=== PATIENT | female | born 1955 | race Two or more races ===

== ENCOUNTER 2018-01-30 14:33 | Inpatient (IN) | END 2018-09-30 23:59 | disposition still patient (30) | DRG 133 | DX: J96.11 Chronic respiratory failure with hypoxia (principal); K55.9 Vascular disorder of intestine, unspecified; E11.52 Type 2 diabetes mellitus with diabetic peripheral angiopathy with gangrene; Z93.0 Tracheostomy status; I11.0 Hypertensive heart disease with heart failure; I50.9 Heart failure, unspecified; R13.10 Dysphagia, unspecified; E87.1 Hypo-osmolality and hyponatremia; E11.41 Type 2 diabetes mellitus with diabetic mononeuropathy; I10 Essential (primary) hypertension; E11.9 Type 2 diabetes mellitus without complications; B96.1 Klebsiella pneumoniae [K. pneumoniae] as the cause of diseases classified elsewhere; N39.0 Urinary tract infection, site not specified; Z93.1 Gastrostomy status; B96.89 Other specified bacterial agents as the cause of diseases classified elsewhere; E78.5 Hyperlipidemia, unspecified; I25.2 Old myocardial infarction; E11.49 Type 2 diabetes mellitus with other diabetic neurological complication; G47.00 Insomnia, unspecified; G57.93 Unspecified mononeuropathy of bilateral lower limbs; I25.10 Atherosclerotic heart disease of native coronary artery without angina pectoris; E11.622 Type 2 diabetes mellitus with other skin ulcer; I70.201 Unspecified atherosclerosis of native arteries of extremities, right leg; I70.239 Atherosclerosis of native arteries of right leg with ulceration of unspecified site; G89.4 Chronic pain syndrome; K59.00 Constipation, unspecified; L97.919 Non-pressure chronic ulcer of unspecified part of right lower leg with unspecified severity; M21.371 Foot drop, right foot; M21.372 Foot drop, left foot; N31.9 Neuromuscular dysfunction of bladder, unspecified ==

== ENCOUNTER 2018-10-01 | Inpatient (IN) | payer MEDICAID, OTHER ==
[~2018-10-01] VITALS: Ht 154.9 cm; Wt 60.3 kg
[2018-10-02] MEDS: DAKINS HALF STRENGTH (0.25%) 480 ML BOTTLE TOP SCH (09:00)
--- NOTE | 2018-10-02 10:25 | NUR ---
Please see resident's previous account [id number] for all assessments and nurses notes. Originally admitted on 01/30/2018.
--- NOTE | 2018-10-02 10:35 | NUR ---
Please see resident's previous account [id number] for Social Service assessments, evaluations and notes. farmworker field crop met with the resident to complete intake paperwork (patient rights acknowledgement, documentation of preferred intensity of care, conditions of admission, [place] Standard Admission Agreement, and voluntary prior express consent form). farmworker field crop educated the resident on advanced healthcare directives/conservatorship. Resident is able to make decisions for her self. She declined to complete advanced healthcare directive paperwork at this time.
[2018-10-02] MEDS: ASCORBIC ACID 500 MG TABLET GT SCH (10:46)
[2018-10-02] MEDS: BUDESONIDE RESPULE INH 0.25 MG/2 ML AMPUL.NEB NEB SCH ×2 (10:53→20:05)
[2018-10-02] MEDS: METOPROLOL TARTRATE 25 MG TABLET GT SCH ×2 (10:54→21:33)
[2018-10-02] MEDS: ACIDOPHILUS/BULGARICUS 1 EACH TAB.CHEW GT SCH (10:54)
[2018-10-02] MEDS: LISINOPRIL (10MG) 10 MG TABLET GT SCH (10:57)
[2018-10-02] MEDS ORDERED: oxyCODONE/APAP (5/325 MG) 1 UDTAB TABLET GT PRN ×2 (11:00)
[2018-10-02] MEDS ORDERED: NITROGLYCERIN 0.4 MG/TAB BOTTLE SL PRN (11:00)
[2018-10-02] MEDS ORDERED: HYDROGEN PEROXIDE 480 ML BOTTLE TP PRN (11:00)
[2018-10-02] MEDS ORDERED: LOPERAMIDE HCL UDC(2 MG/10 ML) 2 MG/10 ML UDC GT PRN (11:00)
[2018-10-02] MEDS ORDERED: ONDANSETRON 4 MG TAB.RAPDIS GT PRN (11:00)
[2018-10-02] MEDS: CHLORHEXIDINE GLUCONATE 15 ML UDC MM SCH ×2 (11:04→17:43)
[2018-10-02] MEDS: MULTIVIT W/MINERALS 1 TAB TABLET PO SCH (11:07)
[2018-10-02] MEDS: CLOPIDOGREL BISULFATE 75 MG TABLET GT SCH (11:08)
[2018-10-02] MEDS: PROSOURCE / PROSTAT (PYXIS) 30 ML UDC GT SCH ×2 (11:08→17:42)
[2018-10-02] MEDS: ASPIRIN 81 MG TAB.CHEW GT SCH (11:08)
[2018-10-02] MEDS: METHADONE HCL 5 MG TABLET GT SCH ×2 (11:09→17:42)
[2018-10-02] MEDS ORDERED: ACETAMINOPHEN 650 MG/20 ML UDC- SA PATIENTS-FEVER ONLY GT PRN (11:30)
[2018-10-02] MEDS ORDERED: DEXTROSE 50%-WATER 50 ML DISP.SYRIN IV PRN (11:30)
[2018-10-02] MEDS ORDERED: CODEINE/PROMETHAZINE HCL 5 ML UDC GT PRN (11:30)
[2018-10-02 11:43] VITALS: BP 141/76
--- NOTE | 2018-10-02 12:05 | NUR ---
RT NOTE: PULMICORT TREATMENT GIVEN AT 0755. PLEASE SEE PT'S OLD ACCOUNT: [id number] FOR RESPIRATORY TREATMENT CHARTING.
[2018-10-02] MEDS: BLOOD SUGAR DIAGNOSTIC 1 EACH STRIP IN SCH ×3 (12:11→21:50)
[2018-10-02] MEDS: INSULIN REGULAR, HUMAN 100 UNIT/ML 3 ML VIAL SQ PRN ×2 (12:12→22:00)
[2018-10-02] MEDS: SIMETHICONE SUSP 40 MG/0.6 ML BOTTLE GT SCH ×3 (12:17→23:08)
[2018-10-02] MEDS: BACLOFEN (10 MG) 10 MG TABLET GT SCH ×2 (12:18→21:32)
[2018-10-02] MEDS: DOCUSATE SODIUM LIQ 100 MG/10 ML UDC GT SCH ×2 (12:18→17:13)
[2018-10-02] MEDS: LIPASE/PROTEASE/AMYLASE 1 EACH CAPSULE.DR GT SCH ×2 (12:18→17:42)
[2018-10-02] MEDS: GLUCERNA SHAKE 237 ML CAN GT SCH ×2 (12:18→17:13)
[2018-10-02] MEDS: GABAPENTIN 300 MG CAPSULE GT SCH ×2 (12:18→21:33)
[2018-10-02] MEDS: IPRATROPIUM NEB FS 0.5 MG/2.5 ML AMPUL.NEB NEB SCH ×2 (12:56→20:05)
--- NOTE | 2018-10-02 14:23 | NUR ---
RT NOTE: PATIENT RECEIVED WITH PORTEX#[address] TOLERATING CORE STRIPPER WELL. PATIENT FOUND ON OXYGEN DUE TO SOME AGITATION AFTER CRYING. PATIENT STATES THAT SHE IS PHYSICALLY OKAY BUT THAT SHE WAS SAD. PATIENT'S SP02=99% ON 2LPM. WILL CONTINUE TO MONITOR.
[2018-10-02 19:59] VITALS: BP 121/74
[2018-10-02 20:00] VITALS: BP 121/74
--- NOTE | 2018-10-02 21:20 | NUR ---
STARTED GLUCERNA 1.2 FEEDING INFUSING VIA GT TUBE ORDERED X 10 HOURS PT TOLERATED WELL
[2018-10-02] MEDS: ATORVASTATIN 40 MG TABLET GT SCH (21:32)
[2018-10-02] MEDS: Z GUARD REMEDY 2 OZ OINT TP SCH (21:33)
[2018-10-02] MEDS: HYDROGEN PEROXIDE 480 ML BOTTLE TP SCH (21:33)
[2018-10-02] MEDS: MELATONIN 5 MG TABLET GT SCH (21:34)
[2018-10-02] MEDS: SENNOSIDES 8.6 MG TABLET GT SCH (21:34)
[2018-10-02] MEDS: NORTRIPTYLINE HCL 10 MG CAPSULE GT SCH (21:37)
[2018-10-02] MEDS: INSULIN GLARGINE, 100 UNIT/ML CARTRIDGE SQ SCH (21:51)
[2018-10-03] MEDS: IPRATROPIUM NEB FS 0.5 MG/2.5 ML AMPUL.NEB NEB SCH ×4 (02:13→20:16)
[2018-10-03] MEDS: GABAPENTIN 300 MG CAPSULE GT SCH ×3 (05:16→21:13)
[2018-10-03] MEDS: PREVACID 30 MG GT SCH (05:16)
[2018-10-03] MEDS: SIMETHICONE SUSP 40 MG/0.6 ML BOTTLE GT SCH ×3 (05:16→17:14)
[2018-10-03] MEDS: BACLOFEN (10 MG) 10 MG TABLET GT SCH ×3 (05:16→21:13)
[2018-10-03] MEDS: BLOOD SUGAR DIAGNOSTIC 1 EACH STRIP IN SCH ×4 (06:48→21:29)
[2018-10-03] MEDS: INSULIN REGULAR, HUMAN 100 UNIT/ML 3 ML VIAL SQ PRN ×2 (06:55→12:08)
[2018-10-03 07:40] VITALS: BP 113/54
[2018-10-03] MEDS: BUDESONIDE RESPULE INH 0.25 MG/2 ML AMPUL.NEB NEB SCH ×2 (07:50→20:16)
[2018-10-03] MEDS: ACIDOPHILUS/BULGARICUS 1 EACH TAB.CHEW GT SCH (09:00)
[2018-10-03] MEDS: DAKINS HALF STRENGTH (0.25%) 480 ML BOTTLE TOP SCH (09:00)
[2018-10-03] MEDS: ASPIRIN 81 MG TAB.CHEW GT SCH (09:00)
[2018-10-03] MEDS: METHADONE HCL 5 MG TABLET GT SCH ×2 (09:00→17:00)
[2018-10-03] MEDS: PROSOURCE / PROSTAT (PYXIS) 30 ML UDC GT SCH ×2 (09:00→17:14)
[2018-10-03] MEDS: CLOPIDOGREL BISULFATE 75 MG TABLET GT SCH (09:00)
[2018-10-03] MEDS: LISINOPRIL (10MG) 10 MG TABLET GT SCH (09:00)
[2018-10-03] MEDS: ASCORBIC ACID 500 MG TABLET GT SCH (09:00)
[2018-10-03] MEDS: HYDROGEN PEROXIDE 480 ML BOTTLE TP SCH ×2 (09:00→21:13)
[2018-10-03] MEDS: DOCUSATE SODIUM LIQ 100 MG/10 ML UDC GT SCH ×3 (09:00→17:14)
[2018-10-03] MEDS: LIPASE/PROTEASE/AMYLASE 1 EACH CAPSULE.DR GT SCH ×3 (09:00→17:14)
[2018-10-03] MEDS: CHLORHEXIDINE GLUCONATE 15 ML UDC MM SCH ×2 (09:00→17:14)
[2018-10-03] MEDS: MULTIVIT W/MINERALS 1 TAB TABLET PO SCH (09:00)
[2018-10-03] MEDS: METOPROLOL TARTRATE 25 MG TABLET GT SCH ×2 (09:00→21:00)
[2018-10-03] MEDS: GLUCERNA SHAKE 237 ML CAN GT SCH ×3 (09:00→17:14)
[2018-10-03] MEDS: Z GUARD REMEDY 2 OZ OINT TP SCH ×2 (09:00→21:14)
--- NOTE | 2018-10-03 16:14 | NUR ---
Notified Dr. Velásquez of patient's refusal to take Nortriptyline d/t feeling sleepy after taking medication. Dr. Velásquez does not want to discontinue medication at this time.
[2018-10-03 20:07] VITALS: BP 90/55
--- NOTE | 2018-10-03 20:30 | NUR ---
SEEN BY PROJECT CONSTRUCTION ASSISTANT MANAGER ADITYA GUTIÉRREZ,NO NEW ORDER.TOLD HER PATIENT HAVE NEW ORDER TO INCREASE GABAPENTIN.AND METHADONE.PT SO SLEEPY.
[2018-10-03] MEDS: ATORVASTATIN 40 MG TABLET GT SCH (21:13)
[2018-10-03] MEDS: MELATONIN 5 MG TABLET GT SCH (21:14)
[2018-10-03] MEDS: SENNOSIDES 8.6 MG TABLET GT SCH (21:29)
[2018-10-03] MEDS: INSULIN GLARGINE, 100 UNIT/ML CARTRIDGE SQ SCH (21:31)
[2018-10-03] MEDS: NORTRIPTYLINE HCL 10 MG CAPSULE GT SCH (21:37)
[2018-10-04] MEDS: IPRATROPIUM NEB FS 0.5 MG/2.5 ML AMPUL.NEB NEB SCH ×4 (01:31→20:12)
[2018-10-04] MEDS: GABAPENTIN 300 MG CAPSULE GT SCH ×3 (05:00→21:11)
[2018-10-04] MEDS: BACLOFEN (10 MG) 10 MG TABLET GT SCH ×3 (05:00→21:10)
[2018-10-04] MEDS: PREVACID 30 MG GT SCH (06:55)
[2018-10-04] MEDS: SIMETHICONE SUSP 40 MG/0.6 ML BOTTLE GT SCH ×4 (06:55→17:15)
[2018-10-04] MEDS: BLOOD SUGAR DIAGNOSTIC 1 EACH STRIP IN SCH ×4 (06:55→21:29)
[2018-10-04] MEDS: INSULIN REGULAR, HUMAN 100 UNIT/ML 3 ML VIAL SQ PRN ×3 (06:56→21:39)
[2018-10-04 07:43] VITALS: BP 135/57
[2018-10-04] MEDS: Z GUARD REMEDY 2 OZ OINT TP SCH ×2 (09:00→21:11)
[2018-10-04] MEDS: MULTIVIT W/MINERALS 1 TAB TABLET PO SCH (09:00)
[2018-10-04] MEDS: DAKINS HALF STRENGTH (0.25%) 480 ML BOTTLE TOP SCH (09:00)
[2018-10-04] MEDS: HYDROGEN PEROXIDE 480 ML BOTTLE TP SCH ×2 (09:00→21:11)
[2018-10-04] MEDS: BUDESONIDE RESPULE INH 0.25 MG/2 ML AMPUL.NEB NEB SCH ×2 (09:18→20:11)
[2018-10-04] MEDS: ACIDOPHILUS/BULGARICUS 1 EACH TAB.CHEW GT SCH (09:32)
[2018-10-04] MEDS: DOCUSATE SODIUM LIQ 100 MG/10 ML UDC GT SCH ×3 (09:32→17:15)
[2018-10-04] MEDS: ASPIRIN 81 MG TAB.CHEW GT SCH (09:32)
[2018-10-04] MEDS: METOPROLOL TARTRATE 25 MG TABLET GT SCH ×2 (09:33→21:11)
[2018-10-04] MEDS: METHADONE HCL 5 MG TABLET GT SCH ×2 (09:34→17:00)
[2018-10-04] MEDS: LIPASE/PROTEASE/AMYLASE 1 EACH CAPSULE.DR GT SCH ×3 (09:35→17:15)
[2018-10-04] MEDS: CLOPIDOGREL BISULFATE 75 MG TABLET GT SCH (09:35)
[2018-10-04] MEDS: LISINOPRIL (10MG) 10 MG TABLET GT SCH (09:35)
[2018-10-04] MEDS: CHLORHEXIDINE GLUCONATE 15 ML UDC MM SCH ×2 (09:36→17:15)
[2018-10-04] MEDS: ASCORBIC ACID 500 MG TABLET GT SCH (09:36)
[2018-10-04] MEDS: PROSOURCE / PROSTAT (PYXIS) 30 ML UDC GT SCH ×2 (09:36→17:15)
--- NOTE | 2018-10-04 11:42 | NUR ---
Dr. Gomez came and seen patient. Left lower extremity wound debridement done at bedside. Tolerated well. With minimal bleeding. Dressing applied. Consent signed by resident. Ara Pathak (Granddaughter) informed about the procedure done. Will continue to monitor.
--- NOTE | 2018-10-04 18:50 | NUR ---
Seen by SENDY Hernandez, no new order given.
[2018-10-04] MEDS: GLUCERNA 1.2 1,000 ML BOTTLE GT PRN (19:59)
[2018-10-04 20:22] VITALS: BP 141/84
--- NOTE | 2018-10-04 20:40 | NUR ---
RT NOTE PATIENT RECEIVED ON HEALTH AND WELLNESS MANAGER WITH 28% NASAL CANNULA. EMERGENCY TRACH TUBE CHANGE PERFORMED DUE TO SOB. SX DONE, SMALL THICK YELLOW SECRETIONS. . PORTEX [address] NO BLEEDING NOTED. PATIENT STABLE, NO DISTRESS NOTED POST TRACH CHANGE. SP02 @ 98%, HR 92. TX GIVEN, NO ADVERSE REACTIONS NOTED. CHARGE NURSE, EMILE AVINA.
[2018-10-04] MEDS: ATORVASTATIN 40 MG TABLET GT SCH (21:10)
[2018-10-04] MEDS: SENNOSIDES 8.6 MG TABLET GT SCH (21:11)
[2018-10-04] MEDS: NORTRIPTYLINE HCL 10 MG CAPSULE GT SCH (21:11)
[2018-10-04] MEDS: MELATONIN 5 MG TABLET GT SCH (21:11)
[2018-10-04] MEDS: INSULIN GLARGINE, 100 UNIT/ML CARTRIDGE SQ SCH (21:38)
[2018-10-05] MEDS: SIMETHICONE SUSP 40 MG/0.6 ML BOTTLE GT SCH ×4 (00:26→17:05)
[2018-10-05] MEDS: IPRATROPIUM NEB FS 0.5 MG/2.5 ML AMPUL.NEB NEB SCH ×4 (02:15→20:19)
--- NOTE | 2018-10-05 03:00 | NUR ---
Pt noted by RT during rounds,pale looking and lethargic,hard to wake up,suctioned,sternal rub done,and nipple pinched and patient responded to HR 50's,BP 90/38,temp 97.8,O2,breathing treatment given,O2 sats 100%.Closely monitor condition.
--- NOTE | 2018-10-05 04:00 | NUR ---
Patient responsive when you call her name,but still looks weak.O2 100%.Pt asked to be repositioned.Kept comfortable.
[2018-10-05] MEDS: BACLOFEN (10 MG) 10 MG TABLET GT SCH ×3 (05:54→21:32)
[2018-10-05] MEDS: GABAPENTIN 300 MG CAPSULE GT SCH ×3 (05:54→21:32)
[2018-10-05] MEDS: PREVACID 30 MG GT SCH (05:54)
--- NOTE | 2018-10-05 05:55 | NUR ---
Pt arousable when calling her name.Noted with thick secretions,suctioned by RT and LN.HR 72,BP116/58,O2 sats 99%.Will continue to monitor and will endorse.
[2018-10-05] MEDS: ALBUTEROL FS 2.5 MG/3 ML VIAL.NEB NEB PRN (06:01)
[2018-10-05] MEDS: BLOOD SUGAR DIAGNOSTIC 1 EACH STRIP IN SCH ×4 (06:48→22:09)
[2018-10-05] MEDS: INSULIN REGULAR, HUMAN 100 UNIT/ML 3 ML VIAL SQ PRN ×4 (06:50→22:11)
--- NOTE | 2018-10-05 08:00 | NUR ---
Patient sleepy, open her eyes when i called her name, she is alert with episodes of confusion. She verbalized that she has a lot of stools and needs to be clean right now. She was stripping her hospital gown, taking out her blanket. Redirected, told her that she was just cleaned earlier, but she keeps saying she needs to be clean right now. POWDERED METAL SUPERVISOR cleaned her, she had medium BM, Provided good padmaja care. After patient was cleaned, she went back to sleep, calm, no labored breathing, on cont. 02 via nasal canula. Kept HOB elevated at all times. Patient not in distress.
[2018-10-05] MEDS: BUDESONIDE RESPULE INH 0.25 MG/2 ML AMPUL.NEB NEB SCH ×2 (08:08→20:04)
[2018-10-05] MEDS: LISINOPRIL (10MG) 10 MG TABLET GT SCH (09:00)
[2018-10-05] MEDS: METHADONE HCL 5 MG TABLET GT SCH ×2 (09:00→17:00)
[2018-10-05] MEDS: METOPROLOL TARTRATE 25 MG TABLET GT SCH ×2 (09:00→21:00)
[2018-10-05 09:38] VITALS: BP 106/61
[2018-10-05] MEDS: DOCUSATE SODIUM LIQ 100 MG/10 ML UDC GT SCH ×3 (09:54→16:54)
[2018-10-05] MEDS: ASPIRIN 81 MG TAB.CHEW GT SCH (09:54)
[2018-10-05] MEDS: ACIDOPHILUS/BULGARICUS 1 EACH TAB.CHEW GT SCH (09:54)
[2018-10-05] MEDS: LIPASE/PROTEASE/AMYLASE 1 EACH CAPSULE.DR GT SCH ×3 (09:55→16:54)
[2018-10-05] MEDS: PROSOURCE / PROSTAT (PYXIS) 30 ML UDC GT SCH ×2 (09:55→16:54)
[2018-10-05] MEDS: CHLORHEXIDINE GLUCONATE 15 ML UDC MM SCH ×2 (09:55→16:54)
[2018-10-05] MEDS: HYDROGEN PEROXIDE 480 ML BOTTLE TP SCH ×2 (09:55→21:32)
[2018-10-05] MEDS: MULTIVIT W/MINERALS 1 TAB TABLET PO SCH (09:55)
[2018-10-05] MEDS: ASCORBIC ACID 500 MG TABLET GT SCH (09:55)
[2018-10-05] MEDS: Z GUARD REMEDY 2 OZ OINT TP SCH ×2 (09:55→21:33)
[2018-10-05] MEDS: CLOPIDOGREL BISULFATE 75 MG TABLET GT SCH (09:55)
--- NOTE | 2018-10-05 10:00 | NUR ---
Patient is noted very sleepy but arousable, Methadone 5 mg held due to being lethargic. Patient did not eat breakfast, glucerna shake given via GT. Patient kept on 02 via nasal canula, no further labored breathing at this time, no congestion, patient on loan and credit manager, tolerating well. Kept safe and comfortable. Closely monitored. v/s 104/70, HR- 70, RR - 16/MIN, temp - 97.7.
--- NOTE | 2018-10-05 14:00 | NUR ---
Patient resting comfortably, she still sleepy but arousable. No labored breathing, on 02 via nasal canula, no congestion, credit risk modeler and tolerating well. Patient verbalized that she needs to be change, CEMETERY VAULT INSTALLER provided good padmaja care, diaper changed, she had smear BM in her diaper, she is concerned to be change because she does not want to have UTI. Kept patient safe and comfortable.
[2018-10-05] MEDS: DAKINS HALF STRENGTH (0.25%) 480 ML BOTTLE TOP SCH (15:30)
--- NOTE | 2018-10-05 17:30 | NUR ---
Pt still very sleepy but arousable. Breathing even and unlabored, no SOB noted. Methadone 5 mg held due to pt being lethargic. Pt didn't eat dinner, Glucerna 8oz pack given. Will endorse to oncoming nurse to continue to monitor.
--- NOTE | 2018-10-05 19:19 | NUR ---
Patient more awake at this time,alert and oriented x 4, verbally responsive, she was able to eat 1 cup of chocolate pudding, able to drink 2 cups of water, tolerated well. No complained of pain. Patient closely monitored.
[2018-10-05] MEDS: GLUCERNA 1.2 1,000 ML BOTTLE GT PRN (20:04)
[2018-10-05 20:31] VITALS: BP 100/57
[2018-10-05] MEDS: ATORVASTATIN 40 MG TABLET GT SCH (21:32)
[2018-10-05] MEDS: SENNOSIDES 8.6 MG TABLET GT SCH (21:33)
[2018-10-05] MEDS: NORTRIPTYLINE HCL 10 MG CAPSULE GT SCH (21:33)
[2018-10-05] MEDS: MELATONIN 5 MG TABLET GT SCH (22:00)
[2018-10-05] MEDS: INSULIN GLARGINE, 100 UNIT/ML CARTRIDGE SQ SCH (22:10)
[2018-10-06] MEDS: SIMETHICONE SUSP 40 MG/0.6 ML BOTTLE GT SCH ×4 (00:10→18:12)
[2018-10-06] MEDS: IPRATROPIUM NEB FS 0.5 MG/2.5 ML AMPUL.NEB NEB SCH ×4 (01:34→20:05)
[2018-10-06] MEDS: PREVACID 30 MG GT SCH (05:56)
[2018-10-06] MEDS: GABAPENTIN 300 MG CAPSULE GT SCH ×3 (05:56→21:13)
[2018-10-06] MEDS: BACLOFEN (10 MG) 10 MG TABLET GT SCH ×3 (05:56→21:13)
[2018-10-06] MEDS: BLOOD SUGAR DIAGNOSTIC 1 EACH STRIP IN SCH ×4 (06:55→21:42)
[2018-10-06] MEDS: INSULIN REGULAR, HUMAN 100 UNIT/ML 3 ML VIAL SQ PRN ×3 (06:56→18:04)
[2018-10-06 07:53] VITALS: BP 124/66
[2018-10-06] MEDS: BUDESONIDE RESPULE INH 0.25 MG/2 ML AMPUL.NEB NEB SCH ×2 (08:33→20:05)
[2018-10-06] MEDS: HYDROGEN PEROXIDE 480 ML BOTTLE TP SCH ×2 (09:00→21:15)
[2018-10-06] MEDS: Z GUARD REMEDY 2 OZ OINT TP SCH ×2 (09:00→21:15)
[2018-10-06] MEDS: ASPIRIN 81 MG TAB.CHEW GT SCH (09:27)
[2018-10-06] MEDS: DOCUSATE SODIUM LIQ 100 MG/10 ML UDC GT SCH ×3 (09:27→17:00)
[2018-10-06] MEDS: ACIDOPHILUS/BULGARICUS 1 EACH TAB.CHEW GT SCH (09:28)
[2018-10-06] MEDS: METOPROLOL TARTRATE 25 MG TABLET GT SCH ×2 (09:29→21:14)
[2018-10-06] MEDS: METHADONE HCL 5 MG TABLET GT SCH ×2 (09:38→17:00)
[2018-10-06] MEDS: LIPASE/PROTEASE/AMYLASE 1 EACH CAPSULE.DR GT SCH ×3 (09:39→17:00)
[2018-10-06] MEDS: CLOPIDOGREL BISULFATE 75 MG TABLET GT SCH (09:39)
[2018-10-06] MEDS: PROSOURCE / PROSTAT (PYXIS) 30 ML UDC GT SCH ×2 (09:40→17:00)
[2018-10-06] MEDS: ASCORBIC ACID 500 MG TABLET GT SCH (09:40)
[2018-10-06] MEDS: CHLORHEXIDINE GLUCONATE 15 ML UDC MM SCH ×2 (09:40→17:00)
[2018-10-06] MEDS: LISINOPRIL (10MG) 10 MG TABLET GT SCH (09:40)
[2018-10-06] MEDS: MULTIVIT W/MINERALS 1 TAB TABLET PO SCH (09:40)
[2018-10-06 20:34] VITALS: BP 139/72
[2018-10-06] MEDS: ATORVASTATIN 40 MG TABLET GT SCH (21:13)
[2018-10-06] MEDS: MELATONIN 5 MG TABLET GT SCH (21:16)
[2018-10-06] MEDS: SENNOSIDES 8.6 MG TABLET GT SCH (21:17)
[2018-10-06] MEDS: NORTRIPTYLINE HCL 10 MG CAPSULE GT SCH (21:17)
[2018-10-06] MEDS: GLUCERNA 1.2 1,000 ML BOTTLE GT PRN (21:29)
[2018-10-06] MEDS: INSULIN GLARGINE, 100 UNIT/ML CARTRIDGE SQ SCH (21:44)
[2018-10-07] MEDS: IPRATROPIUM NEB FS 0.5 MG/2.5 ML AMPUL.NEB NEB SCH ×4 (02:15→19:57)
[2018-10-07] MEDS: PREVACID 30 MG GT SCH (06:13)
[2018-10-07] MEDS: BACLOFEN (10 MG) 10 MG TABLET GT SCH ×3 (06:14→21:12)
[2018-10-07] MEDS: GABAPENTIN 300 MG CAPSULE GT SCH ×3 (06:14→21:12)
[2018-10-07] MEDS: SIMETHICONE SUSP 40 MG/0.6 ML BOTTLE GT SCH ×4 (06:16→17:44)
[2018-10-07] MEDS: BUDESONIDE RESPULE INH 0.25 MG/2 ML AMPUL.NEB NEB SCH ×2 (07:30→19:57)
[2018-10-07] MEDS: BLOOD SUGAR DIAGNOSTIC 1 EACH STRIP IN SCH ×4 (08:04→21:16)
[2018-10-07 08:11] VITALS: BP 130/68
[2018-10-07] MEDS: HYDROGEN PEROXIDE 480 ML BOTTLE TP SCH ×2 (09:00→21:13)
[2018-10-07] MEDS: Z GUARD REMEDY 2 OZ OINT TP SCH ×2 (09:00→21:13)
[2018-10-07] MEDS: DAKINS HALF STRENGTH (0.25%) 480 ML BOTTLE TOP SCH (09:00)
[2018-10-07] MEDS: METOPROLOL TARTRATE 25 MG TABLET GT SCH ×2 (09:05→21:13)
[2018-10-07] MEDS: ACIDOPHILUS/BULGARICUS 1 EACH TAB.CHEW GT SCH (09:05)
[2018-10-07] MEDS: ASPIRIN 81 MG TAB.CHEW GT SCH (09:05)
[2018-10-07] MEDS: DOCUSATE SODIUM LIQ 100 MG/10 ML UDC GT SCH ×3 (09:05→17:38)
[2018-10-07] MEDS: METHADONE HCL 5 MG TABLET GT SCH ×2 (09:06→17:38)
[2018-10-07] MEDS: CLOPIDOGREL BISULFATE 75 MG TABLET GT SCH (09:06)
[2018-10-07] MEDS: LIPASE/PROTEASE/AMYLASE 1 EACH CAPSULE.DR GT SCH ×3 (09:06→17:38)
[2018-10-07] MEDS: LISINOPRIL (10MG) 10 MG TABLET GT SCH (09:08)
[2018-10-07] MEDS: ASCORBIC ACID 500 MG TABLET GT SCH (09:09)
[2018-10-07] MEDS: PROSOURCE / PROSTAT (PYXIS) 30 ML UDC GT SCH ×2 (09:09→17:38)
[2018-10-07] MEDS: CHLORHEXIDINE GLUCONATE 15 ML UDC MM SCH ×2 (09:09→17:36)
[2018-10-07] MEDS: MULTIVIT W/MINERALS 1 TAB TABLET PO SCH (09:09)
[2018-10-07] MEDS: INSULIN REGULAR, HUMAN 100 UNIT/ML 3 ML VIAL SQ PRN ×2 (12:43→17:43)
[2018-10-07 20:33] VITALS: BP 137/79
[2018-10-07] MEDS: NORTRIPTYLINE HCL 10 MG CAPSULE GT SCH (21:13)
[2018-10-07] MEDS: ATORVASTATIN 40 MG TABLET GT SCH (21:13)
[2018-10-07] MEDS: MELATONIN 5 MG TABLET GT SCH (21:14)
[2018-10-07] MEDS: SENNOSIDES 8.6 MG TABLET GT SCH (21:16)
[2018-10-07] MEDS: GLUCERNA 1.2 1,000 ML BOTTLE GT PRN (21:18)
[2018-10-07] MEDS: INSULIN GLARGINE, 100 UNIT/ML CARTRIDGE SQ SCH (21:32)
[2018-10-08] MEDS: SIMETHICONE SUSP 40 MG/0.6 ML BOTTLE GT SCH ×5 (00:49→23:20)
[2018-10-08] MEDS: IPRATROPIUM NEB FS 0.5 MG/2.5 ML AMPUL.NEB NEB SCH ×4 (00:55→19:30)
[2018-10-08] MEDS: BACLOFEN (10 MG) 10 MG TABLET GT SCH ×3 (05:52→21:00)
[2018-10-08] MEDS: GABAPENTIN 300 MG CAPSULE GT SCH ×3 (05:53→21:00)
[2018-10-08] MEDS: PREVACID 30 MG GT SCH (05:54)
[2018-10-08] MEDS: BUDESONIDE RESPULE INH 0.25 MG/2 ML AMPUL.NEB NEB SCH ×2 (07:15→19:30)
[2018-10-08] MEDS: BLOOD SUGAR DIAGNOSTIC 1 EACH STRIP IN SCH ×4 (07:30→22:39)
[2018-10-08 08:17] VITALS: BP 113/77
[2018-10-08] MEDS: DAKINS HALF STRENGTH (0.25%) 480 ML BOTTLE TOP SCH (09:00)
[2018-10-08] MEDS: Z GUARD REMEDY 2 OZ OINT TP SCH ×2 (09:00→21:00)
[2018-10-08] MEDS: HYDROGEN PEROXIDE 480 ML BOTTLE TP SCH ×2 (09:00→21:00)
[2018-10-08] MEDS: INSULIN REGULAR, HUMAN 100 UNIT/ML 3 ML VIAL SQ PRN ×4 (09:28→22:39)
[2018-10-08] MEDS: DOCUSATE SODIUM LIQ 100 MG/10 ML UDC GT SCH ×3 (09:44→17:30)
[2018-10-08] MEDS: CLOPIDOGREL BISULFATE 75 MG TABLET GT SCH (09:44)
[2018-10-08] MEDS: ASPIRIN 81 MG TAB.CHEW GT SCH (09:44)
[2018-10-08] MEDS: ACIDOPHILUS/BULGARICUS 1 EACH TAB.CHEW GT SCH (09:44)
[2018-10-08] MEDS: METOPROLOL TARTRATE 25 MG TABLET GT SCH ×2 (09:44→21:00)
[2018-10-08] MEDS: PROSOURCE / PROSTAT (PYXIS) 30 ML UDC GT SCH ×2 (09:44→17:31)
[2018-10-08] MEDS: CHLORHEXIDINE GLUCONATE 15 ML UDC MM SCH ×2 (09:44→17:31)
[2018-10-08] MEDS: MULTIVIT W/MINERALS 1 TAB TABLET PO SCH (09:44)
[2018-10-08] MEDS: ASCORBIC ACID 500 MG TABLET GT SCH (09:44)
[2018-10-08] MEDS: METHADONE HCL 5 MG TABLET GT SCH ×2 (09:44→17:31)
[2018-10-08] MEDS: LIPASE/PROTEASE/AMYLASE 1 EACH CAPSULE.DR GT SCH ×3 (09:44→17:31)
[2018-10-08] MEDS: LISINOPRIL (10MG) 10 MG TABLET GT SCH (09:45)
--- NOTE | 2018-10-08 17:39 | NUR ---
Seen by Dr Arndt. Notified him that pt is refusing Nortriptyline for peripheral neuropathy. Pt said she has been awake the whole day. Pt slept throughout the night. Dr Arndt auscultated her lungs and told her that her lungs sound clear. He also told her that her wheezing might just be from the upper airway. No new order.
[2018-10-08 20:22] VITALS: BP 144/78
[2018-10-08] MEDS: ATORVASTATIN 40 MG TABLET GT SCH (21:00)
[2018-10-08] MEDS: NORTRIPTYLINE HCL 10 MG CAPSULE GT SCH (22:00)
[2018-10-08] MEDS: SENNOSIDES 8.6 MG TABLET GT SCH (22:14)
[2018-10-08] MEDS: MELATONIN 5 MG TABLET GT SCH (22:14)
[2018-10-08] MEDS: INSULIN GLARGINE, 100 UNIT/ML CARTRIDGE SQ SCH (22:41)
--- NOTE | 2018-10-08 22:42 | NUR ---
RESIDENT'S BS 148. NO COVERAGE NEEDED
[2018-10-09] MEDS: IPRATROPIUM NEB FS 0.5 MG/2.5 ML AMPUL.NEB NEB SCH ×4 (02:03→20:04)
[2018-10-09] MEDS: GLUCERNA 1.2 1,000 ML BOTTLE GT PRN ×2 (02:25→20:42)
[2018-10-09] MEDS: GABAPENTIN 300 MG CAPSULE GT SCH ×3 (05:00→21:55)
[2018-10-09] MEDS: BACLOFEN (10 MG) 10 MG TABLET GT SCH ×3 (05:00→21:55)
[2018-10-09] MEDS: SIMETHICONE SUSP 40 MG/0.6 ML BOTTLE GT SCH ×3 (06:20→17:04)
[2018-10-09] MEDS: PREVACID 30 MG GT SCH (06:20)
[2018-10-09] MEDS: BLOOD SUGAR DIAGNOSTIC 1 EACH STRIP IN SCH ×4 (06:32→22:50)
[2018-10-09] MEDS: INSULIN REGULAR, HUMAN 100 UNIT/ML 3 ML VIAL SQ PRN ×3 (06:33→22:51)
[2018-10-09 08:10] VITALS: BP 119/65
[2018-10-09] MEDS: BUDESONIDE RESPULE INH 0.25 MG/2 ML AMPUL.NEB NEB SCH ×2 (08:11→20:04)
[2018-10-09] MEDS: DOCUSATE SODIUM LIQ 100 MG/10 ML UDC GT SCH ×3 (09:04→16:44)
[2018-10-09] MEDS: ACIDOPHILUS/BULGARICUS 1 EACH TAB.CHEW GT SCH (09:04)
[2018-10-09] MEDS: HYDROGEN PEROXIDE 480 ML BOTTLE TP SCH ×2 (09:05→21:55)
[2018-10-09] MEDS: ASCORBIC ACID 500 MG TABLET GT SCH (09:05)
[2018-10-09] MEDS: CHLORHEXIDINE GLUCONATE 15 ML UDC MM SCH ×2 (09:05→16:45)
[2018-10-09] MEDS: ASPIRIN 81 MG TAB.CHEW GT SCH (09:05)
[2018-10-09] MEDS: DAKINS HALF STRENGTH (0.25%) 480 ML BOTTLE TOP SCH (09:05)
[2018-10-09] MEDS: MULTIVIT W/MINERALS 1 TAB TABLET PO SCH (09:05)
[2018-10-09] MEDS: Z GUARD REMEDY 2 OZ OINT TP SCH ×2 (09:06→21:55)
[2018-10-09] MEDS: METOPROLOL TARTRATE 25 MG TABLET GT SCH ×2 (09:10→21:55)
[2018-10-09] MEDS: METHADONE HCL 5 MG TABLET GT SCH ×2 (09:11→16:46)
[2018-10-09] MEDS: CLOPIDOGREL BISULFATE 75 MG TABLET GT SCH (09:12)
[2018-10-09] MEDS: PROSOURCE / PROSTAT (PYXIS) 30 ML UDC GT SCH ×2 (09:12→16:45)
[2018-10-09] MEDS: LIPASE/PROTEASE/AMYLASE 1 EACH CAPSULE.DR GT SCH ×3 (09:12→16:46)
[2018-10-09] MEDS: LISINOPRIL (10MG) 10 MG TABLET GT SCH (09:12)
--- NOTE | 2018-10-09 09:22 | NUR ---
Placed a call to Dr. Velásquez, pain management, relayed message with MD's staff [place] that patient is refusing Nortriptyline for peripheral neuropathy. She stated MD is not in but will relay the message when he comes. Endorsed.
[2018-10-09 19:56] VITALS: BP 95/69
[2018-10-09] MEDS: ATORVASTATIN 40 MG TABLET GT SCH (21:55)
[2018-10-09] MEDS: NORTRIPTYLINE HCL 10 MG CAPSULE GT SCH ×2 (22:00→22:17)
[2018-10-09] MEDS: MELATONIN 5 MG TABLET GT SCH (22:00)
[2018-10-09] MEDS: SENNOSIDES 8.6 MG TABLET GT SCH (22:17)
[2018-10-09] MEDS: INSULIN GLARGINE, 100 UNIT/ML CARTRIDGE SQ SCH (22:51)
[2018-10-10] MEDS: SIMETHICONE SUSP 40 MG/0.6 ML BOTTLE GT SCH ×4 (00:29→17:59)
[2018-10-10] MEDS: IPRATROPIUM NEB FS 0.5 MG/2.5 ML AMPUL.NEB NEB SCH ×4 (02:13→20:18)
[2018-10-10] MEDS: GABAPENTIN 300 MG CAPSULE GT SCH ×3 (05:46→21:46)
[2018-10-10] MEDS: BACLOFEN (10 MG) 10 MG TABLET GT SCH ×3 (05:46→21:44)
[2018-10-10] MEDS: PREVACID 30 MG GT SCH (05:46)
[2018-10-10] MEDS: BLOOD SUGAR DIAGNOSTIC 1 EACH STRIP IN SCH ×4 (07:07→21:47)
[2018-10-10] MEDS: INSULIN REGULAR, HUMAN 100 UNIT/ML 3 ML VIAL SQ PRN ×3 (07:08→22:35)
[2018-10-10] MEDS: BUDESONIDE RESPULE INH 0.25 MG/2 ML AMPUL.NEB NEB SCH ×2 (08:03→20:18)
[2018-10-10 08:04] VITALS: BP 105/66
[2018-10-10] MEDS: Z GUARD REMEDY 2 OZ OINT TP SCH ×2 (09:00→21:46)
[2018-10-10] MEDS: METOPROLOL TARTRATE 25 MG TABLET GT SCH ×2 (09:00→21:46)
[2018-10-10] MEDS: HYDROGEN PEROXIDE 480 ML BOTTLE TP SCH ×2 (09:00→21:46)
[2018-10-10] MEDS: DAKINS HALF STRENGTH (0.25%) 480 ML BOTTLE TOP SCH (09:00)
[2018-10-10] MEDS: LISINOPRIL (10MG) 10 MG TABLET GT SCH (09:00)
[2018-10-10] MEDS: ASPIRIN 81 MG TAB.CHEW GT SCH (09:55)
[2018-10-10] MEDS: DOCUSATE SODIUM LIQ 100 MG/10 ML UDC GT SCH ×3 (09:56→17:00)
[2018-10-10] MEDS: ACIDOPHILUS/BULGARICUS 1 EACH TAB.CHEW GT SCH (09:56)
[2018-10-10] MEDS: MULTIVIT W/MINERALS 1 TAB TABLET PO SCH (09:58)
[2018-10-10] MEDS: ASCORBIC ACID 500 MG TABLET GT SCH (09:58)
[2018-10-10] MEDS: CHLORHEXIDINE GLUCONATE 15 ML UDC MM SCH ×2 (09:58→17:00)
[2018-10-10] MEDS: PROSOURCE / PROSTAT (PYXIS) 30 ML UDC GT SCH ×2 (09:58→17:00)
[2018-10-10] MEDS: CLOPIDOGREL BISULFATE 75 MG TABLET GT SCH (09:58)
[2018-10-10] MEDS: METHADONE HCL 5 MG TABLET GT SCH ×2 (09:58→17:00)
[2018-10-10] MEDS: LIPASE/PROTEASE/AMYLASE 1 EACH CAPSULE.DR GT SCH ×3 (09:58→17:00)
--- NOTE | 2018-10-10 11:23 | NUR ---
Called Dr Didier Hutchinson's office to notify him that pt is refusing Nortriptyline. Left message with [place] who said that Dr Hutchinson is not in.
--- NOTE | 2018-10-10 16:38 | NUR ---
Seen by SENDY Hernandez. Pt complained of cough. SENDY Hernandez listened to her lung sounds and told her that her lungs sound clear. Pt insisted that her cough is bothering her. SENDY Hernandez ordered to give Flonase nasal spray 1 puff to each nostril BID and Robitussin 1 tbsp po q 6 hours PRN. Pt aware of new orders.
[2018-10-10] MEDS: FLUTICASONE PROPIONATE 16 GM BOTTLE NS SCH (17:00)
[2018-10-10] MEDS: MAGNESIUM HYDROXIDE 30 ML UDC GT PRN (20:00)
[2018-10-10 20:28] VITALS: BP 136/78
[2018-10-10] MEDS: ATORVASTATIN 40 MG TABLET GT SCH (21:45)
[2018-10-10] MEDS: SENNOSIDES 8.6 MG TABLET GT SCH (21:46)
[2018-10-10] MEDS: MELATONIN 5 MG TABLET GT SCH (21:46)
[2018-10-10] MEDS: NORTRIPTYLINE HCL 10 MG CAPSULE GT SCH (21:46)
[2018-10-10] MEDS: INSULIN GLARGINE, 100 UNIT/ML CARTRIDGE SQ SCH (22:32)
[2018-10-11] MEDS: IPRATROPIUM NEB FS 0.5 MG/2.5 ML AMPUL.NEB NEB SCH ×4 (02:16→20:09)
[2018-10-11] MEDS: GABAPENTIN 300 MG CAPSULE GT SCH ×3 (05:46→21:23)
[2018-10-11] MEDS: PREVACID 30 MG GT SCH (05:46)
[2018-10-11] MEDS: BACLOFEN (10 MG) 10 MG TABLET GT SCH ×3 (05:46→21:22)
[2018-10-11] MEDS: SIMETHICONE SUSP 40 MG/0.6 ML BOTTLE GT SCH ×5 (05:46→23:38)
[2018-10-11] MEDS: INSULIN REGULAR, HUMAN 100 UNIT/ML 3 ML VIAL SQ PRN ×4 (06:51→21:25)
[2018-10-11] MEDS: BLOOD SUGAR DIAGNOSTIC 1 EACH STRIP IN SCH ×4 (06:51→21:23)
[2018-10-11] MEDS: BUDESONIDE RESPULE INH 0.25 MG/2 ML AMPUL.NEB NEB SCH ×2 (07:36→20:09)
[2018-10-11 07:40] VITALS: BP 125/73
[2018-10-11] MEDS: PROSOURCE / PROSTAT (PYXIS) 30 ML UDC GT SCH ×2 (08:52→17:22)
[2018-10-11] MEDS: ACIDOPHILUS/BULGARICUS 1 EACH TAB.CHEW GT SCH (08:52)
[2018-10-11] MEDS: DOCUSATE SODIUM LIQ 100 MG/10 ML UDC GT SCH ×3 (08:52→17:21)
[2018-10-11] MEDS: CHLORHEXIDINE GLUCONATE 15 ML UDC MM SCH ×2 (08:52→17:22)
[2018-10-11] MEDS: MULTIVIT W/MINERALS 1 TAB TABLET PO SCH (08:52)
[2018-10-11] MEDS: CLOPIDOGREL BISULFATE 75 MG TABLET GT SCH (08:52)
[2018-10-11] MEDS: LIPASE/PROTEASE/AMYLASE 1 EACH CAPSULE.DR GT SCH ×3 (08:52→17:22)
[2018-10-11] MEDS: ASCORBIC ACID 500 MG TABLET GT SCH (08:52)
[2018-10-11] MEDS: ASPIRIN 81 MG TAB.CHEW GT SCH (08:52)
[2018-10-11] MEDS: FLUTICASONE PROPIONATE 16 GM BOTTLE NS SCH ×2 (08:53→17:22)
[2018-10-11] MEDS: LISINOPRIL (10MG) 10 MG TABLET GT SCH (08:53)
[2018-10-11] MEDS: METOPROLOL TARTRATE 25 MG TABLET GT SCH ×2 (08:54→21:23)
[2018-10-11] MEDS: METHADONE HCL 5 MG TABLET GT SCH ×2 (08:55→17:22)
[2018-10-11] MEDS: DAKINS HALF STRENGTH (0.25%) 480 ML BOTTLE TOP SCH (09:00)
[2018-10-11] MEDS: HYDROGEN PEROXIDE 480 ML BOTTLE TP SCH ×2 (09:00→21:23)
[2018-10-11] MEDS: Z GUARD REMEDY 2 OZ OINT TP SCH ×2 (09:00→21:23)
--- NOTE | 2018-10-11 11:48 | NUR ---
grain farmworker spoke with the resident's granddaughter Ara ([phone]) and informed her of upcoming IDT meeting on SundayOctober 18 from 12:30-1:30PM. She stated that she will be attending in person.
--- NOTE | 2018-10-11 16:01 | NUR ---
neon sign worker spoke with the resident who stated that she received a letter that she has been approved for medi-ana m as well as the name and number of her new medi-ana m worker. DOMINIC made a copy of the letter and will have Nic run the resident's insurance to see if it is activated. DOMINIC also informed Elen (HCFS worker), Paty Matthews in billing dept, and subacute client account manager Katy.
[2018-10-11 20:28] VITALS: BP 125/60
[2018-10-11] MEDS: GLUCERNA 1.2 1,000 ML BOTTLE GT PRN (20:42)
[2018-10-11] MEDS: ATORVASTATIN 40 MG TABLET GT SCH (21:22)
[2018-10-11] MEDS: NORTRIPTYLINE HCL 10 MG CAPSULE GT SCH (21:23)
[2018-10-11] MEDS: SENNOSIDES 8.6 MG TABLET GT SCH (21:23)
[2018-10-11] MEDS: MELATONIN 5 MG TABLET GT SCH (21:23)
[2018-10-11] MEDS: INSULIN GLARGINE, 100 UNIT/ML CARTRIDGE SQ SCH (21:24)
[2018-10-12] MEDS: IPRATROPIUM NEB FS 0.5 MG/2.5 ML AMPUL.NEB NEB SCH ×4 (01:30→20:28)
[2018-10-12] MEDS: GABAPENTIN 300 MG CAPSULE GT SCH ×3 (05:20→21:49)
[2018-10-12] MEDS: BACLOFEN (10 MG) 10 MG TABLET GT SCH ×3 (05:20→21:49)
[2018-10-12] MEDS: PREVACID 30 MG GT SCH (05:20)
[2018-10-12] MEDS: SIMETHICONE SUSP 40 MG/0.6 ML BOTTLE GT SCH ×3 (05:20→17:49)
[2018-10-12] MEDS: BLOOD SUGAR DIAGNOSTIC 1 EACH STRIP IN SCH ×4 (06:51→22:04)
[2018-10-12] MEDS: INSULIN REGULAR, HUMAN 100 UNIT/ML 3 ML VIAL SQ PRN ×4 (06:52→22:06)
[2018-10-12 07:32] VITALS: BP 126/70
[2018-10-12] MEDS: BUDESONIDE RESPULE INH 0.25 MG/2 ML AMPUL.NEB NEB SCH ×2 (07:40→20:28)
[2018-10-12] MEDS: Z GUARD REMEDY 2 OZ OINT TP SCH ×2 (09:00→21:49)
[2018-10-12] MEDS: HYDROGEN PEROXIDE 480 ML BOTTLE TP SCH ×2 (09:00→21:49)
[2018-10-12] MEDS: DAKINS HALF STRENGTH (0.25%) 480 ML BOTTLE TOP SCH (09:00)
[2018-10-12] MEDS: CHLORHEXIDINE GLUCONATE 15 ML UDC MM SCH ×2 (09:45→17:49)
[2018-10-12] MEDS: ASCORBIC ACID 500 MG TABLET GT SCH (09:45)
[2018-10-12] MEDS: LIPASE/PROTEASE/AMYLASE 1 EACH CAPSULE.DR GT SCH ×3 (09:45→17:49)
[2018-10-12] MEDS: ASPIRIN 81 MG TAB.CHEW GT SCH (09:45)
[2018-10-12] MEDS: METHADONE HCL 5 MG TABLET GT SCH ×2 (09:45→17:49)
[2018-10-12] MEDS: DOCUSATE SODIUM LIQ 100 MG/10 ML UDC GT SCH ×3 (09:45→17:49)
[2018-10-12] MEDS: ACIDOPHILUS/BULGARICUS 1 EACH TAB.CHEW GT SCH (09:45)
[2018-10-12] MEDS: CLOPIDOGREL BISULFATE 75 MG TABLET GT SCH (09:45)
[2018-10-12] MEDS: PROSOURCE / PROSTAT (PYXIS) 30 ML UDC GT SCH ×2 (09:45→17:49)
[2018-10-12] MEDS: FLUTICASONE PROPIONATE 16 GM BOTTLE NS SCH ×2 (09:46→17:49)
[2018-10-12] MEDS: MULTIVIT W/MINERALS 1 TAB TABLET PO SCH (09:46)
[2018-10-12] MEDS: METOPROLOL TARTRATE 25 MG TABLET GT SCH ×2 (09:46→21:49)
[2018-10-12] MEDS: LISINOPRIL (10MG) 10 MG TABLET GT SCH (09:46)
--- NOTE | 2018-10-12 14:40 | NUR ---
Pt requested to be out on pass tomorrow for worship then home because her siblings are in town to visit. Per pt, she is able to be off oxygen without problem. Dr. Clarke notified and order obtained. Notified patient and was very happy.
[2018-10-12] MEDS: GLUCERNA 1.2 1,000 ML BOTTLE GT PRN (20:00)
[2018-10-12 20:08] VITALS: BP 137/85
[2018-10-12] MEDS: SENNOSIDES 8.6 MG TABLET GT SCH (21:49)
[2018-10-12] MEDS: MELATONIN 5 MG TABLET GT SCH (21:49)
[2018-10-12] MEDS: ATORVASTATIN 40 MG TABLET GT SCH (21:49)
[2018-10-12] MEDS: NORTRIPTYLINE HCL 10 MG CAPSULE GT SCH (21:56)
[2018-10-12] MEDS: INSULIN GLARGINE, 100 UNIT/ML CARTRIDGE SQ SCH (22:05)
[2018-10-13] MEDS: SIMETHICONE SUSP 40 MG/0.6 ML BOTTLE GT SCH ×4 (00:47→17:34)
[2018-10-13] MEDS: IPRATROPIUM NEB FS 0.5 MG/2.5 ML AMPUL.NEB NEB SCH ×4 (02:23→19:56)
[2018-10-13] MEDS: PREVACID 30 MG GT SCH (05:41)
[2018-10-13] MEDS: BACLOFEN (10 MG) 10 MG TABLET GT SCH ×3 (05:41→20:45)
[2018-10-13] MEDS: GABAPENTIN 300 MG CAPSULE GT SCH ×3 (05:41→20:46)
[2018-10-13] MEDS: MAGNESIUM HYDROXIDE 30 ML UDC GT PRN (06:26)
[2018-10-13] MEDS: BLOOD SUGAR DIAGNOSTIC 1 EACH STRIP IN SCH ×4 (06:55→21:04)
[2018-10-13] MEDS: INSULIN REGULAR, HUMAN 100 UNIT/ML 3 ML VIAL SQ PRN ×3 (06:57→17:35)
[2018-10-13 07:33] VITALS: BP 117/64
[2018-10-13] MEDS: DOCUSATE SODIUM LIQ 100 MG/10 ML UDC GT SCH ×3 (08:26→17:33)
[2018-10-13] MEDS: CLOPIDOGREL BISULFATE 75 MG TABLET GT SCH (08:26)
[2018-10-13] MEDS: LIPASE/PROTEASE/AMYLASE 1 EACH CAPSULE.DR GT SCH ×3 (08:26→17:33)
[2018-10-13] MEDS: ASPIRIN 81 MG TAB.CHEW GT SCH (08:26)
[2018-10-13] MEDS: ACIDOPHILUS/BULGARICUS 1 EACH TAB.CHEW GT SCH (08:26)
[2018-10-13] MEDS: ASCORBIC ACID 500 MG TABLET GT SCH (08:27)
[2018-10-13] MEDS: PROSOURCE / PROSTAT (PYXIS) 30 ML UDC GT SCH ×2 (08:27→17:33)
[2018-10-13] MEDS: METOPROLOL TARTRATE 25 MG TABLET GT SCH ×2 (08:27→20:46)
[2018-10-13] MEDS: LISINOPRIL (10MG) 10 MG TABLET GT SCH (08:27)
[2018-10-13] MEDS: MULTIVIT W/MINERALS 1 TAB TABLET PO SCH (08:27)
[2018-10-13] MEDS: CHLORHEXIDINE GLUCONATE 15 ML UDC MM SCH ×2 (08:27→17:33)
[2018-10-13] MEDS: FLUTICASONE PROPIONATE 16 GM BOTTLE NS SCH ×2 (08:27→17:33)
[2018-10-13] MEDS: METHADONE HCL 5 MG TABLET GT SCH ×2 (08:28→17:33)
[2018-10-13] MEDS: BUDESONIDE RESPULE INH 0.25 MG/2 ML AMPUL.NEB NEB SCH ×2 (08:31→19:56)
[2018-10-13] MEDS: DAKINS HALF STRENGTH (0.25%) 480 ML BOTTLE TOP SCH (09:54)
[2018-10-13] MEDS: Z GUARD REMEDY 2 OZ OINT TP SCH ×2 (09:54→20:46)
[2018-10-13] MEDS: HYDROGEN PEROXIDE 480 ML BOTTLE TP SCH ×2 (09:54→20:46)
[2018-10-13 20:28] VITALS: BP 117/68
[2018-10-13] MEDS: GLUCERNA 1.2 1,000 ML BOTTLE GT PRN (20:43)
[2018-10-13] MEDS: ATORVASTATIN 40 MG TABLET GT SCH (20:46)
[2018-10-13] MEDS: NORTRIPTYLINE HCL 10 MG CAPSULE GT SCH (21:04)
[2018-10-13] MEDS: SENNOSIDES 8.6 MG TABLET GT SCH (21:04)
[2018-10-13] MEDS: MELATONIN 5 MG TABLET GT SCH (21:04)
[2018-10-13] MEDS: INSULIN GLARGINE, 100 UNIT/ML CARTRIDGE SQ SCH (21:05)
[2018-10-14] MEDS: SIMETHICONE SUSP 40 MG/0.6 ML BOTTLE GT SCH ×5 (00:57→23:05)
[2018-10-14] MEDS: IPRATROPIUM NEB FS 0.5 MG/2.5 ML AMPUL.NEB NEB SCH ×4 (01:01→20:21)
[2018-10-14] MEDS: GABAPENTIN 300 MG CAPSULE GT SCH ×3 (06:05→21:21)
[2018-10-14] MEDS: BACLOFEN (10 MG) 10 MG TABLET GT SCH ×3 (06:05→21:21)
[2018-10-14] MEDS: PREVACID 30 MG GT SCH (06:06)
[2018-10-14] MEDS: BLOOD SUGAR DIAGNOSTIC 1 EACH STRIP IN SCH ×4 (07:15→22:00)
[2018-10-14] MEDS: INSULIN REGULAR, HUMAN 100 UNIT/ML 3 ML VIAL SQ PRN ×4 (07:17→22:01)
[2018-10-14] MEDS: BUDESONIDE RESPULE INH 0.25 MG/2 ML AMPUL.NEB NEB SCH ×2 (07:44→20:21)
[2018-10-14 07:45] VITALS: BP 123/72
[2018-10-14] MEDS: HYDROGEN PEROXIDE 480 ML BOTTLE TP SCH ×2 (09:00→21:21)
[2018-10-14] MEDS: DAKINS HALF STRENGTH (0.25%) 480 ML BOTTLE TOP SCH (09:00)
[2018-10-14] MEDS: Z GUARD REMEDY 2 OZ OINT TP SCH ×2 (09:00→21:21)
[2018-10-14] MEDS: DOCUSATE SODIUM LIQ 100 MG/10 ML UDC GT SCH ×3 (09:32→17:19)
[2018-10-14] MEDS: ACIDOPHILUS/BULGARICUS 1 EACH TAB.CHEW GT SCH (09:32)
[2018-10-14] MEDS: ASPIRIN 81 MG TAB.CHEW GT SCH (09:32)
[2018-10-14] MEDS: METOPROLOL TARTRATE 25 MG TABLET GT SCH ×2 (09:32→21:21)
[2018-10-14] MEDS: LISINOPRIL (10MG) 10 MG TABLET GT SCH (09:33)
[2018-10-14] MEDS: ASCORBIC ACID 500 MG TABLET GT SCH (09:33)
[2018-10-14] MEDS: MULTIVIT W/MINERALS 1 TAB TABLET PO SCH (09:33)
[2018-10-14] MEDS: CHLORHEXIDINE GLUCONATE 15 ML UDC MM SCH ×2 (09:33→17:20)
[2018-10-14] MEDS: METHADONE HCL 5 MG TABLET GT SCH ×2 (09:33→17:20)
[2018-10-14] MEDS: PROSOURCE / PROSTAT (PYXIS) 30 ML UDC GT SCH ×2 (09:33→17:20)
[2018-10-14] MEDS: LIPASE/PROTEASE/AMYLASE 1 EACH CAPSULE.DR GT SCH ×3 (09:33→17:20)
[2018-10-14] MEDS: CLOPIDOGREL BISULFATE 75 MG TABLET GT SCH (09:33)
[2018-10-14] MEDS: FLUTICASONE PROPIONATE 16 GM BOTTLE NS SCH ×2 (09:33→17:20)
--- NOTE | 2018-10-14 14:38 | NUR ---
Pt has been refusing to wear her boots and ambulate. Notified Dr Gomez who came to see pt's left leg wound today. Dr Gomez told pt he wants her to be on her feet and walk.
[2018-10-14 20:17] VITALS: BP 113/70
[2018-10-14] MEDS: MELATONIN 5 MG TABLET GT SCH (21:21)
[2018-10-14] MEDS: ATORVASTATIN 40 MG TABLET GT SCH (21:21)
[2018-10-14] MEDS: NORTRIPTYLINE HCL 10 MG CAPSULE GT SCH (21:21)
[2018-10-14] MEDS: SENNOSIDES 8.6 MG TABLET GT SCH (21:23)
[2018-10-14] MEDS: INSULIN GLARGINE, 100 UNIT/ML CARTRIDGE SQ SCH (22:01)
[2018-10-15] MEDS: IPRATROPIUM NEB FS 0.5 MG/2.5 ML AMPUL.NEB NEB SCH ×4 (02:04→20:08)
[2018-10-15] MEDS: BACLOFEN (10 MG) 10 MG TABLET GT SCH ×3 (05:55→21:50)
[2018-10-15] MEDS: SIMETHICONE SUSP 40 MG/0.6 ML BOTTLE GT SCH ×4 (05:55→23:32)
[2018-10-15] MEDS: GABAPENTIN 300 MG CAPSULE GT SCH ×3 (05:55→21:51)
[2018-10-15] MEDS: PREVACID 30 MG GT SCH (05:55)
[2018-10-15] MEDS: GLUCERNA 1.2 1,000 ML BOTTLE GT PRN ×2 (05:55→20:09)
[2018-10-15] MEDS: BLOOD SUGAR DIAGNOSTIC 1 EACH STRIP IN SCH ×4 (06:32→21:51)
[2018-10-15] MEDS: INSULIN REGULAR, HUMAN 100 UNIT/ML 3 ML VIAL SQ PRN ×3 (06:33→21:54)
[2018-10-15 07:33] VITALS: BP 114/66
[2018-10-15] MEDS: BUDESONIDE RESPULE INH 0.25 MG/2 ML AMPUL.NEB NEB SCH ×2 (07:56→20:08)
[2018-10-15] MEDS: Z GUARD REMEDY 2 OZ OINT TP SCH ×2 (09:00→21:51)
[2018-10-15] MEDS: METHADONE HCL 5 MG TABLET GT SCH ×2 (09:31→17:42)
[2018-10-15] MEDS: ACIDOPHILUS/BULGARICUS 1 EACH TAB.CHEW GT SCH (09:31)
[2018-10-15] MEDS: ASPIRIN 81 MG TAB.CHEW GT SCH (09:31)
[2018-10-15] MEDS: DOCUSATE SODIUM LIQ 100 MG/10 ML UDC GT SCH ×3 (09:31→17:42)
[2018-10-15] MEDS: METOPROLOL TARTRATE 25 MG TABLET GT SCH ×2 (09:31→21:51)
[2018-10-15] MEDS: ASCORBIC ACID 500 MG TABLET GT SCH (09:32)
[2018-10-15] MEDS: PROSOURCE / PROSTAT (PYXIS) 30 ML UDC GT SCH ×2 (09:32→17:43)
[2018-10-15] MEDS: LIPASE/PROTEASE/AMYLASE 1 EACH CAPSULE.DR GT SCH ×3 (09:32→17:42)
[2018-10-15] MEDS: FLUTICASONE PROPIONATE 16 GM BOTTLE NS SCH ×2 (09:32→17:43)
[2018-10-15] MEDS: CLOPIDOGREL BISULFATE 75 MG TABLET GT SCH (09:32)
[2018-10-15] MEDS: LISINOPRIL (10MG) 10 MG TABLET GT SCH (09:32)
[2018-10-15] MEDS: MULTIVIT W/MINERALS 1 TAB TABLET PO SCH (09:32)
[2018-10-15] MEDS: CHLORHEXIDINE GLUCONATE 15 ML UDC MM SCH ×2 (09:32→17:43)
--- NOTE | 2018-10-15 09:50 | NUR ---
Pt seen by Dr Clarke. She complained of coughing. Informed Dr Clarke that pt is on Flonase and Robitussin. He said he will put in an order for Singulair. Pt aware of it.
[2018-10-15] MEDS ORDERED: MONTELUKAST SODIUM (10MG) 10 MG TABLET PO SCH (15:00)
[2018-10-15] MEDS: DAKINS HALF STRENGTH (0.25%) 480 ML BOTTLE TOP SCH (16:00)
[2018-10-15] MEDS: HYDROGEN PEROXIDE 480 ML BOTTLE TP SCH ×2 (16:00→21:51)
[2018-10-15 20:00] VITALS: BP 128/69
[2018-10-15] MEDS: ATORVASTATIN 40 MG TABLET GT SCH (21:50)
[2018-10-15] MEDS: NORTRIPTYLINE HCL 10 MG CAPSULE GT SCH (21:51)
[2018-10-15] MEDS: MELATONIN 5 MG TABLET GT SCH (21:51)
[2018-10-15] MEDS: SENNOSIDES 8.6 MG TABLET GT SCH (21:51)
[2018-10-15] MEDS: INSULIN GLARGINE, 100 UNIT/ML CARTRIDGE SQ SCH (21:53)
[2018-10-15] MEDS: MONTELUKAST SODIUM (10MG) 10 MG TABLET PO SCH (21:56)
[2018-10-16] MEDS: IPRATROPIUM NEB FS 0.5 MG/2.5 ML AMPUL.NEB NEB SCH ×4 (01:53→20:18)
[2018-10-16] MEDS: BACLOFEN (10 MG) 10 MG TABLET GT SCH ×3 (05:14→21:52)
[2018-10-16] MEDS: SIMETHICONE SUSP 40 MG/0.6 ML BOTTLE GT SCH ×3 (05:14→17:34)
[2018-10-16] MEDS: PREVACID 30 MG GT SCH (05:14)
[2018-10-16] MEDS: GABAPENTIN 300 MG CAPSULE GT SCH ×3 (05:14→21:52)
[2018-10-16] MEDS: BLOOD SUGAR DIAGNOSTIC 1 EACH STRIP IN SCH ×4 (07:01→21:53)
[2018-10-16] MEDS: INSULIN REGULAR, HUMAN 100 UNIT/ML 3 ML VIAL SQ PRN ×4 (07:02→21:51)
[2018-10-16] MEDS: BUDESONIDE RESPULE INH 0.25 MG/2 ML AMPUL.NEB NEB SCH ×2 (07:24→20:18)
[2018-10-16 08:09] VITALS: BP 119/62
[2018-10-16] MEDS: DAKINS HALF STRENGTH (0.25%) 480 ML BOTTLE TOP SCH (09:00)
[2018-10-16] MEDS: Z GUARD REMEDY 2 OZ OINT TP SCH ×2 (09:00→21:52)
[2018-10-16] MEDS: HYDROGEN PEROXIDE 480 ML BOTTLE TP SCH ×2 (09:00→21:52)
[2018-10-16] MEDS: ASPIRIN 81 MG TAB.CHEW GT SCH (09:53)
[2018-10-16] MEDS: METOPROLOL TARTRATE 25 MG TABLET GT SCH ×2 (09:53→21:52)
[2018-10-16] MEDS: DOCUSATE SODIUM LIQ 100 MG/10 ML UDC GT SCH ×3 (09:53→17:33)
[2018-10-16] MEDS: ACIDOPHILUS/BULGARICUS 1 EACH TAB.CHEW GT SCH (09:53)
[2018-10-16] MEDS: METHADONE HCL 5 MG TABLET GT SCH ×2 (09:54→17:34)
[2018-10-16] MEDS: ASCORBIC ACID 500 MG TABLET GT SCH (09:55)
[2018-10-16] MEDS: LIPASE/PROTEASE/AMYLASE 1 EACH CAPSULE.DR GT SCH ×3 (09:55→17:34)
[2018-10-16] MEDS: PROSOURCE / PROSTAT (PYXIS) 30 ML UDC GT SCH ×2 (09:55→17:34)
[2018-10-16] MEDS: FLUTICASONE PROPIONATE 16 GM BOTTLE NS SCH ×2 (09:55→17:34)
[2018-10-16] MEDS: CHLORHEXIDINE GLUCONATE 15 ML UDC MM SCH ×2 (09:55→17:34)
[2018-10-16] MEDS: MULTIVIT W/MINERALS 1 TAB TABLET PO SCH (09:55)
[2018-10-16] MEDS: LISINOPRIL (10MG) 10 MG TABLET GT SCH (09:55)
[2018-10-16] MEDS: CLOPIDOGREL BISULFATE 75 MG TABLET GT SCH (09:55)
[2018-10-16] MEDS: MAGNESIUM HYDROXIDE 30 ML UDC GT PRN (11:51)
[2018-10-16] MEDS: GLUCERNA 1.2 1,000 ML BOTTLE GT PRN (20:00)
[2018-10-16 20:18] VITALS: BP 126/73
[2018-10-16] MEDS: INSULIN GLARGINE, 100 UNIT/ML CARTRIDGE SQ SCH (21:50)
[2018-10-16] MEDS: MELATONIN 5 MG TABLET GT SCH (21:52)
[2018-10-16] MEDS: ATORVASTATIN 40 MG TABLET GT SCH (21:52)
[2018-10-16] MEDS: SENNOSIDES 8.6 MG TABLET GT SCH (21:52)
[2018-10-16] MEDS: MONTELUKAST SODIUM (10MG) 10 MG TABLET PO SCH (21:53)
[2018-10-16] MEDS: NORTRIPTYLINE HCL 10 MG CAPSULE GT SCH (22:12)
[2018-10-17] MEDS: SIMETHICONE SUSP 40 MG/0.6 ML BOTTLE GT SCH ×4 (00:20→18:15)
[2018-10-17] MEDS: IPRATROPIUM NEB FS 0.5 MG/2.5 ML AMPUL.NEB NEB SCH ×4 (01:38→19:00)
[2018-10-17] MEDS: GABAPENTIN 300 MG CAPSULE GT SCH ×3 (05:37→21:38)
[2018-10-17] MEDS: BACLOFEN (10 MG) 10 MG TABLET GT SCH ×3 (05:37→21:38)
[2018-10-17] MEDS: PREVACID 30 MG GT SCH (05:37)
[2018-10-17] MEDS: BLOOD SUGAR DIAGNOSTIC 1 EACH STRIP IN SCH ×4 (07:00→21:38)
[2018-10-17] MEDS: INSULIN REGULAR, HUMAN 100 UNIT/ML 3 ML VIAL SQ PRN ×4 (07:01→21:40)
[2018-10-17 07:24] VITALS: BP 124/73
[2018-10-17] MEDS: BUDESONIDE RESPULE INH 0.25 MG/2 ML AMPUL.NEB NEB SCH ×2 (08:29→19:00)
[2018-10-17] MEDS: LISINOPRIL (10MG) 10 MG TABLET GT SCH (09:00)
[2018-10-17] MEDS: PROSOURCE / PROSTAT (PYXIS) 30 ML UDC GT SCH ×2 (09:00→17:00)
[2018-10-17] MEDS: METOPROLOL TARTRATE 25 MG TABLET GT SCH ×2 (09:00→21:38)
[2018-10-17] MEDS: CHLORHEXIDINE GLUCONATE 15 ML UDC MM SCH ×2 (09:00→17:00)
[2018-10-17] MEDS: HYDROGEN PEROXIDE 480 ML BOTTLE TP SCH ×2 (09:00→21:38)
[2018-10-17] MEDS: METHADONE HCL 5 MG TABLET GT SCH ×2 (09:00→17:00)
[2018-10-17] MEDS: ASCORBIC ACID 500 MG TABLET GT SCH (09:00)
[2018-10-17] MEDS: DOCUSATE SODIUM LIQ 100 MG/10 ML UDC GT SCH ×3 (09:00→17:00)
[2018-10-17] MEDS: CLOPIDOGREL BISULFATE 75 MG TABLET GT SCH (09:00)
[2018-10-17] MEDS: FLUTICASONE PROPIONATE 16 GM BOTTLE NS SCH ×2 (09:00→17:00)
[2018-10-17] MEDS: ACIDOPHILUS/BULGARICUS 1 EACH TAB.CHEW GT SCH (09:00)
[2018-10-17] MEDS: MULTIVIT W/MINERALS 1 TAB TABLET PO SCH (09:00)
[2018-10-17] MEDS: Z GUARD REMEDY 2 OZ OINT TP SCH ×2 (09:00→21:38)
[2018-10-17] MEDS: DAKINS HALF STRENGTH (0.25%) 480 ML BOTTLE TOP SCH (09:00)
[2018-10-17] MEDS: ASPIRIN 81 MG TAB.CHEW GT SCH (09:00)
[2018-10-17] MEDS: LIPASE/PROTEASE/AMYLASE 1 EACH CAPSULE.DR GT SCH ×3 (09:00→17:00)
[2018-10-17] MEDS: GLUCERNA 1.2 1,000 ML BOTTLE GT PRN (20:00)
[2018-10-17 20:36] VITALS: BP 110/69
[2018-10-17] MEDS: NORTRIPTYLINE HCL 10 MG CAPSULE GT SCH (21:38)
[2018-10-17] MEDS: MELATONIN 5 MG TABLET GT SCH (21:38)
[2018-10-17] MEDS: ATORVASTATIN 40 MG TABLET GT SCH (21:38)
[2018-10-17] MEDS: SENNOSIDES 8.6 MG TABLET GT SCH (21:38)
[2018-10-17] MEDS: INSULIN GLARGINE, 100 UNIT/ML CARTRIDGE SQ SCH (21:39)
[2018-10-17] MEDS: MONTELUKAST SODIUM (10MG) 10 MG TABLET PO SCH (21:39)
[2018-10-18] MEDS: SIMETHICONE SUSP 40 MG/0.6 ML BOTTLE GT SCH ×5 (00:06→23:53)
[2018-10-18] MEDS: IPRATROPIUM NEB FS 0.5 MG/2.5 ML AMPUL.NEB NEB SCH ×4 (02:00→19:58)
[2018-10-18] MEDS: GABAPENTIN 300 MG CAPSULE GT SCH ×3 (05:23→21:05)
[2018-10-18] MEDS: PREVACID 30 MG GT SCH (05:23)
[2018-10-18] MEDS: BACLOFEN (10 MG) 10 MG TABLET GT SCH ×3 (05:23→21:04)
[2018-10-18] MEDS: INSULIN REGULAR, HUMAN 100 UNIT/ML 3 ML VIAL SQ PRN ×3 (06:47→21:10)
[2018-10-18] MEDS: BLOOD SUGAR DIAGNOSTIC 1 EACH STRIP IN SCH ×4 (06:47→21:05)
[2018-10-18 07:25] VITALS: BP 115/67
[2018-10-18] MEDS: BUDESONIDE RESPULE INH 0.25 MG/2 ML AMPUL.NEB NEB SCH ×2 (07:54→20:11)
[2018-10-18] MEDS: DOCUSATE SODIUM LIQ 100 MG/10 ML UDC GT SCH ×3 (09:00→17:00)
[2018-10-18] MEDS: ASPIRIN 81 MG TAB.CHEW GT SCH (09:00)
[2018-10-18] MEDS: CHLORHEXIDINE GLUCONATE 15 ML UDC MM SCH ×2 (09:00→17:00)
[2018-10-18] MEDS: CLOPIDOGREL BISULFATE 75 MG TABLET GT SCH (09:00)
[2018-10-18] MEDS: PROSOURCE / PROSTAT (PYXIS) 30 ML UDC GT SCH ×2 (09:00→17:00)
[2018-10-18] MEDS: HYDROGEN PEROXIDE 480 ML BOTTLE TP SCH ×2 (09:00→21:05)
[2018-10-18] MEDS: LISINOPRIL (10MG) 10 MG TABLET GT SCH (09:00)
[2018-10-18] MEDS: METOPROLOL TARTRATE 25 MG TABLET GT SCH ×2 (09:00→21:05)
[2018-10-18] MEDS: ACIDOPHILUS/BULGARICUS 1 EACH TAB.CHEW GT SCH (09:00)
[2018-10-18] MEDS: LIPASE/PROTEASE/AMYLASE 1 EACH CAPSULE.DR GT SCH ×3 (09:00→17:00)
[2018-10-18] MEDS: FLUTICASONE PROPIONATE 16 GM BOTTLE NS SCH ×2 (09:00→17:00)
[2018-10-18] MEDS: DAKINS HALF STRENGTH (0.25%) 480 ML BOTTLE TOP SCH (09:00)
[2018-10-18] MEDS: MULTIVIT W/MINERALS 1 TAB TABLET PO SCH (09:00)
[2018-10-18] MEDS: ASCORBIC ACID 500 MG TABLET GT SCH (09:00)
[2018-10-18] MEDS: Z GUARD REMEDY 2 OZ OINT TP SCH ×2 (09:00→21:05)
[2018-10-18] MEDS: METHADONE HCL 5 MG TABLET GT SCH ×2 (09:00→17:00)
[2018-10-18] MEDS: GLUCERNA SHAKE 237 ML CAN GT SCH ×2 (13:24→17:00)
--- NOTE | 2018-10-18 13:56 | NUR ---
INTERDISCIPLINARY PLAN OF CARE CONFERENCE was held today. Resident's grand daughter and patient's sister attended today's IDT meeting. Dr. Clarke and the interdisciplinary team discussed the current plan of care in detail. Current orders as well as treatments and medications were reviewed. Pain management physician ordered Methadone, Pamelor and increased dose of Neurontin however resident has been refusing to take Pamelor but pain is more controlled. Dr. Arndt said OK to f/u angiogram with Dr. Lockwood, however per business support associate patient's insurance has limitation, in patient is not covered under her coverage. Nurse substation manager advised to speak with the person in the business office in charge of assisting family reinstate patient's Medical. Resident's sister requested Dr. Clarke to write a letter requesting the airline to extend validity of the airline ticket to [place] which family bought for patient in the past. SSD to draft the letter and MD will sign. Resident will go out on pass today to spend time with her sister.
[2018-10-18 19:55] VITALS: BP 127/65
[2018-10-18] MEDS: ATORVASTATIN 40 MG TABLET GT SCH (21:04)
[2018-10-18] MEDS: MELATONIN 5 MG TABLET GT SCH (21:05)
[2018-10-18] MEDS: MONTELUKAST SODIUM (10MG) 10 MG TABLET PO SCH (21:05)
[2018-10-18] MEDS: NORTRIPTYLINE HCL 10 MG CAPSULE GT SCH (21:05)
[2018-10-18] MEDS: SENNOSIDES 8.6 MG TABLET GT SCH (21:05)
[2018-10-18] MEDS: INSULIN GLARGINE, 100 UNIT/ML CARTRIDGE SQ SCH (21:06)
[2018-10-19] MEDS: IPRATROPIUM NEB FS 0.5 MG/2.5 ML AMPUL.NEB NEB SCH ×4 (01:26→19:51)
[2018-10-19] MEDS: BACLOFEN (10 MG) 10 MG TABLET GT SCH ×3 (05:13→21:25)
[2018-10-19] MEDS: SIMETHICONE SUSP 40 MG/0.6 ML BOTTLE GT SCH ×3 (05:13→18:11)
[2018-10-19] MEDS: PREVACID 30 MG GT SCH (05:13)
[2018-10-19] MEDS: GABAPENTIN 300 MG CAPSULE GT SCH ×3 (05:13→21:25)
[2018-10-19] MEDS: BLOOD SUGAR DIAGNOSTIC 1 EACH STRIP IN SCH ×4 (07:06→21:25)
[2018-10-19] MEDS: INSULIN REGULAR, HUMAN 100 UNIT/ML 3 ML VIAL SQ PRN ×2 (07:07→21:29)
[2018-10-19] MEDS: BUDESONIDE RESPULE INH 0.25 MG/2 ML AMPUL.NEB NEB SCH ×2 (07:14→19:53)
[2018-10-19 07:42] VITALS: BP 111/64
[2018-10-19] MEDS: ASPIRIN 81 MG TAB.CHEW GT SCH (09:00)
[2018-10-19] MEDS: LIPASE/PROTEASE/AMYLASE 1 EACH CAPSULE.DR GT SCH ×3 (09:00→17:00)
[2018-10-19] MEDS: CHLORHEXIDINE GLUCONATE 15 ML UDC MM SCH ×2 (09:00→17:00)
[2018-10-19] MEDS: FLUTICASONE PROPIONATE 16 GM BOTTLE NS SCH ×2 (09:00→17:00)
[2018-10-19] MEDS: PROSOURCE / PROSTAT (PYXIS) 30 ML UDC GT SCH ×2 (09:00→17:00)
[2018-10-19] MEDS: LISINOPRIL (10MG) 10 MG TABLET GT SCH (09:00)
[2018-10-19] MEDS: Z GUARD REMEDY 2 OZ OINT TP SCH ×2 (09:00→21:25)
[2018-10-19] MEDS: ACIDOPHILUS/BULGARICUS 1 EACH TAB.CHEW GT SCH (09:00)
[2018-10-19] MEDS: METOPROLOL TARTRATE 25 MG TABLET GT SCH ×2 (09:00→21:45)
[2018-10-19] MEDS: MULTIVIT W/MINERALS 1 TAB TABLET PO SCH (09:00)
[2018-10-19] MEDS: HYDROGEN PEROXIDE 480 ML BOTTLE TP SCH ×2 (09:00→21:25)
[2018-10-19] MEDS: DAKINS HALF STRENGTH (0.25%) 480 ML BOTTLE TOP SCH (09:00)
[2018-10-19] MEDS: DOCUSATE SODIUM LIQ 100 MG/10 ML UDC GT SCH ×3 (09:00→17:00)
[2018-10-19] MEDS: METHADONE HCL 5 MG TABLET GT SCH ×2 (09:00→17:00)
[2018-10-19] MEDS: ASCORBIC ACID 500 MG TABLET GT SCH (09:00)
[2018-10-19] MEDS: GLUCERNA SHAKE 237 ML CAN GT SCH ×3 (09:00→17:00)
[2018-10-19] MEDS: CLOPIDOGREL BISULFATE 75 MG TABLET GT SCH (09:00)
[2018-10-19] MEDS: MAGNESIUM HYDROXIDE 30 ML UDC GT PRN (11:06)
[2018-10-19] MEDS: GLUCERNA 1.2 1,000 ML BOTTLE GT PRN (20:00)
[2018-10-19] MEDS: SENNOSIDES 8.6 MG TABLET GT SCH (21:25)
[2018-10-19] MEDS: NORTRIPTYLINE HCL 10 MG CAPSULE GT SCH (21:25)
[2018-10-19] MEDS: ATORVASTATIN 40 MG TABLET GT SCH (21:25)
[2018-10-19] MEDS: MONTELUKAST SODIUM (10MG) 10 MG TABLET PO SCH (21:25)
[2018-10-19] MEDS: MELATONIN 5 MG TABLET GT SCH (21:25)
[2018-10-19] MEDS: INSULIN GLARGINE, 100 UNIT/ML CARTRIDGE SQ SCH (21:27)
--- NOTE | 2018-10-19 21:45 | NUR ---
RT NOTE RECEIVED PATIENT ON RED CAPPED ON 2 LITERS NASAL CANNULA. PATIENT AWAKE AND ALERT. HHN TREATMENT GIVEN, TOLERATED WELL . NO RESPIRATORY DISTRESS NOTED AT THIS TIME. TRACH TUBE PATENT AND SECURED. WILL CONTINUE TO MONITOR THE PATIENT. Addendum: 10/19/18 at 2156 by MECHE DEAL RT Amended: Links added.
[2018-10-20] MEDS: SIMETHICONE SUSP 40 MG/0.6 ML BOTTLE GT SCH ×4 (00:11→17:50)
[2018-10-20 00:23] VITALS: BP 95/59
[2018-10-20] MEDS: IPRATROPIUM NEB FS 0.5 MG/2.5 ML AMPUL.NEB NEB SCH ×4 (01:48→20:21)
[2018-10-20] MEDS: GABAPENTIN 300 MG CAPSULE GT SCH ×3 (05:32→21:39)
[2018-10-20] MEDS: PREVACID 30 MG GT SCH (05:32)
[2018-10-20] MEDS: BACLOFEN (10 MG) 10 MG TABLET GT SCH ×3 (05:32→21:39)
[2018-10-20] MEDS: BLOOD SUGAR DIAGNOSTIC 1 EACH STRIP IN SCH ×4 (06:43→21:39)
[2018-10-20] MEDS: INSULIN REGULAR, HUMAN 100 UNIT/ML 3 ML VIAL SQ PRN ×2 (06:45→11:57)
[2018-10-20] MEDS: BUDESONIDE RESPULE INH 0.25 MG/2 ML AMPUL.NEB NEB SCH ×2 (07:41→20:21)
[2018-10-20 07:59] VITALS: BP 119/72
[2018-10-20] MEDS: HYDROGEN PEROXIDE 480 ML BOTTLE TP SCH ×2 (09:00→21:39)
[2018-10-20] MEDS: DAKINS HALF STRENGTH (0.25%) 480 ML BOTTLE TOP SCH (09:00)
[2018-10-20] MEDS: Z GUARD REMEDY 2 OZ OINT TP SCH ×2 (09:00→21:39)
[2018-10-20] MEDS: ASPIRIN 81 MG TAB.CHEW GT SCH (09:40)
[2018-10-20] MEDS: DOCUSATE SODIUM LIQ 100 MG/10 ML UDC GT SCH ×3 (09:40→16:57)
[2018-10-20] MEDS: GLUCERNA SHAKE 237 ML CAN GT SCH ×3 (09:40→17:50)
[2018-10-20] MEDS: ACIDOPHILUS/BULGARICUS 1 EACH TAB.CHEW GT SCH (09:40)
[2018-10-20] MEDS: FLUTICASONE PROPIONATE 16 GM BOTTLE NS SCH ×2 (09:41→16:58)
[2018-10-20] MEDS: LISINOPRIL (10MG) 10 MG TABLET GT SCH (09:41)
[2018-10-20] MEDS: MULTIVIT W/MINERALS 1 TAB TABLET PO SCH (09:41)
[2018-10-20] MEDS: ASCORBIC ACID 500 MG TABLET GT SCH (09:41)
[2018-10-20] MEDS: CHLORHEXIDINE GLUCONATE 15 ML UDC MM SCH ×2 (09:41→16:58)
[2018-10-20] MEDS: PROSOURCE / PROSTAT (PYXIS) 30 ML UDC GT SCH ×2 (09:41→16:58)
[2018-10-20] MEDS: LIPASE/PROTEASE/AMYLASE 1 EACH CAPSULE.DR GT SCH ×3 (09:41→16:58)
[2018-10-20] MEDS: METOPROLOL TARTRATE 25 MG TABLET GT SCH ×2 (09:41→21:39)
[2018-10-20] MEDS: CLOPIDOGREL BISULFATE 75 MG TABLET GT SCH (09:41)
[2018-10-20] MEDS: METHADONE HCL 5 MG TABLET GT SCH ×2 (09:41→16:58)
[2018-10-20 20:25] VITALS: BP 123/61
[2018-10-20] MEDS: NORTRIPTYLINE HCL 10 MG CAPSULE GT SCH (21:39)
[2018-10-20] MEDS: SENNOSIDES 8.6 MG TABLET GT SCH (21:39)
[2018-10-20] MEDS: ATORVASTATIN 40 MG TABLET GT SCH (21:39)
[2018-10-20] MEDS: MELATONIN 5 MG TABLET GT SCH (21:39)
[2018-10-20] MEDS: INSULIN GLARGINE, 100 UNIT/ML CARTRIDGE SQ SCH (21:40)
[2018-10-20] MEDS: MONTELUKAST SODIUM (10MG) 10 MG TABLET PO SCH (21:40)
[2018-10-21] MEDS: SIMETHICONE SUSP 40 MG/0.6 ML BOTTLE GT SCH ×4 (00:17→17:28)
[2018-10-21] MEDS: IPRATROPIUM NEB FS 0.5 MG/2.5 ML AMPUL.NEB NEB SCH ×4 (02:28→20:20)
[2018-10-21] MEDS: GABAPENTIN 300 MG CAPSULE GT SCH ×3 (05:00→21:54)
[2018-10-21] MEDS: BACLOFEN (10 MG) 10 MG TABLET GT SCH ×3 (05:00→21:54)
[2018-10-21] MEDS: PREVACID 30 MG GT SCH (06:04)
[2018-10-21] MEDS: BLOOD SUGAR DIAGNOSTIC 1 EACH STRIP IN SCH ×4 (06:34→21:54)
[2018-10-21] MEDS: INSULIN REGULAR, HUMAN 100 UNIT/ML 3 ML VIAL SQ PRN ×3 (06:35→17:28)
[2018-10-21] MEDS: BUDESONIDE RESPULE INH 0.25 MG/2 ML AMPUL.NEB NEB SCH ×2 (07:30→20:20)
[2018-10-21 07:42] VITALS: BP 110/59
[2018-10-21] MEDS: Z GUARD REMEDY 2 OZ OINT TP SCH ×2 (09:00→21:54)
[2018-10-21] MEDS: HYDROGEN PEROXIDE 480 ML BOTTLE TP SCH ×2 (09:00→21:54)
[2018-10-21] MEDS: DAKINS HALF STRENGTH (0.25%) 480 ML BOTTLE TOP SCH (09:00)
[2018-10-21] MEDS: ASPIRIN 81 MG TAB.CHEW GT SCH (09:48)
[2018-10-21] MEDS: ACIDOPHILUS/BULGARICUS 1 EACH TAB.CHEW GT SCH (09:49)
[2018-10-21] MEDS: DOCUSATE SODIUM LIQ 100 MG/10 ML UDC GT SCH ×3 (09:49→17:27)
[2018-10-21] MEDS: METOPROLOL TARTRATE 25 MG TABLET GT SCH ×2 (09:49→21:54)
[2018-10-21] MEDS: GLUCERNA SHAKE 237 ML CAN GT SCH ×3 (09:49→17:27)
[2018-10-21] MEDS: LIPASE/PROTEASE/AMYLASE 1 EACH CAPSULE.DR GT SCH ×3 (09:50→17:28)
[2018-10-21] MEDS: METHADONE HCL 5 MG TABLET GT SCH ×2 (09:50→17:28)
[2018-10-21] MEDS: CLOPIDOGREL BISULFATE 75 MG TABLET GT SCH (09:50)
[2018-10-21] MEDS: PROSOURCE / PROSTAT (PYXIS) 30 ML UDC GT SCH ×2 (09:51→17:28)
[2018-10-21] MEDS: LISINOPRIL (10MG) 10 MG TABLET GT SCH (09:51)
[2018-10-21] MEDS: MULTIVIT W/MINERALS 1 TAB TABLET PO SCH (09:51)
[2018-10-21] MEDS: CHLORHEXIDINE GLUCONATE 15 ML UDC MM SCH ×2 (09:51→17:28)
[2018-10-21] MEDS: ASCORBIC ACID 500 MG TABLET GT SCH (09:51)
[2018-10-21] MEDS: FLUTICASONE PROPIONATE 16 GM BOTTLE NS SCH ×2 (09:51→17:28)
[2018-10-21 19:52] VITALS: BP 120/69
[2018-10-21] MEDS: MONTELUKAST SODIUM (10MG) 10 MG TABLET PO SCH (21:54)
[2018-10-21] MEDS: ATORVASTATIN 40 MG TABLET GT SCH (21:54)
[2018-10-21] MEDS: NORTRIPTYLINE HCL 10 MG CAPSULE GT SCH (21:54)
[2018-10-21] MEDS: SENNOSIDES 8.6 MG TABLET GT SCH (21:54)
[2018-10-21] MEDS: MELATONIN 5 MG TABLET GT SCH (21:54)
[2018-10-21] MEDS: INSULIN GLARGINE, 100 UNIT/ML CARTRIDGE SQ SCH (21:55)
[2018-10-22] MEDS: SIMETHICONE SUSP 40 MG/0.6 ML BOTTLE GT SCH ×5 (00:19→23:43)
[2018-10-22] MEDS: IPRATROPIUM NEB FS 0.5 MG/2.5 ML AMPUL.NEB NEB SCH ×4 (01:25→19:57)
[2018-10-22] MEDS: GABAPENTIN 300 MG CAPSULE GT SCH ×3 (05:00→21:33)
[2018-10-22] MEDS: BACLOFEN (10 MG) 10 MG TABLET GT SCH ×3 (05:00→21:33)
[2018-10-22] MEDS: PREVACID 30 MG GT SCH (06:18)
[2018-10-22] MEDS: BLOOD SUGAR DIAGNOSTIC 1 EACH STRIP IN SCH ×4 (06:43→21:33)
[2018-10-22 07:43] VITALS: BP 112/64
[2018-10-22] MEDS: BUDESONIDE RESPULE INH 0.25 MG/2 ML AMPUL.NEB NEB SCH ×2 (08:10→19:57)
[2018-10-22] MEDS: INSULIN REGULAR, HUMAN 100 UNIT/ML 3 ML VIAL SQ PRN ×3 (08:15→18:12)
[2018-10-22] MEDS: Z GUARD REMEDY 2 OZ OINT TP SCH ×2 (09:00→21:33)
[2018-10-22] MEDS: DAKINS HALF STRENGTH (0.25%) 480 ML BOTTLE TOP SCH (09:00)
[2018-10-22] MEDS: HYDROGEN PEROXIDE 480 ML BOTTLE TP SCH ×2 (09:00→21:33)
[2018-10-22] MEDS: ASPIRIN 81 MG TAB.CHEW GT SCH (09:25)
[2018-10-22] MEDS: ACIDOPHILUS/BULGARICUS 1 EACH TAB.CHEW GT SCH (09:25)
[2018-10-22] MEDS: GLUCERNA SHAKE 237 ML CAN GT SCH ×3 (09:25→17:00)
[2018-10-22] MEDS: DOCUSATE SODIUM LIQ 100 MG/10 ML UDC GT SCH ×3 (09:25→17:00)
[2018-10-22] MEDS: CHLORHEXIDINE GLUCONATE 15 ML UDC MM SCH ×2 (09:26→17:00)
[2018-10-22] MEDS: METOPROLOL TARTRATE 25 MG TABLET GT SCH ×2 (09:26→21:33)
[2018-10-22] MEDS: ASCORBIC ACID 500 MG TABLET GT SCH (09:26)
[2018-10-22] MEDS: PROSOURCE / PROSTAT (PYXIS) 30 ML UDC GT SCH ×2 (09:26→17:00)
[2018-10-22] MEDS: LISINOPRIL (10MG) 10 MG TABLET GT SCH (09:28)
[2018-10-22] MEDS: LIPASE/PROTEASE/AMYLASE 1 EACH CAPSULE.DR GT SCH ×3 (09:28→17:00)
[2018-10-22] MEDS: METHADONE HCL 5 MG TABLET GT SCH ×2 (09:28→17:00)
[2018-10-22] MEDS: CLOPIDOGREL BISULFATE 75 MG TABLET GT SCH (09:28)
[2018-10-22] MEDS: FLUTICASONE PROPIONATE 16 GM BOTTLE NS SCH ×2 (09:35→17:00)
[2018-10-22] MEDS: MULTIVIT W/MINERALS 1 TAB TABLET PO SCH (09:35)
[2018-10-22] MEDS: MAGNESIUM HYDROXIDE 30 ML UDC GT PRN (10:00)
--- NOTE | 2018-10-22 19:06 | NUR ---
SW called the resident's granddaughter Ara who stated that no letter was needed to extend the resident's airline ticket to [facility]. She indicated that they lost the tickets already and there is nothing the airline can do since they did not purchase travel/ticket insurance. Charge nurse informed.
[2018-10-22 20:24] VITALS: BP 124/74
[2018-10-22] MEDS: NORTRIPTYLINE HCL 10 MG CAPSULE GT SCH (21:33)
[2018-10-22] MEDS: MONTELUKAST SODIUM (10MG) 10 MG TABLET PO SCH (21:33)
[2018-10-22] MEDS: ATORVASTATIN 40 MG TABLET GT SCH (21:33)
[2018-10-22] MEDS: MELATONIN 5 MG TABLET GT SCH (21:33)
[2018-10-22] MEDS: SENNOSIDES 8.6 MG TABLET GT SCH (21:33)
[2018-10-22] MEDS: INSULIN GLARGINE, 100 UNIT/ML CARTRIDGE SQ SCH (21:34)
[2018-10-23] MEDS: IPRATROPIUM NEB FS 0.5 MG/2.5 ML AMPUL.NEB NEB SCH ×4 (02:29→20:12)
[2018-10-23] MEDS: GABAPENTIN 300 MG CAPSULE GT SCH ×3 (05:00→21:22)
[2018-10-23] MEDS: BACLOFEN (10 MG) 10 MG TABLET GT SCH ×3 (05:00→21:22)
[2018-10-23] MEDS: PREVACID 30 MG GT SCH (06:39)
[2018-10-23] MEDS: BLOOD SUGAR DIAGNOSTIC 1 EACH STRIP IN SCH ×4 (06:39→21:48)
[2018-10-23] MEDS: SIMETHICONE SUSP 40 MG/0.6 ML BOTTLE GT SCH ×3 (06:39→17:00)
[2018-10-23] MEDS: BUDESONIDE RESPULE INH 0.25 MG/2 ML AMPUL.NEB NEB SCH ×2 (07:50→20:37)
[2018-10-23 07:56] VITALS: BP 149/72
[2018-10-23] MEDS: METOPROLOL TARTRATE 25 MG TABLET GT SCH ×2 (08:53→21:22)
[2018-10-23] MEDS: ASPIRIN 81 MG TAB.CHEW GT SCH (08:53)
[2018-10-23] MEDS: ACIDOPHILUS/BULGARICUS 1 EACH TAB.CHEW GT SCH (08:53)
[2018-10-23] MEDS: GLUCERNA SHAKE 237 ML CAN GT SCH ×3 (08:53→16:10)
[2018-10-23] MEDS: DOCUSATE SODIUM LIQ 100 MG/10 ML UDC GT SCH ×3 (08:53→16:10)
[2018-10-23] MEDS: LIPASE/PROTEASE/AMYLASE 1 EACH CAPSULE.DR GT SCH ×3 (08:54→16:10)
[2018-10-23] MEDS: FLUTICASONE PROPIONATE 16 GM BOTTLE NS SCH ×2 (08:54→16:10)
[2018-10-23] MEDS: METHADONE HCL 5 MG TABLET GT SCH ×2 (08:54→16:10)
[2018-10-23] MEDS: LISINOPRIL (10MG) 10 MG TABLET GT SCH (08:54)
[2018-10-23] MEDS: CLOPIDOGREL BISULFATE 75 MG TABLET GT SCH (08:54)
[2018-10-23] MEDS: ASCORBIC ACID 500 MG TABLET GT SCH (08:54)
[2018-10-23] MEDS: MULTIVIT W/MINERALS 1 TAB TABLET PO SCH (08:54)
[2018-10-23] MEDS: PROSOURCE / PROSTAT (PYXIS) 30 ML UDC GT SCH ×2 (08:54→16:10)
[2018-10-23] MEDS: CHLORHEXIDINE GLUCONATE 15 ML UDC MM SCH ×2 (08:54→16:10)
[2018-10-23] MEDS: Z GUARD REMEDY 2 OZ OINT TP SCH ×2 (09:00→21:23)
[2018-10-23] MEDS: HYDROGEN PEROXIDE 480 ML BOTTLE TP SCH ×2 (09:00→21:23)
[2018-10-23] MEDS: DAKINS HALF STRENGTH (0.25%) 480 ML BOTTLE TOP SCH (09:00)
[2018-10-23] MEDS: INSULIN REGULAR, HUMAN 100 UNIT/ML 3 ML VIAL SQ PRN ×2 (12:43→16:59)
--- NOTE | 2018-10-23 16:50 | NUR ---
Informed Dr. Clarke that patient has not pass her bowel movement for 2 1/2 days despite MOM given daily. Patient becoming uncomfortable due to inability to pass her bowel. New order given for Dulcolax suppository.
--- NOTE | 2018-10-23 17:45 | NUR ---
Resident's grand daughter Ara visiting and verbalized to this nurse that patient is crying because she feels very frustrated and said that "She does not want you guys to think that she is getting crazy". When asked how she feels, patient said while crying " I could not even explain..I feel very sleepy and they need to help me to the commode, I could not walk today. Informed resident and family that will notify MD regarding her concerns.
--- NOTE | 2018-10-23 18:07 | NUR ---
Let a message to Dr. Velásquez's voice mail, (pain management) regarding patient's concern that she feel very sleepy when taking Pamelor. Resident is crying as she verbalized her frustrations. Left also a message to Dr. Arndt regarding patient's concern to discontinue the medication or decrease the dose. Awaiting for return call from both physicians, resident informed.
[2018-10-23] MEDS: BISACODYL SUPP (10 MG) 10 MG/SUPP.RECT SUPP.RECT RC PRN (18:36)
--- NOTE | 2018-10-23 18:37 | NUR ---
Received an order from Dr. Arndt to cut Pamelor's dose in half (5mg) q HS. Resident informed that Dr. Arndt did not totally discontinue the medication but instead cut the dose in half. Explained to patient that anti depressant medication like Pamelor cannot be abruptly discontinue but needs to taper the dose down to prevent the symptoms. She verbalized understanding. Informed resident's on the phone of the new order and the reason why it cannot be discontinued totally for now. Appreciated the call. Endorsed to incoming shift.
[2018-10-23 19:47] VITALS: BP 127/70
--- NOTE | 2018-10-23 20:23 | NUR ---
RECEIVED PATIENT ON RED CAPPED ON 1 LITER NASAL CANNULA. PATIENT AWAKE AND ALERT. BREATHING TREATMENT GIVEN, TOLERATED WELL . NO RESPIRATORY DISTRESS NOTED AT THIS TIME. TRACH TUBE PATENT AND SECURED. WILL CONTINUE TO MONITOR THE PATIENT.
[2018-10-23] MEDS ORDERED: NORTRIPTYLINE HCL 10 MG CAPSULE ONE (20:43)
[2018-10-23] MEDS: ATORVASTATIN 40 MG TABLET GT SCH (21:22)
[2018-10-23] MEDS: MONTELUKAST SODIUM (10MG) 10 MG TABLET PO SCH (21:23)
[2018-10-23] MEDS: NORTRIPTYLINE HCL 10 MG CAPSULE GT SCH (21:48)
[2018-10-23] MEDS: SENNOSIDES 8.6 MG TABLET GT SCH (21:48)
[2018-10-23] MEDS: MELATONIN 5 MG TABLET GT SCH (21:48)
[2018-10-23] MEDS: INSULIN GLARGINE, 100 UNIT/ML CARTRIDGE SQ SCH (21:49)
[2018-10-24] MEDS: SIMETHICONE SUSP 40 MG/0.6 ML BOTTLE GT SCH ×5 (00:21→23:54)
[2018-10-24] MEDS: IPRATROPIUM NEB FS 0.5 MG/2.5 ML AMPUL.NEB NEB SCH ×4 (01:14→20:11)
[2018-10-24] MEDS: PREVACID 30 MG GT SCH (05:53)
[2018-10-24] MEDS: GABAPENTIN 300 MG CAPSULE GT SCH ×3 (05:53→21:38)
[2018-10-24] MEDS: BACLOFEN (10 MG) 10 MG TABLET GT SCH ×3 (05:53→21:37)
[2018-10-24] MEDS: BLOOD SUGAR DIAGNOSTIC 1 EACH STRIP IN SCH ×4 (06:47→21:39)
[2018-10-24] MEDS: INSULIN REGULAR, HUMAN 100 UNIT/ML 3 ML VIAL SQ PRN ×4 (06:48→21:42)
[2018-10-24] MEDS: BUDESONIDE RESPULE INH 0.25 MG/2 ML AMPUL.NEB NEB SCH ×2 (07:41→20:24)
[2018-10-24 07:42] VITALS: BP 111/47
[2018-10-24] MEDS: CLOPIDOGREL BISULFATE 75 MG TABLET GT SCH (09:00)
[2018-10-24] MEDS: ASCORBIC ACID 500 MG TABLET GT SCH (09:00)
[2018-10-24] MEDS: CHLORHEXIDINE GLUCONATE 15 ML UDC MM SCH ×2 (09:00→17:22)
[2018-10-24] MEDS: ASPIRIN 81 MG TAB.CHEW GT SCH (09:00)
[2018-10-24] MEDS: METOPROLOL TARTRATE 25 MG TABLET GT SCH ×2 (09:00→21:00)
[2018-10-24] MEDS: ACIDOPHILUS/BULGARICUS 1 EACH TAB.CHEW GT SCH (09:00)
[2018-10-24] MEDS: Z GUARD REMEDY 2 OZ OINT TP SCH ×2 (09:00→21:39)
[2018-10-24] MEDS: DAKINS HALF STRENGTH (0.25%) 480 ML BOTTLE TOP SCH (09:00)
[2018-10-24] MEDS: METHADONE HCL 5 MG TABLET GT SCH ×2 (09:00→17:00)
[2018-10-24] MEDS: LISINOPRIL (10MG) 10 MG TABLET GT SCH (09:00)
[2018-10-24] MEDS: LIPASE/PROTEASE/AMYLASE 1 EACH CAPSULE.DR GT SCH ×3 (09:00→17:22)
[2018-10-24] MEDS: HYDROGEN PEROXIDE 480 ML BOTTLE TP SCH ×2 (09:00→21:39)
[2018-10-24] MEDS: GLUCERNA SHAKE 237 ML CAN GT SCH ×3 (09:00→17:21)
[2018-10-24] MEDS: FLUTICASONE PROPIONATE 16 GM BOTTLE NS SCH ×2 (09:00→17:22)
[2018-10-24] MEDS: MULTIVIT W/MINERALS 1 TAB TABLET PO SCH (09:00)
[2018-10-24] MEDS: PROSOURCE / PROSTAT (PYXIS) 30 ML UDC GT SCH ×2 (09:00→17:22)
[2018-10-24] MEDS: DOCUSATE SODIUM LIQ 100 MG/10 ML UDC GT SCH ×3 (09:00→17:21)
[2018-10-24 19:25] VITALS: BP 108/57
[2018-10-24] MEDS: ATORVASTATIN 40 MG TABLET GT SCH (21:37)
[2018-10-24] MEDS: NORTRIPTYLINE HCL 10 MG CAPSULE GT SCH (21:39)
[2018-10-24] MEDS: MONTELUKAST SODIUM (10MG) 10 MG TABLET PO SCH (21:39)
[2018-10-24] MEDS: MELATONIN 5 MG TABLET GT SCH (21:39)
[2018-10-24] MEDS: SENNOSIDES 8.6 MG TABLET GT SCH (21:39)
[2018-10-24] MEDS: INSULIN GLARGINE, 100 UNIT/ML CARTRIDGE SQ SCH (21:40)
[2018-10-24] MEDS: GLUCERNA 1.2 1,000 ML BOTTLE GT PRN (21:41)
[2018-10-25] MEDS: IPRATROPIUM NEB FS 0.5 MG/2.5 ML AMPUL.NEB NEB SCH ×4 (00:49→19:57)
[2018-10-25] MEDS: BACLOFEN (10 MG) 10 MG TABLET GT SCH ×3 (05:35→21:23)
[2018-10-25] MEDS: PREVACID 30 MG GT SCH (05:35)
[2018-10-25] MEDS: GABAPENTIN 300 MG CAPSULE GT SCH ×3 (05:35→21:24)
[2018-10-25] MEDS: SIMETHICONE SUSP 40 MG/0.6 ML BOTTLE GT SCH ×3 (05:35→17:42)
[2018-10-25] MEDS: INSULIN REGULAR, HUMAN 100 UNIT/ML 3 ML VIAL SQ PRN ×3 (06:38→21:41)
[2018-10-25] MEDS: BLOOD SUGAR DIAGNOSTIC 1 EACH STRIP IN SCH ×4 (06:38→21:38)
[2018-10-25] MEDS: MAGNESIUM HYDROXIDE 30 ML UDC GT PRN (06:46)
[2018-10-25] MEDS: BUDESONIDE RESPULE INH 0.25 MG/2 ML AMPUL.NEB NEB SCH ×2 (07:32→20:19)
[2018-10-25 07:33] VITALS: BP 130/74
[2018-10-25] MEDS: METHADONE HCL 5 MG TABLET GT SCH ×2 (09:58→17:42)
[2018-10-25] MEDS: METOPROLOL TARTRATE 25 MG TABLET GT SCH ×2 (09:58→21:24)
[2018-10-25] MEDS: ASPIRIN 81 MG TAB.CHEW GT SCH (09:58)
[2018-10-25] MEDS: DOCUSATE SODIUM LIQ 100 MG/10 ML UDC GT SCH ×3 (09:58→17:42)
[2018-10-25] MEDS: LIPASE/PROTEASE/AMYLASE 1 EACH CAPSULE.DR GT SCH ×3 (09:58→17:42)
[2018-10-25] MEDS: CLOPIDOGREL BISULFATE 75 MG TABLET GT SCH (09:58)
[2018-10-25] MEDS: GLUCERNA SHAKE 237 ML CAN GT SCH ×3 (09:58→17:42)
[2018-10-25] MEDS: ACIDOPHILUS/BULGARICUS 1 EACH TAB.CHEW GT SCH (09:58)
[2018-10-25] MEDS: MULTIVIT W/MINERALS 1 TAB TABLET PO SCH (09:59)
[2018-10-25] MEDS: PROSOURCE / PROSTAT (PYXIS) 30 ML UDC GT SCH ×2 (09:59→17:42)
[2018-10-25] MEDS: LISINOPRIL (10MG) 10 MG TABLET GT SCH (09:59)
[2018-10-25] MEDS: DAKINS HALF STRENGTH (0.25%) 480 ML BOTTLE TOP SCH (09:59)
[2018-10-25] MEDS: CHLORHEXIDINE GLUCONATE 15 ML UDC MM SCH ×2 (09:59→17:42)
[2018-10-25] MEDS: HYDROGEN PEROXIDE 480 ML BOTTLE TP SCH ×2 (09:59→21:24)
[2018-10-25] MEDS: FLUTICASONE PROPIONATE 16 GM BOTTLE NS SCH ×2 (09:59→17:42)
[2018-10-25] MEDS: ASCORBIC ACID 500 MG TABLET GT SCH (09:59)
[2018-10-25] MEDS: Z GUARD REMEDY 2 OZ OINT TP SCH ×2 (09:59→21:24)
--- NOTE | 2018-10-25 15:41 | NUR ---
Seen and examined by Dr. Arndt, He said that it is OK to discontinue Pamelor 5mg. after a week. Order clarified. Resident informed. Patient sat in a wheelchair x 2 hours stayed in the hallway with visiting family member. Patient awake and denies discomfort at this time.
[2018-10-25] MEDS ORDERED: NORTRIPTYLINE HCL 10 MG CAPSULE ONE (20:36)
[2018-10-25] MEDS: ATORVASTATIN 40 MG TABLET GT SCH (21:23)
[2018-10-25] MEDS: MONTELUKAST SODIUM (10MG) 10 MG TABLET PO SCH (21:24)
[2018-10-25] MEDS: NORTRIPTYLINE HCL 10 MG CAPSULE GT SCH (21:24)
[2018-10-25] MEDS: SENNOSIDES 8.6 MG TABLET GT SCH (21:24)
[2018-10-25] MEDS: MELATONIN 5 MG TABLET GT SCH (21:24)
[2018-10-25] MEDS: INSULIN GLARGINE, 100 UNIT/ML CARTRIDGE SQ SCH (21:39)
[2018-10-25] MEDS: GUAIFENESIN 300 MG/15 ML UDC PO PRN (22:10)
[2018-10-26] MEDS: IPRATROPIUM NEB FS 0.5 MG/2.5 ML AMPUL.NEB NEB SCH ×4 (00:43→20:05)
[2018-10-26] MEDS: BACLOFEN (10 MG) 10 MG TABLET GT SCH ×3 (05:51→20:49)
[2018-10-26] MEDS: GABAPENTIN 300 MG CAPSULE GT SCH ×3 (05:51→20:49)
[2018-10-26] MEDS: SIMETHICONE SUSP 40 MG/0.6 ML BOTTLE GT SCH ×4 (05:51→17:28)
[2018-10-26] MEDS: PREVACID 30 MG GT SCH (05:51)
[2018-10-26] MEDS: BLOOD SUGAR DIAGNOSTIC 1 EACH STRIP IN SCH ×4 (06:41→21:08)
[2018-10-26] MEDS: INSULIN REGULAR, HUMAN 100 UNIT/ML 3 ML VIAL SQ PRN ×3 (06:43→21:09)
[2018-10-26 07:24] VITALS: BP 127/72
[2018-10-26] MEDS: BUDESONIDE RESPULE INH 0.25 MG/2 ML AMPUL.NEB NEB SCH ×2 (07:52→20:05)
[2018-10-26] MEDS: METHADONE HCL 5 MG TABLET GT SCH ×2 (09:00→17:28)
[2018-10-26] MEDS: ACIDOPHILUS/BULGARICUS 1 EACH TAB.CHEW GT SCH (09:00)
[2018-10-26] MEDS: POVIDONE-IODINE OINT 28.4 GM TUBE TP SCH ×2 (09:00→20:49)
[2018-10-26] MEDS: ASCORBIC ACID 500 MG TABLET GT SCH (09:00)
[2018-10-26] MEDS: ASPIRIN 81 MG TAB.CHEW GT SCH (09:00)
[2018-10-26] MEDS: CHLORHEXIDINE GLUCONATE 15 ML UDC MM SCH ×2 (09:00→17:28)
[2018-10-26] MEDS: CLOPIDOGREL BISULFATE 75 MG TABLET GT SCH (09:00)
[2018-10-26] MEDS: GLUCERNA SHAKE 237 ML CAN GT SCH ×3 (09:00→17:28)
[2018-10-26] MEDS: HYDROGEN PEROXIDE 480 ML BOTTLE TP SCH ×2 (09:00→20:49)
[2018-10-26] MEDS: DOCUSATE SODIUM LIQ 100 MG/10 ML UDC GT SCH ×3 (09:00→17:28)
[2018-10-26] MEDS: LIPASE/PROTEASE/AMYLASE 1 EACH CAPSULE.DR GT SCH ×3 (09:00→17:28)
[2018-10-26] MEDS: Z GUARD REMEDY 2 OZ OINT TP SCH ×2 (09:00→20:50)
[2018-10-26] MEDS: LISINOPRIL (10MG) 10 MG TABLET GT SCH (09:00)
[2018-10-26] MEDS: MULTIVIT W/MINERALS 1 TAB TABLET PO SCH (09:00)
[2018-10-26] MEDS: DAKINS HALF STRENGTH (0.25%) 480 ML BOTTLE TOP SCH (09:00)
[2018-10-26] MEDS: PROSOURCE / PROSTAT (PYXIS) 30 ML UDC GT SCH ×2 (09:00→17:28)
[2018-10-26] MEDS: FLUTICASONE PROPIONATE 16 GM BOTTLE NS SCH ×2 (09:00→17:28)
[2018-10-26] MEDS: METOPROLOL TARTRATE 25 MG TABLET GT SCH ×2 (09:00→20:49)
[2018-10-26 19:50] VITALS: BP 143/75
[2018-10-26] MEDS: GLUCERNA 1.2 1,000 ML BOTTLE GT PRN (20:00)
[2018-10-26] MEDS: ATORVASTATIN 40 MG TABLET GT SCH (20:49)
[2018-10-26] MEDS: MELATONIN 5 MG TABLET GT SCH (21:01)
[2018-10-26] MEDS: NORTRIPTYLINE HCL 10 MG CAPSULE GT SCH (21:01)
[2018-10-26] MEDS: SENNOSIDES 8.6 MG TABLET GT SCH (21:01)
[2018-10-26] MEDS: MONTELUKAST SODIUM (10MG) 10 MG TABLET PO SCH (21:08)
[2018-10-26] MEDS: INSULIN GLARGINE, 100 UNIT/ML CARTRIDGE SQ SCH (21:09)
--- NOTE | 2018-10-26 23:32 | NUR ---
PLACED PT ON CA 28% DUE TO INCREASE WOB AND PT COMPLAINING OF SOB. PRN TX GIVEN. NURSE NOTIFIED AND WILL CONTINUE TO MONITOR T/O SHIFT.
[2018-10-27] MEDS: SIMETHICONE SUSP 40 MG/0.6 ML BOTTLE GT SCH ×4 (00:17→17:58)
[2018-10-27] MEDS: IPRATROPIUM NEB FS 0.5 MG/2.5 ML AMPUL.NEB NEB SCH ×4 (01:37→19:55)
[2018-10-27] MEDS: ALBUTEROL FS 2.5 MG/3 ML VIAL.NEB NEB PRN (01:38)
[2018-10-27] MEDS: PREVACID 30 MG GT SCH (05:24)
[2018-10-27] MEDS: GABAPENTIN 300 MG CAPSULE GT SCH ×3 (05:24→21:26)
[2018-10-27] MEDS: BACLOFEN (10 MG) 10 MG TABLET GT SCH ×3 (05:24→21:25)
[2018-10-27] MEDS: BLOOD SUGAR DIAGNOSTIC 1 EACH STRIP IN SCH ×4 (06:35→21:26)
[2018-10-27] MEDS: INSULIN REGULAR, HUMAN 100 UNIT/ML 3 ML VIAL SQ PRN ×4 (06:37→22:01)
--- NOTE | 2018-10-27 07:19 | NUR ---
Patient refused Pamelor 5mg. According to the patient everytime she take this medication she is been sleeping all the time.
[2018-10-27] MEDS: BUDESONIDE RESPULE INH 0.25 MG/2 ML AMPUL.NEB NEB SCH ×2 (07:54→19:55)
[2018-10-27 08:08] VITALS: BP 152/78
[2018-10-27] MEDS: HYDROGEN PEROXIDE 480 ML BOTTLE TP SCH ×2 (09:00→21:26)
[2018-10-27] MEDS: Z GUARD REMEDY 2 OZ OINT TP SCH ×2 (09:00→21:26)
[2018-10-27] MEDS: DAKINS HALF STRENGTH (0.25%) 480 ML BOTTLE TOP SCH (09:00)
[2018-10-27] MEDS: POVIDONE-IODINE OINT 28.4 GM TUBE TP SCH ×2 (09:00→21:26)
[2018-10-27] MEDS: DOCUSATE SODIUM LIQ 100 MG/10 ML UDC GT SCH ×3 (09:17→17:54)
[2018-10-27] MEDS: ASPIRIN 81 MG TAB.CHEW GT SCH (09:17)
[2018-10-27] MEDS: GLUCERNA SHAKE 237 ML CAN GT SCH ×3 (09:17→17:56)
[2018-10-27] MEDS: ACIDOPHILUS/BULGARICUS 1 EACH TAB.CHEW GT SCH (09:17)
[2018-10-27] MEDS: METOPROLOL TARTRATE 25 MG TABLET GT SCH ×2 (09:17→21:26)
[2018-10-27] MEDS: LIPASE/PROTEASE/AMYLASE 1 EACH CAPSULE.DR GT SCH ×3 (09:18→17:57)
[2018-10-27] MEDS: METHADONE HCL 5 MG TABLET GT SCH ×2 (09:18→17:57)
[2018-10-27] MEDS: PROSOURCE / PROSTAT (PYXIS) 30 ML UDC GT SCH ×2 (09:19→17:57)
[2018-10-27] MEDS: CLOPIDOGREL BISULFATE 75 MG TABLET GT SCH (09:19)
[2018-10-27] MEDS: ASCORBIC ACID 500 MG TABLET GT SCH (09:19)
[2018-10-27] MEDS: FLUTICASONE PROPIONATE 16 GM BOTTLE NS SCH ×2 (09:19→17:58)
[2018-10-27] MEDS: CHLORHEXIDINE GLUCONATE 15 ML UDC MM SCH ×2 (09:19→17:57)
[2018-10-27] MEDS: MULTIVIT W/MINERALS 1 TAB TABLET PO SCH (09:19)
[2018-10-27] MEDS: LISINOPRIL (10MG) 10 MG TABLET GT SCH (09:19)
--- NOTE | 2018-10-27 15:25 | NUR ---
Informed Dr. Arndt that per pharmacy the lowest dose of Pamelor comes in 10 mg and capsule cannot be opened to give 5mg. dose., It was suggested by pharmacist to give 10 mg every other day or to hold the dose today and will order liquid form in AM. Per Dr. Arndt medication can be discontinued. Order noted and carried out. Resident informed and very happy to know that Pamelor was discontinued. Stable throughout the shift but reported x1 episode of discomfort in the area of her diaphragm when she sits upright, but discomfort was relieved after releasing gas from her GT. Will monitor and report to MD in AM if discomfort persist.
[2018-10-27 19:58] VITALS: BP 127/67
[2018-10-27] MEDS: MONTELUKAST SODIUM (10MG) 10 MG TABLET PO SCH (21:26)
[2018-10-27] MEDS: MELATONIN 5 MG TABLET GT SCH (21:26)
[2018-10-27] MEDS: ATORVASTATIN 40 MG TABLET GT SCH (21:26)
[2018-10-27] MEDS: SENNOSIDES 8.6 MG TABLET GT SCH (21:26)
[2018-10-27] MEDS: INSULIN GLARGINE, 100 UNIT/ML CARTRIDGE SQ SCH (21:28)
[2018-10-28] MEDS: SIMETHICONE SUSP 40 MG/0.6 ML BOTTLE GT SCH ×4 (00:13→17:00)
[2018-10-28] MEDS: IPRATROPIUM NEB FS 0.5 MG/2.5 ML AMPUL.NEB NEB SCH ×4 (01:29→19:54)
[2018-10-28] MEDS: GABAPENTIN 300 MG CAPSULE GT SCH ×3 (05:49→21:34)
[2018-10-28] MEDS: BACLOFEN (10 MG) 10 MG TABLET GT SCH ×3 (05:49→21:32)
[2018-10-28] MEDS: PREVACID 30 MG GT SCH (05:49)
[2018-10-28] MEDS: BLOOD SUGAR DIAGNOSTIC 1 EACH STRIP IN SCH ×4 (06:40→21:34)
[2018-10-28] MEDS: BUDESONIDE RESPULE INH 0.25 MG/2 ML AMPUL.NEB NEB SCH ×2 (07:41→19:54)
[2018-10-28 08:00] VITALS: BP 116/61
[2018-10-28] MEDS: DOCUSATE SODIUM LIQ 100 MG/10 ML UDC GT SCH ×3 (09:25→16:56)
[2018-10-28] MEDS: ASPIRIN 81 MG TAB.CHEW GT SCH (09:26)
[2018-10-28] MEDS: PROSOURCE / PROSTAT (PYXIS) 30 ML UDC GT SCH ×2 (09:28→16:54)
[2018-10-28] MEDS: ASCORBIC ACID 500 MG TABLET GT SCH (09:28)
[2018-10-28] MEDS: CHLORHEXIDINE GLUCONATE 15 ML UDC MM SCH ×2 (09:29→16:54)
[2018-10-28] MEDS: MULTIVIT W/MINERALS 1 TAB TABLET PO SCH (09:29)
[2018-10-28] MEDS: DAKINS HALF STRENGTH (0.25%) 480 ML BOTTLE TOP SCH (09:30)
[2018-10-28] MEDS: POVIDONE-IODINE OINT 28.4 GM TUBE TP SCH ×2 (09:30→21:34)
[2018-10-28] MEDS: HYDROGEN PEROXIDE 480 ML BOTTLE TP SCH ×2 (09:30→21:34)
[2018-10-28] MEDS: Z GUARD REMEDY 2 OZ OINT TP SCH ×2 (09:30→21:34)
[2018-10-28] MEDS: FLUTICASONE PROPIONATE 16 GM BOTTLE NS SCH ×2 (09:31→16:54)
[2018-10-28] MEDS: LIPASE/PROTEASE/AMYLASE 1 EACH CAPSULE.DR GT SCH ×3 (09:34→16:54)
[2018-10-28] MEDS: METHADONE HCL 5 MG TABLET GT SCH ×2 (09:35→16:54)
[2018-10-28] MEDS: CLOPIDOGREL BISULFATE 75 MG TABLET GT SCH (09:35)
[2018-10-28] MEDS: LISINOPRIL (10MG) 10 MG TABLET GT SCH (09:36)
[2018-10-28] MEDS: METOPROLOL TARTRATE 25 MG TABLET GT SCH ×2 (09:43→21:34)
[2018-10-28] MEDS: GLUCERNA SHAKE 237 ML CAN GT SCH ×3 (09:44→16:55)
[2018-10-28] MEDS: ACIDOPHILUS/BULGARICUS 1 EACH TAB.CHEW GT SCH (09:45)
[2018-10-28] MEDS: INSULIN REGULAR, HUMAN 100 UNIT/ML 3 ML VIAL SQ PRN ×2 (12:44→17:24)
[2018-10-28] MEDS: ALBUTEROL FS 2.5 MG/3 ML VIAL.NEB NEB PRN (16:57)
--- NOTE | 2018-10-28 18:55 | NUR ---
Seen by SENDY Hernandez. Received order to do left lower extremity venous duplex due to left leg swelling. Pt aware of order.
--- NOTE | 2018-10-28 20:00 | NUR ---
RN NOTES Pt awake and alert. Left lower leg swelling. Awaiting for venous duplex to be done. No c/o pain or discomfort to leg at this time. Will continue to monitor.
[2018-10-28 21:01] VITALS: BP 116/72
[2018-10-28] MEDS: ATORVASTATIN 40 MG TABLET GT SCH (21:32)
[2018-10-28] MEDS: SENNOSIDES 8.6 MG TABLET GT SCH (21:34)
[2018-10-28] MEDS: MELATONIN 5 MG TABLET GT SCH (21:34)
[2018-10-28] MEDS: MONTELUKAST SODIUM (10MG) 10 MG TABLET PO SCH (21:34)
[2018-10-28] MEDS: INSULIN GLARGINE, 100 UNIT/ML CARTRIDGE SQ SCH (21:36)
[2018-10-29] MEDS: SIMETHICONE SUSP 40 MG/0.6 ML BOTTLE GT SCH ×4 (00:12→18:11)
[2018-10-29] MEDS: IPRATROPIUM NEB FS 0.5 MG/2.5 ML AMPUL.NEB NEB SCH ×4 (01:06→19:41)
[2018-10-29] MEDS: GABAPENTIN 300 MG CAPSULE GT SCH ×3 (05:00→21:00)
[2018-10-29] MEDS: BACLOFEN (10 MG) 10 MG TABLET GT SCH ×3 (05:00→21:00)
[2018-10-29] MEDS: PREVACID 30 MG GT SCH (06:00)
[2018-10-29] MEDS: BLOOD SUGAR DIAGNOSTIC 1 EACH STRIP IN SCH ×4 (06:34→22:09)
[2018-10-29] MEDS: INSULIN REGULAR, HUMAN 100 UNIT/ML 3 ML VIAL SQ PRN ×2 (06:35→12:52)
[2018-10-29 08:33] VITALS: BP 134/63
[2018-10-29] MEDS: BUDESONIDE RESPULE INH 0.25 MG/2 ML AMPUL.NEB NEB SCH ×2 (08:46→19:41)
[2018-10-29] MEDS: HYDROGEN PEROXIDE 480 ML BOTTLE TP SCH ×2 (09:00→21:00)
[2018-10-29] MEDS: POVIDONE-IODINE OINT 28.4 GM TUBE TP SCH ×2 (09:00→21:00)
[2018-10-29] MEDS: Z GUARD REMEDY 2 OZ OINT TP SCH ×2 (09:00→21:00)
[2018-10-29] MEDS: DAKINS HALF STRENGTH (0.25%) 480 ML BOTTLE TOP SCH (09:00)
[2018-10-29] MEDS: DOCUSATE SODIUM LIQ 100 MG/10 ML UDC GT SCH ×3 (09:44→17:58)
[2018-10-29] MEDS: ACIDOPHILUS/BULGARICUS 1 EACH TAB.CHEW GT SCH (09:44)
[2018-10-29] MEDS: GLUCERNA SHAKE 237 ML CAN GT SCH ×3 (09:44→17:58)
[2018-10-29] MEDS: PROSOURCE / PROSTAT (PYXIS) 30 ML UDC GT SCH ×2 (09:44→17:57)
[2018-10-29] MEDS: ASCORBIC ACID 500 MG TABLET GT SCH (09:44)
[2018-10-29] MEDS: ASPIRIN 81 MG TAB.CHEW GT SCH (09:44)
[2018-10-29] MEDS: MULTIVIT W/MINERALS 1 TAB TABLET PO SCH (09:45)
[2018-10-29] MEDS: FLUTICASONE PROPIONATE 16 GM BOTTLE NS SCH ×2 (09:45→17:57)
[2018-10-29] MEDS: METHADONE HCL 5 MG TABLET GT SCH ×2 (09:46→17:58)
[2018-10-29] MEDS: LIPASE/PROTEASE/AMYLASE 1 EACH CAPSULE.DR GT SCH ×3 (09:46→17:58)
[2018-10-29] MEDS: CHLORHEXIDINE GLUCONATE 15 ML UDC MM SCH ×2 (09:46→17:57)
[2018-10-29] MEDS: CLOPIDOGREL BISULFATE 75 MG TABLET GT SCH (09:46)
[2018-10-29] MEDS: METOPROLOL TARTRATE 25 MG TABLET GT SCH ×2 (09:47→21:00)
[2018-10-29] MEDS: LISINOPRIL (10MG) 10 MG TABLET GT SCH (09:47)
--- NOTE | 2018-10-29 10:03 | NUR ---
Seen by Dr Clarke. Pt complained that she feels her phlegm getting stuck in her throat and it makes it hard for her to breathe. Pt suctioned PRN and thick secretions were noted. Dr Clarke ordered to give Mucomyst 600 mg GT BID for 2 weeks.
[2018-10-29] MEDS: ATORVASTATIN 40 MG TABLET GT SCH (21:00)
[2018-10-29] MEDS ORDERED: ACETYLCYSTEINE 20% ORAL SOLN 6,000 MG/30 ML VIAL PO SCH (21:00)
[2018-10-29] MEDS: SENNOSIDES 8.6 MG TABLET GT SCH (22:09)
[2018-10-29] MEDS: MELATONIN 5 MG TABLET GT SCH (22:09)
[2018-10-29] MEDS: MONTELUKAST SODIUM (10MG) 10 MG TABLET PO SCH (22:09)
[2018-10-29] MEDS: INSULIN GLARGINE, 100 UNIT/ML CARTRIDGE SQ SCH (22:10)
[2018-10-30] MEDS: SIMETHICONE SUSP 40 MG/0.6 ML BOTTLE GT SCH ×4 (00:03→17:37)
[2018-10-30] MEDS: IPRATROPIUM NEB FS 0.5 MG/2.5 ML AMPUL.NEB NEB SCH ×4 (01:27→20:01)
[2018-10-30] MEDS: GABAPENTIN 300 MG CAPSULE GT SCH ×3 (05:00→21:34)
[2018-10-30] MEDS: BACLOFEN (10 MG) 10 MG TABLET GT SCH ×3 (05:00→21:33)
[2018-10-30] MEDS: PREVACID 30 MG GT SCH (06:33)
[2018-10-30] MEDS: BLOOD SUGAR DIAGNOSTIC 1 EACH STRIP IN SCH ×4 (06:38→21:34)
[2018-10-30 07:02] VITALS: BP 139/79
[2018-10-30 07:35] VITALS: BP 120/65
[2018-10-30] MEDS: BUDESONIDE RESPULE INH 0.25 MG/2 ML AMPUL.NEB NEB SCH ×2 (07:36→20:01)
[2018-10-30] MEDS: DAKINS HALF STRENGTH (0.25%) 480 ML BOTTLE TOP SCH (09:00)
[2018-10-30] MEDS: Z GUARD REMEDY 2 OZ OINT TP SCH ×2 (09:00→21:34)
[2018-10-30] MEDS: HYDROGEN PEROXIDE 480 ML BOTTLE TP SCH ×2 (09:00→21:34)
[2018-10-30] MEDS: POVIDONE-IODINE OINT 28.4 GM TUBE TP SCH ×2 (09:00→21:34)
[2018-10-30] MEDS: LIPASE/PROTEASE/AMYLASE 1 EACH CAPSULE.DR GT SCH ×3 (09:23→17:37)
[2018-10-30] MEDS: PROSOURCE / PROSTAT (PYXIS) 30 ML UDC GT SCH ×2 (09:23→17:37)
[2018-10-30] MEDS: CLOPIDOGREL BISULFATE 75 MG TABLET GT SCH (09:23)
[2018-10-30] MEDS: METHADONE HCL 5 MG TABLET GT SCH ×2 (09:23→17:37)
[2018-10-30] MEDS: METOPROLOL TARTRATE 25 MG TABLET GT SCH ×2 (09:23→21:34)
[2018-10-30] MEDS: LISINOPRIL (10MG) 10 MG TABLET GT SCH (09:23)
[2018-10-30] MEDS: MULTIVIT W/MINERALS 1 TAB TABLET PO SCH (09:24)
[2018-10-30] MEDS: ASCORBIC ACID 500 MG TABLET GT SCH (09:24)
[2018-10-30] MEDS: GUAIFENESIN 300 MG/15 ML UDC GT SCH ×2 (09:24→21:34)
[2018-10-30] MEDS: FLUTICASONE PROPIONATE 16 GM BOTTLE NS SCH ×2 (09:24→17:37)
[2018-10-30] MEDS: CHLORHEXIDINE GLUCONATE 15 ML UDC MM SCH ×2 (09:24→17:37)
[2018-10-30] MEDS: DOCUSATE SODIUM LIQ 100 MG/10 ML UDC GT SCH ×3 (09:25→17:37)
[2018-10-30] MEDS: ASPIRIN 81 MG TAB.CHEW GT SCH (09:25)
[2018-10-30] MEDS: GLUCERNA SHAKE 237 ML CAN GT SCH ×3 (09:25→17:37)
[2018-10-30] MEDS: ACIDOPHILUS/BULGARICUS 1 EACH TAB.CHEW GT SCH (09:25)
[2018-10-30] MEDS: INSULIN REGULAR, HUMAN 100 UNIT/ML 3 ML VIAL SQ PRN ×3 (12:04→21:39)
[2018-10-30] MEDS: GLUCERNA 1.2 1,000 ML BOTTLE GT PRN (20:00)
[2018-10-30 20:37] VITALS: BP 137/70
[2018-10-30] MEDS: ATORVASTATIN 40 MG TABLET GT SCH (21:33)
[2018-10-30] MEDS: SENNOSIDES 8.6 MG TABLET GT SCH (21:34)
[2018-10-30] MEDS: MELATONIN 5 MG TABLET GT SCH (21:34)
[2018-10-30] MEDS: MONTELUKAST SODIUM (10MG) 10 MG TABLET PO SCH (21:34)
[2018-10-30] MEDS: INSULIN GLARGINE, 100 UNIT/ML CARTRIDGE SQ SCH (21:38)
[2018-10-31] MEDS: SIMETHICONE SUSP 40 MG/0.6 ML BOTTLE GT SCH ×5 (00:16→23:44)
[2018-10-31] MEDS: IPRATROPIUM NEB FS 0.5 MG/2.5 ML AMPUL.NEB NEB SCH ×4 (01:00→20:07)
[2018-10-31] MEDS: BACLOFEN (10 MG) 10 MG TABLET GT SCH ×3 (05:45→20:48)
[2018-10-31] MEDS: PREVACID 30 MG GT SCH (05:45)
[2018-10-31] MEDS: GABAPENTIN 300 MG CAPSULE GT SCH ×3 (05:45→20:49)
[2018-10-31] MEDS: MAGNESIUM HYDROXIDE 30 ML UDC GT PRN (06:23)
[2018-10-31] MEDS: BLOOD SUGAR DIAGNOSTIC 1 EACH STRIP IN SCH ×4 (06:49→21:09)
[2018-10-31] MEDS: INSULIN REGULAR, HUMAN 100 UNIT/ML 3 ML VIAL SQ PRN ×4 (06:49→21:11)
[2018-10-31 07:28] VITALS: BP 130/69
[2018-10-31] MEDS: BUDESONIDE RESPULE INH 0.25 MG/2 ML AMPUL.NEB NEB SCH ×2 (07:35→20:07)
[2018-10-31] MEDS: METOPROLOL TARTRATE 25 MG TABLET GT SCH ×2 (08:41→20:49)
[2018-10-31] MEDS: ASPIRIN 81 MG TAB.CHEW GT SCH (08:41)
[2018-10-31] MEDS: ACIDOPHILUS/BULGARICUS 1 EACH TAB.CHEW GT SCH (08:41)
[2018-10-31] MEDS: GLUCERNA SHAKE 237 ML CAN GT SCH ×3 (08:41→17:39)
[2018-10-31] MEDS: DOCUSATE SODIUM LIQ 100 MG/10 ML UDC GT SCH ×3 (08:41→17:39)
[2018-10-31] MEDS: LIPASE/PROTEASE/AMYLASE 1 EACH CAPSULE.DR GT SCH ×3 (08:42→17:39)
[2018-10-31] MEDS: CLOPIDOGREL BISULFATE 75 MG TABLET GT SCH (08:42)
[2018-10-31] MEDS: METHADONE HCL 5 MG TABLET GT SCH ×2 (08:42→17:39)
[2018-10-31] MEDS: PROSOURCE / PROSTAT (PYXIS) 30 ML UDC GT SCH ×2 (08:43→17:39)
[2018-10-31] MEDS: LISINOPRIL (10MG) 10 MG TABLET GT SCH (08:43)
[2018-10-31] MEDS: GUAIFENESIN 300 MG/15 ML UDC GT SCH ×2 (08:43→20:49)
[2018-10-31] MEDS: ASCORBIC ACID 500 MG TABLET GT SCH (08:43)
[2018-10-31] MEDS: MULTIVIT W/MINERALS 1 TAB TABLET PO SCH (08:43)
[2018-10-31] MEDS: CHLORHEXIDINE GLUCONATE 15 ML UDC MM SCH ×2 (08:43→17:39)
[2018-10-31] MEDS: FLUTICASONE PROPIONATE 16 GM BOTTLE NS SCH ×2 (08:43→17:39)
[2018-10-31] MEDS: HYDROGEN PEROXIDE 480 ML BOTTLE TP SCH ×2 (09:00→20:49)
[2018-10-31] MEDS: DAKINS HALF STRENGTH (0.25%) 480 ML BOTTLE TOP SCH (09:00)
[2018-10-31] MEDS: Z GUARD REMEDY 2 OZ OINT TP SCH ×2 (09:00→20:49)
[2018-10-31] MEDS: POVIDONE-IODINE OINT 28.4 GM TUBE TP SCH ×2 (09:00→20:49)
[2018-10-31] MEDS ORDERED: BISACODYL SUPP (10 MG) 10 MG/SUPP.RECT SUPP.RECT RC ONE (12:30)
[2018-10-31] MEDS ORDERED: POLYETHYLENE GLYCOL 3350 17 GM POWD.PACK GT ONE (12:30)
--- NOTE | 2018-10-31 13:00 | NUR ---
Seen by Dr Arndt. Pt complained of upper abdominal pain and also of constipation. Dr Arndt examined her and ordered KUB. He also ordered Miralax 17 gm GT x 1 and Dulcolax suppository 10 mg x 1 per rectum.
--- NOTE | 2018-10-31 13:30 | NUR ---
Dr Clarke ordered to give Mucomyst 10% 3 mL inhalation via nebulizer q 12 hours for 5 days for thick secretions.
--- NOTE | 2018-10-31 16:00 | NUR ---
Seen by Dr Gomez. He ordered to apply Betadine and gauze dressing on the left middle toe blister q shift for 30 days.
--- NOTE | 2018-10-31 17:35 | NUR ---
Pt still complaining of constipation. Notified Dr Arndt and relayed KUB result to him which showed no significant findings in the abdomen. KUB showed some gas in the stomach and right pleural effusion. Pt wanted an enema and Dr Arndt ordered it.
[2018-10-31] MEDS ORDERED: NA PHOS,M-B/NA PHOS,DI-BA 1 EA ENEMA RC ONE (18:00)
--- NOTE | 2018-10-31 18:18 | NUR ---
Pt was given an enema and had a large bowel movement. She said she feels relieved.
--- NOTE | 2018-10-31 18:37 | NUR ---
Encouraged pt to drink more fluids and eat more vegetables and fruits to prevent constipation. Also encouraged her to move and ambulate.
--- NOTE | 2018-10-31 20:00 | NUR ---
Seen and Examined by SENDY Hernandez with new order Lasix 20mg GT daily x 3 days.Will carry out order,patient aware of new order.
[2018-10-31 20:37] VITALS: BP 151/79
[2018-10-31] MEDS: ATORVASTATIN 40 MG TABLET GT SCH (20:48)
[2018-10-31] MEDS: FUROSEMIDE 20 MG TABLET GT SCH (20:48)
[2018-10-31] MEDS: INSULIN GLARGINE, 100 UNIT/ML CARTRIDGE SQ SCH (21:09)
[2018-10-31] MEDS: MONTELUKAST SODIUM (10MG) 10 MG TABLET PO SCH (21:09)
[2018-10-31] MEDS: SENNOSIDES 8.6 MG TABLET GT SCH (21:09)
[2018-10-31] MEDS: MELATONIN 5 MG TABLET GT SCH (21:09)
[2018-10-31] MEDS: GLUCERNA 1.2 1,000 ML BOTTLE GT PRN (21:10)
[2018-10-31] MEDS: ACETYLCYSTEINE 10% SOLN 400 MG/4 ML VIAL IH SCH (23:04)
[2018-11-01] MEDS: IPRATROPIUM NEB FS 0.5 MG/2.5 ML AMPUL.NEB NEB SCH ×4 (02:13→19:46)
[2018-11-01] MEDS: BACLOFEN (10 MG) 10 MG TABLET GT SCH ×3 (05:33→20:24)
[2018-11-01] MEDS: SIMETHICONE SUSP 40 MG/0.6 ML BOTTLE GT SCH ×4 (05:33→23:43)
[2018-11-01] MEDS: PREVACID 30 MG GT SCH (05:33)
[2018-11-01] MEDS: GABAPENTIN 300 MG CAPSULE GT SCH ×3 (05:33→20:25)
[2018-11-01] MEDS: BLOOD SUGAR DIAGNOSTIC 1 EACH STRIP IN SCH ×4 (06:48→21:26)
[2018-11-01] MEDS: INSULIN REGULAR, HUMAN 100 UNIT/ML 3 ML VIAL SQ PRN ×3 (06:50→17:12)
[2018-11-01 07:22] VITALS: BP 129/72
[2018-11-01 07:47] LABS: CALCIUM, SERUM 8.7 mg/dL (8.5-10.1); CREATININE 0.7 mg/dL (0.6-1.3); POTASSIUM 4.5 mmol/L (3.5-5.1)
[2018-11-01] MEDS: BUDESONIDE RESPULE INH 0.25 MG/2 ML AMPUL.NEB NEB SCH ×2 (08:22→19:50)
[2018-11-01] MEDS: ACETYLCYSTEINE 10% SOLN 400 MG/4 ML VIAL IH SCH ×2 (08:53→20:27)
[2018-11-01] MEDS: ASPIRIN 81 MG TAB.CHEW GT SCH (08:53)
[2018-11-01] MEDS: DOCUSATE SODIUM LIQ 100 MG/10 ML UDC GT SCH ×3 (08:54→17:00)
[2018-11-01] MEDS: ACIDOPHILUS/BULGARICUS 1 EACH TAB.CHEW GT SCH (08:54)
[2018-11-01] MEDS: CLOPIDOGREL BISULFATE 75 MG TABLET GT SCH (08:54)
[2018-11-01] MEDS: GLUCERNA SHAKE 237 ML CAN GT SCH ×3 (08:54→17:00)
[2018-11-01] MEDS: METHADONE HCL 5 MG TABLET GT SCH ×2 (08:54→17:00)
[2018-11-01] MEDS: LIPASE/PROTEASE/AMYLASE 1 EACH CAPSULE.DR GT SCH ×3 (08:54→17:00)
[2018-11-01] MEDS: METOPROLOL TARTRATE 25 MG TABLET GT SCH ×2 (08:54→20:25)
[2018-11-01] MEDS: CHLORHEXIDINE GLUCONATE 15 ML UDC MM SCH ×2 (08:55→17:00)
[2018-11-01] MEDS: GUAIFENESIN 300 MG/15 ML UDC GT SCH ×2 (08:55→20:25)
[2018-11-01] MEDS: PROSOURCE / PROSTAT (PYXIS) 30 ML UDC GT SCH ×2 (08:55→17:00)
[2018-11-01] MEDS: FLUTICASONE PROPIONATE 16 GM BOTTLE NS SCH ×2 (08:55→17:00)
[2018-11-01] MEDS: MULTIVIT W/MINERALS 1 TAB TABLET PO SCH (08:55)
[2018-11-01] MEDS: LISINOPRIL (10MG) 10 MG TABLET GT SCH (08:55)
[2018-11-01] MEDS: ASCORBIC ACID 500 MG TABLET GT SCH (08:55)
[2018-11-01] MEDS: Z GUARD REMEDY 2 OZ OINT TP SCH ×2 (09:00→20:25)
[2018-11-01] MEDS: DAKINS HALF STRENGTH (0.25%) 480 ML BOTTLE TOP SCH (09:00)
[2018-11-01] MEDS: POVIDONE-IODINE OINT 28.4 GM TUBE TP SCH ×2 (09:00→20:25)
[2018-11-01] MEDS: HYDROGEN PEROXIDE 480 ML BOTTLE TP SCH ×2 (09:00→20:25)
[2018-11-01 19:42] VITALS: BP 105/67
[2018-11-01] MEDS: FUROSEMIDE 20 MG TABLET GT SCH (20:24)
[2018-11-01] MEDS: ATORVASTATIN 40 MG TABLET GT SCH (20:24)
[2018-11-01] MEDS: GLUCERNA 1.2 1,000 ML BOTTLE GT PRN (20:35)
[2018-11-01] MEDS: MELATONIN 5 MG TABLET GT SCH (21:26)
[2018-11-01] MEDS: SENNOSIDES 8.6 MG TABLET GT SCH (21:26)
[2018-11-01] MEDS: MONTELUKAST SODIUM (10MG) 10 MG TABLET PO SCH (21:26)
[2018-11-01] MEDS: INSULIN GLARGINE, 100 UNIT/ML CARTRIDGE SQ SCH (21:26)
[2018-11-02] MEDS: IPRATROPIUM NEB FS 0.5 MG/2.5 ML AMPUL.NEB NEB SCH ×4 (01:45→19:46)
[2018-11-02] MEDS: GABAPENTIN 300 MG CAPSULE GT SCH ×3 (05:44→20:58)
[2018-11-02] MEDS: SIMETHICONE SUSP 40 MG/0.6 ML BOTTLE GT SCH ×4 (05:44→23:36)
[2018-11-02] MEDS: BACLOFEN (10 MG) 10 MG TABLET GT SCH ×3 (05:44→20:58)
[2018-11-02] MEDS: PREVACID 30 MG GT SCH (05:44)
[2018-11-02] MEDS: BLOOD SUGAR DIAGNOSTIC 1 EACH STRIP IN SCH ×4 (06:58→21:32)
[2018-11-02] MEDS: INSULIN REGULAR, HUMAN 100 UNIT/ML 3 ML VIAL SQ PRN ×3 (06:59→16:41)
[2018-11-02] MEDS: BUDESONIDE RESPULE INH 0.25 MG/2 ML AMPUL.NEB NEB SCH ×2 (07:28→19:46)
[2018-11-02 07:54] VITALS: BP 114/65
[2018-11-02] MEDS: ACETYLCYSTEINE 10% SOLN 400 MG/4 ML VIAL IH SCH ×2 (08:20→21:00)
[2018-11-02] MEDS: GLUCERNA SHAKE 237 ML CAN GT SCH ×3 (09:08→16:39)
[2018-11-02] MEDS: METOPROLOL TARTRATE 25 MG TABLET GT SCH ×2 (09:08→20:58)
[2018-11-02] MEDS: ASPIRIN 81 MG TAB.CHEW GT SCH (09:08)
[2018-11-02] MEDS: ACIDOPHILUS/BULGARICUS 1 EACH TAB.CHEW GT SCH (09:08)
[2018-11-02] MEDS: DOCUSATE SODIUM LIQ 100 MG/10 ML UDC GT SCH ×3 (09:08→16:39)
[2018-11-02] MEDS: METHADONE HCL 5 MG TABLET GT SCH ×2 (09:09→16:40)
[2018-11-02] MEDS: LISINOPRIL (10MG) 10 MG TABLET GT SCH (09:11)
[2018-11-02] MEDS: CHLORHEXIDINE GLUCONATE 15 ML UDC MM SCH ×2 (09:11→16:40)
[2018-11-02] MEDS: CLOPIDOGREL BISULFATE 75 MG TABLET GT SCH (09:11)
[2018-11-02] MEDS: ASCORBIC ACID 500 MG TABLET GT SCH (09:11)
[2018-11-02] MEDS: LIPASE/PROTEASE/AMYLASE 1 EACH CAPSULE.DR GT SCH ×3 (09:11→16:40)
[2018-11-02] MEDS: GUAIFENESIN 300 MG/15 ML UDC GT SCH ×2 (09:11→20:58)
[2018-11-02] MEDS: PROSOURCE / PROSTAT (PYXIS) 30 ML UDC GT SCH ×2 (09:11→16:40)
[2018-11-02] MEDS: FLUTICASONE PROPIONATE 16 GM BOTTLE NS SCH ×2 (09:12→16:40)
[2018-11-02] MEDS: MULTIVIT W/MINERALS 1 TAB TABLET PO SCH (09:12)
[2018-11-02] MEDS: BISACODYL SUPP (10 MG) 10 MG/SUPP.RECT SUPP.RECT RC PRN (10:01)
[2018-11-02] MEDS: HYDROGEN PEROXIDE 480 ML BOTTLE TP SCH ×2 (15:00→20:58)
[2018-11-02] MEDS: Z GUARD REMEDY 2 OZ OINT TP SCH ×2 (15:00→20:58)
[2018-11-02] MEDS: POVIDONE-IODINE OINT 28.4 GM TUBE TP SCH ×2 (15:00→20:58)
[2018-11-02] MEDS: DAKINS HALF STRENGTH (0.25%) 480 ML BOTTLE TOP SCH (15:00)
[2018-11-02 20:08] VITALS: BP 110/73
[2018-11-02] MEDS: GLUCERNA 1.2 1,000 ML BOTTLE GT PRN (20:58)
[2018-11-02] MEDS: ATORVASTATIN 40 MG TABLET GT SCH (20:58)
[2018-11-02] MEDS: FUROSEMIDE 20 MG TABLET GT SCH (20:58)
[2018-11-02] MEDS: MELATONIN 5 MG TABLET GT SCH (21:32)
[2018-11-02] MEDS: SENNOSIDES 8.6 MG TABLET GT SCH (21:32)
[2018-11-02] MEDS: MONTELUKAST SODIUM (10MG) 10 MG TABLET PO SCH (21:32)
[2018-11-02] MEDS: INSULIN GLARGINE, 100 UNIT/ML CARTRIDGE SQ SCH (21:33)
[2018-11-03] MEDS: IPRATROPIUM NEB FS 0.5 MG/2.5 ML AMPUL.NEB NEB SCH ×4 (00:56→20:03)
[2018-11-03] MEDS: SIMETHICONE SUSP 40 MG/0.6 ML BOTTLE GT SCH ×3 (05:33→16:43)
[2018-11-03] MEDS: GABAPENTIN 300 MG CAPSULE GT SCH ×3 (05:33→21:48)
[2018-11-03] MEDS: PREVACID 30 MG GT SCH (05:33)
[2018-11-03] MEDS: BACLOFEN (10 MG) 10 MG TABLET GT SCH ×3 (05:33→21:46)
[2018-11-03] MEDS: BLOOD SUGAR DIAGNOSTIC 1 EACH STRIP IN SCH ×4 (06:35→21:53)
[2018-11-03] MEDS: INSULIN REGULAR, HUMAN 100 UNIT/ML 3 ML VIAL SQ PRN ×4 (06:35→22:10)
[2018-11-03 07:26] VITALS: BP 124/77
[2018-11-03] MEDS: BUDESONIDE RESPULE INH 0.25 MG/2 ML AMPUL.NEB NEB SCH ×2 (07:37→19:33)
[2018-11-03] MEDS: ACETYLCYSTEINE 10% SOLN 400 MG/4 ML VIAL IH SCH ×2 (08:11→20:03)
[2018-11-03] MEDS: LIPASE/PROTEASE/AMYLASE 1 EACH CAPSULE.DR GT SCH ×4 (09:00→16:39)
[2018-11-03] MEDS: DAKINS HALF STRENGTH (0.25%) 480 ML BOTTLE TOP SCH (09:00)
[2018-11-03] MEDS: Z GUARD REMEDY 2 OZ OINT TP SCH ×2 (09:00→21:52)
[2018-11-03] MEDS: ASPIRIN 81 MG TAB.CHEW GT SCH (09:00)
[2018-11-03] MEDS: DOCUSATE SODIUM LIQ 100 MG/10 ML UDC GT SCH ×3 (09:00→16:41)
[2018-11-03] MEDS: POVIDONE-IODINE OINT 28.4 GM TUBE TP SCH ×2 (09:00→21:52)
[2018-11-03] MEDS: ASCORBIC ACID 500 MG TABLET GT SCH (09:00)
[2018-11-03] MEDS: HYDROGEN PEROXIDE 480 ML BOTTLE TP SCH ×2 (09:00→21:52)
[2018-11-03] MEDS: PROSOURCE / PROSTAT (PYXIS) 30 ML UDC GT SCH ×2 (09:00→16:37)
[2018-11-03] MEDS: FLUTICASONE PROPIONATE 16 GM BOTTLE NS SCH ×2 (09:00→16:42)
[2018-11-03] MEDS: ACIDOPHILUS/BULGARICUS 1 EACH TAB.CHEW GT SCH (09:00)
[2018-11-03] MEDS: GUAIFENESIN 300 MG/15 ML UDC GT SCH ×2 (11:43→21:51)
[2018-11-03] MEDS: CHLORHEXIDINE GLUCONATE 15 ML UDC MM SCH ×2 (11:44→16:39)
[2018-11-03] MEDS: LISINOPRIL (10MG) 10 MG TABLET GT SCH (11:44)
[2018-11-03] MEDS: MULTIVIT W/MINERALS 1 TAB TABLET PO SCH (11:44)
[2018-11-03] MEDS: CLOPIDOGREL BISULFATE 75 MG TABLET GT SCH (11:44)
[2018-11-03] MEDS: METHADONE HCL 5 MG TABLET GT SCH ×2 (11:45→16:39)
[2018-11-03] MEDS: GLUCERNA SHAKE 237 ML CAN GT SCH ×3 (11:52→16:41)
[2018-11-03] MEDS: METOPROLOL TARTRATE 25 MG TABLET GT SCH ×2 (11:53→21:47)
[2018-11-03] MEDS: MAGNESIUM HYDROXIDE 30 ML UDC GT PRN (17:04)
[2018-11-03 19:45] VITALS: BP 128/76
[2018-11-03] MEDS: GLUCERNA 1.2 1,000 ML BOTTLE GT PRN (21:37)
[2018-11-03] MEDS: ATORVASTATIN 40 MG TABLET GT SCH (21:46)
[2018-11-03] MEDS: MONTELUKAST SODIUM (10MG) 10 MG TABLET PO SCH (21:52)
[2018-11-03] MEDS: MELATONIN 5 MG TABLET GT SCH (21:55)
[2018-11-03] MEDS: SENNOSIDES 8.6 MG TABLET GT SCH (21:58)
[2018-11-03] MEDS: INSULIN GLARGINE, 100 UNIT/ML CARTRIDGE SQ SCH (22:08)
[2018-11-04] MEDS: IPRATROPIUM NEB FS 0.5 MG/2.5 ML AMPUL.NEB NEB SCH ×4 (00:34→20:03)
[2018-11-04] MEDS: SIMETHICONE SUSP 40 MG/0.6 ML BOTTLE GT SCH ×5 (00:43→23:23)
[2018-11-04] MEDS: BACLOFEN (10 MG) 10 MG TABLET GT SCH ×3 (05:39→21:15)
[2018-11-04] MEDS: GABAPENTIN 300 MG CAPSULE GT SCH ×3 (05:39→21:15)
[2018-11-04] MEDS: PREVACID 30 MG GT SCH (05:42)
[2018-11-04] MEDS: INSULIN REGULAR, HUMAN 100 UNIT/ML 3 ML VIAL SQ PRN ×3 (06:44→17:07)
[2018-11-04] MEDS: BLOOD SUGAR DIAGNOSTIC 1 EACH STRIP IN SCH ×4 (06:44→21:15)
[2018-11-04 07:44] VITALS: BP 110/62
[2018-11-04] MEDS: BUDESONIDE RESPULE INH 0.25 MG/2 ML AMPUL.NEB NEB SCH ×2 (07:57→20:03)
[2018-11-04] MEDS: GUAIFENESIN 300 MG/15 ML UDC GT SCH ×2 (09:00→21:15)
[2018-11-04] MEDS: ACETYLCYSTEINE 10% SOLN 400 MG/4 ML VIAL IH SCH ×2 (09:00→23:22)
[2018-11-04] MEDS: Z GUARD REMEDY 2 OZ OINT TP SCH ×2 (09:00→21:15)
[2018-11-04] MEDS: ACIDOPHILUS/BULGARICUS 1 EACH TAB.CHEW GT SCH (09:42)
[2018-11-04] MEDS: GLUCERNA SHAKE 237 ML CAN GT SCH ×3 (09:42→17:05)
[2018-11-04] MEDS: DOCUSATE SODIUM LIQ 100 MG/10 ML UDC GT SCH ×3 (09:42→17:05)
[2018-11-04] MEDS: ASPIRIN 81 MG TAB.CHEW GT SCH (09:42)
[2018-11-04] MEDS: PROSOURCE / PROSTAT (PYXIS) 30 ML UDC GT SCH ×2 (09:43→17:06)
[2018-11-04] MEDS: LIPASE/PROTEASE/AMYLASE 1 EACH CAPSULE.DR GT SCH ×3 (09:43→17:06)
[2018-11-04] MEDS: ASCORBIC ACID 500 MG TABLET GT SCH (09:43)
[2018-11-04] MEDS: METHADONE HCL 5 MG TABLET GT SCH ×2 (09:43→17:06)
[2018-11-04] MEDS: LISINOPRIL (10MG) 10 MG TABLET GT SCH (09:43)
[2018-11-04] MEDS: METOPROLOL TARTRATE 25 MG TABLET GT SCH ×2 (09:43→21:15)
[2018-11-04] MEDS: CHLORHEXIDINE GLUCONATE 15 ML UDC MM SCH ×2 (09:43→17:06)
[2018-11-04] MEDS: CLOPIDOGREL BISULFATE 75 MG TABLET GT SCH (09:43)
[2018-11-04] MEDS: MULTIVIT W/MINERALS 1 TAB TABLET PO SCH (09:44)
[2018-11-04] MEDS: FLUTICASONE PROPIONATE 16 GM BOTTLE NS SCH ×2 (09:44→17:06)
--- NOTE | 2018-11-04 11:42 | NUR ---
RT NOTE PT SCHEDULED TRACHESOTOMY TUBE CHANGE. PT AWAKE AND ALERT. PT ON 2L NC. NO SOB OR ANY DISTRESS NOTED. CLEAR BREATH SOUNDS UPON AUSCULTATION. NO BLEEDING NOTED. STOMA CLEAN NO REDNESS NOTED. PT DIRECTOR OF HOTEL OPERATIONS PLACED. RN NOTIFIED. Addendum: 11/04/18 at 1143 by JONATHAN DEAL RT Amended: Links added.
--- NOTE | 2018-11-04 15:10 | NUR ---
Dr. Okeefe conducted a dental examination of patient. Resident expressed she would like to haf her partial denture adjusted. printed circuit board reworker will call [facility] to get more information of dental insurance coverage, fee and to schedule a dental cleaning for resident. Addendum: 11/07/18 at 1345 by KELLI RIDDLE DOMINIC explained to resident that her dental insurance does not cover the adjustment of her partial. Resident told DOMINIC that it was not important because she was not using her denture and declined services.
[2018-11-04] MEDS: POVIDONE-IODINE OINT 28.4 GM TUBE TP SCH ×2 (17:05→21:15)
[2018-11-04] MEDS: DAKINS HALF STRENGTH (0.25%) 480 ML BOTTLE TOP SCH (17:05)
[2018-11-04] MEDS: HYDROGEN PEROXIDE 480 ML BOTTLE TP SCH ×2 (17:05→21:15)
[2018-11-04 19:36] VITALS: BP 130/72
[2018-11-04] MEDS: GLUCERNA 1.2 1,000 ML BOTTLE GT PRN (20:34)
[2018-11-04] MEDS: MELATONIN 5 MG TABLET GT SCH (21:15)
[2018-11-04] MEDS: MONTELUKAST SODIUM (10MG) 10 MG TABLET PO SCH (21:15)
[2018-11-04] MEDS: ATORVASTATIN 40 MG TABLET GT SCH (21:15)
[2018-11-04] MEDS: SENNOSIDES 8.6 MG TABLET GT SCH (21:15)
[2018-11-04] MEDS: INSULIN GLARGINE, 100 UNIT/ML CARTRIDGE SQ SCH (21:17)
[2018-11-05] MEDS: IPRATROPIUM NEB FS 0.5 MG/2.5 ML AMPUL.NEB NEB SCH ×4 (01:18→20:37)
[2018-11-05] MEDS: SIMETHICONE SUSP 40 MG/0.6 ML BOTTLE GT SCH ×4 (05:39→23:40)
[2018-11-05] MEDS: PREVACID 30 MG GT SCH (05:39)
[2018-11-05] MEDS: BACLOFEN (10 MG) 10 MG TABLET GT SCH ×3 (05:39→21:20)
[2018-11-05] MEDS: GABAPENTIN 300 MG CAPSULE GT SCH ×3 (05:39→21:21)
[2018-11-05] MEDS: MAGNESIUM HYDROXIDE 30 ML UDC GT PRN (05:40)
[2018-11-05] MEDS: BLOOD SUGAR DIAGNOSTIC 1 EACH STRIP IN SCH ×4 (06:42→21:21)
[2018-11-05] MEDS: INSULIN REGULAR, HUMAN 100 UNIT/ML 3 ML VIAL SQ PRN ×3 (06:44→18:10)
[2018-11-05 07:49] VITALS: BP 113/65
--- NOTE | 2018-11-05 08:30 | NUR ---
RT NOTE: MUCOMYST NOT AVAILABLE AT THIS TIME IN OMNICE. PHARMACY CALLED AND MADE AWARE. (SPOKED TO JORGE).
[2018-11-05] MEDS: BUDESONIDE RESPULE INH 0.25 MG/2 ML AMPUL.NEB NEB SCH ×2 (08:46→20:50)
[2018-11-05] MEDS: DAKINS HALF STRENGTH (0.25%) 480 ML BOTTLE TOP SCH (09:00)
[2018-11-05] MEDS: Z GUARD REMEDY 2 OZ OINT TP SCH ×2 (09:00→21:21)
[2018-11-05] MEDS: POVIDONE-IODINE OINT 28.4 GM TUBE TP SCH ×2 (09:00→21:21)
[2018-11-05] MEDS: ACETYLCYSTEINE 10% SOLN 400 MG/4 ML VIAL IH SCH (09:00)
[2018-11-05] MEDS: HYDROGEN PEROXIDE 480 ML BOTTLE TP SCH ×2 (09:00→21:21)
[2018-11-05] MEDS: ASPIRIN 81 MG TAB.CHEW GT SCH (09:56)
[2018-11-05] MEDS: ACIDOPHILUS/BULGARICUS 1 EACH TAB.CHEW GT SCH (09:57)
[2018-11-05] MEDS: DOCUSATE SODIUM LIQ 100 MG/10 ML UDC GT SCH ×3 (09:57→17:00)
[2018-11-05] MEDS: GLUCERNA SHAKE 237 ML CAN GT SCH ×3 (09:57→17:00)
[2018-11-05] MEDS: METHADONE HCL 5 MG TABLET GT SCH ×2 (09:58→17:00)
[2018-11-05] MEDS: METOPROLOL TARTRATE 25 MG TABLET GT SCH ×2 (09:58→21:21)
[2018-11-05] MEDS: LIPASE/PROTEASE/AMYLASE 1 EACH CAPSULE.DR GT SCH ×3 (09:58→17:00)
[2018-11-05] MEDS: CLOPIDOGREL BISULFATE 75 MG TABLET GT SCH (09:58)
[2018-11-05] MEDS: FLUTICASONE PROPIONATE 16 GM BOTTLE NS SCH ×2 (09:59→17:00)
[2018-11-05] MEDS: PROSOURCE / PROSTAT (PYXIS) 30 ML UDC GT SCH ×2 (09:59→17:00)
[2018-11-05] MEDS: ASCORBIC ACID 500 MG TABLET GT SCH (09:59)
[2018-11-05] MEDS: GUAIFENESIN 300 MG/15 ML UDC GT SCH ×2 (09:59→21:21)
[2018-11-05] MEDS: MULTIVIT W/MINERALS 1 TAB TABLET PO SCH (09:59)
[2018-11-05] MEDS: LISINOPRIL (10MG) 10 MG TABLET GT SCH (09:59)
[2018-11-05] MEDS: CHLORHEXIDINE GLUCONATE 15 ML UDC MM SCH ×2 (09:59→17:00)
[2018-11-05 19:45] VITALS: BP 130/76
[2018-11-05] MEDS: GLUCERNA 1.2 1,000 ML BOTTLE GT PRN (20:43)
[2018-11-05] MEDS: ATORVASTATIN 40 MG TABLET GT SCH (21:20)
[2018-11-05] MEDS: SENNOSIDES 8.6 MG TABLET GT SCH (21:21)
[2018-11-05] MEDS: MONTELUKAST SODIUM (10MG) 10 MG TABLET PO SCH (21:21)
[2018-11-05] MEDS: MELATONIN 5 MG TABLET GT SCH (21:21)
[2018-11-05] MEDS: INSULIN GLARGINE, 100 UNIT/ML CARTRIDGE SQ SCH (21:22)
[2018-11-06] MEDS: IPRATROPIUM NEB FS 0.5 MG/2.5 ML AMPUL.NEB NEB SCH ×4 (01:37→20:08)
[2018-11-06] MEDS: GABAPENTIN 300 MG CAPSULE GT SCH ×3 (05:59→21:06)
[2018-11-06] MEDS: SIMETHICONE SUSP 40 MG/0.6 ML BOTTLE GT SCH ×4 (05:59→23:44)
[2018-11-06] MEDS: PREVACID 30 MG GT SCH (05:59)
[2018-11-06] MEDS: BACLOFEN (10 MG) 10 MG TABLET GT SCH ×3 (05:59→21:05)
[2018-11-06] MEDS: BLOOD SUGAR DIAGNOSTIC 1 EACH STRIP IN SCH ×4 (06:47→21:06)
[2018-11-06] MEDS: INSULIN REGULAR, HUMAN 100 UNIT/ML 3 ML VIAL SQ PRN ×2 (06:49→12:08)
[2018-11-06] MEDS: BUDESONIDE RESPULE INH 0.25 MG/2 ML AMPUL.NEB NEB SCH ×2 (07:59→20:21)
[2018-11-06 08:00] VITALS: BP 144/75
[2018-11-06] MEDS: Z GUARD REMEDY 2 OZ OINT TP SCH ×2 (09:00→21:06)
[2018-11-06] MEDS: CLOPIDOGREL BISULFATE 75 MG TABLET GT SCH (09:00)
[2018-11-06] MEDS: GLUCERNA SHAKE 237 ML CAN GT SCH ×3 (09:00→17:42)
[2018-11-06] MEDS: DAKINS HALF STRENGTH (0.25%) 480 ML BOTTLE TOP SCH (09:00)
[2018-11-06] MEDS: ACIDOPHILUS/BULGARICUS 1 EACH TAB.CHEW GT SCH (09:00)
[2018-11-06] MEDS: METOPROLOL TARTRATE 25 MG TABLET GT SCH ×2 (09:00→21:06)
[2018-11-06] MEDS: LIPASE/PROTEASE/AMYLASE 1 EACH CAPSULE.DR GT SCH ×3 (09:00→17:42)
[2018-11-06] MEDS: FLUTICASONE PROPIONATE 16 GM BOTTLE NS SCH ×2 (09:00→17:42)
[2018-11-06] MEDS: HYDROGEN PEROXIDE 480 ML BOTTLE TP SCH ×2 (09:00→21:06)
[2018-11-06] MEDS: MULTIVIT W/MINERALS 1 TAB TABLET PO SCH (09:00)
[2018-11-06] MEDS: METHADONE HCL 5 MG TABLET GT SCH ×2 (09:00→17:42)
[2018-11-06] MEDS: PROSOURCE / PROSTAT (PYXIS) 30 ML UDC GT SCH ×2 (09:00→17:42)
[2018-11-06] MEDS: POVIDONE-IODINE OINT 28.4 GM TUBE TP SCH ×2 (09:00→21:06)
[2018-11-06] MEDS: ASCORBIC ACID 500 MG TABLET GT SCH (09:00)
[2018-11-06] MEDS: GUAIFENESIN 300 MG/15 ML UDC GT SCH ×2 (09:00→21:06)
[2018-11-06] MEDS: ASPIRIN 81 MG TAB.CHEW GT SCH (09:00)
[2018-11-06] MEDS: LISINOPRIL (10MG) 10 MG TABLET GT SCH (09:00)
[2018-11-06] MEDS: CHLORHEXIDINE GLUCONATE 15 ML UDC MM SCH ×2 (09:00→17:42)
[2018-11-06] MEDS: DOCUSATE SODIUM LIQ 100 MG/10 ML UDC GT SCH ×3 (09:00→17:42)
[2018-11-06 20:07] VITALS: BP 134/77
--- NOTE | 2018-11-06 20:18 | NUR ---
RECEIVED PATIENT ON RED CAPPED ON 2 LITER NASAL CANNULA. PATIENT AWAKE AND ALERT. BREATHING TREATMENT GIVEN, TOLERATED WELL . NO RESPIRATORY DISTRESS NOTED AT THIS TIME. TRACH TUBE PATENT AND SECURED. WILL CONTINUE TO MONITOR THE PATIENT.
[2018-11-06] MEDS: GLUCERNA 1.2 1,000 ML BOTTLE GT PRN (20:44)
[2018-11-06] MEDS: ATORVASTATIN 40 MG TABLET GT SCH (21:05)
[2018-11-06] MEDS: MELATONIN 5 MG TABLET GT SCH (21:06)
[2018-11-06] MEDS: MONTELUKAST SODIUM (10MG) 10 MG TABLET PO SCH (21:06)
[2018-11-06] MEDS: SENNOSIDES 8.6 MG TABLET GT SCH (21:06)
[2018-11-06] MEDS: INSULIN GLARGINE, 100 UNIT/ML CARTRIDGE SQ SCH (21:07)
[2018-11-07] MEDS: IPRATROPIUM NEB FS 0.5 MG/2.5 ML AMPUL.NEB NEB SCH ×4 (01:08→19:57)
[2018-11-07] MEDS: GABAPENTIN 300 MG CAPSULE GT SCH ×3 (05:00→20:29)
[2018-11-07] MEDS: BACLOFEN (10 MG) 10 MG TABLET GT SCH ×3 (05:00→20:29)
[2018-11-07] MEDS: SIMETHICONE SUSP 40 MG/0.6 ML BOTTLE GT SCH ×3 (06:42→17:06)
[2018-11-07] MEDS: PREVACID 30 MG GT SCH (06:42)
[2018-11-07] MEDS: BLOOD SUGAR DIAGNOSTIC 1 EACH STRIP IN SCH ×4 (06:42→21:37)
[2018-11-07] MEDS: INSULIN REGULAR, HUMAN 100 UNIT/ML 3 ML VIAL SQ PRN ×2 (06:43→12:13)
[2018-11-07 07:35] VITALS: BP 131/60
[2018-11-07] MEDS: BUDESONIDE RESPULE INH 0.25 MG/2 ML AMPUL.NEB NEB SCH ×2 (08:11→20:22)
[2018-11-07] MEDS: Z GUARD REMEDY 2 OZ OINT TP SCH ×2 (09:00→20:29)
[2018-11-07] MEDS: POVIDONE-IODINE OINT 28.4 GM TUBE TP SCH ×2 (09:00→20:29)
[2018-11-07] MEDS: HYDROGEN PEROXIDE 480 ML BOTTLE TP SCH ×2 (09:00→20:29)
[2018-11-07] MEDS: GUAIFENESIN 300 MG/15 ML UDC GT SCH ×2 (09:00→20:29)
[2018-11-07] MEDS: DAKINS HALF STRENGTH (0.25%) 480 ML BOTTLE TOP SCH (09:00)
[2018-11-07] MEDS: METOPROLOL TARTRATE 25 MG TABLET GT SCH ×2 (09:52→20:29)
[2018-11-07] MEDS: DOCUSATE SODIUM LIQ 100 MG/10 ML UDC GT SCH ×3 (09:52→17:06)
[2018-11-07] MEDS: ASPIRIN 81 MG TAB.CHEW GT SCH (09:52)
[2018-11-07] MEDS: GLUCERNA SHAKE 237 ML CAN GT SCH ×3 (09:52→17:48)
[2018-11-07] MEDS: ACIDOPHILUS/BULGARICUS 1 EACH TAB.CHEW GT SCH (09:52)
[2018-11-07] MEDS: CLOPIDOGREL BISULFATE 75 MG TABLET GT SCH (09:53)
[2018-11-07] MEDS: FLUTICASONE PROPIONATE 16 GM BOTTLE NS SCH ×2 (09:53→17:06)
[2018-11-07] MEDS: LIPASE/PROTEASE/AMYLASE 1 EACH CAPSULE.DR GT SCH ×3 (09:53→17:50)
[2018-11-07] MEDS: CHLORHEXIDINE GLUCONATE 15 ML UDC MM SCH ×2 (09:53→17:50)
[2018-11-07] MEDS: PROSOURCE / PROSTAT (PYXIS) 30 ML UDC GT SCH ×2 (09:53→17:06)
[2018-11-07] MEDS: ASCORBIC ACID 500 MG TABLET GT SCH (09:53)
[2018-11-07] MEDS: MULTIVIT W/MINERALS 1 TAB TABLET PO SCH (09:53)
[2018-11-07] MEDS: METHADONE HCL 5 MG TABLET GT SCH ×2 (09:53→17:49)
[2018-11-07] MEDS: LISINOPRIL (10MG) 10 MG TABLET GT SCH (09:53)
--- NOTE | 2018-11-07 16:00 | NUR ---
Seen and examined by Mitzy Hernandez NP, reported patient gained 30+ lbs in a month, with order to d/c tube feeding at night and RD evaluation. Resident informed. Patient up in wheelchair, ate dinner in the activity room. Encourage resident to be OOB more often but refuses.
[2018-11-07] MEDS: ATORVASTATIN 40 MG TABLET GT SCH (20:29)
[2018-11-07 20:38] VITALS: BP 107/62
[2018-11-07] MEDS: SENNOSIDES 8.6 MG TABLET GT SCH (21:37)
[2018-11-07] MEDS: MELATONIN 5 MG TABLET GT SCH (21:37)
[2018-11-07] MEDS: MONTELUKAST SODIUM (10MG) 10 MG TABLET PO SCH (21:37)
[2018-11-07] MEDS: INSULIN GLARGINE, 100 UNIT/ML CARTRIDGE SQ SCH (21:38)
--- NOTE | 2018-11-07 21:39 | NUR ---
Pt's BS 117, refused Insulin Lantus 10 units - per pt no more feeding at night, BS might go down later in am as it is already @ 117 .Will cont to monitor.
[2018-11-08] MEDS: SIMETHICONE SUSP 40 MG/0.6 ML BOTTLE GT SCH ×5 (00:08→23:20)
[2018-11-08] MEDS: IPRATROPIUM NEB FS 0.5 MG/2.5 ML AMPUL.NEB NEB SCH ×4 (02:01→20:05)
[2018-11-08] MEDS: BACLOFEN (10 MG) 10 MG TABLET GT SCH ×3 (05:16→21:23)
[2018-11-08] MEDS: PREVACID 30 MG GT SCH (05:16)
[2018-11-08] MEDS: GABAPENTIN 300 MG CAPSULE GT SCH ×3 (05:16→21:23)
[2018-11-08] MEDS: INSULIN REGULAR, HUMAN 100 UNIT/ML 3 ML VIAL SQ PRN (06:47)
[2018-11-08] MEDS: BLOOD SUGAR DIAGNOSTIC 1 EACH STRIP IN SCH ×4 (06:47→21:23)
[2018-11-08 08:00] VITALS: BP 113/73
[2018-11-08] MEDS: BUDESONIDE RESPULE INH 0.25 MG/2 ML AMPUL.NEB NEB SCH ×2 (08:04→20:05)
[2018-11-08] MEDS: ASPIRIN 81 MG TAB.CHEW GT SCH (09:00)
[2018-11-08] MEDS: POVIDONE-IODINE OINT 28.4 GM TUBE TP SCH ×2 (09:00→21:23)
[2018-11-08] MEDS: HYDROGEN PEROXIDE 480 ML BOTTLE TP SCH ×2 (09:00→21:23)
[2018-11-08] MEDS: CLOPIDOGREL BISULFATE 75 MG TABLET GT SCH (09:00)
[2018-11-08] MEDS: GLUCERNA SHAKE 237 ML CAN GT SCH ×2 (09:00→12:37)
[2018-11-08] MEDS: PROSOURCE / PROSTAT (PYXIS) 30 ML UDC GT SCH ×2 (09:00→17:38)
[2018-11-08] MEDS: LIPASE/PROTEASE/AMYLASE 1 EACH CAPSULE.DR GT SCH ×3 (09:00→17:38)
[2018-11-08] MEDS: DAKINS HALF STRENGTH (0.25%) 480 ML BOTTLE TOP SCH (09:00)
[2018-11-08] MEDS: FLUTICASONE PROPIONATE 16 GM BOTTLE NS SCH ×2 (09:00→17:38)
[2018-11-08] MEDS: CHLORHEXIDINE GLUCONATE 15 ML UDC MM SCH ×2 (09:00→17:38)
[2018-11-08] MEDS: DOCUSATE SODIUM LIQ 100 MG/10 ML UDC GT SCH ×3 (09:00→17:38)
[2018-11-08] MEDS: GUAIFENESIN 300 MG/15 ML UDC GT SCH ×2 (09:00→21:23)
[2018-11-08] MEDS: METHADONE HCL 5 MG TABLET GT SCH ×2 (09:00→17:38)
[2018-11-08] MEDS: LISINOPRIL (10MG) 10 MG TABLET GT SCH (09:00)
[2018-11-08] MEDS: ASCORBIC ACID 500 MG TABLET GT SCH (09:00)
[2018-11-08] MEDS: Z GUARD REMEDY 2 OZ OINT TP SCH ×2 (09:00→21:23)
[2018-11-08] MEDS: ACIDOPHILUS/BULGARICUS 1 EACH TAB.CHEW GT SCH (09:00)
[2018-11-08] MEDS: MULTIVIT W/MINERALS 1 TAB TABLET PO SCH (09:00)
[2018-11-08] MEDS: METOPROLOL TARTRATE 25 MG TABLET GT SCH ×2 (09:00→21:23)
--- NOTE | 2018-11-08 16:00 | NUR ---
Seen and examined by Dr. Arndt. Notified of 30 lbs weight gain. He approved of dietary recommendations to dc Glucerna shakes, weekly weights, HbgA1C in AM, Bumex 1mg q12 and strict I and O. Resident understood the plan and verbalized she will comply. Resident's grand daughter and at bedside and aware of new order. It was discussed at great length with family in front of patient what her correction plan is. Patient verbalized that she wants to go home. However despite encouragement by staff and family, patient is hesitant to overcome her fear of trying and making an attempt to be independent. It was suggested to patient that she will benefit if she will be moved closer to the nursing station so staff can easily render help if needed. She is insisting that by being closer to the nursing station, her bed will not by the window but by the door. She does likes top see the view from the window. Explained to patient that the reason she needs to be by the door so she can be closer to the bathroom so she can independently walk to the BR by herself eventually with supervision only. Family agreed and would like for her to go back home. Resident insisted that she does not want to go home on December 14, because this is the day when she got sick and afraid to be in the house. Despite explanation from family and this nurse, patient is resisting to even try. The family is in agreement and will work with staff to make this plan come true for patient's benefit. Per family they will be here on Sunday after work and assist in moving patient to her new room.
[2018-11-08 19:49] VITALS: BP 119/71
[2018-11-08] MEDS: MONTELUKAST SODIUM (10MG) 10 MG TABLET PO SCH (21:23)
[2018-11-08] MEDS: MELATONIN 5 MG TABLET GT SCH (21:23)
[2018-11-08] MEDS: SENNOSIDES 8.6 MG TABLET GT SCH (21:23)
[2018-11-08] MEDS: ATORVASTATIN 40 MG TABLET GT SCH (21:23)
[2018-11-08] MEDS: BUMETANIDE (1 MG) 1 MG TABLET GT SCH (21:23)
[2018-11-08] MEDS: INSULIN GLARGINE, 100 UNIT/ML CARTRIDGE SQ SCH (21:24)
--- NOTE | 2018-11-08 21:25 | NUR ---
Pt's BS 138, refused Insulin Lantus 10 units - per pt no more feeding at night, BS might go down later in am as it is only 138, explained to pt risk and benefits, pt verbalized understanding .Will cont to monitor.
[2018-11-09] MEDS: IPRATROPIUM NEB FS 0.5 MG/2.5 ML AMPUL.NEB NEB SCH ×4 (01:51→20:00)
[2018-11-09] MEDS: BACLOFEN (10 MG) 10 MG TABLET GT SCH ×3 (05:13→21:23)
[2018-11-09] MEDS: SIMETHICONE SUSP 40 MG/0.6 ML BOTTLE GT SCH ×3 (05:13→17:53)
[2018-11-09] MEDS: PREVACID 30 MG GT SCH (05:13)
[2018-11-09] MEDS: GABAPENTIN 300 MG CAPSULE GT SCH ×3 (05:13→21:24)
[2018-11-09] MEDS: BLOOD SUGAR DIAGNOSTIC 1 EACH STRIP IN SCH ×4 (06:48→21:24)
[2018-11-09] MEDS: INSULIN REGULAR, HUMAN 100 UNIT/ML 3 ML VIAL SQ PRN ×3 (06:48→17:49)
[2018-11-09] MEDS: BUDESONIDE RESPULE INH 0.25 MG/2 ML AMPUL.NEB NEB SCH ×2 (07:57→20:00)
[2018-11-09 08:08] VITALS: BP 108/55
[2018-11-09] MEDS: HYDROGEN PEROXIDE 480 ML BOTTLE TP SCH ×2 (09:00→21:24)
[2018-11-09] MEDS: Z GUARD REMEDY 2 OZ OINT TP SCH ×2 (09:00→21:24)
[2018-11-09] MEDS: METOPROLOL TARTRATE 25 MG TABLET GT SCH ×2 (09:00→21:23)
[2018-11-09] MEDS: METHADONE HCL 5 MG TABLET GT SCH ×2 (09:00→18:00)
[2018-11-09] MEDS: DAKINS HALF STRENGTH (0.25%) 480 ML BOTTLE TOP SCH (09:00)
[2018-11-09] MEDS: POVIDONE-IODINE OINT 28.4 GM TUBE TP SCH ×2 (09:00→21:24)
[2018-11-09] MEDS: LISINOPRIL (10MG) 10 MG TABLET GT SCH (09:00)
[2018-11-09] MEDS: DOCUSATE SODIUM LIQ 100 MG/10 ML UDC GT SCH ×3 (09:24→17:53)
[2018-11-09] MEDS: ACIDOPHILUS/BULGARICUS 1 EACH TAB.CHEW GT SCH (09:24)
[2018-11-09] MEDS: ASPIRIN 81 MG TAB.CHEW GT SCH (09:43)
[2018-11-09] MEDS: BUMETANIDE (1 MG) 1 MG TABLET GT SCH ×2 (09:43→21:23)
[2018-11-09] MEDS: LIPASE/PROTEASE/AMYLASE 1 EACH CAPSULE.DR GT SCH ×3 (09:44→17:52)
[2018-11-09] MEDS: CLOPIDOGREL BISULFATE 75 MG TABLET GT SCH (09:44)
[2018-11-09] MEDS: PROSOURCE / PROSTAT (PYXIS) 30 ML UDC GT SCH ×2 (09:45→17:52)
[2018-11-09] MEDS: GUAIFENESIN 300 MG/15 ML UDC GT SCH ×2 (09:46→21:24)
[2018-11-09] MEDS: MULTIVIT W/MINERALS 1 TAB TABLET PO SCH (09:46)
[2018-11-09] MEDS: CHLORHEXIDINE GLUCONATE 15 ML UDC MM SCH ×2 (09:46→17:52)
[2018-11-09] MEDS: ASCORBIC ACID 500 MG TABLET GT SCH (09:46)
[2018-11-09] MEDS: FLUTICASONE PROPIONATE 16 GM BOTTLE NS SCH ×2 (09:47→17:52)
--- NOTE | 2018-11-09 18:00 | NUR ---
Notified Dr. Arndt of Hbg A1C result 7.6 and made aware patient has been refusing Lantus at night since she is no longer receiving GT feeding at night. Resident's at bedside and reinforcing the plan to go home with patient. Patient finally agreed to move to another room closer to the nursing station on Sunday. Family very pleased with patient's decision. Endorsed.
[2018-11-09 19:46] VITALS: BP 117/63
--- NOTE | 2018-11-09 20:30 | NUR ---
@1904 : Seen pt in bed alert and awake- smiling and on phone, denies pain or discomfort. @ 1939: LEAD INVESTIGATOR reported to TRANSFERRER upon taking pt's V/S pt c/o of chest pain and tachycardia V/s:T: 98.1, HR: 89, RR:16 02:96 BP: 117/63. Checked Radial pulse noted: 110, pressure supervisor Nurse assessed pt. @1944: PRN: Nitroglycerin 0.4 mg tab SL given for chest pain. Closely monitored pt. @ 2030: Pt remains awake and alert, no SOB, and denies any CHEST PAIN @ this time, however c/o both lower extremities pain, HR now 88, due noc meds given including Neurontin for neuropathic pain. Will cont to monitor pt and anticipate needs. Repositioned, and will keep pt clean and dry.
[2018-11-09] MEDS: ATORVASTATIN 40 MG TABLET GT SCH (21:23)
[2018-11-09] MEDS: SENNOSIDES 8.6 MG TABLET GT SCH (21:24)
[2018-11-09] MEDS: MONTELUKAST SODIUM (10MG) 10 MG TABLET PO SCH (21:24)
[2018-11-09] MEDS: MELATONIN 5 MG TABLET GT SCH (21:24)
[2018-11-09] MEDS: INSULIN GLARGINE, 100 UNIT/ML CARTRIDGE SQ SCH (21:24)
[2018-11-10] MEDS: SIMETHICONE SUSP 40 MG/0.6 ML BOTTLE GT SCH ×4 (00:51→18:44)
[2018-11-10] MEDS: IPRATROPIUM NEB FS 0.5 MG/2.5 ML AMPUL.NEB NEB SCH ×4 (01:26→19:13)
--- NOTE | 2018-11-10 04:25 | NUR ---
PATIENT WAS RECEIVED TRACH ON RED CAPPED WITH 2L NASAL CANNULA. PATIENT AWAKE AND ALERT. HHN TREATMENT WAS GIVEN, NO ADVERSE REACTION NOTED. PATIENT STABLE THROUGHOUT THE SHIFT. WILL CONTINUE TO MONITOR PATIENT. Addendum: 11/10/18 at 0429 by MECHE DEAL RT Amended: Links added.
[2018-11-10] MEDS: GABAPENTIN 300 MG CAPSULE GT SCH ×3 (04:28→21:17)
[2018-11-10] MEDS: BACLOFEN (10 MG) 10 MG TABLET GT SCH ×3 (04:28→21:17)
[2018-11-10] MEDS: PREVACID 30 MG GT SCH (05:16)
[2018-11-10] MEDS: INSULIN REGULAR, HUMAN 100 UNIT/ML 3 ML VIAL SQ PRN ×3 (06:35→17:21)
[2018-11-10] MEDS: BLOOD SUGAR DIAGNOSTIC 1 EACH STRIP IN SCH ×4 (06:35→21:30)
[2018-11-10 07:34] VITALS: BP 123/66
[2018-11-10] MEDS: BUDESONIDE RESPULE INH 0.25 MG/2 ML AMPUL.NEB NEB SCH ×2 (07:55→19:30)
[2018-11-10] MEDS: DAKINS HALF STRENGTH (0.25%) 480 ML BOTTLE TOP SCH (09:00)
[2018-11-10] MEDS: POVIDONE-IODINE OINT 28.4 GM TUBE TP SCH ×2 (09:00→21:17)
[2018-11-10] MEDS: Z GUARD REMEDY 2 OZ OINT TP SCH ×2 (09:00→21:17)
[2018-11-10] MEDS: HYDROGEN PEROXIDE 480 ML BOTTLE TP SCH ×2 (09:00→21:17)
[2018-11-10] MEDS: METHADONE HCL 5 MG TABLET GT SCH ×2 (09:00→17:25)
[2018-11-10] MEDS: BUMETANIDE (1 MG) 1 MG TABLET GT SCH ×2 (09:52→21:16)
[2018-11-10] MEDS: ASPIRIN 81 MG TAB.CHEW GT SCH (09:52)
[2018-11-10] MEDS: DOCUSATE SODIUM LIQ 100 MG/10 ML UDC GT SCH ×3 (09:53→17:19)
[2018-11-10] MEDS: ACIDOPHILUS/BULGARICUS 1 EACH TAB.CHEW GT SCH (09:53)
[2018-11-10] MEDS: LIPASE/PROTEASE/AMYLASE 1 EACH CAPSULE.DR GT SCH ×3 (09:55→17:24)
[2018-11-10] MEDS: CLOPIDOGREL BISULFATE 75 MG TABLET GT SCH (09:55)
[2018-11-10] MEDS: METOPROLOL TARTRATE 25 MG TABLET GT SCH ×2 (09:55→21:17)
[2018-11-10] MEDS: PROSOURCE / PROSTAT (PYXIS) 30 ML UDC GT SCH ×2 (09:56→17:20)
[2018-11-10] MEDS: LISINOPRIL (10MG) 10 MG TABLET GT SCH (09:56)
[2018-11-10] MEDS: MULTIVIT W/MINERALS 1 TAB TABLET PO SCH (09:57)
[2018-11-10] MEDS: GUAIFENESIN 300 MG/15 ML UDC GT SCH ×2 (09:57→21:17)
[2018-11-10] MEDS: FLUTICASONE PROPIONATE 16 GM BOTTLE NS SCH ×2 (09:57→17:21)
[2018-11-10] MEDS: ASCORBIC ACID 500 MG TABLET GT SCH (09:57)
[2018-11-10] MEDS: CHLORHEXIDINE GLUCONATE 15 ML UDC MM SCH ×2 (09:57→17:21)
[2018-11-10 20:04] VITALS: BP 112/60
[2018-11-10] MEDS: ATORVASTATIN 40 MG TABLET GT SCH (21:17)
[2018-11-10] MEDS: MONTELUKAST SODIUM (10MG) 10 MG TABLET PO SCH (21:18)
[2018-11-10] MEDS: MELATONIN 5 MG TABLET GT SCH (21:18)
[2018-11-10] MEDS: SENNOSIDES 8.6 MG TABLET GT SCH (21:18)
[2018-11-10] MEDS: INSULIN GLARGINE, 100 UNIT/ML CARTRIDGE SQ SCH (21:31)
[2018-11-10] MEDS: IBUPROFEN 200 MG TABLET GT PRN (21:35)
[2018-11-11] MEDS: SIMETHICONE SUSP 40 MG/0.6 ML BOTTLE GT SCH ×5 (00:23→23:46)
[2018-11-11] MEDS: IPRATROPIUM NEB FS 0.5 MG/2.5 ML AMPUL.NEB NEB SCH ×4 (00:37→20:08)
[2018-11-11] MEDS: GABAPENTIN 300 MG CAPSULE GT SCH ×3 (05:33→21:31)
[2018-11-11] MEDS: BACLOFEN (10 MG) 10 MG TABLET GT SCH ×3 (05:33→21:31)
[2018-11-11] MEDS: BLOOD SUGAR DIAGNOSTIC 1 EACH STRIP IN SCH ×4 (05:44→21:51)
[2018-11-11] MEDS: PREVACID 30 MG GT SCH (05:44)
[2018-11-11] MEDS: BUDESONIDE RESPULE INH 0.25 MG/2 ML AMPUL.NEB NEB SCH (07:12)
[2018-11-11 07:36] VITALS: BP 123/67
[2018-11-11] MEDS: CHLORHEXIDINE GLUCONATE 15 ML UDC MM SCH ×2 (09:00→17:58)
[2018-11-11] MEDS: MULTIVIT W/MINERALS 1 TAB TABLET PO SCH (09:00)
[2018-11-11] MEDS: PROSOURCE / PROSTAT (PYXIS) 30 ML UDC GT SCH ×2 (09:00→17:58)
[2018-11-11] MEDS: LIPASE/PROTEASE/AMYLASE 1 EACH CAPSULE.DR GT SCH ×3 (09:00→17:58)
[2018-11-11] MEDS: LISINOPRIL (10MG) 10 MG TABLET GT SCH (09:00)
[2018-11-11] MEDS: DAKINS HALF STRENGTH (0.25%) 480 ML BOTTLE TOP SCH ×2 (09:00→21:43)
[2018-11-11] MEDS: METOPROLOL TARTRATE 25 MG TABLET GT SCH ×2 (09:00→21:31)
[2018-11-11] MEDS: Z GUARD REMEDY 2 OZ OINT TP SCH ×2 (09:00→21:43)
[2018-11-11] MEDS: ASPIRIN 81 MG TAB.CHEW GT SCH (09:00)
[2018-11-11] MEDS: FLUTICASONE PROPIONATE 16 GM BOTTLE NS SCH ×2 (09:00→17:58)
[2018-11-11] MEDS: ACIDOPHILUS/BULGARICUS 1 EACH TAB.CHEW GT SCH (09:00)
[2018-11-11] MEDS: DOCUSATE SODIUM LIQ 100 MG/10 ML UDC GT SCH ×3 (09:00→17:58)
[2018-11-11] MEDS: GUAIFENESIN 300 MG/15 ML UDC GT SCH ×2 (09:00→21:32)
[2018-11-11] MEDS: HYDROGEN PEROXIDE 480 ML BOTTLE TP SCH ×2 (09:00→21:43)
[2018-11-11] MEDS: METHADONE HCL 5 MG TABLET GT SCH ×2 (09:00→17:58)
[2018-11-11] MEDS: CLOPIDOGREL BISULFATE 75 MG TABLET GT SCH (09:00)
[2018-11-11] MEDS: BUMETANIDE (1 MG) 1 MG TABLET GT SCH ×2 (09:00→21:32)
[2018-11-11] MEDS: ASCORBIC ACID 500 MG TABLET GT SCH (09:00)
[2018-11-11] MEDS: POVIDONE-IODINE OINT 28.4 GM TUBE TP SCH ×2 (09:00→21:43)
--- NOTE | 2018-11-11 13:53 | NUR ---
DOMINIC spoke with podiatry Dr. Gomez following up with last Sunday (11/08) appoint with resident. said he will be seeing resident in a weekly basis (11/15 - 11/23 - ).
--- NOTE | 2018-11-11 19:25 | NUR ---
Some of pt's medications not covered by insurance. Referred to SENDY Hernandez and Dr Arndt. Received order to change medications to covered alternatives.
[2018-11-11 19:58] VITALS: BP 139/85
[2018-11-11] MEDS: ATORVASTATIN 40 MG TABLET GT SCH (21:31)
[2018-11-11] MEDS: MONTELUKAST SODIUM (10MG) 10 MG TABLET PO SCH (21:44)
[2018-11-11] MEDS: MELATONIN 5 MG TABLET GT SCH (21:45)
[2018-11-11] MEDS: SENNOSIDES 8.6 MG TABLET GT SCH (21:45)
[2018-11-11] MEDS: INSULIN GLARGINE, 100 UNIT/ML CARTRIDGE SQ SCH (21:59)
[2018-11-12] MEDS: IPRATROPIUM NEB FS 0.5 MG/2.5 ML AMPUL.NEB NEB SCH ×4 (01:22→19:47)
[2018-11-12] MEDS: PREVACID 30 MG GT SCH (05:31)
[2018-11-12] MEDS: BACLOFEN (10 MG) 10 MG TABLET GT SCH ×3 (05:31→21:48)
[2018-11-12] MEDS: SIMETHICONE SUSP 40 MG/0.6 ML BOTTLE GT SCH ×3 (05:31→17:36)
[2018-11-12] MEDS: GABAPENTIN 300 MG CAPSULE GT SCH ×3 (05:31→21:49)
[2018-11-12] MEDS: MAGNESIUM HYDROXIDE 30 ML UDC GT PRN (05:33)
[2018-11-12 07:36] VITALS: BP 121/53
[2018-11-12] MEDS: BLOOD SUGAR DIAGNOSTIC 1 EACH STRIP IN SCH ×4 (07:51→22:06)
[2018-11-12] MEDS: Z GUARD REMEDY 2 OZ OINT TP SCH ×2 (09:00→21:59)
[2018-11-12] MEDS: DOCUSATE SODIUM LIQ 100 MG/10 ML UDC GT SCH ×3 (09:46→17:35)
[2018-11-12] MEDS: BUMETANIDE (1 MG) 1 MG TABLET GT SCH ×2 (09:46→21:33)
[2018-11-12] MEDS: ASPIRIN 81 MG TAB.CHEW GT SCH (09:46)
[2018-11-12] MEDS: GUAIFENESIN 300 MG/15 ML UDC GT SCH ×2 (09:47→21:52)
[2018-11-12] MEDS: FLUTICASONE PROPIONATE 16 GM BOTTLE NS SCH (09:47)
[2018-11-12] MEDS: CLOPIDOGREL BISULFATE 75 MG TABLET GT SCH (09:47)
[2018-11-12] MEDS: ACIDOPHILUS/BULGARICUS 1 EACH TAB.CHEW GT SCH (09:47)
[2018-11-12] MEDS: METOPROLOL TARTRATE 25 MG TABLET GT SCH ×2 (09:47→21:48)
[2018-11-12] MEDS: PROSOURCE / PROSTAT (PYXIS) 30 ML UDC GT SCH ×2 (09:47→17:35)
[2018-11-12] MEDS: METHADONE HCL 5 MG TABLET GT SCH ×2 (09:47→17:35)
[2018-11-12] MEDS: ASCORBIC ACID 500 MG TABLET GT SCH (09:47)
[2018-11-12] MEDS: MULTIVIT W/MINERALS 1 TAB TABLET PO SCH (09:47)
[2018-11-12] MEDS: LISINOPRIL (10MG) 10 MG TABLET GT SCH (09:47)
[2018-11-12] MEDS: LIPASE/PROTEASE/AMYLASE 1 EACH CAPSULE.DR GT SCH ×3 (09:47→17:35)
[2018-11-12] MEDS: INSULIN REGULAR, HUMAN 100 UNIT/ML 3 ML VIAL SQ PRN (12:13)
[2018-11-12] MEDS ORDERED: oxyCODONE/APAP (5/325 MG) 1 UDTAB TABLET GT PRN ×2 (15:30)
[2018-11-12] MEDS ORDERED: ALBUTEROL FS 2.5 MG/3 ML VIAL.NEB NEB PRN (15:30)
[2018-11-12] MEDS ORDERED: NITROGLYCERIN 0.4 MG/TAB BOTTLE SL PRN (15:30)
[2018-11-12] MEDS ORDERED: CODEINE/PROMETHAZINE HCL 5 ML UDC GT PRN (16:00)
[2018-11-12] MEDS: DAKINS HALF STRENGTH (0.25%) 480 ML BOTTLE TOP SCH ×2 (17:34→21:59)
[2018-11-12] MEDS: POVIDONE-IODINE OINT 28.4 GM TUBE TP SCH ×2 (17:34→21:59)
[2018-11-12] MEDS: HYDROGEN PEROXIDE 480 ML BOTTLE TP SCH ×2 (17:35→21:59)
[2018-11-12] MEDS: AZELASTINE NASAL SPRAY 30 ML BOTTLE NS SCH (17:36)
[2018-11-12 19:29] VITALS: BP 110/68
[2018-11-12] MEDS: ATORVASTATIN 40 MG TABLET GT SCH (21:48)
[2018-11-12] MEDS: SENNOSIDES 8.6 MG TABLET GT SCH (21:52)
[2018-11-12] MEDS: MELATONIN 5 MG TABLET GT SCH (21:52)
[2018-11-12] MEDS: MONTELUKAST SODIUM (10MG) 10 MG TABLET PO SCH (21:53)
[2018-11-12] MEDS: INSULIN GLARGINE, 100 UNIT/ML CARTRIDGE SQ SCH (22:07)
[2018-11-13] MEDS: SIMETHICONE SUSP 40 MG/0.6 ML BOTTLE GT SCH ×4 (00:08→17:19)
[2018-11-13] MEDS: BISACODYL SUPP (10 MG) 10 MG/SUPP.RECT SUPP.RECT RC PRN (00:16)
[2018-11-13] MEDS: IPRATROPIUM NEB FS 0.5 MG/2.5 ML AMPUL.NEB NEB SCH ×4 (01:31→20:09)
[2018-11-13] MEDS: BACLOFEN (10 MG) 10 MG TABLET GT SCH ×3 (05:06→21:36)
[2018-11-13] MEDS: DEXILANT 30 MG GT SCH (05:06)
[2018-11-13] MEDS: GABAPENTIN 300 MG CAPSULE GT SCH ×3 (05:06→21:37)
[2018-11-13] MEDS: BLOOD SUGAR DIAGNOSTIC 1 EACH STRIP IN SCH ×4 (06:38→21:37)
[2018-11-13 07:35] VITALS: BP 114/76
[2018-11-13] MEDS: AZELASTINE NASAL SPRAY 30 ML BOTTLE NS SCH ×2 (09:00→17:19)
[2018-11-13] MEDS: HYDROGEN PEROXIDE 480 ML BOTTLE TP SCH ×2 (09:00→21:37)
[2018-11-13] MEDS: METOPROLOL TARTRATE 25 MG TABLET GT SCH ×2 (09:00→21:37)
[2018-11-13] MEDS: Z GUARD REMEDY 2 OZ OINT TP SCH ×2 (09:00→21:37)
[2018-11-13] MEDS: CLOPIDOGREL BISULFATE 75 MG TABLET GT SCH (09:00)
[2018-11-13] MEDS: LIPASE/PROTEASE/AMYLASE 1 EACH CAPSULE.DR GT SCH ×3 (09:00→17:19)
[2018-11-13] MEDS: ASCORBIC ACID 500 MG TABLET GT SCH (09:00)
[2018-11-13] MEDS: DAKINS HALF STRENGTH (0.25%) 480 ML BOTTLE TOP SCH ×2 (09:00→21:37)
[2018-11-13] MEDS: BUMETANIDE (1 MG) 1 MG TABLET GT SCH (09:00)
[2018-11-13] MEDS: METHADONE HCL 5 MG TABLET GT SCH ×2 (09:00→17:19)
[2018-11-13] MEDS: ASPIRIN 81 MG TAB.CHEW GT SCH (09:00)
[2018-11-13] MEDS: PROSOURCE / PROSTAT (PYXIS) 30 ML UDC GT SCH ×2 (09:00→17:19)
[2018-11-13] MEDS: POVIDONE-IODINE OINT 28.4 GM TUBE TP SCH ×2 (09:00→21:37)
[2018-11-13] MEDS: LISINOPRIL (10MG) 10 MG TABLET GT SCH (09:00)
[2018-11-13] MEDS: DOCUSATE SODIUM LIQ 100 MG/10 ML UDC GT SCH ×3 (09:00→17:19)
[2018-11-13] MEDS: MULTIVIT W/MINERALS 1 TAB TABLET PO SCH (09:00)
[2018-11-13] MEDS: ACIDOPHILUS/BULGARICUS 1 EACH TAB.CHEW GT SCH (09:00)
--- NOTE | 2018-11-13 11:05 | NUR ---
DOMINIC communicated with resident's [facility] that IDT meeting will be held on SundayNov 22 from 12:30 to 1:30 PM
--- NOTE | 2018-11-13 14:00 | NUR ---
Seen and examined by Mitzy Hernandez, SENDY, made aware that patient lost 20 lbs. Patient receiving diuretic Bumex 1 mg. BID and has negative intake output balance. Urine output averaging 2,000 ml/shift and on fluid restriction of 1000 ml/ day. Resident's lower extremities edema subsided. Mitzy ordered BMP in AM. Order noted and carried out.
--- NOTE | 2018-11-13 18:00 | NUR ---
Resident up in the wheelchair x 3 hours this AM. Stayed in activity room and/or hallway while talking to her family and friends on the phone. Patient verbalized that she uses the toilet to pass her bowel this morning. Overall, patient claims that she is trying to do more on her own so she can reach her goal to be discharged to home.
[2018-11-13 20:00] VITALS: BP 108/62
[2018-11-13] MEDS: ATORVASTATIN 40 MG TABLET GT SCH (21:36)
[2018-11-13] MEDS: SENNOSIDES 8.6 MG TABLET GT SCH (21:37)
[2018-11-13] MEDS: MELATONIN 5 MG TABLET GT SCH (21:37)
[2018-11-13] MEDS: MONTELUKAST SODIUM (10MG) 10 MG TABLET PO SCH (21:38)
[2018-11-13] MEDS: INSULIN GLARGINE, 100 UNIT/ML CARTRIDGE SQ SCH (21:40)
[2018-11-14] MEDS: SIMETHICONE SUSP 40 MG/0.6 ML BOTTLE GT SCH ×5 (00:12→23:37)
[2018-11-14] MEDS: IPRATROPIUM NEB FS 0.5 MG/2.5 ML AMPUL.NEB NEB SCH ×4 (01:30→20:02)
[2018-11-14] MEDS: BACLOFEN (10 MG) 10 MG TABLET GT SCH ×3 (05:23→21:28)
[2018-11-14] MEDS: DEXILANT 30 MG GT SCH (05:23)
[2018-11-14] MEDS: GABAPENTIN 300 MG CAPSULE GT SCH ×3 (05:23→21:29)
[2018-11-14] MEDS: BLOOD SUGAR DIAGNOSTIC 1 EACH STRIP IN SCH ×4 (06:56→21:29)
[2018-11-14] MEDS: INSULIN REGULAR, HUMAN 100 UNIT/ML 3 ML VIAL SQ PRN ×2 (06:57→21:31)
[2018-11-14 07:55] LABS: CALCIUM, SERUM 8.9 mg/dL (8.5-10.1); CREATININE 0.7 mg/dL (0.6-1.3); POTASSIUM 3.4 mmol/L (3.5-5.1)
[2018-11-14 08:08] VITALS: BP 147/66
[2018-11-14] MEDS: METHADONE HCL 5 MG TABLET GT SCH ×2 (09:20→17:00)
[2018-11-14] MEDS: ACIDOPHILUS/BULGARICUS 1 EACH TAB.CHEW GT SCH (09:20)
[2018-11-14] MEDS: ASPIRIN 81 MG TAB.CHEW GT SCH (09:20)
[2018-11-14] MEDS: CLOPIDOGREL BISULFATE 75 MG TABLET GT SCH (09:20)
[2018-11-14] MEDS: DOCUSATE SODIUM LIQ 100 MG/10 ML UDC GT SCH ×3 (09:20→17:00)
[2018-11-14] MEDS: METOPROLOL TARTRATE 25 MG TABLET GT SCH ×2 (09:20→21:00)
[2018-11-14] MEDS: LIPASE/PROTEASE/AMYLASE 1 EACH CAPSULE.DR GT SCH ×3 (09:20→17:00)
[2018-11-14] MEDS: PROSOURCE / PROSTAT (PYXIS) 30 ML UDC GT SCH ×2 (09:21→17:00)
[2018-11-14] MEDS: MULTIVIT W/MINERALS 1 TAB TABLET PO SCH (09:21)
[2018-11-14] MEDS: AZELASTINE NASAL SPRAY 30 ML BOTTLE NS SCH ×2 (09:21→17:00)
[2018-11-14] MEDS: LISINOPRIL (10MG) 10 MG TABLET GT SCH (09:21)
[2018-11-14] MEDS: ASCORBIC ACID 500 MG TABLET GT SCH (09:21)
[2018-11-14] MEDS: DAKINS HALF STRENGTH (0.25%) 480 ML BOTTLE TOP SCH ×2 (09:22→21:29)
[2018-11-14] MEDS: POVIDONE-IODINE OINT 28.4 GM TUBE TP SCH ×2 (09:22→21:29)
[2018-11-14] MEDS: HYDROGEN PEROXIDE 480 ML BOTTLE TP SCH ×2 (09:22→21:29)
[2018-11-14] MEDS: Z GUARD REMEDY 2 OZ OINT TP SCH ×2 (09:22→21:29)
--- NOTE | 2018-11-14 11:00 | NUR ---
Notified Dr Arndt that pt's K 3.4. He ordered to give Potassium Chloride 40 mEq via GT x 1. He also ordered to do CT abdomen and pelvis without contrast for abdominal distention. Informed him that pt lost 20 lbs the past week while on Bumex. He ordered to give Bumex 1 mg via GT daily for edema. Development Analyst recommended to weigh pt weekly. Informed pt of new orders.
[2018-11-14] MEDS ORDERED: POTASSIUM CHLORIDE 20 MEQ TAB.PRT.SR PO ONE (11:30)
[2018-11-14] MEDS: BUMETANIDE (1 MG) 1 MG TABLET GT SCH (11:51)
[2018-11-14] MEDS ORDERED: POTASSIUM CHLORIDE 20 MEQ POWDER PACKET GT ONE (12:00)
--- NOTE | 2018-11-14 18:08 | NUR ---
Called CT Scan extn [phone] twice this afternoon to follow up on when they will do the CT scan of abdomen and pelvis without contrast. Pt has already fasted for [address] answer from [address] scan. Pt said she will wait a little more and refused to eat at this time.
[2018-11-14 20:08] VITALS: BP_SYST 104; BP_DIAS 58; BP_DIAS 88
[2018-11-14] MEDS: ATORVASTATIN 40 MG TABLET GT SCH (21:28)
[2018-11-14] MEDS: MELATONIN 5 MG TABLET GT SCH (21:29)
[2018-11-14] MEDS: SENNOSIDES 8.6 MG TABLET GT SCH (21:29)
[2018-11-14] MEDS: MONTELUKAST SODIUM (10MG) 10 MG TABLET PO SCH (21:29)
[2018-11-14] MEDS: INSULIN GLARGINE, 100 UNIT/ML CARTRIDGE SQ SCH (21:30)
--- NOTE | 2018-11-14 21:42 | NUR ---
RT NOTE RECEIVED TRACH PATIENT WITH RED CAPPED ON ROOM AIR. PATIENT AWAKE, ALERT AND STABLE. BREATHING TREATMENT GIVEN, TOLERATED WELL . NO RESPIRATORY DISTRESS NOTED AT THIS TIME. TRACH TUBE PATENT AND SECURED. WILL CONTINUE TO MONITOR. Addendum: 11/14/18 at 2146 by MECHE DEAL RT Amended: Links added.
--- NOTE | 2018-11-14 22:00 | NUR ---
Pt's Blood sugar 129, Insulin Lantus refused, explained the risks and benefits. Pt verbalized understanding.
[2018-11-15] MEDS: IPRATROPIUM NEB FS 0.5 MG/2.5 ML AMPUL.NEB NEB SCH ×4 (01:32→20:13)
[2018-11-15] MEDS: GABAPENTIN 300 MG CAPSULE GT SCH ×3 (05:34→21:31)
[2018-11-15] MEDS: SIMETHICONE SUSP 40 MG/0.6 ML BOTTLE GT SCH ×3 (05:34→18:29)
[2018-11-15] MEDS: DEXILANT 30 MG GT SCH (05:34)
[2018-11-15] MEDS: BACLOFEN (10 MG) 10 MG TABLET GT SCH ×3 (05:34→21:30)
[2018-11-15] MEDS: BLOOD SUGAR DIAGNOSTIC 1 EACH STRIP IN SCH ×4 (07:05→21:31)
[2018-11-15] MEDS: INSULIN REGULAR, HUMAN 100 UNIT/ML 3 ML VIAL SQ PRN (07:06)
[2018-11-15 07:46] VITALS: BP 113/69
[2018-11-15] MEDS: LIPASE/PROTEASE/AMYLASE 1 EACH CAPSULE.DR GT SCH ×3 (09:00→17:00)
[2018-11-15] MEDS: LISINOPRIL (10MG) 10 MG TABLET GT SCH (09:00)
[2018-11-15] MEDS: DOCUSATE SODIUM LIQ 100 MG/10 ML UDC GT SCH ×3 (09:00→17:00)
[2018-11-15] MEDS: MULTIVIT W/MINERALS 1 TAB TABLET PO SCH (09:00)
[2018-11-15] MEDS: ASCORBIC ACID 500 MG TABLET GT SCH (09:00)
[2018-11-15] MEDS: ASPIRIN 81 MG TAB.CHEW GT SCH (09:00)
[2018-11-15] MEDS: ACIDOPHILUS/BULGARICUS 1 EACH TAB.CHEW GT SCH (09:00)
[2018-11-15] MEDS: CLOPIDOGREL BISULFATE 75 MG TABLET GT SCH (09:00)
[2018-11-15] MEDS: BUMETANIDE (1 MG) 1 MG TABLET GT SCH (09:00)
[2018-11-15] MEDS: PROSOURCE / PROSTAT (PYXIS) 30 ML UDC GT SCH ×2 (09:00→17:00)
[2018-11-15] MEDS: AZELASTINE NASAL SPRAY 30 ML BOTTLE NS SCH ×2 (09:00→17:00)
[2018-11-15] MEDS: METHADONE HCL 5 MG TABLET GT SCH ×2 (09:00→17:00)
[2018-11-15] MEDS: METOPROLOL TARTRATE 25 MG TABLET GT SCH ×2 (09:00→21:37)
[2018-11-15] MEDS: POVIDONE-IODINE OINT 28.4 GM TUBE TP SCH ×2 (10:00→21:31)
[2018-11-15] MEDS: DAKINS HALF STRENGTH (0.25%) 480 ML BOTTLE TOP SCH ×2 (10:00→21:31)
[2018-11-15] MEDS: HYDROGEN PEROXIDE 480 ML BOTTLE TP SCH ×2 (10:00→21:31)
[2018-11-15] MEDS: Z GUARD REMEDY 2 OZ OINT TP SCH ×2 (10:00→21:31)
--- NOTE | 2018-11-15 11:18 | NUR ---
DOMINIC communicated with [facility] about 11/22 IDT mtg.
--- NOTE | 2018-11-15 12:12 | NUR ---
Staff reported patient with nose bleeding. Resident said that her nose has been bleeding for a while with blood clots and also blood coming out from her mouth when she spits. Noted moderate amount of blood bright red in color when patient spits. Patient currently receiving Aspirin and Plavix. Left a message to Dr. Arndt. Meanwhile, applied ice while pressing the nose area and patient kept in upright position. Awaiting for call back.
--- NOTE | 2018-11-15 14:00 | NUR ---
Followed-up with Dr. Disla if he has any order regarding patient's nose bleed. MD stated to pressed nostrils and have patient lean forward, no other order given. At this time, bleeding subsiding, continue to press nostrils and monitor.
--- NOTE | 2018-11-15 16:33 | NUR ---
Left a message to Dr. Disla regarding result of CT scan of abdomen.
[2018-11-15 19:50] VITALS: BP 106/62
--- NOTE | 2018-11-15 20:00 | NUR ---
Received patient on bed, noted patient a slight bleeding from the nose. HOB up. No respiratory distress noted. Will continue to monitor.
[2018-11-15] MEDS: ATORVASTATIN 40 MG TABLET GT SCH (21:30)
[2018-11-15] MEDS: [UNRECOGNIZED DRUG - SUPPLY] TP SCH (21:30)
[2018-11-15] MEDS: MONTELUKAST SODIUM (10MG) 10 MG TABLET PO SCH (21:31)
[2018-11-15] MEDS: SENNOSIDES 8.6 MG TABLET GT SCH (21:31)
[2018-11-15] MEDS: INSULIN GLARGINE, 100 UNIT/ML CARTRIDGE SQ SCH (21:32)
[2018-11-15] MEDS: MELATONIN 5 MG TABLET GT SCH (21:33)
[2018-11-16] MEDS: SIMETHICONE SUSP 40 MG/0.6 ML BOTTLE GT SCH ×4 (00:09→17:41)
[2018-11-16] MEDS: IPRATROPIUM NEB FS 0.5 MG/2.5 ML AMPUL.NEB NEB SCH ×4 (02:07→19:30)
[2018-11-16] MEDS: BACLOFEN (10 MG) 10 MG TABLET GT SCH ×3 (05:44→21:12)
[2018-11-16] MEDS: GABAPENTIN 300 MG CAPSULE GT SCH ×3 (05:45→21:16)
[2018-11-16] MEDS: DEXILANT 30 MG GT SCH (05:45)
[2018-11-16] MEDS: BLOOD SUGAR DIAGNOSTIC 1 EACH STRIP IN SCH ×4 (06:47→21:16)
[2018-11-16] MEDS: INSULIN REGULAR, HUMAN 100 UNIT/ML 3 ML VIAL SQ PRN ×2 (06:48→21:18)
--- NOTE | 2018-11-16 07:32 | NUR ---
Patient awake, no nose bleeding noted at this time. Kept head of up. BS of 89 obtained, no coverage. No sign of distress and discomfort noted. Patient happy and cooperative to staff.
[2018-11-16 08:54] VITALS: BP 117/67
[2018-11-16] MEDS: BUMETANIDE (1 MG) 1 MG TABLET GT SCH (09:00)
[2018-11-16] MEDS: DAKINS HALF STRENGTH (0.25%) 480 ML BOTTLE TOP SCH ×2 (09:00→21:16)
[2018-11-16] MEDS: MULTIVIT W/MINERALS 1 TAB TABLET PO SCH (09:00)
[2018-11-16] MEDS: [UNRECOGNIZED DRUG - SUPPLY] TP SCH ×2 (09:00→21:16)
[2018-11-16] MEDS: DOCUSATE SODIUM LIQ 100 MG/10 ML UDC GT SCH ×3 (09:00→17:40)
[2018-11-16] MEDS: ACIDOPHILUS/BULGARICUS 1 EACH TAB.CHEW GT SCH (09:00)
[2018-11-16] MEDS: PROSOURCE / PROSTAT (PYXIS) 30 ML UDC GT SCH ×2 (09:00→17:41)
[2018-11-16] MEDS: ASPIRIN 81 MG TAB.CHEW GT SCH (09:00)
[2018-11-16] MEDS: LISINOPRIL (10MG) 10 MG TABLET GT SCH (09:00)
[2018-11-16] MEDS: HYDROGEN PEROXIDE 480 ML BOTTLE TP SCH ×2 (09:00→21:16)
[2018-11-16] MEDS: POVIDONE-IODINE OINT 28.4 GM TUBE TP SCH ×2 (09:00→21:16)
[2018-11-16] MEDS: METHADONE HCL 5 MG TABLET GT SCH ×2 (09:00→17:41)
[2018-11-16] MEDS: AZELASTINE NASAL SPRAY 30 ML BOTTLE NS SCH ×2 (09:00→17:00)
[2018-11-16] MEDS: LIPASE/PROTEASE/AMYLASE 1 EACH CAPSULE.DR GT SCH ×3 (09:00→17:41)
[2018-11-16] MEDS: CLOPIDOGREL BISULFATE 75 MG TABLET GT SCH (09:00)
[2018-11-16] MEDS: Z GUARD REMEDY 2 OZ OINT TP SCH ×2 (09:00→21:16)
[2018-11-16] MEDS: ASCORBIC ACID 500 MG TABLET GT SCH (09:00)
[2018-11-16] MEDS: METOPROLOL TARTRATE 25 MG TABLET GT SCH ×2 (09:00→21:00)
--- NOTE | 2018-11-16 10:24 | NUR ---
Seen and examined by Dr. Disla. Resident up in the wheelchair and very proud to report that she has been making progress since she moved to her current room. At this time, no nose bleeding reported, MD did not want to hold Plavix or Aspirin but DC Flonase nasal spray. Dr. Disla also explained to resident the result of CT scan of abdomen, no significant findings. The plan is to continue with the diuretic and limit fluid intake to 1000ml/24 hours. Order carried out.
[2018-11-16 19:29] VITALS: BP 98/57
[2018-11-16] MEDS: ATORVASTATIN 40 MG TABLET GT SCH (21:12)
[2018-11-16] MEDS: SENNOSIDES 8.6 MG TABLET GT SCH (21:16)
[2018-11-16] MEDS: MELATONIN 5 MG TABLET GT SCH (21:16)
[2018-11-16] MEDS: MONTELUKAST SODIUM (10MG) 10 MG TABLET PO SCH (21:16)
[2018-11-16] MEDS: INSULIN GLARGINE, 100 UNIT/ML CARTRIDGE SQ SCH (21:18)
[2018-11-17] MEDS: IPRATROPIUM NEB FS 0.5 MG/2.5 ML AMPUL.NEB NEB SCH ×4 (02:21→20:16)
[2018-11-17] MEDS: BACLOFEN (10 MG) 10 MG TABLET GT SCH ×3 (05:05→21:20)
[2018-11-17] MEDS: DEXILANT 30 MG GT SCH (05:05)
[2018-11-17] MEDS: SIMETHICONE SUSP 40 MG/0.6 ML BOTTLE GT SCH ×5 (05:05→23:09)
[2018-11-17] MEDS: GABAPENTIN 300 MG CAPSULE GT SCH ×3 (05:05→21:20)
[2018-11-17] MEDS: BLOOD SUGAR DIAGNOSTIC 1 EACH STRIP IN SCH ×4 (07:24→21:21)
[2018-11-17] MEDS: ACIDOPHILUS/BULGARICUS 1 EACH TAB.CHEW GT SCH (09:26)
[2018-11-17] MEDS: DOCUSATE SODIUM LIQ 100 MG/10 ML UDC GT SCH ×3 (09:26→17:42)
[2018-11-17] MEDS: BUMETANIDE (1 MG) 1 MG TABLET GT SCH (09:26)
[2018-11-17] MEDS: ASPIRIN 81 MG TAB.CHEW GT SCH (09:26)
[2018-11-17] MEDS: CLOPIDOGREL BISULFATE 75 MG TABLET GT SCH (09:27)
[2018-11-17] MEDS: MULTIVIT W/MINERALS 1 TAB TABLET PO SCH (09:27)
[2018-11-17] MEDS: PROSOURCE / PROSTAT (PYXIS) 30 ML UDC GT SCH ×2 (09:27→17:42)
[2018-11-17] MEDS: LISINOPRIL (10MG) 10 MG TABLET GT SCH (09:27)
[2018-11-17] MEDS: ASCORBIC ACID 500 MG TABLET GT SCH (09:27)
[2018-11-17] MEDS: LIPASE/PROTEASE/AMYLASE 1 EACH CAPSULE.DR GT SCH ×3 (09:27→17:42)
[2018-11-17] MEDS: METOPROLOL TARTRATE 25 MG TABLET GT SCH ×2 (09:27→21:00)
[2018-11-17] MEDS: METHADONE HCL 5 MG TABLET GT SCH ×2 (09:28→17:42)
[2018-11-17] MEDS: HYDROGEN PEROXIDE 480 ML BOTTLE TP SCH ×2 (09:29→21:21)
[2018-11-17] MEDS: DAKINS HALF STRENGTH (0.25%) 480 ML BOTTLE TOP SCH ×2 (09:29→21:20)
[2018-11-17] MEDS: POVIDONE-IODINE OINT 28.4 GM TUBE TP SCH ×2 (09:29→21:20)
[2018-11-17] MEDS: Z GUARD REMEDY 2 OZ OINT TP SCH ×2 (09:29→21:21)
[2018-11-17] MEDS: [UNRECOGNIZED DRUG - SUPPLY] TP SCH ×2 (09:30→21:21)
[2018-11-17 10:59] VITALS: BP 115/69
[2018-11-17] MEDS: INSULIN REGULAR, HUMAN 100 UNIT/ML 3 ML VIAL SQ PRN (12:55)
[2018-11-17 19:37] VITALS: BP 96/52
[2018-11-17] MEDS: ATORVASTATIN 40 MG TABLET GT SCH (21:20)
[2018-11-17] MEDS: SENNOSIDES 8.6 MG TABLET GT SCH (21:21)
[2018-11-17] MEDS: MELATONIN 5 MG TABLET GT SCH (21:21)
[2018-11-17] MEDS: MONTELUKAST SODIUM (10MG) 10 MG TABLET PO SCH (21:21)
[2018-11-17] MEDS: INSULIN GLARGINE, 100 UNIT/ML CARTRIDGE SQ SCH (21:22)
[2018-11-18] MEDS: IPRATROPIUM NEB FS 0.5 MG/2.5 ML AMPUL.NEB NEB SCH ×4 (01:37→19:22)
[2018-11-18] MEDS: GABAPENTIN 300 MG CAPSULE GT SCH ×3 (05:26→21:07)
[2018-11-18] MEDS: SIMETHICONE SUSP 40 MG/0.6 ML BOTTLE GT SCH ×4 (05:26→23:19)
[2018-11-18] MEDS: BACLOFEN (10 MG) 10 MG TABLET GT SCH ×3 (05:26→21:07)
[2018-11-18] MEDS: DEXILANT 30 MG GT SCH (05:26)
[2018-11-18] MEDS: BLOOD SUGAR DIAGNOSTIC 1 EACH STRIP IN SCH ×4 (06:40→21:08)
[2018-11-18] MEDS: METOPROLOL TARTRATE 25 MG TABLET GT SCH ×2 (09:00→21:00)
[2018-11-18 09:34] VITALS: BP 104/59
[2018-11-18] MEDS: ASPIRIN 81 MG TAB.CHEW GT SCH (09:35)
[2018-11-18] MEDS: BUMETANIDE (1 MG) 1 MG TABLET GT SCH (09:35)
[2018-11-18] MEDS: ACIDOPHILUS/BULGARICUS 1 EACH TAB.CHEW GT SCH (09:35)
[2018-11-18] MEDS: DOCUSATE SODIUM LIQ 100 MG/10 ML UDC GT SCH ×3 (09:35→17:24)
[2018-11-18] MEDS: METHADONE HCL 5 MG TABLET GT SCH ×2 (09:36→17:25)
[2018-11-18] MEDS: CLOPIDOGREL BISULFATE 75 MG TABLET GT SCH (09:36)
[2018-11-18] MEDS: PROSOURCE / PROSTAT (PYXIS) 30 ML UDC GT SCH ×2 (09:36→17:25)
[2018-11-18] MEDS: ASCORBIC ACID 500 MG TABLET GT SCH (09:36)
[2018-11-18] MEDS: LIPASE/PROTEASE/AMYLASE 1 EACH CAPSULE.DR GT SCH ×3 (09:36→17:25)
[2018-11-18] MEDS: LISINOPRIL (10MG) 10 MG TABLET GT SCH (09:36)
[2018-11-18] MEDS: MULTIVIT W/MINERALS 1 TAB TABLET PO SCH (09:36)
[2018-11-18] MEDS: [UNRECOGNIZED DRUG - SUPPLY] TP SCH ×2 (09:45→21:08)
[2018-11-18] MEDS: Z GUARD REMEDY 2 OZ OINT TP SCH ×2 (09:45→21:08)
[2018-11-18] MEDS: HYDROGEN PEROXIDE 480 ML BOTTLE TP SCH ×2 (09:45→21:08)
[2018-11-18] MEDS: DAKINS HALF STRENGTH (0.25%) 480 ML BOTTLE TOP SCH ×2 (09:45→21:08)
[2018-11-18] MEDS: POVIDONE-IODINE OINT 28.4 GM TUBE TP SCH ×2 (09:45→21:08)
--- NOTE | 2018-11-18 11:08 | NUR ---
Informed Dr Arndt that pt's weight is now 136 lbs. Pt on Bumex.
--- NOTE | 2018-11-18 16:43 | NUR ---
Called Dr Didier Hutchinson and left a message that pt's Methadone is not covered by the insurance.
[2018-11-18 20:01] VITALS: BP 109/62
[2018-11-18] MEDS: ATORVASTATIN 40 MG TABLET GT SCH (21:07)
[2018-11-18] MEDS: MONTELUKAST SODIUM (10MG) 10 MG TABLET PO SCH (21:08)
[2018-11-18] MEDS: SENNOSIDES 8.6 MG TABLET GT SCH (21:08)
[2018-11-18] MEDS: MELATONIN 5 MG TABLET GT SCH (21:08)
[2018-11-18] MEDS: INSULIN GLARGINE, 100 UNIT/ML CARTRIDGE SQ SCH (21:09)
[2018-11-19] MEDS: IPRATROPIUM NEB FS 0.5 MG/2.5 ML AMPUL.NEB NEB SCH ×4 (01:00→19:31)
[2018-11-19] MEDS: DEXILANT 30 MG GT SCH (05:43)
[2018-11-19] MEDS: SIMETHICONE SUSP 40 MG/0.6 ML BOTTLE GT SCH ×4 (05:43→23:41)
[2018-11-19] MEDS: GABAPENTIN 300 MG CAPSULE GT SCH ×3 (05:43→21:16)
[2018-11-19] MEDS: BACLOFEN (10 MG) 10 MG TABLET GT SCH ×3 (05:43→21:15)
[2018-11-19] MEDS: BLOOD SUGAR DIAGNOSTIC 1 EACH STRIP IN SCH ×5 (07:30→21:17)
[2018-11-19 07:36] VITALS: BP 141/60
[2018-11-19] MEDS: DAKINS HALF STRENGTH (0.25%) 480 ML BOTTLE TOP SCH ×2 (09:00→21:16)
[2018-11-19] MEDS: Z GUARD REMEDY 2 OZ OINT TP SCH ×2 (09:00→21:16)
[2018-11-19] MEDS: HYDROGEN PEROXIDE 480 ML BOTTLE TP SCH ×2 (09:00→21:16)
[2018-11-19] MEDS: [UNRECOGNIZED DRUG - SUPPLY] TP SCH ×2 (09:00→21:16)
[2018-11-19] MEDS: POVIDONE-IODINE OINT 28.4 GM TUBE TP SCH ×2 (09:00→21:16)
--- NOTE | 2018-11-19 09:00 | NUR ---
Seen and examined by Dr. Clarke, no new order given.
[2018-11-19] MEDS: BUMETANIDE (1 MG) 1 MG TABLET GT SCH (09:14)
[2018-11-19] MEDS: ASPIRIN 81 MG TAB.CHEW GT SCH (09:14)
[2018-11-19] MEDS: CLOPIDOGREL BISULFATE 75 MG TABLET GT SCH (09:15)
[2018-11-19] MEDS: METHADONE HCL 5 MG TABLET GT SCH ×2 (09:15→17:21)
[2018-11-19] MEDS: ACIDOPHILUS/BULGARICUS 1 EACH TAB.CHEW GT SCH (09:15)
[2018-11-19] MEDS: DOCUSATE SODIUM LIQ 100 MG/10 ML UDC GT SCH ×3 (09:15→17:21)
[2018-11-19] MEDS: METOPROLOL TARTRATE 25 MG TABLET GT SCH ×2 (09:15→21:16)
[2018-11-19] MEDS: LIPASE/PROTEASE/AMYLASE 1 EACH CAPSULE.DR GT SCH ×3 (09:15→17:21)
[2018-11-19] MEDS: PROSOURCE / PROSTAT (PYXIS) 30 ML UDC GT SCH ×2 (09:16→17:21)
[2018-11-19] MEDS: LISINOPRIL (10MG) 10 MG TABLET GT SCH (09:16)
[2018-11-19] MEDS: ASCORBIC ACID 500 MG TABLET GT SCH (09:16)
[2018-11-19] MEDS: MULTIVIT W/MINERALS 1 TAB TABLET PO SCH (09:16)
--- NOTE | 2018-11-19 11:19 | NUR ---
DOMINIC communicated with patient's [facility] about IDT mtg this Wednesday 11/22. She said her sister Thelma will be attending with patient. DOMINIC also informed patient about it.
[2018-11-19 20:19] VITALS: BP 124/70
[2018-11-19] MEDS: ATORVASTATIN 40 MG TABLET GT SCH (21:15)
[2018-11-19] MEDS: MELATONIN 5 MG TABLET GT SCH (21:16)
[2018-11-19] MEDS: SENNOSIDES 8.6 MG TABLET GT SCH (21:17)
[2018-11-19] MEDS: INSULIN GLARGINE, 100 UNIT/ML CARTRIDGE SQ SCH (21:17)
[2018-11-19] MEDS: MONTELUKAST SODIUM (10MG) 10 MG TABLET PO SCH (21:17)
[2018-11-20] MEDS: IPRATROPIUM NEB FS 0.5 MG/2.5 ML AMPUL.NEB NEB SCH ×4 (01:37→20:29)
[2018-11-20] MEDS: SIMETHICONE SUSP 40 MG/0.6 ML BOTTLE GT SCH ×4 (05:49→23:28)
[2018-11-20] MEDS: GABAPENTIN 300 MG CAPSULE GT SCH ×3 (05:49→21:31)
[2018-11-20] MEDS: BACLOFEN (10 MG) 10 MG TABLET GT SCH ×3 (05:49→21:31)
[2018-11-20] MEDS: DEXILANT 30 MG GT SCH (05:49)
[2018-11-20 07:41] VITALS: BP 105/65
[2018-11-20] MEDS: DOCUSATE SODIUM LIQ 100 MG/10 ML UDC GT SCH ×3 (08:54→16:41)
[2018-11-20] MEDS: ASPIRIN 81 MG TAB.CHEW GT SCH (08:54)
[2018-11-20] MEDS: BUMETANIDE (1 MG) 1 MG TABLET GT SCH (08:54)
[2018-11-20] MEDS: ACIDOPHILUS/BULGARICUS 1 EACH TAB.CHEW GT SCH (08:55)
[2018-11-20] MEDS: METOPROLOL TARTRATE 25 MG TABLET GT SCH ×2 (08:56→21:45)
[2018-11-20] MEDS: CLOPIDOGREL BISULFATE 75 MG TABLET GT SCH (08:57)
[2018-11-20] MEDS: LIPASE/PROTEASE/AMYLASE 1 EACH CAPSULE.DR GT SCH ×3 (08:57→16:44)
[2018-11-20] MEDS: METHADONE HCL 5 MG TABLET GT SCH ×2 (08:57→16:44)
[2018-11-20] MEDS: PROSOURCE / PROSTAT (PYXIS) 30 ML UDC GT SCH ×2 (08:58→16:44)
[2018-11-20] MEDS: LISINOPRIL (10MG) 10 MG TABLET GT SCH (08:58)
[2018-11-20] MEDS: ASCORBIC ACID 500 MG TABLET GT SCH (08:58)
[2018-11-20] MEDS: MULTIVIT W/MINERALS 1 TAB TABLET PO SCH (08:59)
--- NOTE | 2018-11-20 09:50 | NUR ---
Patient requested for blood sugar to be rechecked due to this morning her blood sugar was 61 and consumed orange juice ate breakfast and patient with no signs and symptoms of hypo or hyperglycemia noted, but per patient "feels weird " now Vital signs checked BP 109/60 HR 76 R 16 T 98.2 PA 0/10. Respirations are even and unlabored with Tracheostomy tube capped. BS checked result: 143. Patient stated felt better after she saw her blood sugar reading and stated "I was just feeling anxious". RN supervisor forming department notified.
[2018-11-20] MEDS: INSULIN REGULAR, HUMAN 100 UNIT/ML 3 ML VIAL SQ PRN ×3 (12:26→21:40)
[2018-11-20] MEDS: BLOOD SUGAR DIAGNOSTIC 1 EACH STRIP IN SCH ×3 (12:26→21:36)
[2018-11-20] MEDS: Z GUARD REMEDY 2 OZ OINT TP SCH ×2 (15:00→21:35)
[2018-11-20] MEDS: POVIDONE-IODINE OINT 28.4 GM TUBE TP SCH ×2 (15:00→21:35)
[2018-11-20] MEDS: [UNRECOGNIZED DRUG - SUPPLY] TP SCH ×2 (15:00→21:35)
[2018-11-20] MEDS: HYDROGEN PEROXIDE 480 ML BOTTLE TP SCH ×2 (15:00→21:35)
[2018-11-20] MEDS: DAKINS HALF STRENGTH (0.25%) 480 ML BOTTLE TOP SCH ×2 (15:00→21:35)
[2018-11-20 20:10] VITALS: BP 106/53
--- NOTE | 2018-11-20 20:39 | NUR ---
RECEIVED PATIENT ON RED CAPPED ON ROOM AIR. PATIENT AWAKE AND ALERT. BREATHING TREATMENT GIVEN, TOLERATED WELL . NO RESPIRATORY DISTRESS NOTED AT THIS TIME. TRACH TUBE PATENT AND SECURED. WILL CONTINUE TO MONITOR THE PATIENT.
[2018-11-20] MEDS: ATORVASTATIN 40 MG TABLET GT SCH (21:31)
[2018-11-20] MEDS: SENNOSIDES 8.6 MG TABLET GT SCH (21:35)
[2018-11-20] MEDS: MELATONIN 5 MG TABLET GT SCH (21:35)
[2018-11-20] MEDS: MONTELUKAST SODIUM (10MG) 10 MG TABLET PO SCH (21:36)
[2018-11-20] MEDS: INSULIN GLARGINE, 100 UNIT/ML CARTRIDGE SQ SCH (21:37)
[2018-11-21] MEDS: FUROSEMIDE 20 MG TABLET GT SCH
[2018-11-21] MEDS: IPRATROPIUM NEB FS 0.5 MG/2.5 ML AMPUL.NEB NEB SCH ×4 (01:46→19:59)
[2018-11-21] MEDS: SIMETHICONE SUSP 40 MG/0.6 ML BOTTLE GT SCH ×4 (05:23→23:16)
[2018-11-21] MEDS: DEXILANT 30 MG GT SCH (05:23)
[2018-11-21] MEDS: GABAPENTIN 300 MG CAPSULE GT SCH ×3 (05:23→21:59)
[2018-11-21] MEDS: BACLOFEN (10 MG) 10 MG TABLET GT SCH ×3 (05:23→21:57)
[2018-11-21] MEDS: BLOOD SUGAR DIAGNOSTIC 1 EACH STRIP IN SCH ×4 (06:57→21:59)
[2018-11-21] MEDS: INSULIN REGULAR, HUMAN 100 UNIT/ML 3 ML VIAL SQ PRN ×2 (06:58→17:19)
--- NOTE | 2018-11-21 09:00 | NUR ---
Received order from Dr Clarke that pt may go out on pass with family today for her birthday celebration.
[2018-11-21] MEDS: ASPIRIN 81 MG TAB.CHEW GT SCH (09:29)
[2018-11-21] MEDS: LIPASE/PROTEASE/AMYLASE 1 EACH CAPSULE.DR GT SCH ×3 (09:29→17:00)
[2018-11-21] MEDS: DOCUSATE SODIUM LIQ 100 MG/10 ML UDC GT SCH ×3 (09:29→17:00)
[2018-11-21] MEDS: METHADONE HCL 5 MG TABLET GT SCH ×2 (09:29→17:00)
[2018-11-21] MEDS: METOPROLOL TARTRATE 25 MG TABLET GT SCH ×2 (09:29→21:00)
[2018-11-21] MEDS: ACIDOPHILUS/BULGARICUS 1 EACH TAB.CHEW GT SCH (09:29)
[2018-11-21] MEDS: POVIDONE-IODINE OINT 28.4 GM TUBE TP SCH ×2 (09:30→21:59)
[2018-11-21] MEDS: PROSOURCE / PROSTAT (PYXIS) 30 ML UDC GT SCH ×2 (09:30→17:00)
[2018-11-21] MEDS: ASCORBIC ACID 500 MG TABLET GT SCH (09:30)
[2018-11-21] MEDS: CLOPIDOGREL BISULFATE 75 MG TABLET GT SCH (09:30)
[2018-11-21] MEDS: MULTIVIT W/MINERALS 1 TAB TABLET PO SCH (09:30)
[2018-11-21] MEDS: LISINOPRIL (10MG) 10 MG TABLET GT SCH (09:30)
[2018-11-21] MEDS: HYDROGEN PEROXIDE 480 ML BOTTLE TP SCH ×2 (09:30→21:59)
[2018-11-21] MEDS: Z GUARD REMEDY 2 OZ OINT TP SCH ×2 (09:30→21:59)
[2018-11-21] MEDS: DAKINS HALF STRENGTH (0.25%) 480 ML BOTTLE TOP SCH ×2 (09:30→21:59)
[2018-11-21] MEDS: [UNRECOGNIZED DRUG - SUPPLY] TP SCH ×2 (09:30→21:59)
[2018-11-21 10:34] VITALS: BP 119/59
[2018-11-21 10:35] VITALS: BP 119/59
--- NOTE | 2018-11-21 19:15 | NUR ---
Pt went out with her family today and came back in the afternoon. Pt stable.
[2018-11-21 19:53] VITALS: BP 107/56
--- NOTE | 2018-11-21 21:26 | NUR ---
RT NOTE RECEIVED TRACH PATIENT ON RED CAPPED. PATIENT AWAKE , ALERT AND STABLE. HHN TREATMENT WAS GIVEN, NO ADVERSE REACTION NOTED. NO RESPIRATORY DISTRESS NOTED AT THIS TIME. WILL CONTINUE TO MONITOR PATIENT. Addendum: 11/21/18 at 2129 by MECHE DEAL RT Amended: Links added.
--- NOTE | 2018-11-21 21:50 | NUR ---
Lantus 10 unit held due to BS= 72 mg/dl only and no feeding order throughout the night.
[2018-11-21] MEDS: ATORVASTATIN 40 MG TABLET GT SCH (21:57)
[2018-11-21] MEDS: MELATONIN 5 MG TABLET GT SCH (21:59)
[2018-11-21] MEDS: SENNOSIDES 8.6 MG TABLET GT SCH (21:59)
[2018-11-21] MEDS: MONTELUKAST SODIUM (10MG) 10 MG TABLET PO SCH (21:59)
[2018-11-21] MEDS: INSULIN GLARGINE, 100 UNIT/ML CARTRIDGE SQ SCH (22:00)
[2018-11-22] MEDS: IPRATROPIUM NEB FS 0.5 MG/2.5 ML AMPUL.NEB NEB SCH ×4 (01:38→19:35)
[2018-11-22] MEDS: BACLOFEN (10 MG) 10 MG TABLET GT SCH ×3 (05:00→21:33)
[2018-11-22] MEDS: GABAPENTIN 300 MG CAPSULE GT SCH ×3 (05:00→21:33)
[2018-11-22] MEDS: DEXILANT 30 MG GT SCH (06:43)
[2018-11-22] MEDS: SIMETHICONE SUSP 40 MG/0.6 ML BOTTLE GT SCH ×4 (06:43→23:43)
[2018-11-22] MEDS: BLOOD SUGAR DIAGNOSTIC 1 EACH STRIP IN SCH ×4 (06:43→21:33)
[2018-11-22] MEDS: INSULIN REGULAR, HUMAN 100 UNIT/ML 3 ML VIAL SQ PRN ×2 (06:44→21:38)
[2018-11-22 08:00] VITALS: BP 103/85
[2018-11-22] MEDS: METOPROLOL TARTRATE 25 MG TABLET GT SCH ×2 (09:00→21:33)
[2018-11-22] MEDS: LISINOPRIL (10MG) 10 MG TABLET GT SCH (09:00)
[2018-11-22] MEDS: CLOPIDOGREL BISULFATE 75 MG TABLET GT SCH (09:55)
[2018-11-22] MEDS: ASPIRIN 81 MG TAB.CHEW GT SCH (09:55)
[2018-11-22] MEDS: ACIDOPHILUS/BULGARICUS 1 EACH TAB.CHEW GT SCH (09:55)
[2018-11-22] MEDS: DOCUSATE SODIUM LIQ 100 MG/10 ML UDC GT SCH ×3 (09:55→17:58)
[2018-11-22] MEDS: LIPASE/PROTEASE/AMYLASE 1 EACH CAPSULE.DR GT SCH ×3 (09:55→17:59)
[2018-11-22] MEDS: METHADONE HCL 5 MG TABLET GT SCH ×2 (09:55→17:58)
[2018-11-22] MEDS: FUROSEMIDE 20 MG TABLET GT SCH (09:55)
[2018-11-22] MEDS: ASCORBIC ACID 500 MG TABLET GT SCH (09:56)
[2018-11-22] MEDS: PROSOURCE / PROSTAT (PYXIS) 30 ML UDC GT SCH ×2 (09:56→17:59)
[2018-11-22] MEDS: Z GUARD REMEDY 2 OZ OINT TP SCH ×2 (09:56→21:33)
[2018-11-22] MEDS: MULTIVIT W/MINERALS 1 TAB TABLET PO SCH (09:56)
[2018-11-22] MEDS: POVIDONE-IODINE OINT 28.4 GM TUBE TP SCH ×2 (09:56→21:33)
[2018-11-22] MEDS: HYDROGEN PEROXIDE 480 ML BOTTLE TP SCH ×2 (09:56→21:33)
[2018-11-22] MEDS: DAKINS HALF STRENGTH (0.25%) 480 ML BOTTLE TOP SCH ×2 (09:56→21:33)
[2018-11-22] MEDS: [UNRECOGNIZED DRUG - SUPPLY] TP SCH ×2 (09:58→21:33)
--- NOTE | 2018-11-22 15:00 | NUR ---
INTERDISCIPLINARY PLAN OF CARE CONFERENCE was held today. Resident's grand daughter Marlin, patient's sister July and resident attended today's IDT meeting. Dr. Clarke and the interdisciplinary team discussed the current plan of care in detail. Current orders as well as treatments and medications were reviewed. Pharmacist recommended to DC either promethazine with codeine or Guaifenesin, Dr. Clarke chooses to dc promethazine/codeine. BS result also reviewed, new order to decrease Lantus to 8 units Q HS. Patient reported that she has been making a lot of progress physically and requiring lesser assistance from staff. Patient and family are very optimistic that she will be able to go home. Dr. Clarke mentioned that she will be decannulated before going home. Patient is tolerating room air with her trach capped 24 hours. Informed family that will start patient and family training as soon as discharge date is established. Resident expressed her gratitude with the care provided to her by the staff. She is ambulating farther by adding few feet each day using FWW with no s/s of discomfort/distress.
--- NOTE | 2018-11-22 19:30 | NUR ---
Seen by Dr. Lockwood vascular surgeon,he checked her left lower leg wound ,according to him it looks good.He will check if he can still do angiogram and will let us know.Patient is pleased and thankful that the visited her.
[2018-11-22 20:00] VITALS: BP 116/59
[2018-11-22] MEDS: SENNOSIDES 8.6 MG TABLET GT SCH (21:33)
[2018-11-22] MEDS: ATORVASTATIN 40 MG TABLET GT SCH (21:33)
[2018-11-22] MEDS: MELATONIN 5 MG TABLET GT SCH (21:33)
[2018-11-22] MEDS: INSULIN GLARGINE, 100 UNIT/ML CARTRIDGE SQ SCH (21:34)
[2018-11-22] MEDS: MONTELUKAST SODIUM (10MG) 10 MG TABLET PO SCH (21:34)
[2018-11-23] MEDS: IPRATROPIUM NEB FS 0.5 MG/2.5 ML AMPUL.NEB NEB SCH ×4 (01:18→19:40)
[2018-11-23] MEDS: GABAPENTIN 300 MG CAPSULE GT SCH ×3 (05:27→21:03)
[2018-11-23] MEDS: BACLOFEN (10 MG) 10 MG TABLET GT SCH ×3 (05:27→21:02)
[2018-11-23] MEDS: SIMETHICONE SUSP 40 MG/0.6 ML BOTTLE GT SCH ×4 (05:27→23:48)
[2018-11-23] MEDS: DEXILANT 30 MG GT SCH (05:27)
[2018-11-23] MEDS: BLOOD SUGAR DIAGNOSTIC 1 EACH STRIP IN SCH ×4 (06:56→21:30)
[2018-11-23] MEDS: MAGNESIUM HYDROXIDE 30 ML UDC GT PRN (06:56)
[2018-11-23] MEDS: INSULIN REGULAR, HUMAN 100 UNIT/ML 3 ML VIAL SQ PRN ×2 (06:57→21:34)
[2018-11-23 07:32] VITALS: BP 126/57
[2018-11-23] MEDS: ASCORBIC ACID 500 MG TABLET GT SCH (09:00)
[2018-11-23] MEDS: HYDROGEN PEROXIDE 480 ML BOTTLE TP SCH ×2 (09:00→21:03)
[2018-11-23] MEDS: Z GUARD REMEDY 2 OZ OINT TP SCH ×2 (09:00→21:03)
[2018-11-23] MEDS: METHADONE HCL 5 MG TABLET GT SCH ×2 (09:00→17:00)
[2018-11-23] MEDS: PROSOURCE / PROSTAT (PYXIS) 30 ML UDC GT SCH ×2 (09:00→17:00)
[2018-11-23] MEDS: CLOPIDOGREL BISULFATE 75 MG TABLET GT SCH (09:00)
[2018-11-23] MEDS: ASPIRIN 81 MG TAB.CHEW GT SCH (09:00)
[2018-11-23] MEDS: MULTIVIT W/MINERALS 1 TAB TABLET PO SCH (09:00)
[2018-11-23] MEDS: POVIDONE-IODINE OINT 28.4 GM TUBE TP SCH ×2 (09:00→21:03)
[2018-11-23] MEDS: DAKINS HALF STRENGTH (0.25%) 480 ML BOTTLE TOP SCH ×2 (09:00→21:03)
[2018-11-23] MEDS: LIPASE/PROTEASE/AMYLASE 1 EACH CAPSULE.DR GT SCH ×3 (09:00→17:00)
[2018-11-23] MEDS: FUROSEMIDE 20 MG TABLET GT SCH (09:00)
[2018-11-23] MEDS: ACIDOPHILUS/BULGARICUS 1 EACH TAB.CHEW GT SCH (09:00)
[2018-11-23] MEDS: [UNRECOGNIZED DRUG - SUPPLY] TP SCH ×2 (09:00→21:03)
[2018-11-23] MEDS: LISINOPRIL (10MG) 10 MG TABLET GT SCH (09:00)
[2018-11-23] MEDS: METOPROLOL TARTRATE 25 MG TABLET GT SCH ×2 (09:00→21:00)
[2018-11-23] MEDS: DOCUSATE SODIUM LIQ 100 MG/10 ML UDC GT SCH ×3 (09:00→17:00)
--- NOTE | 2018-11-23 15:00 | NUR ---
Obtained order from Dr. Clarke regarding patient's request to go OOP tomorrow for buddhist service. Also order given for patient to take medications by [facility] as tolerated. Endorsed.
[2018-11-23 20:23] VITALS: BP 99/61
[2018-11-23] MEDS: ATORVASTATIN 40 MG TABLET GT SCH (21:02)
[2018-11-23] MEDS: MONTELUKAST SODIUM (10MG) 10 MG TABLET PO SCH (21:03)
[2018-11-23] MEDS: SENNOSIDES 8.6 MG TABLET GT SCH (21:03)
[2018-11-23] MEDS: MELATONIN 5 MG TABLET GT SCH (21:03)
[2018-11-23] MEDS: INSULIN GLARGINE, 100 UNIT/ML CARTRIDGE SQ SCH (21:32)
[2018-11-24] MEDS: IPRATROPIUM NEB FS 0.5 MG/2.5 ML AMPUL.NEB NEB SCH ×4 (01:40→19:47)
[2018-11-24] MEDS: BACLOFEN (10 MG) 10 MG TABLET GT SCH ×3 (05:23→21:09)
[2018-11-24] MEDS: SIMETHICONE SUSP 40 MG/0.6 ML BOTTLE GT SCH ×3 (05:23→17:52)
[2018-11-24] MEDS: GABAPENTIN 300 MG CAPSULE GT SCH ×3 (05:23→21:09)
[2018-11-24] MEDS: DEXILANT 30 MG GT SCH (05:23)
[2018-11-24] MEDS: INSULIN REGULAR, HUMAN 100 UNIT/ML 3 ML VIAL SQ PRN ×2 (06:58→21:12)
[2018-11-24] MEDS: BLOOD SUGAR DIAGNOSTIC 1 EACH STRIP IN SCH ×4 (06:58→21:10)
[2018-11-24 07:43] VITALS: BP 104/50
[2018-11-24] MEDS: PROSOURCE / PROSTAT (PYXIS) 30 ML UDC GT SCH ×2 (09:00→17:52)
[2018-11-24] MEDS: METHADONE HCL 5 MG TABLET GT SCH ×2 (09:00→17:50)
[2018-11-24] MEDS: CLOPIDOGREL BISULFATE 75 MG TABLET GT SCH (09:00)
[2018-11-24] MEDS: ASPIRIN 81 MG TAB.CHEW GT SCH (09:00)
[2018-11-24] MEDS: LIPASE/PROTEASE/AMYLASE 1 EACH CAPSULE.DR GT SCH ×3 (09:00→17:50)
[2018-11-24] MEDS: DAKINS HALF STRENGTH (0.25%) 480 ML BOTTLE TOP SCH ×2 (09:00→21:09)
[2018-11-24] MEDS: ASCORBIC ACID 500 MG TABLET GT SCH (09:00)
[2018-11-24] MEDS: POVIDONE-IODINE OINT 28.4 GM TUBE TP SCH ×2 (09:00→21:10)
[2018-11-24] MEDS: MULTIVIT W/MINERALS 1 TAB TABLET PO SCH (09:00)
[2018-11-24] MEDS: LISINOPRIL (10MG) 10 MG TABLET GT SCH (09:00)
[2018-11-24] MEDS: DOCUSATE SODIUM LIQ 100 MG/10 ML UDC GT SCH ×3 (09:00→17:50)
[2018-11-24] MEDS: METOPROLOL TARTRATE 25 MG TABLET GT SCH ×2 (09:00→21:09)
[2018-11-24] MEDS: ACIDOPHILUS/BULGARICUS 1 EACH TAB.CHEW GT SCH (09:00)
[2018-11-24] MEDS: HYDROGEN PEROXIDE 480 ML BOTTLE TP SCH ×2 (09:00→21:10)
[2018-11-24] MEDS: FUROSEMIDE 20 MG TABLET GT SCH (09:00)
[2018-11-24] MEDS: Z GUARD REMEDY 2 OZ OINT TP SCH ×2 (09:00→21:10)
[2018-11-24] MEDS: [UNRECOGNIZED DRUG - SUPPLY] TP SCH ×2 (09:00→21:10)
[2018-11-24 19:25] VITALS: BP 112/64
[2018-11-24] MEDS: ATORVASTATIN 40 MG TABLET GT SCH (21:09)
[2018-11-24] MEDS: MELATONIN 5 MG TABLET GT SCH (21:10)
[2018-11-24] MEDS: MONTELUKAST SODIUM (10MG) 10 MG TABLET PO SCH (21:10)
[2018-11-24] MEDS: SENNOSIDES 8.6 MG TABLET GT SCH (21:10)
[2018-11-24] MEDS: INSULIN GLARGINE, 100 UNIT/ML CARTRIDGE SQ SCH (21:11)
[2018-11-25] MEDS: SIMETHICONE SUSP 40 MG/0.6 ML BOTTLE GT SCH ×5 (00:09→23:21)
[2018-11-25] MEDS: IPRATROPIUM NEB FS 0.5 MG/2.5 ML AMPUL.NEB NEB SCH ×4 (01:43→20:16)
[2018-11-25] MEDS: DEXILANT 30 MG GT SCH (05:45)
[2018-11-25] MEDS: BACLOFEN (10 MG) 10 MG TABLET GT SCH ×3 (05:45→21:10)
[2018-11-25] MEDS: GABAPENTIN 300 MG CAPSULE GT SCH ×3 (05:45→21:10)
[2018-11-25] MEDS: BLOOD SUGAR DIAGNOSTIC 1 EACH STRIP IN SCH ×4 (06:38→21:15)
[2018-11-25 07:48] VITALS: BP 131/58
[2018-11-25] MEDS: Z GUARD REMEDY 2 OZ OINT TP SCH ×2 (09:00→21:11)
[2018-11-25] MEDS: [UNRECOGNIZED DRUG - SUPPLY] TP SCH ×2 (09:00→21:11)
[2018-11-25] MEDS: HYDROGEN PEROXIDE 480 ML BOTTLE TP SCH ×2 (09:00→21:10)
[2018-11-25] MEDS: METOPROLOL TARTRATE 25 MG TABLET GT SCH ×2 (09:36→21:00)
[2018-11-25] MEDS: ACIDOPHILUS/BULGARICUS 1 EACH TAB.CHEW GT SCH (09:36)
[2018-11-25] MEDS: FUROSEMIDE 20 MG TABLET GT SCH (09:36)
[2018-11-25] MEDS: ASPIRIN 81 MG TAB.CHEW GT SCH (09:36)
[2018-11-25] MEDS: DOCUSATE SODIUM LIQ 100 MG/10 ML UDC GT SCH ×3 (09:36→17:45)
[2018-11-25] MEDS: METHADONE HCL 5 MG TABLET GT SCH ×2 (09:37→17:45)
[2018-11-25] MEDS: CLOPIDOGREL BISULFATE 75 MG TABLET GT SCH (09:37)
[2018-11-25] MEDS: ASCORBIC ACID 500 MG TABLET GT SCH (09:37)
[2018-11-25] MEDS: LIPASE/PROTEASE/AMYLASE 1 EACH CAPSULE.DR GT SCH ×3 (09:37→17:45)
[2018-11-25] MEDS: MULTIVIT W/MINERALS 1 TAB TABLET PO SCH (09:37)
[2018-11-25] MEDS: LISINOPRIL (10MG) 10 MG TABLET GT SCH (09:37)
[2018-11-25] MEDS: PROSOURCE / PROSTAT (PYXIS) 30 ML UDC GT SCH ×2 (09:37→17:45)
[2018-11-25] MEDS: DAKINS HALF STRENGTH (0.25%) 480 ML BOTTLE TOP SCH ×2 (09:59→21:10)
[2018-11-25] MEDS: POVIDONE-IODINE OINT 28.4 GM TUBE TP SCH ×2 (10:00→21:10)
[2018-11-25 19:44] VITALS: BP 96/55
[2018-11-25] MEDS: ATORVASTATIN 40 MG TABLET GT SCH (21:10)
[2018-11-25] MEDS: MELATONIN 5 MG TABLET GT SCH (21:11)
[2018-11-25] MEDS: SENNOSIDES 8.6 MG TABLET GT SCH (21:11)
[2018-11-25] MEDS: MONTELUKAST SODIUM (10MG) 10 MG TABLET PO SCH (21:15)
[2018-11-25] MEDS: INSULIN GLARGINE, 100 UNIT/ML CARTRIDGE SQ SCH (21:16)
[2018-11-26] MEDS: IPRATROPIUM NEB FS 0.5 MG/2.5 ML AMPUL.NEB NEB SCH ×4 (01:36→19:30)
[2018-11-26] MEDS: DEXILANT 30 MG GT SCH (05:53)
[2018-11-26] MEDS: SIMETHICONE SUSP 40 MG/0.6 ML BOTTLE GT SCH ×4 (05:53→23:37)
[2018-11-26] MEDS: BACLOFEN (10 MG) 10 MG TABLET GT SCH ×3 (05:53→21:13)
[2018-11-26] MEDS: GABAPENTIN 300 MG CAPSULE GT SCH ×3 (05:53→21:13)
[2018-11-26] MEDS: BLOOD SUGAR DIAGNOSTIC 1 EACH STRIP IN SCH ×4 (06:37→21:14)
[2018-11-26 07:45] VITALS: BP 111/60
[2018-11-26] MEDS: LISINOPRIL (10MG) 10 MG TABLET GT SCH (09:00)
[2018-11-26] MEDS: DAKINS HALF STRENGTH (0.25%) 480 ML BOTTLE TOP SCH ×2 (09:00→21:13)
[2018-11-26] MEDS: ASCORBIC ACID 500 MG TABLET GT SCH (09:00)
[2018-11-26] MEDS: [UNRECOGNIZED DRUG - SUPPLY] TP SCH ×2 (09:00→21:14)
[2018-11-26] MEDS: FUROSEMIDE 20 MG TABLET GT SCH (09:00)
[2018-11-26] MEDS: ACIDOPHILUS/BULGARICUS 1 EACH TAB.CHEW GT SCH (09:00)
[2018-11-26] MEDS: Z GUARD REMEDY 2 OZ OINT TP SCH ×2 (09:00→21:14)
[2018-11-26] MEDS: CLOPIDOGREL BISULFATE 75 MG TABLET GT SCH (09:00)
[2018-11-26] MEDS: DOCUSATE SODIUM LIQ 100 MG/10 ML UDC GT SCH ×3 (09:00→17:15)
[2018-11-26] MEDS: ASPIRIN 81 MG TAB.CHEW GT SCH (09:00)
[2018-11-26] MEDS: METOPROLOL TARTRATE 25 MG TABLET GT SCH ×2 (09:00→21:00)
[2018-11-26] MEDS: METHADONE HCL 5 MG TABLET GT SCH ×2 (09:00→17:15)
[2018-11-26] MEDS: LIPASE/PROTEASE/AMYLASE 1 EACH CAPSULE.DR GT SCH ×3 (09:00→17:15)
[2018-11-26] MEDS: PROSOURCE / PROSTAT (PYXIS) 30 ML UDC GT SCH ×2 (09:00→17:15)
[2018-11-26] MEDS: POVIDONE-IODINE OINT 28.4 GM TUBE TP SCH ×2 (09:00→21:13)
[2018-11-26] MEDS: HYDROGEN PEROXIDE 480 ML BOTTLE TP SCH ×2 (09:00→21:14)
[2018-11-26] MEDS: MULTIVIT W/MINERALS 1 TAB TABLET PO SCH (09:00)
--- NOTE | 2018-11-26 09:30 | NUR ---
Seen and examined by Dr. Clarke, no new order given.
--- NOTE | 2018-11-26 12:12 | NUR ---
MICHELE contacted [employer] customer service to enquire about patient's eligibility. Patient's granddaughter Ara communicated with sw that she received a letter from [facility] saying they did not received some documents from patient and as a result benefits were cancelled. Ara asked sw to call and find out what is happening since she was at work and could not call. MICHELE spoke to Miss. Cárdenas from call center 3 at [employer] who told sw she could not provide any information to sw for HIPPA regulations. MICHELE asked Miss Cárdenas if she could ask her salon supervisor to only inform SW if the problem with patient's eligibility was solved, but the salon supervisor denied providing any information to this sw. Michele communicated this info to patient's granddaughter.
--- NOTE | 2018-11-26 12:37 | NUR ---
INTERDISCIPLINARY PLAN OF CARE CONFERENCE was held today. Resident's grand daughter Marlin, patient's sister July and resident attended today's IDT meeting. Dr. Clarke and the interdisciplinary team discussed the current plan of care in detail. Current orders as well as treatments and medications were reviewed. Pharmacist recommended to DC either promethazine with codeine or Guaifenesin, Dr. Clarke chooses to dc promethazine/codeine. BS result also reviewed, new order to decrease Lantus to 8 units Q HS. Patient reported that she has been making a lot of progress physically and requiring lesser assistance from staff. Patient and family are very optimistic that she will be able to go home. Dr. Clarke mentioned that she will be decannulated before going home. Patient is tolerating room air with her trach capped 24 hours. Informed family that will start patient and family training as soon as discharge date is established. Resident expressed her gratitude with the care provided to her by the staff.
[2018-11-26 20:29] VITALS: BP 109/58
[2018-11-26] MEDS: ATORVASTATIN 40 MG TABLET GT SCH (21:13)
[2018-11-26] MEDS: MELATONIN 5 MG TABLET GT SCH (21:14)
[2018-11-26] MEDS: SENNOSIDES 8.6 MG TABLET GT SCH (21:14)
[2018-11-26] MEDS: MONTELUKAST SODIUM (10MG) 10 MG TABLET PO SCH (21:14)
[2018-11-26] MEDS: INSULIN GLARGINE, 100 UNIT/ML CARTRIDGE SQ SCH (21:14)
[2018-11-27] MEDS: IPRATROPIUM NEB FS 0.5 MG/2.5 ML AMPUL.NEB NEB SCH ×4 (02:07→20:03)
[2018-11-27] MEDS: GABAPENTIN 300 MG CAPSULE GT SCH ×3 (05:00→20:56)
[2018-11-27] MEDS: BACLOFEN (10 MG) 10 MG TABLET GT SCH ×3 (05:00→20:56)
[2018-11-27] MEDS: DEXILANT 30 MG GT SCH (06:09)
[2018-11-27] MEDS: SIMETHICONE SUSP 40 MG/0.6 ML BOTTLE GT SCH ×3 (06:09→18:39)
[2018-11-27] MEDS: BLOOD SUGAR DIAGNOSTIC 1 EACH STRIP IN SCH ×4 (06:56→21:10)
[2018-11-27] MEDS: LISINOPRIL (10MG) 10 MG TABLET GT SCH (09:00)
[2018-11-27] MEDS: METOPROLOL TARTRATE 25 MG TABLET GT SCH ×2 (09:00→21:00)
[2018-11-27] MEDS: CLOPIDOGREL BISULFATE 75 MG TABLET GT SCH (09:26)
[2018-11-27] MEDS: ASPIRIN 81 MG TAB.CHEW GT SCH (09:26)
[2018-11-27] MEDS: HYDROGEN PEROXIDE 480 ML BOTTLE TP SCH ×2 (09:26→20:56)
[2018-11-27] MEDS: DOCUSATE SODIUM LIQ 100 MG/10 ML UDC GT SCH ×3 (09:26→17:00)
[2018-11-27] MEDS: ASCORBIC ACID 500 MG TABLET GT SCH (09:26)
[2018-11-27] MEDS: Z GUARD REMEDY 2 OZ OINT TP SCH ×2 (09:26→20:56)
[2018-11-27] MEDS: LIPASE/PROTEASE/AMYLASE 1 EACH CAPSULE.DR GT SCH ×3 (09:26→17:00)
[2018-11-27] MEDS: PROSOURCE / PROSTAT (PYXIS) 30 ML UDC GT SCH ×2 (09:26→17:00)
[2018-11-27] MEDS: ACIDOPHILUS/BULGARICUS 1 EACH TAB.CHEW GT SCH (09:26)
[2018-11-27] MEDS: POVIDONE-IODINE OINT 28.4 GM TUBE TP SCH ×2 (09:26→20:56)
[2018-11-27] MEDS: FUROSEMIDE 20 MG TABLET GT SCH (09:26)
[2018-11-27] MEDS: METHADONE HCL 5 MG TABLET GT SCH ×2 (09:26→17:00)
[2018-11-27] MEDS: MULTIVIT W/MINERALS 1 TAB TABLET PO SCH (09:26)
[2018-11-27] MEDS: DAKINS HALF STRENGTH (0.25%) 480 ML BOTTLE TOP SCH ×2 (09:26→20:56)
[2018-11-27] MEDS: [UNRECOGNIZED DRUG - SUPPLY] TP SCH ×2 (09:27→20:56)
[2018-11-27] MEDS: ATORVASTATIN 40 MG TABLET GT SCH (20:56)
[2018-11-27] MEDS: MELATONIN 5 MG TABLET GT SCH (21:00)
[2018-11-27] MEDS: SENNOSIDES 8.6 MG TABLET GT SCH (21:01)
[2018-11-27] MEDS: MONTELUKAST SODIUM (10MG) 10 MG TABLET PO SCH (21:10)
[2018-11-27] MEDS: INSULIN GLARGINE, 100 UNIT/ML CARTRIDGE SQ SCH (21:11)
[2018-11-27 22:00] VITALS: BP 102/74
[2018-11-28] MEDS: SIMETHICONE SUSP 40 MG/0.6 ML BOTTLE GT SCH ×5 (00:29→23:44)
[2018-11-28] MEDS: IPRATROPIUM NEB FS 0.5 MG/2.5 ML AMPUL.NEB NEB SCH ×4 (01:44→19:36)
[2018-11-28] MEDS: DEXILANT 30 MG GT SCH (05:03)
[2018-11-28] MEDS: GABAPENTIN 300 MG CAPSULE GT SCH ×3 (05:03→20:19)
[2018-11-28] MEDS: BACLOFEN (10 MG) 10 MG TABLET GT SCH ×3 (05:03→20:19)
[2018-11-28] MEDS: BLOOD SUGAR DIAGNOSTIC 1 EACH STRIP IN SCH ×4 (06:54→21:13)
[2018-11-28 07:48] VITALS: BP 109/62
[2018-11-28] MEDS: LISINOPRIL (10MG) 10 MG TABLET GT SCH (09:00)
[2018-11-28] MEDS: METOPROLOL TARTRATE 25 MG TABLET GT SCH ×2 (09:00→20:19)
[2018-11-28] MEDS: FUROSEMIDE 20 MG TABLET GT SCH (09:05)
[2018-11-28] MEDS: ACIDOPHILUS/BULGARICUS 1 EACH TAB.CHEW GT SCH (09:05)
[2018-11-28] MEDS: ASPIRIN 81 MG TAB.CHEW GT SCH (09:05)
[2018-11-28] MEDS: DOCUSATE SODIUM LIQ 100 MG/10 ML UDC GT SCH ×3 (09:05→17:51)
[2018-11-28] MEDS: LIPASE/PROTEASE/AMYLASE 1 EACH CAPSULE.DR GT SCH ×3 (09:06→17:51)
[2018-11-28] MEDS: PROSOURCE / PROSTAT (PYXIS) 30 ML UDC GT SCH ×2 (09:06→17:51)
[2018-11-28] MEDS: METHADONE HCL 5 MG TABLET GT SCH ×2 (09:06→17:53)
[2018-11-28] MEDS: CLOPIDOGREL BISULFATE 75 MG TABLET GT SCH (09:06)
[2018-11-28] MEDS: MULTIVIT W/MINERALS 1 TAB TABLET PO SCH (09:06)
[2018-11-28] MEDS: ASCORBIC ACID 500 MG TABLET GT SCH (09:06)
[2018-11-28] MEDS: Z GUARD REMEDY 2 OZ OINT TP SCH ×2 (10:00→20:22)
[2018-11-28] MEDS: [UNRECOGNIZED DRUG - SUPPLY] TP SCH ×2 (10:00→20:22)
[2018-11-28] MEDS: HYDROGEN PEROXIDE 480 ML BOTTLE TP SCH ×2 (10:00→20:19)
[2018-11-28] MEDS: POVIDONE-IODINE OINT 28.4 GM TUBE TP SCH ×2 (10:00→20:19)
[2018-11-28] MEDS: DAKINS HALF STRENGTH (0.25%) 480 ML BOTTLE TOP SCH ×2 (10:00→20:19)
[2018-11-28] MEDS: INSULIN REGULAR, HUMAN 100 UNIT/ML 3 ML VIAL SQ PRN ×2 (12:20→17:51)
[2018-11-28] MEDS: IBUPROFEN 200 MG TABLET GT PRN (13:28)
--- NOTE | 2018-11-28 20:00 | NUR ---
Seen by SENDY ANTON.
[2018-11-28] MEDS: ATORVASTATIN 40 MG TABLET GT SCH (20:19)
[2018-11-28 20:36] VITALS: BP 124/60
[2018-11-28] MEDS: MELATONIN 5 MG TABLET GT SCH (21:13)
[2018-11-28] MEDS: MONTELUKAST SODIUM (10MG) 10 MG TABLET PO SCH (21:13)
[2018-11-28] MEDS: INSULIN GLARGINE, 100 UNIT/ML CARTRIDGE SQ SCH (21:13)
[2018-11-28] MEDS: SENNOSIDES 8.6 MG TABLET GT SCH (21:13)
--- NOTE | 2018-11-28 21:14 | NUR ---
bs 110- REFUSED INSULIN LONG ACTING PT - DOES NOT EAT AT NIGHT , CONCERN BS MAY DROP IN AM IF GIVEN LONG ACTING INSULIN. EXPLAINED TO PT RISK AND BENEFITS.
[2018-11-29] MEDS: IPRATROPIUM NEB FS 0.5 MG/2.5 ML AMPUL.NEB NEB SCH ×4 (01:28→19:51)
[2018-11-29] MEDS: DEXILANT 30 MG GT SCH (05:25)
[2018-11-29] MEDS: GABAPENTIN 300 MG CAPSULE GT SCH ×3 (05:25→21:45)
[2018-11-29] MEDS: SIMETHICONE SUSP 40 MG/0.6 ML BOTTLE GT SCH ×3 (05:25→18:01)
[2018-11-29] MEDS: BACLOFEN (10 MG) 10 MG TABLET GT SCH ×3 (05:25→21:41)
[2018-11-29] MEDS: BLOOD SUGAR DIAGNOSTIC 1 EACH STRIP IN SCH ×4 (06:36→22:07)
[2018-11-29] MEDS: INSULIN REGULAR, HUMAN 100 UNIT/ML 3 ML VIAL SQ PRN ×3 (06:36→17:59)
[2018-11-29] MEDS: MAGNESIUM HYDROXIDE 30 ML UDC GT PRN (06:36)
[2018-11-29 07:49] VITALS: BP 111/58
[2018-11-29] MEDS: ASPIRIN 81 MG TAB.CHEW GT SCH (08:28)
[2018-11-29] MEDS: DOCUSATE SODIUM LIQ 100 MG/10 ML UDC GT SCH ×3 (08:28→17:58)
[2018-11-29] MEDS: ACIDOPHILUS/BULGARICUS 1 EACH TAB.CHEW GT SCH (08:28)
[2018-11-29] MEDS: FUROSEMIDE 20 MG TABLET GT SCH (08:29)
[2018-11-29] MEDS: LIPASE/PROTEASE/AMYLASE 1 EACH CAPSULE.DR GT SCH ×3 (08:30→17:59)
[2018-11-29] MEDS: PROSOURCE / PROSTAT (PYXIS) 30 ML UDC GT SCH ×2 (08:30→17:59)
[2018-11-29] MEDS: CLOPIDOGREL BISULFATE 75 MG TABLET GT SCH (08:30)
[2018-11-29] MEDS: ASCORBIC ACID 500 MG TABLET GT SCH (08:31)
[2018-11-29] MEDS: MULTIVIT W/MINERALS 1 TAB TABLET PO SCH (08:32)
[2018-11-29] MEDS: METHADONE HCL 5 MG TABLET GT SCH ×2 (08:32→17:59)
[2018-11-29] MEDS: LISINOPRIL (10MG) 10 MG TABLET GT SCH (08:38)
[2018-11-29] MEDS: METOPROLOL TARTRATE 25 MG TABLET GT SCH ×2 (08:38→21:00)
[2018-11-29] MEDS: DAKINS HALF STRENGTH (0.25%) 480 ML BOTTLE TOP SCH ×2 (09:00→21:00)
[2018-11-29] MEDS: HYDROGEN PEROXIDE 480 ML BOTTLE TP SCH ×2 (09:00→21:00)
[2018-11-29] MEDS: Z GUARD REMEDY 2 OZ OINT TP SCH ×2 (09:00→21:00)
[2018-11-29] MEDS: POVIDONE-IODINE OINT 28.4 GM TUBE TP SCH ×2 (09:00→21:00)
[2018-11-29] MEDS: [UNRECOGNIZED DRUG - SUPPLY] TP SCH ×2 (09:00→21:00)
--- NOTE | 2018-11-29 11:07 | NUR ---
Seen and examined by COM WRITER Mitzy Hernandez, made aware that patient did the get her long acting insulin last night because she is concern that BS will drop. Currently patient is getting Lantus 8 units. Mitzy reviewed previous BS result showing BS <100 mostly before breakfast and HS reading. New order given to hold Lantus x 3days and will re-evaluate medication on Sunday based on BS reading for the next 3 days. Resident aware of new order and very excited with progress she is making with ultimate goal of going home.
[2018-11-29 19:44] VITALS: BP 105/56
[2018-11-29] MEDS: ATORVASTATIN 40 MG TABLET GT SCH (21:42)
[2018-11-29] MEDS: SENNOSIDES 8.6 MG TABLET GT SCH (21:47)
[2018-11-29] MEDS: MELATONIN 5 MG TABLET GT SCH (21:50)
[2018-11-29] MEDS: MONTELUKAST SODIUM (10MG) 10 MG TABLET PO SCH (22:07)
[2018-11-30] MEDS: IPRATROPIUM NEB FS 0.5 MG/2.5 ML AMPUL.NEB NEB SCH ×4 (02:10→19:10)
[2018-11-30] MEDS: DEXILANT 30 MG GT SCH (05:25)
[2018-11-30] MEDS: SIMETHICONE SUSP 40 MG/0.6 ML BOTTLE GT SCH ×5 (05:26→23:46)
[2018-11-30] MEDS: BACLOFEN (10 MG) 10 MG TABLET GT SCH ×3 (05:27→21:20)
[2018-11-30] MEDS: GABAPENTIN 300 MG CAPSULE GT SCH ×3 (05:28→21:22)
[2018-11-30] MEDS: BLOOD SUGAR DIAGNOSTIC 1 EACH STRIP IN SCH ×4 (06:43→21:23)
[2018-11-30 07:50] VITALS: BP 93/58
[2018-11-30] MEDS: METOPROLOL TARTRATE 25 MG TABLET GT SCH ×2 (09:00→21:00)
[2018-11-30] MEDS: LISINOPRIL (10MG) 10 MG TABLET GT SCH (09:00)
[2018-11-30] MEDS: DOCUSATE SODIUM LIQ 100 MG/10 ML UDC GT SCH ×3 (09:35→16:40)
[2018-11-30] MEDS: ASPIRIN 81 MG TAB.CHEW GT SCH (09:35)
[2018-11-30] MEDS: ACIDOPHILUS/BULGARICUS 1 EACH TAB.CHEW GT SCH (09:35)
[2018-11-30] MEDS: FUROSEMIDE 20 MG TABLET GT SCH (09:38)
[2018-11-30] MEDS: CLOPIDOGREL BISULFATE 75 MG TABLET GT SCH (09:39)
[2018-11-30] MEDS: LIPASE/PROTEASE/AMYLASE 1 EACH CAPSULE.DR GT SCH ×3 (09:39→16:41)
[2018-11-30] MEDS: METHADONE HCL 5 MG TABLET GT SCH ×2 (09:39→16:41)
[2018-11-30] MEDS: ASCORBIC ACID 500 MG TABLET GT SCH (09:40)
[2018-11-30] MEDS: MULTIVIT W/MINERALS 1 TAB TABLET PO SCH (09:40)
[2018-11-30] MEDS: PROSOURCE / PROSTAT (PYXIS) 30 ML UDC GT SCH ×2 (09:40→16:41)
[2018-11-30] MEDS: DAKINS HALF STRENGTH (0.25%) 480 ML BOTTLE TOP SCH ×2 (15:00→21:22)
[2018-11-30] MEDS: [UNRECOGNIZED DRUG - SUPPLY] TP SCH ×2 (15:00→21:22)
[2018-11-30] MEDS: HYDROGEN PEROXIDE 480 ML BOTTLE TP SCH ×2 (15:00→21:22)
[2018-11-30] MEDS: Z GUARD REMEDY 2 OZ OINT TP SCH ×2 (15:00→21:22)
[2018-11-30] MEDS: INSULIN REGULAR, HUMAN 100 UNIT/ML 3 ML VIAL SQ PRN ×2 (16:41→21:23)
[2018-11-30 19:50] VITALS: BP 109/64
[2018-11-30] MEDS: ATORVASTATIN 40 MG TABLET GT SCH (21:20)
[2018-11-30] MEDS: SENNOSIDES 8.6 MG TABLET GT SCH (21:22)
[2018-11-30] MEDS: MELATONIN 5 MG TABLET GT SCH (21:22)
[2018-11-30] MEDS: MONTELUKAST SODIUM (10MG) 10 MG TABLET PO SCH (21:23)
[2018-12-01] MEDS: IPRATROPIUM NEB FS 0.5 MG/2.5 ML AMPUL.NEB NEB SCH ×4 (00:39→20:00)
[2018-12-01] MEDS: BACLOFEN (10 MG) 10 MG TABLET GT SCH ×3 (05:55→21:33)
[2018-12-01] MEDS: GABAPENTIN 300 MG CAPSULE GT SCH ×3 (05:55→21:34)
[2018-12-01] MEDS: SIMETHICONE SUSP 40 MG/0.6 ML BOTTLE GT SCH ×3 (05:55→17:48)
[2018-12-01] MEDS: DEXILANT 30 MG GT SCH (05:55)
[2018-12-01] MEDS: BLOOD SUGAR DIAGNOSTIC 1 EACH STRIP IN SCH ×4 (06:36→21:34)
[2018-12-01] MEDS: INSULIN REGULAR, HUMAN 100 UNIT/ML 3 ML VIAL SQ PRN ×2 (06:36→21:35)
[2018-12-01 08:59] VITALS: BP 121/59
[2018-12-01] MEDS: DOCUSATE SODIUM LIQ 100 MG/10 ML UDC GT SCH ×3 (09:14→17:48)
[2018-12-01] MEDS: ACIDOPHILUS/BULGARICUS 1 EACH TAB.CHEW GT SCH (09:14)
[2018-12-01] MEDS: ASPIRIN 81 MG TAB.CHEW GT SCH (09:14)
[2018-12-01] MEDS: METOPROLOL TARTRATE 25 MG TABLET GT SCH ×2 (09:15→21:34)
[2018-12-01] MEDS: FUROSEMIDE 20 MG TABLET GT SCH (09:15)
[2018-12-01] MEDS: CLOPIDOGREL BISULFATE 75 MG TABLET GT SCH (09:16)
[2018-12-01] MEDS: LISINOPRIL (10MG) 10 MG TABLET GT SCH (09:16)
[2018-12-01] MEDS: PROSOURCE / PROSTAT (PYXIS) 30 ML UDC GT SCH ×2 (09:16→17:48)
[2018-12-01] MEDS: MULTIVIT W/MINERALS 1 TAB TABLET PO SCH (09:16)
[2018-12-01] MEDS: METHADONE HCL 5 MG TABLET GT SCH ×2 (09:16→17:48)
[2018-12-01] MEDS: LIPASE/PROTEASE/AMYLASE 1 EACH CAPSULE.DR GT SCH ×3 (09:16→17:48)
[2018-12-01] MEDS: ASCORBIC ACID 500 MG TABLET GT SCH (09:16)
[2018-12-01] MEDS: Z GUARD REMEDY 2 OZ OINT TP SCH ×2 (09:59→21:34)
[2018-12-01] MEDS: HYDROGEN PEROXIDE 480 ML BOTTLE TP SCH ×2 (09:59→21:34)
[2018-12-01] MEDS: [UNRECOGNIZED DRUG - SUPPLY] TP SCH ×2 (09:59→21:34)
[2018-12-01] MEDS: DAKINS HALF STRENGTH (0.25%) 480 ML BOTTLE TOP SCH ×2 (09:59→21:34)
[2018-12-01 19:40] VITALS: BP 118/69
[2018-12-01] MEDS: ATORVASTATIN 40 MG TABLET GT SCH (21:33)
[2018-12-01] MEDS: SENNOSIDES 8.6 MG TABLET GT SCH (21:34)
[2018-12-01] MEDS: MELATONIN 5 MG TABLET GT SCH (21:34)
[2018-12-01] MEDS: MONTELUKAST SODIUM (10MG) 10 MG TABLET PO SCH (22:35)
[2018-12-02] MEDS: SIMETHICONE SUSP 40 MG/0.6 ML BOTTLE GT SCH ×4 (00:03→17:35)
[2018-12-02] MEDS: IPRATROPIUM NEB FS 0.5 MG/2.5 ML AMPUL.NEB NEB SCH ×4 (01:24→19:43)
[2018-12-02] MEDS: DEXILANT 30 MG GT SCH (05:20)
[2018-12-02] MEDS: GABAPENTIN 300 MG CAPSULE GT SCH ×3 (05:20→21:43)
[2018-12-02] MEDS: BACLOFEN (10 MG) 10 MG TABLET GT SCH ×3 (05:20→21:42)
[2018-12-02] MEDS: INSULIN REGULAR, HUMAN 100 UNIT/ML 3 ML VIAL SQ PRN ×2 (06:31→21:54)
[2018-12-02] MEDS: BLOOD SUGAR DIAGNOSTIC 1 EACH STRIP IN SCH ×4 (07:30→21:54)
[2018-12-02 07:40] VITALS: BP 107/58
[2018-12-02] MEDS: ASPIRIN 81 MG TAB.CHEW GT SCH (08:57)
[2018-12-02] MEDS: DOCUSATE SODIUM LIQ 100 MG/10 ML UDC GT SCH ×3 (08:57→17:34)
[2018-12-02] MEDS: FUROSEMIDE 20 MG TABLET GT SCH (08:57)
[2018-12-02] MEDS: METOPROLOL TARTRATE 25 MG TABLET GT SCH ×2 (08:57→21:43)
[2018-12-02] MEDS: ACIDOPHILUS/BULGARICUS 1 EACH TAB.CHEW GT SCH (08:57)
[2018-12-02] MEDS: ASCORBIC ACID 500 MG TABLET GT SCH (08:58)
[2018-12-02] MEDS: METHADONE HCL 5 MG TABLET GT SCH ×2 (08:58→17:34)
[2018-12-02] MEDS: CLOPIDOGREL BISULFATE 75 MG TABLET GT SCH (08:58)
[2018-12-02] MEDS: PROSOURCE / PROSTAT (PYXIS) 30 ML UDC GT SCH ×2 (08:58→17:35)
[2018-12-02] MEDS: LIPASE/PROTEASE/AMYLASE 1 EACH CAPSULE.DR GT SCH ×3 (08:58→17:34)
[2018-12-02] MEDS: MULTIVIT W/MINERALS 1 TAB TABLET PO SCH (08:58)
[2018-12-02] MEDS: LISINOPRIL (10MG) 10 MG TABLET GT SCH (08:58)
[2018-12-02] MEDS: [UNRECOGNIZED DRUG - SUPPLY] TP SCH ×2 (09:41→21:43)
[2018-12-02] MEDS: DAKINS HALF STRENGTH (0.25%) 480 ML BOTTLE TOP SCH ×2 (09:41→21:43)
[2018-12-02] MEDS: HYDROGEN PEROXIDE 480 ML BOTTLE TP SCH ×2 (09:41→21:43)
[2018-12-02] MEDS: Z GUARD REMEDY 2 OZ OINT TP SCH ×2 (09:41→21:43)
[2018-12-02 19:50] VITALS: BP 126/72
[2018-12-02] MEDS: ATORVASTATIN 40 MG TABLET GT SCH (21:42)
[2018-12-02] MEDS: MELATONIN 5 MG TABLET GT SCH (21:43)
[2018-12-02] MEDS: SENNOSIDES 8.6 MG TABLET GT SCH (21:44)
[2018-12-02] MEDS: MONTELUKAST SODIUM (10MG) 10 MG TABLET PO SCH (21:44)
[2018-12-03] MEDS: SIMETHICONE SUSP 40 MG/0.6 ML BOTTLE GT SCH ×4 (00:07→17:21)
[2018-12-03] MEDS: IPRATROPIUM NEB FS 0.5 MG/2.5 ML AMPUL.NEB NEB SCH ×4 (01:37→20:49)
[2018-12-03] MEDS: BACLOFEN (10 MG) 10 MG TABLET GT SCH ×3 (05:42→21:16)
[2018-12-03] MEDS: GABAPENTIN 300 MG CAPSULE GT SCH ×3 (05:42→21:16)
[2018-12-03] MEDS: DEXILANT 30 MG GT SCH (05:42)
[2018-12-03 07:53] VITALS: BP 115/62
[2018-12-03] MEDS: Z GUARD REMEDY 2 OZ OINT TP SCH ×2 (09:00→21:17)
[2018-12-03] MEDS: DAKINS HALF STRENGTH (0.25%) 480 ML BOTTLE TOP SCH ×2 (09:00→21:16)
[2018-12-03] MEDS: [UNRECOGNIZED DRUG - SUPPLY] TP SCH ×2 (09:00→21:17)
[2018-12-03] MEDS: HYDROGEN PEROXIDE 480 ML BOTTLE TP SCH ×2 (09:00→21:17)
[2018-12-03] MEDS: METOPROLOL TARTRATE 25 MG TABLET GT SCH (09:47)
[2018-12-03] MEDS: FUROSEMIDE 20 MG TABLET GT SCH (09:47)
[2018-12-03] MEDS: ASPIRIN 81 MG TAB.CHEW GT SCH (09:47)
[2018-12-03] MEDS: DOCUSATE SODIUM LIQ 100 MG/10 ML UDC GT SCH ×3 (09:47→17:21)
[2018-12-03] MEDS: ACIDOPHILUS/BULGARICUS 1 EACH TAB.CHEW GT SCH (09:47)
[2018-12-03] MEDS: LISINOPRIL (10MG) 10 MG TABLET GT SCH (09:48)
[2018-12-03] MEDS: CLOPIDOGREL BISULFATE 75 MG TABLET GT SCH (09:48)
[2018-12-03] MEDS: INSULIN REGULAR, HUMAN 100 UNIT/ML 3 ML VIAL SQ PRN ×2 (09:48→17:21)
[2018-12-03] MEDS: METHADONE HCL 5 MG TABLET GT SCH ×2 (09:48→17:21)
[2018-12-03] MEDS: BLOOD SUGAR DIAGNOSTIC 1 EACH STRIP IN SCH ×2 (09:48→17:21)
[2018-12-03] MEDS: ASCORBIC ACID 500 MG TABLET GT SCH (09:48)
[2018-12-03] MEDS: PROSOURCE / PROSTAT (PYXIS) 30 ML UDC GT SCH ×2 (09:48→17:21)
[2018-12-03] MEDS: MULTIVIT W/MINERALS 1 TAB TABLET PO SCH (09:48)
[2018-12-03] MEDS: LIPASE/PROTEASE/AMYLASE 1 EACH CAPSULE.DR GT SCH ×3 (09:48→17:21)
--- NOTE | 2018-12-03 18:51 | NUR ---
Seen by Dr Disla. He ordered to give Lasix until 12/10/18, Metformin 500 mg GT BID, DC Hidalgo catheter, and check HgbA1C.
[2018-12-03 20:04] VITALS: BP 115/64
[2018-12-03] MEDS: ATORVASTATIN 40 MG TABLET GT SCH (21:16)
[2018-12-03] MEDS: METOPROLOL TARTRATE 50 MG TABLET GT SCH (21:16)
[2018-12-03] MEDS: MELATONIN 5 MG TABLET GT SCH (21:17)
[2018-12-03] MEDS: MONTELUKAST SODIUM (10MG) 10 MG TABLET PO SCH (21:17)
[2018-12-03] MEDS: SENNOSIDES 8.6 MG TABLET GT SCH (21:17)
--- NOTE | 2018-12-03 22:00 | NUR ---
Order to clamp and un clamp ferreira q 2 hrs and release for 30 mins x24 hours before DC. Clamped at 2000 hr and unclamped at 2200 for 30 mins with output of 200 ml. Clamped again at 2230.
[2018-12-04] MEDS: SIMETHICONE SUSP 40 MG/0.6 ML BOTTLE GT SCH ×5 (00:45→23:32)
[2018-12-04] MEDS: IPRATROPIUM NEB FS 0.5 MG/2.5 ML AMPUL.NEB NEB SCH ×4 (00:47→19:56)
--- NOTE | 2018-12-04 01:00 | NUR ---
Un clamped ferreira for 30 mins with output of 250 ml. Clamed at 0100.
--- NOTE | 2018-12-04 03:42 | NUR ---
Un clamped ferreira at 0300 and released for 30 mins with 300cc. of urine output. Resident denies any c/o pain or discomfort. Re clamped at 0330. Will continue to monitor.
[2018-12-04] MEDS: BACLOFEN (10 MG) 10 MG TABLET GT SCH ×3 (05:05→21:24)
[2018-12-04] MEDS: DEXILANT 30 MG GT SCH (05:05)
[2018-12-04] MEDS: GABAPENTIN 300 MG CAPSULE GT SCH ×3 (05:05→21:25)
--- NOTE | 2018-12-04 06:05 | NUR ---
Un clamped ferreira at 0530 with 350 ml urine output yellow in color and clear of sediments without foul odor. Resident denies any c/o pain or discomfort. Re clamped at 0600. Will continue to monitor. Will endorse to next shift.
[2018-12-04 08:47] VITALS: BP 112/71
[2018-12-04] MEDS: Z GUARD REMEDY 2 OZ OINT TP SCH ×2 (09:00→21:25)
[2018-12-04] MEDS: [UNRECOGNIZED DRUG - SUPPLY] TP SCH ×2 (09:00→21:25)
[2018-12-04] MEDS: HYDROGEN PEROXIDE 480 ML BOTTLE TP SCH ×2 (09:00→21:25)
[2018-12-04] MEDS: DAKINS HALF STRENGTH (0.25%) 480 ML BOTTLE TOP SCH ×2 (09:00→21:25)
[2018-12-04] MEDS: ACIDOPHILUS/BULGARICUS 1 EACH TAB.CHEW GT SCH (09:30)
[2018-12-04] MEDS: ASPIRIN 81 MG TAB.CHEW GT SCH (09:30)
[2018-12-04] MEDS: DOCUSATE SODIUM LIQ 100 MG/10 ML UDC GT SCH ×3 (09:30→17:00)
[2018-12-04] MEDS: FUROSEMIDE ORAL SOLN 10 MG/ML ML GT SCH (09:31)
[2018-12-04] MEDS: METOPROLOL TARTRATE 50 MG TABLET GT SCH ×2 (09:31→21:25)
[2018-12-04] MEDS: CLOPIDOGREL BISULFATE 75 MG TABLET GT SCH (09:32)
[2018-12-04] MEDS: LIPASE/PROTEASE/AMYLASE 1 EACH CAPSULE.DR GT SCH ×3 (09:32→17:00)
[2018-12-04] MEDS: METHADONE HCL 5 MG TABLET GT SCH ×2 (09:32→17:00)
[2018-12-04] MEDS: PROSOURCE / PROSTAT (PYXIS) 30 ML UDC GT SCH ×2 (09:33→17:00)
[2018-12-04] MEDS: LISINOPRIL (10MG) 10 MG TABLET GT SCH (09:33)
[2018-12-04] MEDS: ASCORBIC ACID 500 MG TABLET GT SCH (09:33)
[2018-12-04] MEDS: METFORMIN 500 MG TABLET PO SCH ×2 (09:34→17:00)
[2018-12-04] MEDS: MULTIVIT W/MINERALS 1 TAB TABLET PO SCH (09:35)
[2018-12-04] MEDS: FUROSEMIDE 20 MG TABLET PO SCH (09:35)
[2018-12-04] MEDS: BLOOD SUGAR DIAGNOSTIC 1 EACH STRIP IN SCH ×2 (09:54→17:00)
[2018-12-04 20:07] VITALS: BP 128/77
--- NOTE | 2018-12-04 21:00 | NUR ---
Rocky PELAEZ'pepe as ordered. Will continue to monitor urinary retention.
[2018-12-04] MEDS: ATORVASTATIN 40 MG TABLET GT SCH (21:24)
[2018-12-04] MEDS: SENNOSIDES 8.6 MG TABLET GT SCH (21:25)
[2018-12-04] MEDS: MONTELUKAST SODIUM (10MG) 10 MG TABLET PO SCH (21:25)
[2018-12-04] MEDS: MELATONIN 5 MG TABLET GT SCH (21:25)
[2018-12-05] MEDS: IPRATROPIUM NEB FS 0.5 MG/2.5 ML AMPUL.NEB NEB SCH ×4 (01:56→20:13)
[2018-12-05] MEDS: GABAPENTIN 300 MG CAPSULE GT SCH ×3 (05:04→21:15)
[2018-12-05] MEDS: DEXILANT 30 MG GT SCH (05:04)
[2018-12-05] MEDS: SIMETHICONE SUSP 40 MG/0.6 ML BOTTLE GT SCH ×4 (05:04→23:21)
[2018-12-05] MEDS: BACLOFEN (10 MG) 10 MG TABLET GT SCH ×3 (05:04→21:15)
--- NOTE | 2018-12-05 06:17 | NUR ---
Resident with urine output x2 large amount via diaper change. Denies any c/o pain or discomfort. No s/s of bladder distention, bladder soft to touch and non tender. Will continue to monitor. Will endorse to next shift.
[2018-12-05 07:52] VITALS: BP 121/75
[2018-12-05] MEDS: [UNRECOGNIZED DRUG - SUPPLY] TP SCH ×2 (09:00→21:16)
[2018-12-05] MEDS: DAKINS HALF STRENGTH (0.25%) 480 ML BOTTLE TOP SCH ×2 (09:00→21:15)
[2018-12-05] MEDS: HYDROGEN PEROXIDE 480 ML BOTTLE TP SCH ×2 (09:00→21:16)
[2018-12-05] MEDS: Z GUARD REMEDY 2 OZ OINT TP SCH ×2 (09:00→21:16)
[2018-12-05] MEDS: ACIDOPHILUS/BULGARICUS 1 EACH TAB.CHEW GT SCH (09:39)
[2018-12-05] MEDS: ASPIRIN 81 MG TAB.CHEW GT SCH (09:39)
[2018-12-05] MEDS: FUROSEMIDE ORAL SOLN 10 MG/ML ML GT SCH (09:39)
[2018-12-05] MEDS: METOPROLOL TARTRATE 50 MG TABLET GT SCH ×2 (09:39→21:15)
[2018-12-05] MEDS: DOCUSATE SODIUM LIQ 100 MG/10 ML UDC GT SCH ×3 (09:39→17:19)
[2018-12-05] MEDS: ASCORBIC ACID 500 MG TABLET GT SCH (09:40)
[2018-12-05] MEDS: METHADONE HCL 5 MG TABLET GT SCH ×2 (09:40→17:19)
[2018-12-05] MEDS: METFORMIN 500 MG TABLET PO SCH ×2 (09:40→17:20)
[2018-12-05] MEDS: LIPASE/PROTEASE/AMYLASE 1 EACH CAPSULE.DR GT SCH ×3 (09:40→17:19)
[2018-12-05] MEDS: FUROSEMIDE 20 MG TABLET PO SCH (09:40)
[2018-12-05] MEDS: MULTIVIT W/MINERALS 1 TAB TABLET PO SCH (09:40)
[2018-12-05] MEDS: PROSOURCE / PROSTAT (PYXIS) 30 ML UDC GT SCH ×2 (09:40→17:19)
[2018-12-05] MEDS: BLOOD SUGAR DIAGNOSTIC 1 EACH STRIP IN SCH ×2 (09:40→17:20)
[2018-12-05] MEDS: CLOPIDOGREL BISULFATE 75 MG TABLET GT SCH (09:40)
[2018-12-05] MEDS: LISINOPRIL (10MG) 10 MG TABLET GT SCH (09:40)
[2018-12-05] MEDS: MAGNESIUM HYDROXIDE 30 ML UDC GT PRN ×2 (10:00→21:16)
--- NOTE | 2018-12-05 11:17 | NUR ---
DOMINIC met with resident's granddaughter to provide information about health insurance coverage after resident is discharged. After consulting with case management staff, granddaughter was informed that resident's medical covers her doctors after she leaves sub-acute. A list of clinics were given provided.
--- NOTE | 2018-12-05 13:21 | NUR ---
Called Dr Lockwood's office to follow-up on whether or not he is still planning to schedule pt for angiography. Left message with Caroline.
[2018-12-05] MEDS: ONDANSETRON 4 MG TAB.RAPDIS GT PRN (17:39)
[2018-12-05] MEDS: BISACODYL SUPP (10 MG) 10 MG/SUPP.RECT SUPP.RECT RC PRN (17:39)
--- NOTE | 2018-12-05 19:37 | NUR ---
Pt voided in her bathroom today. She vomited once and Zofran was given to her by her nurse. Her nurse also gave her a Dulcolax suppository to help her move her bowels.
[2018-12-05 20:24] VITALS: BP 100/63
--- NOTE | 2018-12-05 21:11 | NUR ---
RT NOTE RECEIVED TRACH PATIENT ON RED CAPPED. PATIENT AWAKE , ALERT AND STABLE. HHN TREATMENT WAS GIVEN, NO ADVERSE REACTION NOTED. NO RESPIRATORY DISTRESS NOTED AT THIS TIME. WILL CONTINUE TO MONITOR PATIENT. Addendum: 12/05/18 at 2111 by MECHE DEAL RT Amended: Links added.
[2018-12-05] MEDS: ATORVASTATIN 40 MG TABLET GT SCH (21:15)
[2018-12-05] MEDS: MONTELUKAST SODIUM (10MG) 10 MG TABLET PO SCH (21:16)
[2018-12-05] MEDS: MELATONIN 5 MG TABLET GT SCH (21:16)
[2018-12-05] MEDS: SENNOSIDES 8.6 MG TABLET GT SCH (21:16)
[2018-12-06] MEDS: IPRATROPIUM NEB FS 0.5 MG/2.5 ML AMPUL.NEB NEB SCH ×4 (01:26→19:50)
[2018-12-06] MEDS: GABAPENTIN 300 MG CAPSULE GT SCH ×3 (05:51→21:16)
[2018-12-06] MEDS: SIMETHICONE SUSP 40 MG/0.6 ML BOTTLE GT SCH ×4 (05:51→23:52)
[2018-12-06] MEDS: BACLOFEN (10 MG) 10 MG TABLET GT SCH ×3 (05:51→21:16)
[2018-12-06] MEDS: DEXILANT 30 MG GT SCH (05:51)
[2018-12-06 07:46] VITALS: BP 105/67
[2018-12-06] MEDS: DAKINS HALF STRENGTH (0.25%) 480 ML BOTTLE TOP SCH ×2 (09:00→21:20)
[2018-12-06] MEDS: LISINOPRIL (10MG) 10 MG TABLET GT SCH (09:00)
[2018-12-06] MEDS: [UNRECOGNIZED DRUG - SUPPLY] TP SCH ×2 (09:00→21:16)
[2018-12-06] MEDS: Z GUARD REMEDY 2 OZ OINT TP SCH ×2 (09:00→21:16)
[2018-12-06] MEDS: HYDROGEN PEROXIDE 480 ML BOTTLE TP SCH ×2 (09:00→21:16)
[2018-12-06] MEDS: MULTIVIT W/MINERALS 1 TAB TABLET PO SCH (09:00)
[2018-12-06] MEDS: METOPROLOL TARTRATE 50 MG TABLET GT SCH ×2 (09:00→21:00)
[2018-12-06] MEDS: ASPIRIN 81 MG TAB.CHEW GT SCH (09:55)
[2018-12-06] MEDS: DOCUSATE SODIUM LIQ 100 MG/10 ML UDC GT SCH ×3 (09:55→17:56)
[2018-12-06] MEDS: FUROSEMIDE ORAL SOLN 10 MG/ML ML GT SCH (09:55)
[2018-12-06] MEDS: ACIDOPHILUS/BULGARICUS 1 EACH TAB.CHEW GT SCH (09:55)
[2018-12-06] MEDS: METHADONE HCL 5 MG TABLET GT SCH ×2 (09:56→17:56)
[2018-12-06] MEDS: ASCORBIC ACID 500 MG TABLET GT SCH (09:56)
[2018-12-06] MEDS: BLOOD SUGAR DIAGNOSTIC 1 EACH STRIP IN SCH ×2 (09:56→17:57)
[2018-12-06] MEDS: PROSOURCE / PROSTAT (PYXIS) 30 ML UDC GT SCH ×2 (09:56→17:57)
[2018-12-06] MEDS: CLOPIDOGREL BISULFATE 75 MG TABLET GT SCH (09:56)
[2018-12-06] MEDS: LIPASE/PROTEASE/AMYLASE 1 EACH CAPSULE.DR GT SCH ×3 (09:56→17:57)
[2018-12-06] MEDS: METFORMIN 500 MG TABLET PO SCH ×2 (09:56→17:57)
--- NOTE | 2018-12-06 11:20 | NUR ---
MICHELE called and apply for [facility] today. Case number is [id number]. Michele informed granddaughter Ara that [facility] will contact her to make sindy for a home visit.
--- NOTE | 2018-12-06 11:30 | NUR ---
Dr. Gomez in to see patient. Reported to MD that per charge nurse last night patient almost fell during ambulation to the bathroom because her L foot is turning inward and cannot sustain good balance. Dr. Gomez said he will order an Xray of the L foot. He said it is necessary to remove part of patient's ligaments and muscles in the L leg wound and because of this, her ambulation is affected. MD explained it to resident.
--- NOTE | 2018-12-06 16:31 | NUR ---
Resident's granddaughter and visiting and asked whether they are prepared for her when she goes home. Patient responded "I am excited and everything falling in place". According to granddaughter Marlin, she will take a day off one of these days and would like to know how to do dressing change in the L lower extremity. Per Dr. Gomez, she is OK to go home for as long as someone will do her wound dressing daily. According to patient, she has a voodoo mate in mind, a nurse who can do daily dressing changes for her. Resident said [facility] is working on getting her wheelchair and walker. Patient remain capped 24 hours with no s/s of respiratory distress and discomfort. Patient is taking oral medication and eating by mouth without difficulty in swallowing. Will work on educating family and patient.
[2018-12-06 20:32] VITALS: BP 95/54
[2018-12-06] MEDS: MELATONIN 5 MG TABLET GT SCH (21:16)
[2018-12-06] MEDS: SENNOSIDES 8.6 MG TABLET GT SCH (21:16)
[2018-12-06] MEDS: ATORVASTATIN 40 MG TABLET GT SCH (21:16)
[2018-12-06] MEDS: MONTELUKAST SODIUM (10MG) 10 MG TABLET PO SCH (21:16)
[2018-12-07] MEDS: IPRATROPIUM NEB FS 0.5 MG/2.5 ML AMPUL.NEB NEB SCH ×4 (01:59→19:46)
[2018-12-07] MEDS: BACLOFEN (10 MG) 10 MG TABLET GT SCH ×3 (05:14→21:06)
[2018-12-07] MEDS: GABAPENTIN 300 MG CAPSULE GT SCH ×3 (05:14→21:06)
[2018-12-07] MEDS: DEXILANT 30 MG GT SCH (05:14)
[2018-12-07] MEDS: SIMETHICONE SUSP 40 MG/0.6 ML BOTTLE GT SCH ×3 (05:14→17:11)
[2018-12-07 07:47] VITALS: BP 106/65
[2018-12-07] MEDS: LISINOPRIL (10MG) 10 MG TABLET GT SCH (09:00)
[2018-12-07] MEDS: [UNRECOGNIZED DRUG - SUPPLY] TP SCH ×2 (09:00→21:07)
[2018-12-07] MEDS: DAKINS HALF STRENGTH (0.25%) 480 ML BOTTLE TOP SCH ×2 (09:00→21:06)
[2018-12-07] MEDS: Z GUARD REMEDY 2 OZ OINT TP SCH ×2 (09:00→21:07)
[2018-12-07] MEDS: HYDROGEN PEROXIDE 480 ML BOTTLE TP SCH ×2 (09:00→21:07)
[2018-12-07] MEDS: METOPROLOL TARTRATE 50 MG TABLET GT SCH ×2 (09:00→21:06)
[2018-12-07] MEDS: DOCUSATE SODIUM LIQ 100 MG/10 ML UDC GT SCH ×3 (09:14→17:11)
[2018-12-07] MEDS: ACIDOPHILUS/BULGARICUS 1 EACH TAB.CHEW GT SCH (09:14)
[2018-12-07] MEDS: FUROSEMIDE ORAL SOLN 10 MG/ML ML GT SCH (09:14)
[2018-12-07] MEDS: ASPIRIN 81 MG TAB.CHEW GT SCH (09:14)
[2018-12-07] MEDS: METHADONE HCL 5 MG TABLET GT SCH ×2 (09:16→17:11)
[2018-12-07] MEDS: CLOPIDOGREL BISULFATE 75 MG TABLET GT SCH (09:16)
[2018-12-07] MEDS: LIPASE/PROTEASE/AMYLASE 1 EACH CAPSULE.DR GT SCH ×3 (09:16→17:11)
[2018-12-07] MEDS: ASCORBIC ACID 500 MG TABLET GT SCH (09:17)
[2018-12-07] MEDS: METFORMIN 500 MG TABLET PO SCH ×2 (09:17→17:11)
[2018-12-07] MEDS: BLOOD SUGAR DIAGNOSTIC 1 EACH STRIP IN SCH ×2 (09:17→17:11)
[2018-12-07] MEDS: PROSOURCE / PROSTAT (PYXIS) 30 ML UDC GT SCH ×2 (09:17→17:11)
[2018-12-07] MEDS: INSULIN REGULAR, HUMAN 100 UNIT/ML 3 ML VIAL SQ PRN ×2 (09:19→17:25)
[2018-12-07] MEDS: MULTIVIT W/MINERALS 1 TAB TABLET PO SCH (09:19)
--- NOTE | 2018-12-07 11:27 | NUR ---
Result of L foot X-ray reported to Dr. Gomez, no fracture or dislocation. NNO given. Resident informed of result.
[2018-12-07 20:10] VITALS: BP 121/55
[2018-12-07] MEDS: ATORVASTATIN 40 MG TABLET GT SCH (21:06)
[2018-12-07] MEDS: MONTELUKAST SODIUM (10MG) 10 MG TABLET PO SCH (21:07)
[2018-12-07] MEDS: SENNOSIDES 8.6 MG TABLET GT SCH (21:07)
[2018-12-07] MEDS: MELATONIN 5 MG TABLET GT SCH (21:07)
[2018-12-08] MEDS: IPRATROPIUM NEB FS 0.5 MG/2.5 ML AMPUL.NEB NEB SCH ×4 (01:37→19:51)
[2018-12-08] MEDS: GABAPENTIN 300 MG CAPSULE GT SCH ×3 (05:00→21:04)
[2018-12-08] MEDS: BACLOFEN (10 MG) 10 MG TABLET GT SCH ×3 (05:00→21:03)
[2018-12-08] MEDS: SIMETHICONE SUSP 40 MG/0.6 ML BOTTLE GT SCH ×5 (06:08→23:40)
[2018-12-08] MEDS: DEXILANT 30 MG GT SCH (06:08)
[2018-12-08 07:49] VITALS: BP 117/69
[2018-12-08] MEDS: ACIDOPHILUS/BULGARICUS 1 EACH TAB.CHEW GT SCH (09:34)
[2018-12-08] MEDS: LISINOPRIL (10MG) 10 MG TABLET GT SCH (09:34)
[2018-12-08] MEDS: FUROSEMIDE ORAL SOLN 10 MG/ML ML GT SCH (09:34)
[2018-12-08] MEDS: DOCUSATE SODIUM LIQ 100 MG/10 ML UDC GT SCH ×3 (09:34→17:59)
[2018-12-08] MEDS: METOPROLOL TARTRATE 50 MG TABLET GT SCH ×2 (09:34→21:04)
[2018-12-08] MEDS: CLOPIDOGREL BISULFATE 75 MG TABLET GT SCH (09:34)
[2018-12-08] MEDS: ASPIRIN 81 MG TAB.CHEW GT SCH (09:34)
[2018-12-08] MEDS: METHADONE HCL 5 MG TABLET GT SCH ×2 (09:34→17:59)
[2018-12-08] MEDS: LIPASE/PROTEASE/AMYLASE 1 EACH CAPSULE.DR GT SCH ×3 (09:34→17:59)
[2018-12-08] MEDS: BLOOD SUGAR DIAGNOSTIC 1 EACH STRIP IN SCH ×2 (09:35→17:59)
[2018-12-08] MEDS: HYDROGEN PEROXIDE 480 ML BOTTLE TP SCH ×2 (09:35→21:04)
[2018-12-08] MEDS: DAKINS HALF STRENGTH (0.25%) 480 ML BOTTLE TOP SCH ×2 (09:35→21:04)
[2018-12-08] MEDS: [UNRECOGNIZED DRUG - SUPPLY] TP SCH ×2 (09:35→21:04)
[2018-12-08] MEDS: MULTIVIT W/MINERALS 1 TAB TABLET PO SCH (09:35)
[2018-12-08] MEDS: ASCORBIC ACID 500 MG TABLET GT SCH (09:35)
[2018-12-08] MEDS: PROSOURCE / PROSTAT (PYXIS) 30 ML UDC GT SCH ×2 (09:35→17:59)
[2018-12-08] MEDS: METFORMIN 500 MG TABLET PO SCH ×2 (09:35→17:00)
[2018-12-08] MEDS: Z GUARD REMEDY 2 OZ OINT TP SCH ×2 (09:35→21:04)
[2018-12-08 20:13] VITALS: BP 110/72
[2018-12-08] MEDS: ATORVASTATIN 40 MG TABLET GT SCH (21:03)
[2018-12-08] MEDS: SENNOSIDES 8.6 MG TABLET GT SCH (21:04)
[2018-12-08] MEDS: MELATONIN 5 MG TABLET GT SCH (21:04)
[2018-12-08] MEDS: MONTELUKAST SODIUM (10MG) 10 MG TABLET PO SCH (21:04)
[2018-12-09] MEDS: IPRATROPIUM NEB FS 0.5 MG/2.5 ML AMPUL.NEB NEB SCH ×4 (01:45→20:10)
[2018-12-09] MEDS: SIMETHICONE SUSP 40 MG/0.6 ML BOTTLE GT SCH ×3 (05:21→18:14)
[2018-12-09] MEDS: BACLOFEN (10 MG) 10 MG TABLET GT SCH ×3 (05:21→21:29)
[2018-12-09] MEDS: DEXILANT 30 MG GT SCH (05:21)
[2018-12-09] MEDS: GABAPENTIN 300 MG CAPSULE GT SCH ×3 (05:21→21:30)
[2018-12-09] MEDS: MAGNESIUM HYDROXIDE 30 ML UDC GT PRN (06:36)
[2018-12-09 07:52] VITALS: BP 109/63
[2018-12-09] MEDS: DAKINS HALF STRENGTH (0.25%) 480 ML BOTTLE TOP SCH ×2 (09:00→21:30)
[2018-12-09] MEDS: HYDROGEN PEROXIDE 480 ML BOTTLE TP SCH ×2 (09:00→21:30)
[2018-12-09] MEDS: METOPROLOL TARTRATE 50 MG TABLET GT SCH ×2 (09:00→21:30)
[2018-12-09] MEDS: PROSOURCE / PROSTAT (PYXIS) 30 ML UDC GT SCH ×2 (09:00→17:00)
[2018-12-09] MEDS: LIPASE/PROTEASE/AMYLASE 1 EACH CAPSULE.DR GT SCH ×3 (09:00→17:00)
[2018-12-09] MEDS: [UNRECOGNIZED DRUG - SUPPLY] TP SCH ×2 (09:00→21:30)
[2018-12-09] MEDS: METFORMIN 500 MG TABLET PO SCH ×2 (09:00→17:00)
[2018-12-09] MEDS: Z GUARD REMEDY 2 OZ OINT TP SCH ×2 (09:00→21:30)
[2018-12-09] MEDS: MULTIVIT W/MINERALS 1 TAB TABLET PO SCH (09:00)
[2018-12-09] MEDS: LISINOPRIL (10MG) 10 MG TABLET GT SCH (09:00)
[2018-12-09] MEDS: BLOOD SUGAR DIAGNOSTIC 1 EACH STRIP IN SCH ×2 (09:00→17:00)
[2018-12-09] MEDS: CLOPIDOGREL BISULFATE 75 MG TABLET GT SCH (09:00)
[2018-12-09] MEDS: ASCORBIC ACID 500 MG TABLET GT SCH (09:00)
[2018-12-09] MEDS: METHADONE HCL 5 MG TABLET GT SCH ×2 (09:00→17:00)
[2018-12-09] MEDS: DOCUSATE SODIUM LIQ 100 MG/10 ML UDC GT SCH ×3 (09:56→17:00)
[2018-12-09] MEDS: ACIDOPHILUS/BULGARICUS 1 EACH TAB.CHEW GT SCH (09:56)
[2018-12-09] MEDS: FUROSEMIDE ORAL SOLN 10 MG/ML ML GT SCH (09:56)
[2018-12-09] MEDS: ASPIRIN 81 MG TAB.CHEW GT SCH (09:56)
--- NOTE | 2018-12-09 11:53 | NUR ---
DOMINIC contacted Micheal from [facility] to inquire if resident's medical would cover a wheelchair. Micheal said that I need to submit a request two days before the discharge day or medical will deny it.
[2018-12-09 19:44] VITALS: BP 124/56
[2018-12-09] MEDS: ATORVASTATIN 40 MG TABLET GT SCH (21:29)
[2018-12-09] MEDS: MONTELUKAST SODIUM (10MG) 10 MG TABLET PO SCH (21:30)
[2018-12-09] MEDS: MELATONIN 5 MG TABLET GT SCH (21:30)
[2018-12-09] MEDS: SENNOSIDES 8.6 MG TABLET GT SCH (21:30)
[2018-12-10] MEDS: SIMETHICONE SUSP 40 MG/0.6 ML BOTTLE GT SCH ×5 (00:30→23:23)
[2018-12-10] MEDS: IPRATROPIUM NEB FS 0.5 MG/2.5 ML AMPUL.NEB NEB SCH ×4 (01:54→19:38)
[2018-12-10] MEDS: BACLOFEN (10 MG) 10 MG TABLET GT SCH ×3 (05:23→21:22)
[2018-12-10] MEDS: GABAPENTIN 300 MG CAPSULE GT SCH ×3 (05:23→21:23)
[2018-12-10] MEDS: DEXILANT 30 MG GT SCH (05:23)
[2018-12-10 08:00] VITALS: BP 132/68
[2018-12-10] MEDS: Z GUARD REMEDY 2 OZ OINT TP SCH ×2 (09:00→21:23)
[2018-12-10] MEDS: DOCUSATE SODIUM LIQ 100 MG/10 ML UDC GT SCH ×3 (09:03→17:00)
[2018-12-10] MEDS: ASPIRIN 81 MG TAB.CHEW GT SCH (09:03)
[2018-12-10] MEDS: ACIDOPHILUS/BULGARICUS 1 EACH TAB.CHEW GT SCH (09:03)
[2018-12-10] MEDS: METOPROLOL TARTRATE 50 MG TABLET GT SCH ×2 (09:03→21:23)
[2018-12-10] MEDS: METFORMIN 500 MG TABLET PO SCH ×2 (09:04→17:00)
[2018-12-10] MEDS: CLOPIDOGREL BISULFATE 75 MG TABLET GT SCH (09:04)
[2018-12-10] MEDS: BLOOD SUGAR DIAGNOSTIC 1 EACH STRIP IN SCH ×2 (09:04→17:06)
[2018-12-10] MEDS: MULTIVIT W/MINERALS 1 TAB TABLET PO SCH (09:04)
[2018-12-10] MEDS: PROSOURCE / PROSTAT (PYXIS) 30 ML UDC GT SCH ×2 (09:04→17:00)
[2018-12-10] MEDS: LIPASE/PROTEASE/AMYLASE 1 EACH CAPSULE.DR GT SCH ×3 (09:04→17:00)
[2018-12-10] MEDS: METHADONE HCL 5 MG TABLET GT SCH ×2 (09:04→17:00)
[2018-12-10] MEDS: ASCORBIC ACID 500 MG TABLET GT SCH (09:04)
[2018-12-10] MEDS: LISINOPRIL (10MG) 10 MG TABLET GT SCH (09:04)
--- NOTE | 2018-12-10 12:00 | NUR ---
SW met with resident today and discussed her discharge. The date has been set for December 29. SW asked residents about her home environment. Mrs. Yoder said her and granddaughter Marlin Yoder live in the house, and that patient would sleep in her own bed and that the would transport her from Sub-acute to her home. SW reminded patient that [facility] would arrange a executive secretary social welfare visit to determine what her needs are for home care. SW also informed patient that Medical would only pay for a wheel-chair or a walker, not both. Patient wants the wheel chair. DOMINIC talked to Dr. Clarke about the discharge date of December 09. Dr. Clarke said he would then remove track on December 26 ( 72 hours before discharge date). SW informed patient about that as well.
--- NOTE | 2018-12-10 13:49 | NUR ---
Seen by Dr Clarke this morning. He said the plan is for the pt's trach tube to come out 72 hours before discharge. Pt aware of it. Asked Dr Disla if pt still needs to be on fluid restriction since pt is always asking for soup or milk. Kitchen sends dry meal tray to pt. Dr Disla said to change fluid restriction to 1.5 L for 24 hours. He also said pt may have soup with meal tray. Notified pt.
[2018-12-10] MEDS: [UNRECOGNIZED DRUG - SUPPLY] TP SCH ×2 (15:00→21:23)
[2018-12-10] MEDS: HYDROGEN PEROXIDE 480 ML BOTTLE TP SCH ×2 (15:00→21:23)
[2018-12-10] MEDS: DAKINS HALF STRENGTH (0.25%) 480 ML BOTTLE TOP SCH (15:00)
--- NOTE | 2018-12-10 17:40 | NUR ---
Pt complained of hyperacidity. She said it was from the guacamole that she ate which was too peppery for her. Informed Dr Disla and he ordered to give pt Pepcid.
[2018-12-10] MEDS ORDERED: FAMOTIDINE (20 MG) 20 MG TABLET PO ONE (18:00)
[2018-12-10 20:32] VITALS: BP 113/65
[2018-12-10] MEDS: ATORVASTATIN 40 MG TABLET GT SCH (21:22)
[2018-12-10] MEDS: MELATONIN 5 MG TABLET GT SCH (21:23)
[2018-12-10] MEDS: SENNOSIDES 8.6 MG TABLET GT SCH (21:23)
[2018-12-10] MEDS: MONTELUKAST SODIUM (10MG) 10 MG TABLET PO SCH (21:23)
[2018-12-11] MEDS: IPRATROPIUM NEB FS 0.5 MG/2.5 ML AMPUL.NEB NEB SCH ×4 (01:02→20:21)
[2018-12-11] MEDS: BACLOFEN (10 MG) 10 MG TABLET GT SCH ×3 (05:17→21:38)
[2018-12-11] MEDS: SIMETHICONE SUSP 40 MG/0.6 ML BOTTLE GT SCH ×4 (05:17→23:21)
[2018-12-11] MEDS: GABAPENTIN 300 MG CAPSULE GT SCH ×3 (05:17→21:39)
[2018-12-11] MEDS: DEXILANT 30 MG GT SCH (05:17)
[2018-12-11 08:00] VITALS: BP 113/51
[2018-12-11] MEDS: METFORMIN 500 MG TABLET PO SCH ×2 (09:00→16:56)
[2018-12-11] MEDS: BLOOD SUGAR DIAGNOSTIC 1 EACH STRIP IN SCH ×2 (09:00→16:56)
[2018-12-11] MEDS: METOPROLOL TARTRATE 50 MG TABLET GT SCH ×2 (09:00→21:39)
[2018-12-11] MEDS: Z GUARD REMEDY 2 OZ OINT TP SCH ×2 (09:00→21:40)
[2018-12-11] MEDS: LIPASE/PROTEASE/AMYLASE 1 EACH CAPSULE.DR GT SCH ×3 (09:00→16:56)
[2018-12-11] MEDS: [UNRECOGNIZED DRUG - SUPPLY] TP SCH ×2 (09:00→21:40)
[2018-12-11] MEDS: LISINOPRIL (10MG) 10 MG TABLET GT SCH (09:00)
[2018-12-11] MEDS: ACIDOPHILUS/BULGARICUS 1 EACH TAB.CHEW GT SCH (09:00)
[2018-12-11] MEDS: ASPIRIN 81 MG TAB.CHEW GT SCH (09:00)
[2018-12-11] MEDS: CLOPIDOGREL BISULFATE 75 MG TABLET GT SCH (09:00)
[2018-12-11] MEDS: DOCUSATE SODIUM LIQ 100 MG/10 ML UDC GT SCH ×3 (09:00→16:54)
[2018-12-11] MEDS: ASCORBIC ACID 500 MG TABLET GT SCH (09:00)
[2018-12-11] MEDS: HYDROGEN PEROXIDE 480 ML BOTTLE TP SCH ×2 (09:00→21:40)
[2018-12-11] MEDS: MULTIVIT W/MINERALS 1 TAB TABLET PO SCH (09:00)
[2018-12-11] MEDS: PROSOURCE / PROSTAT (PYXIS) 30 ML UDC GT SCH ×2 (09:00→16:56)
[2018-12-11] MEDS: METHADONE HCL 5 MG TABLET GT SCH ×3 (09:00→17:00)
--- NOTE | 2018-12-11 18:30 | NUR ---
Resident's and granddaughter at bedside. Resident was taken to the bathroom in a commode by NEWS COMMENTATOR. Now that resident is asking to go back to bed, encouraged family to be more involve and assist patient during transferring, in preparation for her discharge plan. NEWS COMMENTATOR and granddaughter Marlin transferred resident back to bed without any difficulty. Granddaughter acknowledged that she simply has to get used to it.
[2018-12-11 20:28] VITALS: BP 110/66
[2018-12-11] MEDS: ATORVASTATIN 40 MG TABLET GT SCH (21:38)
[2018-12-11] MEDS: MONTELUKAST SODIUM (10MG) 10 MG TABLET PO SCH (21:40)
[2018-12-11] MEDS: MELATONIN 5 MG TABLET GT SCH (21:40)
[2018-12-11] MEDS: SENNOSIDES 8.6 MG TABLET GT SCH (21:40)
[2018-12-12] MEDS: IPRATROPIUM NEB FS 0.5 MG/2.5 ML AMPUL.NEB NEB SCH ×4 (01:13→20:04)
[2018-12-12] MEDS: BACLOFEN (10 MG) 10 MG TABLET GT SCH ×3 (05:12→21:16)
[2018-12-12] MEDS: DEXILANT 30 MG GT SCH (05:12)
[2018-12-12] MEDS: GABAPENTIN 300 MG CAPSULE GT SCH ×3 (05:12→21:18)
[2018-12-12] MEDS: SIMETHICONE SUSP 40 MG/0.6 ML BOTTLE GT SCH ×4 (05:12→23:19)
[2018-12-12 08:21] VITALS: BP 109/58
[2018-12-12] MEDS: Z GUARD REMEDY 2 OZ OINT TP SCH ×2 (09:00→21:18)
[2018-12-12] MEDS: LISINOPRIL (10MG) 10 MG TABLET GT SCH (09:00)
[2018-12-12] MEDS: METOPROLOL TARTRATE 50 MG TABLET GT SCH ×2 (09:00→21:17)
[2018-12-12] MEDS: HYDROGEN PEROXIDE 480 ML BOTTLE TP SCH ×2 (09:00→21:18)
[2018-12-12] MEDS: [UNRECOGNIZED DRUG - SUPPLY] TP SCH ×2 (09:00→21:18)
[2018-12-12] MEDS: DOCUSATE SODIUM LIQ 100 MG/10 ML UDC GT SCH ×3 (09:22→17:00)
[2018-12-12] MEDS: ASPIRIN 81 MG TAB.CHEW GT SCH (09:22)
[2018-12-12] MEDS: ACIDOPHILUS/BULGARICUS 1 EACH TAB.CHEW GT SCH (09:22)
[2018-12-12] MEDS: METHADONE HCL 5 MG TABLET GT SCH ×2 (09:22→17:00)
[2018-12-12] MEDS: LIPASE/PROTEASE/AMYLASE 1 EACH CAPSULE.DR GT SCH ×3 (09:22→17:00)
[2018-12-12] MEDS: PROSOURCE / PROSTAT (PYXIS) 30 ML UDC GT SCH ×2 (09:23→17:00)
[2018-12-12] MEDS: METFORMIN 500 MG TABLET PO SCH ×2 (09:23→17:00)
[2018-12-12] MEDS: MULTIVIT W/MINERALS 1 TAB TABLET PO SCH (09:23)
[2018-12-12] MEDS: BLOOD SUGAR DIAGNOSTIC 1 EACH STRIP IN SCH ×2 (09:23→17:00)
[2018-12-12] MEDS: ASCORBIC ACID 500 MG TABLET GT SCH (09:23)
[2018-12-12] MEDS: CLOPIDOGREL BISULFATE 75 MG TABLET GT SCH (09:23)
[2018-12-12 19:31] VITALS: BP 114/66
[2018-12-12] MEDS: ATORVASTATIN 40 MG TABLET GT SCH (21:16)
[2018-12-12] MEDS: SENNOSIDES 8.6 MG TABLET GT SCH (21:18)
[2018-12-12] MEDS: MONTELUKAST SODIUM (10MG) 10 MG TABLET PO SCH (21:18)
[2018-12-12] MEDS: MELATONIN 5 MG TABLET GT SCH (21:18)
[2018-12-12] MEDS: GUAIFENESIN 300 MG/15 ML UDC PO PRN (21:22)
[2018-12-13] MEDS: IPRATROPIUM NEB FS 0.5 MG/2.5 ML AMPUL.NEB NEB SCH ×4 (01:41→20:09)
[2018-12-13] MEDS: BACLOFEN (10 MG) 10 MG TABLET GT SCH ×3 (05:19→21:18)
[2018-12-13] MEDS: SIMETHICONE SUSP 40 MG/0.6 ML BOTTLE GT SCH ×4 (05:19→23:28)
[2018-12-13] MEDS: DEXILANT 30 MG GT SCH (05:19)
[2018-12-13] MEDS: GABAPENTIN 300 MG CAPSULE GT SCH ×3 (05:19→21:18)
[2018-12-13 08:00] VITALS: BP 121/62
[2018-12-13] MEDS: METFORMIN 500 MG TABLET PO SCH ×2 (09:00→17:52)
[2018-12-13] MEDS: Z GUARD REMEDY 2 OZ OINT TP SCH ×2 (09:00→21:18)
[2018-12-13] MEDS: HYDROGEN PEROXIDE 480 ML BOTTLE TP SCH ×2 (09:00→21:18)
[2018-12-13] MEDS: [UNRECOGNIZED DRUG - SUPPLY] TP SCH ×2 (09:00→21:18)
[2018-12-13] MEDS: BLOOD SUGAR DIAGNOSTIC 1 EACH STRIP IN SCH ×2 (09:00→17:37)
[2018-12-13] MEDS: MULTIVIT W/MINERALS 1 TAB TABLET PO SCH (09:00)
[2018-12-13] MEDS: DOCUSATE SODIUM LIQ 100 MG/10 ML UDC GT SCH ×3 (09:51→17:55)
[2018-12-13] MEDS: ASPIRIN 81 MG TAB.CHEW GT SCH (09:51)
[2018-12-13] MEDS: ACIDOPHILUS/BULGARICUS 1 EACH TAB.CHEW GT SCH (09:51)
[2018-12-13] MEDS: CLOPIDOGREL BISULFATE 75 MG TABLET GT SCH (09:52)
[2018-12-13] MEDS: METHADONE HCL 5 MG TABLET GT SCH ×2 (09:52→17:00)
[2018-12-13] MEDS: LISINOPRIL (10MG) 10 MG TABLET GT SCH (09:52)
[2018-12-13] MEDS: METOPROLOL TARTRATE 50 MG TABLET GT SCH ×2 (09:52→21:18)
[2018-12-13] MEDS: LIPASE/PROTEASE/AMYLASE 1 EACH CAPSULE.DR GT SCH ×3 (09:52→17:52)
[2018-12-13] MEDS: ASCORBIC ACID 500 MG TABLET GT SCH (09:53)
[2018-12-13] MEDS: PROSOURCE / PROSTAT (PYXIS) 30 ML UDC GT SCH ×2 (09:53→17:52)
--- NOTE | 2018-12-13 11:38 | NUR ---
DOMINIC talked to Micheal from [facility] to enquire about the forms needed by medical for the wheel chair. Dominic asked Dr. Disla to signa a prescription to order the wheel chair. DOMINIC also called Ara ( resident's granddaughter) and explained that resident's straight medical would not cover healthy home, however, DOMINIC re-confirmed that she has applied for [facility]. Dominic explained the process: [facility] will mail a letter requesting some documentations including a prescription that should be filled sk[place], in order to [facility] SW schedule an assessment once resident is home. DOMINIC confirmed the discharge day of 12/29/2018. DOMINIC recommended that family members should come to the subacute to learn how to assist resident with her wound.
--- NOTE | 2018-12-13 14:37 | NUR ---
DOMINIC met with [facility] porter sample case to explore possible nursing places that accept medical to help resident with her wound. Case management informed SW that alf places do not accept straight medical and even if they did resident would not qualify because she does not have a g-tube or a track.
--- NOTE | 2018-12-13 14:43 | NUR ---
SW called access transportation and applied for transportation. Resident's acess number is [phone]. Access will mail the application to [facility] to be filled and an assessment appointment will be schedule with resident.
--- NOTE | 2018-12-13 14:46 | NUR ---
DOMINIC faxed all forms, face sheet and prescription for the wheel chair. Claude ) informed DOMINIC wheelchair will be delivered today at subacute.
--- NOTE | 2018-12-13 14:59 | NUR ---
DOMINIC called and left a VM to Marlin ( resident's [facility]) to give her an update on discharge plan.
--- NOTE | 2018-12-13 15:08 | NUR ---
Called [facility] to enquire about accepting resident in. Courtney told DOMINIC she would have to evaluate resident's file first, but they do take medical. DOMINIC faxed all paperwork to [phone]
--- NOTE | 2018-12-13 18:30 | NUR ---
Resident's wheelchair delivered. Resident signed for the delivery.
[2018-12-13 19:41] VITALS: BP 121/61
[2018-12-13] MEDS: SENNOSIDES 8.6 MG TABLET GT SCH (21:18)
[2018-12-13] MEDS: MONTELUKAST SODIUM (10MG) 10 MG TABLET PO SCH (21:18)
[2018-12-13] MEDS: MELATONIN 5 MG TABLET GT SCH (21:18)
[2018-12-13] MEDS: ATORVASTATIN 40 MG TABLET GT SCH (21:18)
[2018-12-14] MEDS: IPRATROPIUM NEB FS 0.5 MG/2.5 ML AMPUL.NEB NEB SCH ×4 (01:57→20:08)
[2018-12-14] MEDS: BACLOFEN (10 MG) 10 MG TABLET GT SCH ×3 (05:22→20:38)
[2018-12-14] MEDS: GABAPENTIN 300 MG CAPSULE GT SCH ×3 (05:22→20:38)
[2018-12-14] MEDS: SIMETHICONE SUSP 40 MG/0.6 ML BOTTLE GT SCH ×4 (05:23→23:35)
[2018-12-14] MEDS: DEXILANT 30 MG GT SCH (05:23)
[2018-12-14 08:00] VITALS: BP 98/58
--- NOTE | 2018-12-14 08:12 | NUR ---
Michele called patient's granddaughter Marlin and explained about the option of patient going to a skilled nurse facility to be helped with her wound and physical therapy. MICHELE informed Marlin she had applied at [facility] ( skilled nurse) in case patient and family would like to explore this possibility. MICHELE informed the importance of family members learn how to care for patient's wound and recommended that they would come to Subacute to observe the nurses. Marlin told Michele that she would and that some of family members are nurses and will take turns to care for patient. MICHELE reminded granddaughter to make sure she responds to [facility] correspondence once she receives it.
[2018-12-14] MEDS: LISINOPRIL (10MG) 10 MG TABLET GT SCH (09:00)
[2018-12-14] MEDS: HYDROGEN PEROXIDE 480 ML BOTTLE TP SCH ×2 (09:00→20:38)
[2018-12-14] MEDS: Z GUARD REMEDY 2 OZ OINT TP SCH ×2 (09:00→20:38)
[2018-12-14] MEDS: METOPROLOL TARTRATE 50 MG TABLET GT SCH ×2 (09:00→20:38)
[2018-12-14] MEDS: [UNRECOGNIZED DRUG - SUPPLY] TP SCH ×2 (09:00→20:41)
[2018-12-14] MEDS: INSULIN REGULAR, HUMAN 100 UNIT/ML 3 ML VIAL SQ PRN ×2 (09:21→17:34)
[2018-12-14] MEDS: BLOOD SUGAR DIAGNOSTIC 1 EACH STRIP IN SCH ×2 (09:21→17:29)
[2018-12-14] MEDS: ACIDOPHILUS/BULGARICUS 1 EACH TAB.CHEW GT SCH (09:52)
[2018-12-14] MEDS: DOCUSATE SODIUM LIQ 100 MG/10 ML UDC GT SCH ×3 (09:52→17:28)
[2018-12-14] MEDS: ASPIRIN 81 MG TAB.CHEW GT SCH (09:52)
[2018-12-14] MEDS: CLOPIDOGREL BISULFATE 75 MG TABLET GT SCH (09:53)
[2018-12-14] MEDS: METHADONE HCL 5 MG TABLET GT SCH ×2 (09:53→17:29)
[2018-12-14] MEDS: LIPASE/PROTEASE/AMYLASE 1 EACH CAPSULE.DR GT SCH ×3 (09:53→17:29)
[2018-12-14] MEDS: METFORMIN 500 MG TABLET PO SCH ×2 (09:54→17:29)
[2018-12-14] MEDS: PROSOURCE / PROSTAT (PYXIS) 30 ML UDC GT SCH ×2 (09:54→17:29)
[2018-12-14] MEDS: ASCORBIC ACID 500 MG TABLET GT SCH (09:54)
[2018-12-14] MEDS: MULTIVIT W/MINERALS 1 TAB TABLET PO SCH (09:54)
[2018-12-14] MEDS: DAKINS HALF STRENGTH (0.25%) 480 ML BOTTLE TOP SCH (16:00)
--- NOTE | 2018-12-14 18:00 | NUR ---
Resident's , granddaughters Ara and Marlin visited. Informed family the importance of having hands on experience taking care of resident especially dressing change, what to look for and when to notify the doctor. According to Marlin she will be in after 3pm on Sunday and will observe dressing change. Endorsed.
[2018-12-14 19:56] VITALS: BP 126/64
[2018-12-14] MEDS: ATORVASTATIN 40 MG TABLET GT SCH (20:38)
[2018-12-14] MEDS: SENNOSIDES 8.6 MG TABLET GT SCH (22:05)
[2018-12-14] MEDS: MONTELUKAST SODIUM (10MG) 10 MG TABLET PO SCH (22:05)
[2018-12-14] MEDS: MELATONIN 5 MG TABLET GT SCH (22:05)
[2018-12-15] MEDS: IPRATROPIUM NEB FS 0.5 MG/2.5 ML AMPUL.NEB NEB SCH ×4 (01:35→20:15)
[2018-12-15] MEDS: DEXILANT 30 MG GT SCH (05:14)
[2018-12-15] MEDS: GABAPENTIN 300 MG CAPSULE GT SCH ×3 (05:14→20:45)
[2018-12-15] MEDS: SIMETHICONE SUSP 40 MG/0.6 ML BOTTLE GT SCH ×3 (05:14→17:22)
[2018-12-15] MEDS: BACLOFEN (10 MG) 10 MG TABLET GT SCH ×3 (05:14→20:41)
[2018-12-15 08:09] VITALS: BP 119/68
[2018-12-15] MEDS: DOCUSATE SODIUM LIQ 100 MG/10 ML UDC GT SCH ×3 (08:13→16:27)
[2018-12-15] MEDS: ASPIRIN 81 MG TAB.CHEW GT SCH (08:13)
[2018-12-15] MEDS: ACIDOPHILUS/BULGARICUS 1 EACH TAB.CHEW GT SCH (08:14)
[2018-12-15] MEDS: ASCORBIC ACID 500 MG TABLET GT SCH (08:15)
[2018-12-15] MEDS: PROSOURCE / PROSTAT (PYXIS) 30 ML UDC GT SCH ×2 (08:15→16:30)
[2018-12-15] MEDS: METHADONE HCL 5 MG TABLET GT SCH ×2 (08:17→16:27)
[2018-12-15] MEDS: METOPROLOL TARTRATE 50 MG TABLET GT SCH ×2 (08:18→20:41)
[2018-12-15] MEDS: LIPASE/PROTEASE/AMYLASE 1 EACH CAPSULE.DR GT SCH ×3 (08:20→16:30)
[2018-12-15] MEDS: CLOPIDOGREL BISULFATE 75 MG TABLET GT SCH (08:20)
[2018-12-15] MEDS: LISINOPRIL (10MG) 10 MG TABLET GT SCH (08:21)
[2018-12-15] MEDS: DAKINS HALF STRENGTH (0.25%) 480 ML BOTTLE TOP SCH ×2 (08:21→20:45)
[2018-12-15] MEDS: METFORMIN 500 MG TABLET PO SCH ×2 (08:21→16:31)
[2018-12-15] MEDS: HYDROGEN PEROXIDE 480 ML BOTTLE TP SCH ×2 (08:22→20:45)
[2018-12-15] MEDS: Z GUARD REMEDY 2 OZ OINT TP SCH ×2 (08:22→20:45)
[2018-12-15] MEDS: MULTIVIT W/MINERALS 1 TAB TABLET PO SCH (08:41)
[2018-12-15] MEDS: BLOOD SUGAR DIAGNOSTIC 1 EACH STRIP IN SCH ×2 (09:38→17:19)
[2018-12-15 20:34] VITALS: BP 109/59
[2018-12-15] MEDS: ATORVASTATIN 40 MG TABLET GT SCH (20:41)
[2018-12-15] MEDS: SENNOSIDES 8.6 MG TABLET GT SCH (21:55)
[2018-12-15] MEDS: MONTELUKAST SODIUM (10MG) 10 MG TABLET PO SCH (21:55)
[2018-12-15] MEDS: MELATONIN 5 MG TABLET GT SCH (21:55)
[2018-12-16] MEDS: SIMETHICONE SUSP 40 MG/0.6 ML BOTTLE GT SCH ×4 (00:28→17:21)
[2018-12-16] MEDS: IPRATROPIUM NEB FS 0.5 MG/2.5 ML AMPUL.NEB NEB SCH ×4 (01:11→19:56)
[2018-12-16] MEDS: BACLOFEN (10 MG) 10 MG TABLET GT SCH ×3 (05:48→20:16)
[2018-12-16] MEDS: GABAPENTIN 300 MG CAPSULE GT SCH ×3 (05:48→20:16)
[2018-12-16] MEDS: DEXILANT 30 MG GT SCH (05:48)
[2018-12-16 08:08] VITALS: BP 109/60
[2018-12-16] MEDS: BLOOD SUGAR DIAGNOSTIC 1 EACH STRIP IN SCH ×2 (08:42→17:20)
--- NOTE | 2018-12-16 08:42 | NUR ---
Blood sugar was 68, orange juice given and breakfast served. Resident awake, verbally responsive. Denies any discomfort.
[2018-12-16] MEDS: INSULIN REGULAR, HUMAN 100 UNIT/ML 3 ML VIAL SQ PRN ×2 (08:43→17:21)
[2018-12-16] MEDS: DAKINS HALF STRENGTH (0.25%) 480 ML BOTTLE TOP SCH ×2 (09:00→20:17)
[2018-12-16] MEDS: METOPROLOL TARTRATE 50 MG TABLET GT SCH ×2 (09:00→20:16)
[2018-12-16] MEDS: Z GUARD REMEDY 2 OZ OINT TP SCH ×2 (09:00→20:17)
[2018-12-16] MEDS: HYDROGEN PEROXIDE 480 ML BOTTLE TP SCH ×2 (09:00→20:17)
[2018-12-16] MEDS: LISINOPRIL (10MG) 10 MG TABLET GT SCH (09:00)
[2018-12-16] MEDS: LIPASE/PROTEASE/AMYLASE 1 EACH CAPSULE.DR GT SCH ×3 (09:15→17:20)
[2018-12-16] MEDS: ASPIRIN 81 MG TAB.CHEW GT SCH (09:15)
[2018-12-16] MEDS: ACIDOPHILUS/BULGARICUS 1 EACH TAB.CHEW GT SCH (09:15)
[2018-12-16] MEDS: DOCUSATE SODIUM LIQ 100 MG/10 ML UDC GT SCH ×3 (09:15→17:19)
[2018-12-16] MEDS: METHADONE HCL 5 MG TABLET GT SCH ×2 (09:15→17:00)
[2018-12-16] MEDS: CLOPIDOGREL BISULFATE 75 MG TABLET GT SCH (09:15)
[2018-12-16] MEDS: ASCORBIC ACID 500 MG TABLET GT SCH (09:16)
[2018-12-16] MEDS: PROSOURCE / PROSTAT (PYXIS) 30 ML UDC GT SCH ×2 (09:16→17:20)
[2018-12-16] MEDS: METFORMIN 500 MG TABLET PO SCH ×2 (09:16→17:20)
[2018-12-16] MEDS: MULTIVIT W/MINERALS 1 TAB TABLET PO SCH (09:16)
--- NOTE | 2018-12-16 09:49 | NUR ---
Blood sugar rechecked 125. Resident awake and verbally responsive.
[2018-12-16 20:08] VITALS: BP 114/62
[2018-12-16] MEDS: ATORVASTATIN 40 MG TABLET GT SCH (20:16)
[2018-12-16] MEDS: SENNOSIDES 8.6 MG TABLET GT SCH (22:21)
[2018-12-16] MEDS: MONTELUKAST SODIUM (10MG) 10 MG TABLET PO SCH (22:21)
[2018-12-16] MEDS: MELATONIN 5 MG TABLET GT SCH (22:21)
[2018-12-17] MEDS: SIMETHICONE SUSP 40 MG/0.6 ML BOTTLE GT SCH ×4 (00:25→17:03)
[2018-12-17] MEDS: IPRATROPIUM NEB FS 0.5 MG/2.5 ML AMPUL.NEB NEB SCH ×5 (01:01→20:01)
[2018-12-17] MEDS: GABAPENTIN 300 MG CAPSULE GT SCH ×3 (05:00→20:48)
[2018-12-17] MEDS: BACLOFEN (10 MG) 10 MG TABLET GT SCH ×3 (05:00→20:48)
[2018-12-17] MEDS: DEXILANT 30 MG GT SCH (06:00)
[2018-12-17 07:59] VITALS: BP 126/69
--- NOTE | 2018-12-17 08:23 | NUR ---
SW called [facility] skilled nurse facility to follow up with application and was informed it was denied.
[2018-12-17] MEDS: ASPIRIN 81 MG TAB.CHEW GT SCH (08:40)
[2018-12-17] MEDS: METOPROLOL TARTRATE 50 MG TABLET GT SCH ×2 (08:41→20:48)
[2018-12-17] MEDS: METHADONE HCL 5 MG TABLET GT SCH ×2 (08:41→16:58)
[2018-12-17] MEDS: DOCUSATE SODIUM LIQ 100 MG/10 ML UDC GT SCH ×3 (08:41→16:57)
[2018-12-17] MEDS: ACIDOPHILUS/BULGARICUS 1 EACH TAB.CHEW GT SCH (08:41)
[2018-12-17] MEDS: PROSOURCE / PROSTAT (PYXIS) 30 ML UDC GT SCH ×2 (08:41→16:58)
[2018-12-17] MEDS: LISINOPRIL (10MG) 10 MG TABLET GT SCH (08:41)
[2018-12-17] MEDS: ASCORBIC ACID 500 MG TABLET GT SCH (08:41)
[2018-12-17] MEDS: CLOPIDOGREL BISULFATE 75 MG TABLET GT SCH (08:41)
[2018-12-17] MEDS: LIPASE/PROTEASE/AMYLASE 1 EACH CAPSULE.DR GT SCH ×3 (08:41→16:58)
[2018-12-17] MEDS: BLOOD SUGAR DIAGNOSTIC 1 EACH STRIP IN SCH ×2 (08:41→16:58)
[2018-12-17] MEDS: INSULIN REGULAR, HUMAN 100 UNIT/ML 3 ML VIAL SQ PRN ×2 (08:42→17:01)
[2018-12-17] MEDS: MULTIVIT W/MINERALS 1 TAB TABLET PO SCH (08:44)
[2018-12-17] MEDS: METFORMIN 500 MG TABLET PO SCH ×2 (08:44→16:58)
[2018-12-17] MEDS: Z GUARD REMEDY 2 OZ OINT TP SCH ×2 (09:00→20:48)
[2018-12-17] MEDS: HYDROGEN PEROXIDE 480 ML BOTTLE TP SCH ×2 (09:00→20:48)
[2018-12-17] MEDS: DAKINS HALF STRENGTH (0.25%) 480 ML BOTTLE TOP SCH ×2 (09:00→20:48)
--- NOTE | 2018-12-17 18:51 | NUR ---
Dr Disla ordered for pt to be discharged home on 12/29/18. Pt aware of it.
[2018-12-17 19:59] VITALS: BP 120/77
[2018-12-17] MEDS: ATORVASTATIN 40 MG TABLET GT SCH (20:48)
[2018-12-17] MEDS: MELATONIN 5 MG TABLET GT SCH (20:49)
[2018-12-17] MEDS: SENNOSIDES 8.6 MG TABLET GT SCH (22:37)
[2018-12-17] MEDS: MONTELUKAST SODIUM (10MG) 10 MG TABLET PO SCH (22:37)
[2018-12-18] MEDS: SIMETHICONE SUSP 40 MG/0.6 ML BOTTLE GT SCH ×4 (00:24→18:22)
[2018-12-18] MEDS: IPRATROPIUM NEB FS 0.5 MG/2.5 ML AMPUL.NEB NEB SCH ×4 (01:29→20:11)
[2018-12-18] MEDS: DEXILANT 30 MG GT SCH (05:44)
[2018-12-18] MEDS: GABAPENTIN 300 MG CAPSULE GT SCH ×3 (05:44→20:43)
[2018-12-18] MEDS: BACLOFEN (10 MG) 10 MG TABLET GT SCH ×3 (05:44→20:43)
[2018-12-18 07:50] VITALS: BP 116/61
[2018-12-18] MEDS: DOCUSATE SODIUM LIQ 100 MG/10 ML UDC GT SCH ×3 (08:40→17:27)
[2018-12-18] MEDS: ASPIRIN 81 MG TAB.CHEW GT SCH (08:40)
[2018-12-18] MEDS: METOPROLOL TARTRATE 50 MG TABLET GT SCH ×2 (08:41→20:43)
[2018-12-18] MEDS: ACIDOPHILUS/BULGARICUS 1 EACH TAB.CHEW GT SCH (08:41)
[2018-12-18] MEDS: CLOPIDOGREL BISULFATE 75 MG TABLET GT SCH (08:41)
[2018-12-18] MEDS: LIPASE/PROTEASE/AMYLASE 1 EACH CAPSULE.DR GT SCH ×3 (08:41→17:27)
[2018-12-18] MEDS: LISINOPRIL (10MG) 10 MG TABLET GT SCH (08:42)
[2018-12-18] MEDS: METFORMIN 500 MG TABLET PO SCH ×2 (08:42→17:27)
[2018-12-18] MEDS: ASCORBIC ACID 500 MG TABLET GT SCH (08:42)
[2018-12-18] MEDS: MULTIVIT W/MINERALS 1 TAB TABLET PO SCH (08:42)
[2018-12-18] MEDS: PROSOURCE / PROSTAT (PYXIS) 30 ML UDC GT SCH ×2 (08:42→17:27)
[2018-12-18] MEDS: BLOOD SUGAR DIAGNOSTIC 1 EACH STRIP IN SCH ×2 (08:42→17:27)
[2018-12-18] MEDS: DAKINS HALF STRENGTH (0.25%) 480 ML BOTTLE TOP SCH ×2 (09:00→20:43)
[2018-12-18] MEDS: HYDROGEN PEROXIDE 480 ML BOTTLE TP SCH ×2 (09:00→20:43)
[2018-12-18] MEDS: Z GUARD REMEDY 2 OZ OINT TP SCH ×2 (09:00→20:43)
[2018-12-18] MEDS: METHADONE HCL 5 MG TABLET GT SCH ×2 (09:00→17:00)
--- NOTE | 2018-12-18 13:28 | NUR ---
DOMINIC faxed and called [facility] worker Lonnie Orellanaudry to follow up with faxed forms and inquire about time line for SW home visit evaluation. Kassandra informed DOMINIC that he could not tell when SW would visit with patient, but it would probably be soon.
--- NOTE | 2018-12-18 13:46 | NUR ---
SW spoke to patient and asked if she would be recommended a friend/relative to [facility] to be trained (and paid) by the program to help patient with her wound. Patient told SW her best friend is a nurse who works for [employer] and that this friend will be coming to her house everyday to care for the wound. Patient also said she prefers to go home not to another facility.
[2018-12-18 20:01] VITALS: BP 121/79
[2018-12-18] MEDS: ATORVASTATIN 40 MG TABLET GT SCH (20:43)
[2018-12-18] MEDS: SENNOSIDES 8.6 MG TABLET GT SCH (21:54)
[2018-12-18] MEDS: MONTELUKAST SODIUM (10MG) 10 MG TABLET PO SCH (21:54)
[2018-12-18] MEDS: MELATONIN 5 MG TABLET GT SCH (21:54)
[2018-12-19] MEDS: SIMETHICONE SUSP 40 MG/0.6 ML BOTTLE GT SCH ×4 (00:29→17:44)
[2018-12-19] MEDS: IPRATROPIUM NEB FS 0.5 MG/2.5 ML AMPUL.NEB NEB SCH ×4 (01:11→19:25)
[2018-12-19] MEDS: BACLOFEN (10 MG) 10 MG TABLET GT SCH ×3 (05:59→20:46)
[2018-12-19] MEDS: GABAPENTIN 300 MG CAPSULE GT SCH ×3 (05:59→20:50)
[2018-12-19] MEDS: DEXILANT 30 MG GT SCH (06:00)
[2018-12-19 07:39] VITALS: BP 108/59
[2018-12-19] MEDS: METOPROLOL TARTRATE 50 MG TABLET GT SCH ×2 (08:56→20:50)
[2018-12-19] MEDS: CLOPIDOGREL BISULFATE 75 MG TABLET GT SCH (08:56)
[2018-12-19] MEDS: LIPASE/PROTEASE/AMYLASE 1 EACH CAPSULE.DR GT SCH ×3 (08:56→17:44)
[2018-12-19] MEDS: ASPIRIN 81 MG TAB.CHEW GT SCH (08:56)
[2018-12-19] MEDS: ACIDOPHILUS/BULGARICUS 1 EACH TAB.CHEW GT SCH (08:56)
[2018-12-19] MEDS: LISINOPRIL (10MG) 10 MG TABLET GT SCH (08:56)
[2018-12-19] MEDS: DOCUSATE SODIUM LIQ 100 MG/10 ML UDC GT SCH ×3 (08:56→17:43)
[2018-12-19] MEDS: METHADONE HCL 5 MG TABLET GT SCH ×2 (08:56→17:00)
[2018-12-19] MEDS: ASCORBIC ACID 500 MG TABLET GT SCH (08:57)
[2018-12-19] MEDS: PROSOURCE / PROSTAT (PYXIS) 30 ML UDC GT SCH ×2 (08:57→17:44)
[2018-12-19] MEDS: BLOOD SUGAR DIAGNOSTIC 1 EACH STRIP IN SCH ×2 (08:57→17:44)
[2018-12-19] MEDS: MULTIVIT W/MINERALS 1 TAB TABLET PO SCH (08:57)
[2018-12-19] MEDS: METFORMIN 500 MG TABLET PO SCH ×2 (08:57→17:44)
[2018-12-19] MEDS: INSULIN REGULAR, HUMAN 100 UNIT/ML 3 ML VIAL SQ PRN ×2 (08:58→17:44)
[2018-12-19] MEDS: Z GUARD REMEDY 2 OZ OINT TP SCH ×2 (09:00→20:50)
[2018-12-19] MEDS: HYDROGEN PEROXIDE 480 ML BOTTLE TP SCH ×2 (09:00→20:50)
[2018-12-19] MEDS: DAKINS HALF STRENGTH (0.25%) 480 ML BOTTLE TOP SCH ×2 (09:00→20:50)
[2018-12-19 19:59] VITALS: BP 133/76
[2018-12-19] MEDS: ATORVASTATIN 40 MG TABLET GT SCH (20:46)
[2018-12-19] MEDS: MONTELUKAST SODIUM (10MG) 10 MG TABLET PO SCH (22:25)
[2018-12-19] MEDS: SENNOSIDES 8.6 MG TABLET GT SCH (22:25)
[2018-12-20] MEDS: SIMETHICONE SUSP 40 MG/0.6 ML BOTTLE GT SCH ×4 (00:17→17:03)
[2018-12-20] MEDS: IPRATROPIUM NEB FS 0.5 MG/2.5 ML AMPUL.NEB NEB SCH ×4 (01:09→19:19)
[2018-12-20] MEDS: GABAPENTIN 300 MG CAPSULE GT SCH ×3 (05:00→20:58)
[2018-12-20] MEDS: BACLOFEN (10 MG) 10 MG TABLET GT SCH ×3 (05:00→20:57)
[2018-12-20] MEDS: DEXILANT 30 MG GT SCH (06:23)
[2018-12-20] MEDS: ONDANSETRON 4 MG TAB.RAPDIS GT PRN (07:37)
--- NOTE | 2018-12-20 08:00 | NUR ---
Dr. Disla notified that patient vomited liquid emesis, according to patient she was coughing a lot then vomited. She also complaining of itchiness and scratching R arm, neck area and chest. Patient denies taking any new medication or eating unusual food that may cause allergic reaction. New order given for PRN Benadryl. Resident given Zofran for her N/V.
[2018-12-20] MEDS: BLOOD SUGAR DIAGNOSTIC 1 EACH STRIP IN SCH ×2 (08:24→17:03)
[2018-12-20] MEDS: ASCORBIC ACID 500 MG TABLET GT SCH (09:00)
[2018-12-20] MEDS: ACIDOPHILUS/BULGARICUS 1 EACH TAB.CHEW GT SCH (09:00)
[2018-12-20] MEDS ORDERED: diphenhydrAMINE HCL 50 MG CAPSULE PO PRN (09:00)
[2018-12-20] MEDS: CLOPIDOGREL BISULFATE 75 MG TABLET GT SCH (09:00)
[2018-12-20] MEDS: METFORMIN 500 MG TABLET PO SCH ×2 (09:00→16:55)
[2018-12-20] MEDS: METOPROLOL TARTRATE 50 MG TABLET GT SCH ×2 (09:00→20:58)
[2018-12-20] MEDS: HYDROGEN PEROXIDE 480 ML BOTTLE TP SCH ×2 (09:00→20:59)
[2018-12-20] MEDS: DAKINS HALF STRENGTH (0.25%) 480 ML BOTTLE TOP SCH ×2 (09:00→20:58)
[2018-12-20] MEDS: LIPASE/PROTEASE/AMYLASE 1 EACH CAPSULE.DR GT SCH ×3 (09:00→16:53)
[2018-12-20] MEDS: METHADONE HCL 5 MG TABLET GT SCH ×2 (09:00→16:49)
[2018-12-20] MEDS: PROSOURCE / PROSTAT (PYXIS) 30 ML UDC GT SCH ×2 (09:00→16:53)
[2018-12-20] MEDS: Z GUARD REMEDY 2 OZ OINT TP SCH ×2 (09:00→20:59)
[2018-12-20] MEDS: ASPIRIN 81 MG TAB.CHEW GT SCH (09:00)
[2018-12-20] MEDS: LISINOPRIL (10MG) 10 MG TABLET GT SCH (09:00)
[2018-12-20] MEDS: DOCUSATE SODIUM LIQ 100 MG/10 ML UDC GT SCH ×2 (09:00→12:27)
[2018-12-20] MEDS: MULTIVIT W/MINERALS 1 TAB TABLET PO SCH (09:00)
[2018-12-20] MEDS ORDERED: DIPHENHYDRAMINE HCL 12.5 MG/5 ML UDC GT PRN (09:30)
[2018-12-20] MEDS ORDERED: diphenhydrAMINE HCL ELIX 25 MG/10 ML UDC GT PRN (09:30)
[2018-12-20 11:14] VITALS: BP 137/72
--- NOTE | 2018-12-20 13:06 | NUR ---
Resident's redness in the arm, chest area and neck subsided after taking a shower. No Benadryl given. Patient has no further episode of nausea and vomiting. Ambulated with RNA using FWW with bilateral leg braces in place. No c/o discomfort, stable. Resident sitting in the wheelchair by the window making phone calls.
--- NOTE | 2018-12-20 13:33 | NUR ---
seen and examined by Dr. Ramirez senior linux un[employer] administrator, seen recent wound phot, no new order regarding treatment. Wound bed red, no s/s of infection. Per MD if patient goes home she can continue with Dakins solution as previously ordered or if family would like to buy Medihoney, she can use Medihoney for wound treatment. Endorsed.
--- NOTE | 2018-12-20 15:33 | NUR ---
Obtain an order from Dr. Clarke for GI consult for GT removal in preparation for patient's discharge. Will notify GI in AM. Resident informed. Colace order changed to capsult so it can be taken by mouth. Patient asking if Prostat or equivalent comes in a tablet form, per pharmacist it does not come in a tablet form. Resident informed.
[2018-12-20] MEDS: DOCUSATE SODIUM 100 MG CAPSULE PO SCH (16:55)
[2018-12-20 20:11] VITALS: BP 97/65
[2018-12-20] MEDS: ATORVASTATIN 40 MG TABLET GT SCH (20:58)
[2018-12-20] MEDS: SENNOSIDES 8.6 MG TABLET GT SCH (21:00)
[2018-12-20] MEDS: MONTELUKAST SODIUM (10MG) 10 MG TABLET PO SCH (21:00)
[2018-12-21] MEDS: IPRATROPIUM NEB FS 0.5 MG/2.5 ML AMPUL.NEB NEB SCH ×3 (01:41→19:26)
[2018-12-21] MEDS: DEXILANT 30 MG GT SCH (05:41)
[2018-12-21] MEDS: GABAPENTIN 300 MG CAPSULE GT SCH ×3 (05:41→20:10)
[2018-12-21] MEDS: BACLOFEN (10 MG) 10 MG TABLET GT SCH ×3 (05:41→20:09)
[2018-12-21] MEDS: SIMETHICONE SUSP 40 MG/0.6 ML BOTTLE GT SCH ×4 (05:41→17:12)
[2018-12-21 07:30] VITALS: BP 113/67
[2018-12-21] MEDS: ACIDOPHILUS/BULGARICUS 1 EACH TAB.CHEW GT SCH (09:04)
[2018-12-21] MEDS: ASPIRIN 81 MG TAB.CHEW GT SCH (09:04)
[2018-12-21] MEDS: METOPROLOL TARTRATE 50 MG TABLET GT SCH ×2 (09:04→20:09)
[2018-12-21] MEDS: METHADONE HCL 5 MG TABLET GT SCH ×2 (09:04→17:12)
[2018-12-21] MEDS: CLOPIDOGREL BISULFATE 75 MG TABLET GT SCH (09:05)
[2018-12-21] MEDS: LIPASE/PROTEASE/AMYLASE 1 EACH CAPSULE.DR GT SCH ×3 (09:05→17:12)
[2018-12-21] MEDS: LISINOPRIL (10MG) 10 MG TABLET GT SCH (09:05)
[2018-12-21] MEDS: PROSOURCE / PROSTAT (PYXIS) 30 ML UDC GT SCH ×2 (09:05→17:12)
[2018-12-21] MEDS: ASCORBIC ACID 500 MG TABLET GT SCH (09:06)
[2018-12-21] MEDS: DOCUSATE SODIUM 100 MG CAPSULE PO SCH ×3 (09:06→17:12)
[2018-12-21] MEDS: METFORMIN 500 MG TABLET PO SCH ×2 (09:06→17:12)
[2018-12-21] MEDS: BLOOD SUGAR DIAGNOSTIC 1 EACH STRIP IN SCH ×2 (09:06→17:12)
[2018-12-21] MEDS: MULTIVIT W/MINERALS 1 TAB TABLET PO SCH (09:06)
[2018-12-21] MEDS: INSULIN REGULAR, HUMAN 100 UNIT/ML 3 ML VIAL SQ PRN ×2 (09:15→17:12)
--- NOTE | 2018-12-21 13:39 | NUR ---
Notified Dr. Read of GI consult for GT removal. made aware that patient will be discharged on 12/29/18 and GT should come out before that date preferably sooner, acknowledged the consult, patient informed.
[2018-12-21] MEDS: Z GUARD REMEDY 2 OZ OINT TP SCH ×2 (14:00→20:10)
[2018-12-21] MEDS: DAKINS HALF STRENGTH (0.25%) 480 ML BOTTLE TOP SCH ×2 (14:00→20:10)
[2018-12-21] MEDS: HYDROGEN PEROXIDE 480 ML BOTTLE TP SCH ×2 (14:00→20:10)
--- NOTE | 2018-12-21 14:00 | NUR ---
Patient teaching provided to grand-daughters (Marlin) on wound care on left lower extremity wound, stoma care, infection control, hand washing and signs and symptoms of infection. Patient teaching provided on following diet as ordered, to follow fluid restriction, and diet as ordered, if taking too much salt patient may have edema and complications on current condition. (Marlin was able to perform adequate wound care and both grand-daughters, and patient were able to verbalize importance of performing wound care as ordered, following infection control practices, hand washing, following diet as ordered, and when to call or follow up with MD. Patient teaching also provided on safety, transfer to wheelchair to bed and bed to wheelchair four wheel walker, verbalized understanding. Grand-daughters able to perform adequate transfer and ambulation with patient with four wheel walker short distance, from wheelchair to bed, and bed to wheelchair. All needs met and attended. Kept clean and comfortable.
[2018-12-21 19:59] VITALS: BP 105/56
[2018-12-21] MEDS: ATORVASTATIN 40 MG TABLET GT SCH (20:09)
[2018-12-21] MEDS: MONTELUKAST SODIUM (10MG) 10 MG TABLET PO SCH (22:09)
[2018-12-21] MEDS: SENNOSIDES 8.6 MG TABLET GT SCH (22:09)
[2018-12-22] MEDS: IPRATROPIUM NEB FS 0.5 MG/2.5 ML AMPUL.NEB NEB SCH ×4 (00:44→20:07)
[2018-12-22] MEDS: GABAPENTIN 300 MG CAPSULE GT SCH ×3 (05:00→20:52)
[2018-12-22] MEDS: BACLOFEN (10 MG) 10 MG TABLET GT SCH ×3 (05:00→20:51)
[2018-12-22] MEDS: DEXILANT 30 MG GT SCH (06:37)
[2018-12-22] MEDS: SIMETHICONE SUSP 40 MG/0.6 ML BOTTLE GT SCH ×4 (06:37→18:19)
[2018-12-22 07:26] VITALS: BP 127/71
[2018-12-22] MEDS: BLOOD SUGAR DIAGNOSTIC 1 EACH STRIP IN SCH ×2 (08:45→17:00)
[2018-12-22] MEDS: ACIDOPHILUS/BULGARICUS 1 EACH TAB.CHEW GT SCH (08:48)
[2018-12-22] MEDS: INSULIN REGULAR, HUMAN 100 UNIT/ML 3 ML VIAL SQ PRN ×2 (08:48→18:19)
[2018-12-22] MEDS: ASPIRIN 81 MG TAB.CHEW GT SCH (08:48)
[2018-12-22] MEDS: METOPROLOL TARTRATE 50 MG TABLET GT SCH ×2 (08:49→20:51)
[2018-12-22] MEDS: LIPASE/PROTEASE/AMYLASE 1 EACH CAPSULE.DR GT SCH ×3 (08:50→17:00)
[2018-12-22] MEDS: METHADONE HCL 5 MG TABLET GT SCH ×2 (08:50→17:00)
[2018-12-22] MEDS: CLOPIDOGREL BISULFATE 75 MG TABLET GT SCH (08:50)
[2018-12-22] MEDS: PROSOURCE / PROSTAT (PYXIS) 30 ML UDC GT SCH ×2 (08:51→17:00)
[2018-12-22] MEDS: LISINOPRIL (10MG) 10 MG TABLET GT SCH (08:51)
[2018-12-22] MEDS: METFORMIN 500 MG TABLET PO SCH ×2 (08:51→17:00)
[2018-12-22] MEDS: ASCORBIC ACID 500 MG TABLET GT SCH (08:51)
[2018-12-22] MEDS: DOCUSATE SODIUM 100 MG CAPSULE PO SCH ×3 (08:51→17:00)
[2018-12-22] MEDS: MULTIVIT W/MINERALS 1 TAB TABLET PO SCH (08:51)
[2018-12-22] MEDS: Z GUARD REMEDY 2 OZ OINT TP SCH ×2 (09:00→20:52)
[2018-12-22] MEDS: DAKINS HALF STRENGTH (0.25%) 480 ML BOTTLE TOP SCH ×2 (09:00→20:52)
[2018-12-22] MEDS: HYDROGEN PEROXIDE 480 ML BOTTLE TP SCH ×2 (09:00→20:52)
[2018-12-22 19:54] VITALS: BP 124/69
--- NOTE | 2018-12-22 20:17 | NUR ---
RT NOTE: RECEIVED CAPPED TRACH PT ON ROOM AIR . Q6 BREATHING TX GIVEN PER MD ORDERS WITH NO ADVERSE REACTION NOTED. NO RESP DISTRESS NOTED AT THIS TIME. WILL CONTINUE TO MONITOR PT. Addendum: 12/23/18 at 0210 by TRISTEN CHAPPELL RT Amended: Links added.
[2018-12-22] MEDS: ONDANSETRON 4 MG TAB.RAPDIS GT PRN (20:30)
[2018-12-22] MEDS: ATORVASTATIN 40 MG TABLET GT SCH (20:51)
[2018-12-22] MEDS: MONTELUKAST SODIUM (10MG) 10 MG TABLET PO SCH (22:19)
[2018-12-22] MEDS: SENNOSIDES 8.6 MG TABLET GT SCH (22:19)
--- NOTE | 2018-12-22 22:22 | NUR ---
@ AROUND 2030 RT INFORM NURSE THAT PT IS VOMITED CLEAR LIQUID, NURSE WENT TO PT RIGHT AWAY AND ASSESS THE PT, ASK THE PT IF SHE'S NAUSEATED, PT SAID YES, TOLD PT THAT NURSE GONNA GIVE HER PRN MED 4MG ZOFRAN, AND CONTINUE TO MONITOR PT.,AFTER AN HOUR, NURSE WENT TO PTS ROOM TO REASSESS PT, PT IS SLEEPING COMFORTABLY, WOKE UP THE PT AND ASKED IF SHE STILL HAVING N/V, PT SAID SHE'S OKAY NOW ... STILL CONTINUE TO MONITOR PT FOR N/V.
[2018-12-23] MEDS: SIMETHICONE SUSP 40 MG/0.6 ML BOTTLE GT SCH ×4 (00:35→17:31)
[2018-12-23] MEDS: IPRATROPIUM NEB FS 0.5 MG/2.5 ML AMPUL.NEB NEB SCH ×4 (01:14→20:14)
[2018-12-23] MEDS: BACLOFEN (10 MG) 10 MG TABLET GT SCH ×3 (05:00→20:50)
[2018-12-23] MEDS: GABAPENTIN 300 MG CAPSULE GT SCH ×3 (05:00→20:50)
[2018-12-23] MEDS: DEXILANT 30 MG GT SCH (06:00)
[2018-12-23 07:39] VITALS: BP 108/55
[2018-12-23] MEDS: HYDROGEN PEROXIDE 480 ML BOTTLE TP SCH ×2 (09:00→20:51)
[2018-12-23] MEDS: DAKINS HALF STRENGTH (0.25%) 480 ML BOTTLE TOP SCH ×2 (09:00→20:50)
[2018-12-23] MEDS: ASPIRIN 81 MG TAB.CHEW GT SCH (09:00)
[2018-12-23] MEDS: METFORMIN 500 MG TABLET PO SCH ×2 (09:00→17:31)
[2018-12-23] MEDS: ASCORBIC ACID 500 MG TABLET GT SCH (09:00)
[2018-12-23] MEDS: CLOPIDOGREL BISULFATE 75 MG TABLET GT SCH (09:00)
[2018-12-23] MEDS: METOPROLOL TARTRATE 50 MG TABLET GT SCH ×2 (09:00→20:50)
[2018-12-23] MEDS: LISINOPRIL (10MG) 10 MG TABLET GT SCH (09:00)
[2018-12-23] MEDS: ACIDOPHILUS/BULGARICUS 1 EACH TAB.CHEW GT SCH (09:00)
[2018-12-23] MEDS: Z GUARD REMEDY 2 OZ OINT TP SCH ×2 (09:00→20:51)
[2018-12-23] MEDS: LIPASE/PROTEASE/AMYLASE 1 EACH CAPSULE.DR GT SCH ×3 (09:00→17:31)
[2018-12-23] MEDS: METHADONE HCL 5 MG TABLET GT SCH ×2 (09:00→17:00)
[2018-12-23] MEDS: MULTIVIT W/MINERALS 1 TAB TABLET PO SCH (09:00)
[2018-12-23] MEDS: BLOOD SUGAR DIAGNOSTIC 1 EACH STRIP IN SCH ×2 (09:00→17:31)
[2018-12-23] MEDS: PROSOURCE / PROSTAT (PYXIS) 30 ML UDC GT SCH ×2 (09:00→17:31)
[2018-12-23] MEDS: DOCUSATE SODIUM 100 MG CAPSULE PO SCH ×3 (09:00→17:00)
--- NOTE | 2018-12-23 13:00 | NUR ---
Seen and examined by SENDY Hernandez, no new order given.
--- NOTE | 2018-12-23 17:20 | NUR ---
Seen and examined resident with new order. Refer to GI for removal of PEG tube, carried out order.
[2018-12-23] MEDS: INSULIN REGULAR, HUMAN 100 UNIT/ML 3 ML VIAL SQ PRN (17:31)
--- NOTE | 2018-12-23 17:33 | NUR ---
Spoke with GI content architect Dr. Read and he said that he will inform Dr. Mata to come see resident tomorrow since its already late and Dr. Mata will be the GI content architect tomorrow.
[2018-12-23 19:52] VITALS: BP 117/66
[2018-12-23] MEDS: ATORVASTATIN 40 MG TABLET GT SCH (20:50)
[2018-12-23] MEDS: MONTELUKAST SODIUM (10MG) 10 MG TABLET PO SCH (21:46)
[2018-12-23] MEDS: SENNOSIDES 8.6 MG TABLET GT SCH (21:46)
[2018-12-24] MEDS: SIMETHICONE SUSP 40 MG/0.6 ML BOTTLE GT SCH ×4 (00:08→18:40)
[2018-12-24] MEDS: IPRATROPIUM NEB FS 0.5 MG/2.5 ML AMPUL.NEB NEB SCH ×4 (01:03→20:12)
[2018-12-24] MEDS: BACLOFEN (10 MG) 10 MG TABLET GT SCH ×3 (05:57→21:13)
[2018-12-24] MEDS: DEXILANT 30 MG GT SCH (05:57)
[2018-12-24] MEDS: GABAPENTIN 300 MG CAPSULE GT SCH ×3 (05:57→21:13)
[2018-12-24 07:39] VITALS: BP 111/74
[2018-12-24] MEDS: LISINOPRIL (10MG) 10 MG TABLET GT SCH (09:00)
[2018-12-24] MEDS: DOCUSATE SODIUM 100 MG CAPSULE PO SCH ×3 (09:00→17:00)
[2018-12-24] MEDS: PROSOURCE / PROSTAT (PYXIS) 30 ML UDC GT SCH ×2 (09:00→17:33)
[2018-12-24] MEDS: DAKINS HALF STRENGTH (0.25%) 480 ML BOTTLE TOP SCH ×2 (09:00→21:13)
[2018-12-24] MEDS: LIPASE/PROTEASE/AMYLASE 1 EACH CAPSULE.DR GT SCH ×3 (09:00→17:33)
[2018-12-24] MEDS: CLOPIDOGREL BISULFATE 75 MG TABLET GT SCH (09:00)
[2018-12-24] MEDS: ACIDOPHILUS/BULGARICUS 1 EACH TAB.CHEW GT SCH (09:00)
[2018-12-24] MEDS: Z GUARD REMEDY 2 OZ OINT TP SCH ×2 (09:00→21:14)
[2018-12-24] MEDS: MULTIVIT W/MINERALS 1 TAB TABLET PO SCH (09:00)
[2018-12-24] MEDS: HYDROGEN PEROXIDE 480 ML BOTTLE TP SCH ×2 (09:00→21:14)
[2018-12-24] MEDS: ASPIRIN 81 MG TAB.CHEW GT SCH (09:00)
[2018-12-24] MEDS: METFORMIN 500 MG TABLET PO SCH ×2 (09:00→17:33)
[2018-12-24] MEDS: METOPROLOL TARTRATE 50 MG TABLET GT SCH ×2 (09:00→21:13)
[2018-12-24] MEDS: METHADONE HCL 5 MG TABLET GT SCH ×2 (09:00→17:00)
[2018-12-24] MEDS: ASCORBIC ACID 500 MG TABLET GT SCH (09:00)
[2018-12-24] MEDS: BLOOD SUGAR DIAGNOSTIC 1 EACH STRIP IN SCH ×2 (09:56→17:00)
[2018-12-24] MEDS: INSULIN REGULAR, HUMAN 100 UNIT/ML 3 ML VIAL SQ PRN (09:57)
--- NOTE | 2018-12-24 13:10 | NUR ---
Called Dr Mata to remind him to remove pt's G-tube. Left message with Fannie.
--- NOTE | 2018-12-24 14:44 | NUR ---
SW met with PT to fill out the [facility]ESS form. PT signed it and SW faxed it to [facility] [phone]. DOMINIC called [facility] to inquire when an appointment for pt would be made for an evaluation and was asked to follow up this Wednesday 12/27 with [facility].
--- NOTE | 2018-12-24 14:56 | NUR ---
DOMINIC communicated with patient, and with her two granddaughters Ara and Marlin about the IDT mtg this Wednesday 12/27
--- NOTE | 2018-12-24 15:14 | NUR ---
Dr Mata came to see pt. He explained to the pt how he can remove the PEG, either by traction at bedside or by endoscopy. Pt prefers to have it removed by endoscopy. Dr Mata said he will do the procedure tomorrow and to have pt NPO at midnight. Pt informed. Addendum: 12/24/18 at 1603 by SONIA SLAUGHTER RN Notified Dr Disla.
[2018-12-24 16:41] LABS: BASOPHILS % (AUTO) 0.5 % (0.0-2.0); EOSINOPHILS % (AUTO) 2.9 % (0.0-6.0); HEMATOCRIT 38 % (33-45); HEMOGLOBIN 12.3 g/dL (11.5-14.8); LYMPHOCYTES # (AUTO) 1.1 /CMM (0.8-4.8); LYMPHOCYTES % (AUTO) 14.5 % (20.0-44.0); MEAN CORPUSCULAR HGB CONC 32 g/dl (31.0-36.0); MEAN CORPUSCULAR VOLUME 77 fL (82-100); MONOCYTES # (AUTO) 0.7 /CMM (0.1-1.30); MONOCYTES % (AUTO) 9.1 % (2.0-12.0); NEUTROPHILS # (AUTO) 5.3 /CMM (1.8-8.9); PLATELET COUNT (AUTO) 237 /CMM (150-450); RED BLOOD CELL COUNT(AUTO) 4.95 MIL/uL (4.0-5.2); WHITE BLOOD COUNT (AUTO) 7.3 K/uL (4.3-11.0)
[2018-12-24 16:52] LABS: ALBUMIN 3.1 g/dL (3.4-5.0); CREATININE 0.8 mg/dL (0.6-1.3); POTASSIUM 4.2 mmol/L (3.5-5.1)
[2018-12-24 20:30] VITALS: BP 124/68
[2018-12-24] MEDS: MONTELUKAST SODIUM (10MG) 10 MG TABLET PO SCH (21:12)
[2018-12-24] MEDS: ATORVASTATIN 40 MG TABLET GT SCH (21:13)
[2018-12-24] MEDS: SENNOSIDES 8.6 MG TABLET GT SCH (21:14)
--- NOTE | 2018-12-25 | NUR ---
RN NOTES Pt NPO as ordered.
[2018-12-25] MEDS: IPRATROPIUM NEB FS 0.5 MG/2.5 ML AMPUL.NEB NEB SCH ×4 (01:26→19:57)
[2018-12-25] MEDS: BACLOFEN (10 MG) 10 MG TABLET GT SCH ×3 (05:00→20:31)
[2018-12-25] MEDS: GABAPENTIN 300 MG CAPSULE GT SCH ×3 (05:00→20:32)
[2018-12-25] MEDS: DEXILANT 30 MG GT SCH (05:03)
[2018-12-25] MEDS: SIMETHICONE SUSP 40 MG/0.6 ML BOTTLE GT SCH ×4 (05:03→18:00)
[2018-12-25 07:35] VITALS: BP 140/54
--- NOTE | 2018-12-25 08:30 | NUR ---
Obtained order from Dr. Clarke to decannulate patient in AM by RT, resident and RT informed.
[2018-12-25] MEDS: METHADONE HCL 5 MG TABLET GT SCH ×2 (09:00→17:00)
[2018-12-25] MEDS: ACIDOPHILUS/BULGARICUS 1 EACH TAB.CHEW GT SCH (09:00)
[2018-12-25] MEDS: LISINOPRIL (10MG) 10 MG TABLET GT SCH (09:00)
[2018-12-25] MEDS: BLOOD SUGAR DIAGNOSTIC 1 EACH STRIP IN SCH ×2 (09:00→16:26)
[2018-12-25] MEDS: PROSOURCE / PROSTAT (PYXIS) 30 ML UDC GT SCH ×2 (09:00→16:26)
[2018-12-25] MEDS: DOCUSATE SODIUM 100 MG CAPSULE PO SCH ×3 (09:00→17:00)
[2018-12-25] MEDS: METOPROLOL TARTRATE 50 MG TABLET GT SCH ×2 (09:00→20:32)
[2018-12-25] MEDS: MULTIVIT W/MINERALS 1 TAB TABLET PO SCH (09:00)
[2018-12-25] MEDS: METFORMIN 500 MG TABLET PO SCH ×2 (09:00→16:28)
[2018-12-25] MEDS: ASCORBIC ACID 500 MG TABLET GT SCH (09:00)
[2018-12-25] MEDS: ASPIRIN 81 MG TAB.CHEW GT SCH (09:00)
[2018-12-25] MEDS: CLOPIDOGREL BISULFATE 75 MG TABLET GT SCH (09:00)
[2018-12-25] MEDS: LIPASE/PROTEASE/AMYLASE 1 EACH CAPSULE.DR GT SCH ×3 (09:00→17:00)
[2018-12-25] MEDS: INSULIN REGULAR, HUMAN 100 UNIT/ML 3 ML VIAL SQ PRN ×2 (10:04→16:36)
--- NOTE | 2018-12-25 10:20 | NUR ---
Notified Dr. Mata that according to OR patient is not on schedule for today and if not today when it will be done. Per MD, it will probably going to be done tomorrow and patient can eat. However after informing the patient of the delay, she agreed doing it at bedside under traction. MD Mata notified again and gave an order for topical Lidocaine gel but pharmacy does not have one in stock Dr. Mata said it is OK for Lidocaine 1% injectable. Order carried out.
[2018-12-25] MEDS ORDERED: LIDOCAINE HCL/PF 1% 30 ML SDV IJ ONE (11:00)
--- NOTE | 2018-12-25 11:00 | NUR ---
Xylocaine to be given by MD. Patient remains NPO.
--- NOTE | 2018-12-25 14:11 | NUR ---
DOMINIC reminded patient about her options on clinics covered by medical. DOMINIC reminded patient that she can go to [facility], but patient said she rather go to a local clinic. Patient told DOMINIC she would let DOMINIC know which clinic she will choose so DOMINIC can make an appointment for follow up after patient discharge.
--- NOTE | 2018-12-25 15:10 | NUR ---
Dr. Mata, GI removed GT under traction. patient tolerated procedure, she said it only hurts at the time it was removed. Dressing applied to the site. Bleeding noted initially but not at this time. Feeding resumed.
--- NOTE | 2018-12-25 17:00 | NUR ---
All gt medications given by mouth.
[2018-12-25] MEDS: DAKINS HALF STRENGTH (0.25%) 480 ML BOTTLE TOP SCH ×2 (18:58→21:00)
[2018-12-25] MEDS: HYDROGEN PEROXIDE 480 ML BOTTLE TP SCH ×2 (18:58→21:00)
[2018-12-25] MEDS: Z GUARD REMEDY 2 OZ OINT TP SCH ×2 (18:59→21:00)
[2018-12-25 19:59] VITALS: BP 124/64
[2018-12-25] MEDS: ATORVASTATIN 40 MG TABLET GT SCH (20:31)
[2018-12-25] MEDS: SENNOSIDES 8.6 MG TABLET GT SCH (21:51)
[2018-12-25] MEDS: MONTELUKAST SODIUM (10MG) 10 MG TABLET PO SCH (21:52)
[2018-12-26] MEDS: SIMETHICONE SUSP 40 MG/0.6 ML BOTTLE GT SCH ×4 (00:15→18:36)
[2018-12-26] MEDS: IPRATROPIUM NEB FS 0.5 MG/2.5 ML AMPUL.NEB NEB SCH ×4 (01:43→20:03)
[2018-12-26] MEDS: BACLOFEN (10 MG) 10 MG TABLET GT SCH ×3 (05:18→20:39)
[2018-12-26] MEDS: DEXILANT 30 MG GT SCH (05:21)
[2018-12-26] MEDS: GABAPENTIN 300 MG CAPSULE GT SCH ×3 (05:21→20:41)
[2018-12-26 07:58] VITALS: BP 109/58
[2018-12-26] MEDS: ASPIRIN 81 MG TAB.CHEW GT SCH (08:45)
[2018-12-26] MEDS: ACIDOPHILUS/BULGARICUS 1 EACH TAB.CHEW GT SCH (08:45)
[2018-12-26] MEDS: LIPASE/PROTEASE/AMYLASE 1 EACH CAPSULE.DR GT SCH ×3 (08:46→17:00)
[2018-12-26] MEDS: METHADONE HCL 5 MG TABLET GT SCH ×2 (08:46→17:00)
[2018-12-26] MEDS: METOPROLOL TARTRATE 50 MG TABLET GT SCH ×2 (08:46→20:41)
[2018-12-26] MEDS: MULTIVIT W/MINERALS 1 TAB TABLET PO SCH (08:47)
[2018-12-26] MEDS: DAKINS HALF STRENGTH (0.25%) 480 ML BOTTLE TOP SCH ×2 (08:47→20:41)
[2018-12-26] MEDS: BLOOD SUGAR DIAGNOSTIC 1 EACH STRIP IN SCH ×2 (08:47→17:00)
[2018-12-26] MEDS: HYDROGEN PEROXIDE 480 ML BOTTLE TP SCH ×2 (08:47→20:41)
[2018-12-26] MEDS: ASCORBIC ACID 500 MG TABLET GT SCH (08:47)
[2018-12-26] MEDS: CLOPIDOGREL BISULFATE 75 MG TABLET GT SCH (08:47)
[2018-12-26] MEDS: METFORMIN 500 MG TABLET PO SCH ×2 (08:47→17:00)
[2018-12-26] MEDS: PROSOURCE / PROSTAT (PYXIS) 30 ML UDC GT SCH ×2 (08:47→17:00)
[2018-12-26] MEDS: DOCUSATE SODIUM 100 MG CAPSULE PO SCH ×3 (08:47→17:00)
[2018-12-26] MEDS: LISINOPRIL (10MG) 10 MG TABLET GT SCH (08:47)
[2018-12-26] MEDS: Z GUARD REMEDY 2 OZ OINT TP SCH ×2 (08:48→20:41)
--- NOTE | 2018-12-26 08:56 | NUR ---
DOMINIC called [facility] to follow up with application and try to schedule an evaluation interview ( which is conducted in [facility]). DOMINIC was told to call the appointment center, which she did and was told that patient needs to wait one week from the discharge day to make an appointment. [facility] would send a transportation for the evaluation day. DOMINIC informed pt about that.
--- NOTE | 2018-12-26 08:59 | NUR ---
Michele called in the presence of pt the clinic pt chose from the list given to pt. MICHELE left a message on clinical programmer's VM asking her to call pt cell phone number to schedule her first appointment, following pt discharge from subacute on 12/29
--- NOTE | 2018-12-26 09:00 | NUR ---
Pt was decannulated and the stoma was covered with a 2x2 gauze pad per MD order. Pt is unlabored, showing no signs of respiratory distress at this time. Addendum: 12/26/18 at 0902 by ETHEL LIU RT Amended: Links added.
--- NOTE | 2018-12-26 09:35 | NUR ---
Pt was decannulated by RT Rob. Pt tolerated procedure well. O2 sat 99% HR 74, no respiratory distress noted.
--- NOTE | 2018-12-26 11:00 | NUR ---
Asked Dr Clarke if pt will go home with breathing treatments via nebulizer or if pt will be given an inhaler. Dr Clarke said pt will have MDI upon discharge, he will deal with it tomorrow during the IDT meeting.
--- NOTE | 2018-12-26 12:29 | NUR ---
Asked Dr Disla if pt will be going home with regular insulin. He said to DC insulin upon discharge and pt will be on Glipizide 2.5 mg po BID. Addendum: 12/26/18 at 1233 by SONIA SLAUGHTER RN Informed Dr Disla that pt's G-tube and trach have already been DC'd.
--- NOTE | 2018-12-26 18:23 | NUR ---
Pt provided with education on signs and symptoms of diabetes mellitus. Informed her that she will not have insulin coverage when she goes home and that Dr Disla added Glipizide for her diabetes mellitus. When SENDY Hernandez saw her today, she verbalized that she feels nauseous when she takes Metformin. SENDY Hernandez explained to her that the nausea usually goes away after a while, but she can always discuss it with her primary doctor when she sees him (after discharge) if it continues to bother her. She said she will see a primary doctor at a clinic near her house. Also educated pt on wound care as well as signs and symptoms of wound infection. Provided education on what her medications are and how often to take them.
[2018-12-26 19:54] VITALS: BP 120/51
[2018-12-26] MEDS: ATORVASTATIN 40 MG TABLET GT SCH (20:40)
--- NOTE | 2018-12-26 20:41 | NUR ---
RT NOTE PATIENT RECEIVED DECANNULATED WITH GAUZE OVER STOMA. PATIENT AWAKE/ALERT. NO DISTRESS NOTED. TX GIVEN, NO ADVERSE REACTIONS NOTED. PATIENT HAS STRONG COUGH. NO SX NEEDED. PATIENT STABLE. WILL MONITOR T/O SHIFT. Addendum: 12/26/18 at 2041 by WILMER ECHEVERRIA RT Amended: Links added.
[2018-12-26] MEDS: SENNOSIDES 8.6 MG TABLET GT SCH (22:24)
[2018-12-26] MEDS: MONTELUKAST SODIUM (10MG) 10 MG TABLET PO SCH (22:24)
[2018-12-27] MEDS: SIMETHICONE SUSP 40 MG/0.6 ML BOTTLE GT SCH ×4 (00:34→18:02)
[2018-12-27] MEDS: IPRATROPIUM NEB FS 0.5 MG/2.5 ML AMPUL.NEB NEB SCH ×4 (01:52→19:30)
[2018-12-27] MEDS: GABAPENTIN 300 MG CAPSULE GT SCH ×3 (05:00→21:00)
[2018-12-27] MEDS: BACLOFEN (10 MG) 10 MG TABLET GT SCH ×3 (05:00→21:00)
[2018-12-27] MEDS: DEXILANT 30 MG GT SCH (06:00)
[2018-12-27 08:04] VITALS: BP 138/75
[2018-12-27] MEDS: HYDROGEN PEROXIDE 480 ML BOTTLE TP SCH ×2 (09:00→21:00)
[2018-12-27] MEDS: ASPIRIN 81 MG TAB.CHEW GT SCH (09:47)
[2018-12-27] MEDS: ACIDOPHILUS/BULGARICUS 1 EACH TAB.CHEW GT SCH (09:47)
[2018-12-27] MEDS: CLOPIDOGREL BISULFATE 75 MG TABLET GT SCH (09:48)
[2018-12-27] MEDS: BLOOD SUGAR DIAGNOSTIC 1 EACH STRIP IN SCH ×2 (09:48→17:00)
[2018-12-27] MEDS: METOPROLOL TARTRATE 50 MG TABLET GT SCH ×2 (09:48→21:00)
[2018-12-27] MEDS: METFORMIN 500 MG TABLET PO SCH ×2 (09:48→17:00)
[2018-12-27] MEDS: LISINOPRIL (10MG) 10 MG TABLET GT SCH (09:48)
[2018-12-27] MEDS: LIPASE/PROTEASE/AMYLASE 1 EACH CAPSULE.DR GT SCH ×3 (09:48→17:00)
[2018-12-27] MEDS: PROSOURCE / PROSTAT (PYXIS) 30 ML UDC GT SCH ×2 (09:48→17:00)
[2018-12-27] MEDS: MULTIVIT W/MINERALS 1 TAB TABLET PO SCH (09:48)
[2018-12-27] MEDS: METHADONE HCL 5 MG TABLET GT SCH ×2 (09:48→17:00)
[2018-12-27] MEDS: ASCORBIC ACID 500 MG TABLET GT SCH (09:48)
[2018-12-27] MEDS: DAKINS HALF STRENGTH (0.25%) 480 ML BOTTLE TOP SCH ×2 (09:49→21:00)
[2018-12-27] MEDS: Z GUARD REMEDY 2 OZ OINT TP SCH ×2 (09:50→21:00)
[2018-12-27] MEDS: DOCUSATE SODIUM 100 MG CAPSULE PO SCH ×3 (09:51→17:00)
--- NOTE | 2018-12-27 09:52 | NUR ---
SW called SS to follow up with the process. Lonnie Orellanaudry informed SW that the SW who will evaluate pt's needs is Fahad Ervin [phone]. DOMINIC called and left a message to Mr. Ervin in his VM inquiring about when he would be able to visit patient at home. SW gave her phone number and patient's contact number.
--- NOTE | 2018-12-27 11:28 | NUR ---
DOMINIC made an appointment for patient at her clinic of [facility] [phone] and made an appointment with Dr. Norma Rouse on 01/02 at 1:20 P. DOMINIC communicated it to the patient.
--- NOTE | 2018-12-27 14:53 | NUR ---
INTERDISCIPLINARY PLAN OF CARE CONFERENCE was held. Resident attended today's IDT meeting. Dr. Clarke and the interdisciplinary team discussed the current plan of care especially discharge plan in detail. Current orders as well as treatments and medications were reviewed. SSD went over follow-up appointment upon discharge, Dr. Clarke told patient that it will take about 7-10 days for the trach stoma to heal. Resident was given prescription for Combivent inhalation as needed. Enamel Buffer gave educational materials regarding diet. Patient expressed gratitude to all discipline/staff of her accomplishments during her stay in subacute.
--- NOTE | 2018-12-27 18:50 | NUR ---
Provided education on her medications, their signs and symptoms of adverse reaction, resident verbalized of understanding.
[2018-12-27 19:57] VITALS: BP 120/74
[2018-12-27] MEDS: ATORVASTATIN 40 MG TABLET GT SCH (21:00)
[2018-12-27] MEDS: SENNOSIDES 8.6 MG TABLET GT SCH (22:16)
[2018-12-27] MEDS: MONTELUKAST SODIUM (10MG) 10 MG TABLET PO SCH (22:18)
[2018-12-28] MEDS: SIMETHICONE SUSP 40 MG/0.6 ML BOTTLE GT SCH ×4 (00:09→18:14)
[2018-12-28] MEDS: IPRATROPIUM NEB FS 0.5 MG/2.5 ML AMPUL.NEB NEB SCH ×5 (01:30→19:55)
[2018-12-28] MEDS: BACLOFEN (10 MG) 10 MG TABLET GT SCH ×3 (05:17→21:02)
[2018-12-28] MEDS: GABAPENTIN 300 MG CAPSULE GT SCH ×3 (05:18→21:02)
[2018-12-28] MEDS: DEXILANT 30 MG GT SCH (05:18)
[2018-12-28 07:47] VITALS: BP 100/54
[2018-12-28] MEDS: PROSOURCE / PROSTAT (PYXIS) 30 ML UDC GT SCH ×2 (09:00→17:00)
[2018-12-28] MEDS: HYDROGEN PEROXIDE 480 ML BOTTLE TP SCH ×2 (09:00→21:02)
[2018-12-28] MEDS: LISINOPRIL (10MG) 10 MG TABLET GT SCH (09:00)
[2018-12-28] MEDS: CLOPIDOGREL BISULFATE 75 MG TABLET GT SCH (09:00)
[2018-12-28] MEDS: Z GUARD REMEDY 2 OZ OINT TP SCH ×2 (09:00→21:03)
[2018-12-28] MEDS: METHADONE HCL 5 MG TABLET GT SCH ×2 (09:00→17:00)
[2018-12-28] MEDS: METOPROLOL TARTRATE 50 MG TABLET GT SCH ×2 (09:00→21:02)
[2018-12-28] MEDS: DOCUSATE SODIUM 100 MG CAPSULE PO SCH ×3 (09:00→17:00)
[2018-12-28] MEDS: LIPASE/PROTEASE/AMYLASE 1 EACH CAPSULE.DR GT SCH ×3 (09:00→17:00)
[2018-12-28] MEDS: ASCORBIC ACID 500 MG TABLET GT SCH (09:00)
[2018-12-28] MEDS: ASPIRIN 81 MG TAB.CHEW GT SCH (09:00)
[2018-12-28] MEDS: BLOOD SUGAR DIAGNOSTIC 1 EACH STRIP IN SCH ×2 (09:00→17:00)
[2018-12-28] MEDS: DAKINS HALF STRENGTH (0.25%) 480 ML BOTTLE TOP SCH ×2 (09:00→21:02)
[2018-12-28] MEDS: METFORMIN 500 MG TABLET PO SCH ×2 (09:00→17:00)
[2018-12-28] MEDS: ACIDOPHILUS/BULGARICUS 1 EACH TAB.CHEW GT SCH (09:00)
[2018-12-28] MEDS: MULTIVIT W/MINERALS 1 TAB TABLET PO SCH (09:00)
--- NOTE | 2018-12-28 11:23 | NUR ---
Reviewed the list of medications with resident one by one while explaining what is it for. Patient verbalized understanding. Patient received a call from [facility] pharmacist saying that patient's insurance will only cover up to 6 medications per month. As discussed with patient she wanted pharmacy to fill the most expensive medication and will pay out of pocket the remaining prescriptions. Dr. Disla made aware of above. He said to find out from pharmacy which medications are covered and he will review what medications can be consolidated so out of pocket expenses will be at a minimum.
--- NOTE | 2018-12-28 11:47 | NUR ---
Spoke with Robert from [facility] to find out what medications are covered or not. According to Robert they will not be able to find out until they run the list on SundayDecember 30, however per patient's request to fill six of most expensive medication. Will inform Dr. Disla who will drop by later to bring triplicate for Methadone.
[2018-12-28 19:53] VITALS: BP 124/63
[2018-12-28] MEDS: ATORVASTATIN 40 MG TABLET GT SCH (21:02)
[2018-12-28] MEDS: SENNOSIDES 8.6 MG TABLET GT SCH (21:03)
[2018-12-28] MEDS: MONTELUKAST SODIUM (10MG) 10 MG TABLET PO SCH (21:03)
[2018-12-28] MEDS ORDERED: LISI1TAB9 PO (22:24)
[2018-12-28] MEDS ORDERED: METF-440 PO (22:33)
[2018-12-28] MEDS ORDERED: METH5TAB2 PO (22:34)
[2018-12-28] MEDS ORDERED: METOPROLOL (22:39)
[2018-12-28] MEDS ORDERED: DEXL30CA3 PO (22:56)
[2018-12-28] MEDS ORDERED: MONT10TA22 PO (23:10)
[2018-12-28] MEDS ORDERED: MULT1TAB73 PO (23:12)
[2018-12-28] MEDS ORDERED: NITR0.4T48 SL (23:13)
[2018-12-28] MEDS ORDERED: AMIN30LI25 PO (23:15)
[2018-12-28] MEDS ORDERED: SENN-18 PO (23:22)
[2018-12-28] MEDS ORDERED: ACID1TAB12 PO (23:25)
[2018-12-28] MEDS ORDERED: ACET650T10 PO (23:27)
[2018-12-28] MEDS ORDERED: ASCO500T10 PO (23:36)
[2018-12-28] MEDS ORDERED: ASPI-1169 PO (23:38)
[2018-12-28] MEDS ORDERED: ATOR40TA PO (23:40)
[2018-12-28] MEDS ORDERED: BACL10TA PO (23:41)
[2018-12-28] MEDS ORDERED: CLOP75TA15 PO (23:43)
[2018-12-28] MEDS ORDERED: DOCU100C36 PO (23:45)
[2018-12-28] MEDS ORDERED: GABA600T12 PO (23:46)
[2018-12-28] MEDS ORDERED: LIPA1CAP27 PO (23:47)
[2018-12-28] MEDS ORDERED: METO25TA6 PO (23:54)
[2018-12-28] MEDS ORDERED: SIME80TA15 PO (23:56)
[2018-12-29] MEDS ORDERED: SODI480S2 MC
[2018-12-29] MEDS ORDERED: GLIP5TAB13 PO (00:06)
[2018-12-29] MEDS: SIMETHICONE SUSP 40 MG/0.6 ML BOTTLE GT SCH ×2 (00:15→06:19)
[2018-12-29] MEDS: IPRATROPIUM NEB FS 0.5 MG/2.5 ML AMPUL.NEB NEB SCH ×2 (01:31→07:34)
[2018-12-29] MEDS: BACLOFEN (10 MG) 10 MG TABLET GT SCH (05:00)
[2018-12-29] MEDS: GABAPENTIN 300 MG CAPSULE GT SCH (05:00)
[2018-12-29] MEDS: DEXILANT 30 MG GT SCH (06:19)
[2018-12-29 07:21] VITALS: BP 117/69
[2018-12-29] MEDS ORDERED: glipiZIDE 5 MG TABLET PO SCH (09:00)
[2018-12-29] MEDS: METOPROLOL TARTRATE 50 MG TABLET GT SCH (09:42)
[2018-12-29] MEDS: ACIDOPHILUS/BULGARICUS 1 EACH TAB.CHEW GT SCH (09:42)
[2018-12-29] MEDS: ASPIRIN 81 MG TAB.CHEW GT SCH (09:42)
[2018-12-29 09:43] VITALS: BP 117/69
[2018-12-29] MEDS: LIPASE/PROTEASE/AMYLASE 1 EACH CAPSULE.DR GT SCH (09:43)
[2018-12-29] MEDS: LISINOPRIL (10MG) 10 MG TABLET GT SCH (09:43)
[2018-12-29] MEDS: PROSOURCE / PROSTAT (PYXIS) 30 ML UDC GT SCH (09:43)
[2018-12-29] MEDS: METFORMIN 500 MG TABLET PO SCH (09:43)
[2018-12-29] MEDS: ASCORBIC ACID 500 MG TABLET GT SCH (09:43)
[2018-12-29] MEDS: METHADONE HCL 5 MG TABLET GT SCH (09:43)
[2018-12-29] MEDS: MULTIVIT W/MINERALS 1 TAB TABLET PO SCH (09:43)
[2018-12-29] MEDS: CLOPIDOGREL BISULFATE 75 MG TABLET GT SCH (09:43)
[2018-12-29] MEDS: DAKINS HALF STRENGTH (0.25%) 480 ML BOTTLE TOP SCH (09:43)
[2018-12-29] MEDS: DOCUSATE SODIUM 100 MG CAPSULE PO SCH (09:43)
[2018-12-29] MEDS: BLOOD SUGAR DIAGNOSTIC 1 EACH STRIP IN SCH (09:43)
[2018-12-29] MEDS: HYDROGEN PEROXIDE 480 ML BOTTLE TP SCH (09:44)
[2018-12-29] MEDS: Z GUARD REMEDY 2 OZ OINT TP SCH (09:44)
[2018-12-29] MEDS: INSULIN REGULAR, HUMAN 100 UNIT/ML 3 ML VIAL SQ PRN (09:45)
--- NOTE | 2018-12-29 10:35 | NUR ---
Patient discharged to home with her and daughter,patient in her wheelchair, provided health teachings regarding her wound treatment, medication instructions together with methadone prescription. supervisor fur floor worker Maritza valadez provided her instructions regarding all her follow up appointments. Patient verbalized understanding of all health teachings/instructions provided to her. Patient happy that she is going home today.
--- NOTE | 2018-12-29 14:23 | NUR ---
DOMINIC met with patient today and gave her a folder with information dates and times of doctor's appointments, transportation ([facility]), [facility] and home health appointments. SW accompanied patient, her and her down stairs until she entered her car ( which was driven by the ). Patient thanked DOMINIC numerous times and was happy to go home.
--- NOTE | 2018-12-30 14:28 | NUR ---
SW called patient today to follow up and check with her. Patient was crying and said that she is having a hard time to adjust to the house and "thought it was going to be easier". Pt. said that her granddaughter helped her going to the bathroom at 2 AM, and mentioned that the toilet is too low comparing to the one at the hospital. SW suggested patient visit a store specialized in those medical accessories, pt said she will. Pt said she needs to order special boots because her foot hearts, as she feels is harder to walk on carpet as opposed to the tiles on the hopsital floor. DOMINIC validated pt. feelings, empathized and instill hope that pt. will feel better at home as time goes by.
--- NOTE | 2018-12-30 14:28 | NUR ---
[facility] DOMINIC Vásquez called SW today to confirmed that he will be meeting with pt at her home for a needs evaluation.
--- NOTE | 2019-01-02 15:22 | NUR ---
DOMINIC's granddaughter Marlin called SW to inform her that [facility] told them that pt's still show that she is at subacute, therefore, they can't provide services to pt until medical shows the proper code. DOMINIC called [facility] to get more information about this issue. [facility] confirmed that pt Medical still shows pt at [facility]. DOMINIC spoke to Paty Lal in billing dept, who said that medical will be receiving billing soon, which will show the discharge and then updates would be made. DOMINIC communicated this information to pt.
--- NOTE | 2019-01-02 15:30 | NUR ---
SW spoke with pt to follow up. Pt told SW that she is having help daily with wound care, baths, food etc.. Sw instilled hope and praised her for adjusting well to her new life at home.
[2019-01-30] MEDS ORDERED: TUBERCULIN,PURIF.PROT.DERIV. 5 TU/0.1 ML VIAL ID SCH (11:00)
== END 2018-12-29 10:30 | disposition home or self-care (01) | DRG 133 ==
LOC: SA
PROVIDERS: ADMIT Internal Medicine; ATTEND Internal Medicine
PROC: 0JBP0ZZ Excision of Left Lower Leg Subcutaneous Tissue and Fascia, Open Approach (ICD-10-PCS; principal; 2018-10-04)
PROC: 0JBP0ZZ Excision of Left Lower Leg Subcutaneous Tissue and Fascia, Open Approach (ICD-10-PCS; 2018-10-25)
PROC: 0JBP0ZZ Excision of Left Lower Leg Subcutaneous Tissue and Fascia, Open Approach (ICD-10-PCS; 2018-12-06)
DX: J96.11 Chronic respiratory failure with hypoxia (principal); E11.621 Type 2 diabetes mellitus with foot ulcer; Z93.0 Tracheostomy status; I70.261 Atherosclerosis of native arteries of extremities with gangrene, right leg; I11.0 Hypertensive heart disease with heart failure; R13.10 Dysphagia, unspecified; I50.9 Heart failure, unspecified; E11.52 Type 2 diabetes mellitus with diabetic peripheral angiopathy with gangrene; E87.70 Fluid overload, unspecified; L97.819 Non-pressure chronic ulcer of other part of right lower leg with unspecified severity; L97.919 Non-pressure chronic ulcer of unspecified part of right lower leg with unspecified severity; Z93.1 Gastrostomy status; E78.5 Hyperlipidemia, unspecified; I25.2 Old myocardial infarction; G47.00 Insomnia, unspecified; I25.10 Atherosclerotic heart disease of native coronary artery without angina pectoris; K59.00 Constipation, unspecified; N31.9 Neuromuscular dysfunction of bladder, unspecified; Z98.61 Coronary angioplasty status; G89.29 Other chronic pain; R33.9 Retention of urine, unspecified; T50.995A Adverse effect of other drugs, medicaments and biological substances, initial encounter; Y92.199 Unspecified place in other specified residential institution as the place of occurrence of the external cause; M21.372 Foot drop, left foot; M21.371 Foot drop, right foot
CPT/HCPCS: 31720; 36415; 73630-TC; 74018; 80048-TC; 80053-TC; 82962-TC; 85025-TC; 85610-TC; 87081-TC; 93971-TC; 94760-TC; 94799-TC; A4217; A4623; A6253; A6402; A7526; J1815; J3490; Q0163